=== PATIENT | male | born 1945 | race Caucasian/White ===

== ENCOUNTER 2018-07-10 10:17 | Inpatient (IN) | payer MEDICAID ==
[~2018-07-10] VITALS: Ht 182.9 cm; Wt 82.7 kg
[2018-07-10] MEDS ORDERED: KETOROLAC 15 MG INJ IV STA (11:02)
[2018-07-10] MEDS ORDERED: LACTATED RINGER'S 1,000 ML IV STA (11:02)
--- NOTE | 2018-07-10 11:18 | ERD ---
ER Documentation Chief Complaint Chief Complaint LEFT BIG TOE NECROTIC, SEND BY PMD HPI 72-year-old man complains of discoloration and redness around the plantar aspect of the left big toe and dorsal aspect of the left foot. 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 Gaitan. Patient denies vomiting or abdominal pain, no chest pain or shortness of breath. ROS All systems reviewed and are negative except as per history of present illness. Medications Home Meds Reported Medications Fenofibrate, Micronized (Fenofibrate) 134 Mg Capsule, 1 CAP ORAL DAILY 07/10/18 Buspirone Hcl* (Buspirone Hcl*) 10 Mg Tab, 1 TAB ORAL BID 07/10/18 Pioglitazone Hcl* (Pioglitazone Hcl*) 30 Mg Tablet, 1 TAB ORAL DAILY 07/10/18 Glipizide* (Glipizide*) 10 Mg Tablet, 1 TAB ORAL BID 07/10/18 Allergies Allergies: Coded Allergies: aspirin (Verified Allergy, Mild, 07/10/18) PMhx/Soc Peripheral vascular disease Medical and Surgical Hx: pt denies Surgical Hx Hx Alcohol Use: No Hx Substance Use: No Hx Tobacco Use: Yes Smoking Status: Current every day smoker FmHx Family History: No diabetes Physical Exam Vitals Vital Signs Date Temp Pulse Resp B/P (MAP) Pulse Ox O2 O2 Flow FiO2 Time Delivery Rate 07/10/18 70 16 101/81 100 Room Air 11:45 (88) 07/10/18 97.0 98 18 166/84 99 10:23 (111) Physical Exam GENERAL: Well-developed, well-nourished, well-hydrated, in no apparent distress, looks nontoxic in appearance NEURO: Alert and oriented 3, cranial nerves II through XII intact bilaterally, pupils equal round reactive to light, no focal deficits or facial asymmetry, distal pulses weak bilaterally but equal CARDIAC: Regular rate and rhythm, no murmurs rubs or gallops LUNGS: Clear bilaterally no wheezing crackles or stridor ABDOMEN: Soft nontender, no guarding, no rigidity, no rebound, no psoas sign no obturator sign. Normoactive bowel sounds SKIN: Warm and dry to touch, eschar formation and skin erythema to the left hallux and surrounding left foot EXTREMITIES: Patient has dry gangrene and eschar formation to the plantar aspect of the left hallux and surrounding erythematous indurated skin concerning for cellulitis, no purulent discharge noted, right foot unremarkable. PSYCH: Normal affect without agitation or irritability Result Diagram: 07/10/18 1119 07/10/18 1119 Results 24 hrs Laboratory Tests Test 07/10/18 11:19 White Blood Count 8.2 10^3/ul Red Blood Count 4.16 10^6/ul Hemoglobin 12.2 g/dl Hematocrit 37.1 % Mean Corpuscular Volume 89.2 fl Mean Corpuscular Hemoglobin 29.3 pg Mean Corpuscular Hemoglobin Concent 32.9 g/dl Red Cell Distribution Width 12.8 % Platelet Count 330 10^3/UL Mean Platelet Volume 10.1 fl Immature Granulocytes % 0.200 % Neutrophils % 63.7 % Lymphocytes % 26.1 % Monocytes % 7.1 % Eosinophils % 2.2 % Basophils % 0.7 % Nucleated Red Blood Cells % 0.0 /100WBC Immature Granulocytes # 0.020 10^3/ul Neutrophils # 5.2 10^3/ul Lymphocytes # 2.1 10^3/ul Monocytes # 0.6 10^3/ul Eosinophils # 0.2 10^3/ul Basophils # 0.1 10^3/ul Nucleated Red Blood Cells # 0.0 10^3/ul Prothrombin Time 12.7 Sec Prothrombin Time Ratio 1.0 INR International Normalized Ratio 0.94 Activated Partial Thromboplast Time 32.1 Sec Sodium Level 141 mmol/L Potassium Level 5.4 mmol/L Chloride Level 106 mmol/L Carbon Dioxide Level 27 mmol/L Anion Gap 8 Blood Urea Nitrogen 28 mg/dl Creatinine 0.95 mg/dl Est Glomerular Filtrat Rate mL/min > 60 mL/min Glucose Level 125 mg/dl Calcium Level 10.0 mg/dl Current Medications Medications Dose Sig/Marleen Start Time Status Last (Trade) Ordered Route PRN Stop Time Admin Dose Reason Admin Vancomycin 250 ml @ ONCE ONCE 07/10/18 07/10/18 HCl 125 mls/hr IVPB 11:30 07/10/18 12:13 13:29 Piperacillin 100 ml @ ONCE ONCE 07/10/18 DC 07/10/18 Sod/ 200 mls/hr IVPB 11:30 07/10/18 11:32 Tazobactam 11:59 Sod Lactated 1,000 ml @ Q1H STAT 07/10/18 DC 07/10/18 Ringer's 1,000 mls/hr IV 11:02 07/10/18 11:31 12:01 Ketorolac 15 mg ONCE STAT 07/10/18 DC 07/10/18 Tromethamine IV 11:02 07/10/18 11:31 (Toradol) 11:06 Procedures/[facility] IV line was established patient was placed on hall monitor rhythm strip revealed a sinus rhythm at about 80 bpm with upright P and T waves. Patient was afebrile. Wound culture was obtained. I administered 1 L LR IV x1, vancomycin 1 g IV, Zosyn 3.375 g IV. Patient also received Toradol 15 mg IV x1 Chest X-ray 1V Interpreted by me: Soft Tissue: No acute abnormalities Bones: No acute abnormalities Mediastinum/Cardiac Silhouette/Lungs: No acute abnormalities X-ray left foot 3V Interpreted by me: Bones: No fracture Joints: No dislocation Foreign body: None CBC is unremarkable, electrolytes revealed dehydration and mild hyperkalemia, coagulation profile unremarkable patient admitted to [facility] Diagnosis: Primary Impression: Peripheral vascular disease Additional Impressions: Cellulitis of foot Toe gangrene Condition: IRMA Driscoll MD July 10, 2018 11:18
[2018-07-10] MEDS ORDERED: PIPER-TAZO 3.375 GM IV (PMX) 100 ML IVPB ONE (11:30)
[2018-07-10] MEDS ORDERED: VANCOMYCIN 1 GM (PMX) 250 ML IVPB ONE (11:30)
[2018-07-10] MEDS ORDERED: GLIP10TA14 ORAL (12:26)
[2018-07-10] MEDS ORDERED: PIOG30TA71 ORAL (12:26)
[2018-07-10] MEDS ORDERED: FENO134C ORAL (12:26)
[2018-07-10] MEDS ORDERED: BUSP10TA2 ORAL (12:26)
[2018-07-10] MEDS ORDERED: ONDANSETRON 4 MG INJ IV PRN (14:30)
[2018-07-10] MEDS ORDERED: ACETAMINOPHEN 325 MG TAB PO PRN (14:30)
[2018-07-10] MEDS ORDERED: NACL 0.9% 3 ML SYG IV SCH (14:30)
[2018-07-10] MEDS ORDERED: VANCOMYCIN IV PER PHARMACY XX SCH (14:30)
[2018-07-10] MEDS ORDERED: NA POLYST SULFON 15 GM/60 ML BTL PO ONE (14:30)
--- NOTE | 2018-07-10 14:41 | HP ---
Date/Time of Note Date/Time of Note DATE: 07/10/18 TIME: 14:33 Assessment/Plan VTE Prophylaxis SCD applied (from Nsg): Yes Pharmacological prophylaxis: LMWH Lines/Catheters IV Catheter Type (from Nrsg): Saline Lock Assessment/Plan Hospital Course SUBJECTIVE: Patient with no pain on left foot. No complaints OBJECTIVE: Vital signs-see below PHYSICAL EXAM: Constitutional: Adequately built,not in acute distress. HEENT: Head atraumatic and normocephalic. Eyes: Extraocular muscles intact. Anicteric sclerae. Pupils equal bilaterally, reactive to light. NECK: Supple without lymph node. CHEST: Clear and good breath sounds equally. No wheezing. No rhonchi. HEART: S1, S2. Regular rate and rhythm. ABDOMEN: Soft/non tender with no rebound tenderness. Bowel sounds were present. EXTREMITIES:Left 1st toe dry gangrene.Surrounding dorsal foot area w/erythema/swelling/tenderness. No DP/PT pulse appreciated on left. NEUROLOGIC: Alert and oriented x3. No focal deficit. No sensory deficit. PSYCHOSOCIAL: No signs of depression. INTEGUMENTARY: No open wounds. ASSESSMENT AND PLAN:72 yo M w/hx of triglyceridemia, peripheral vascular disease, type 2 diabetes, anxiety/depression, long-standing tobacco use 1 pack/day was told by his doctor to get admitted for inpatient vascular/podiatry work-up for worsening cellulitis with left toe gangrene... Left foot cellulitis -No evidence to suggest sepsis. -IV vancomycin -ID to manage antimicrobial -Glycemic control/Wound care PAD with left first toe dry gangrene -Onset ~2 mos -MRI to rule out OM -Arterial/venous studies -Podiatry/vascular consult -Continue to optimize neurovascular status with antihypertensives to keep blood pressure ~140/90, diet, nutrition, exercise, blood glucose control, and antiplatelets/anticoagulation. Hyperkalemia -We will treat this with a dose of Kayexalate and will monitor potassium level. -No EKG changes DMII -A1C -Basal/bolus insulin Triglyceridemia -Resume Tricor -Lipid panel-consider addition of statin Anxiety/depression -Resume Buspar Tobacco abuse -Cessation advised. We will provide nicotine patch for withdrawal. Chronic anemia -Stable H&H. Monitor DVT prophylaxis: Lovenox PUD prophylaxis: Not indicated CODE STATUS: Full code Diet: Carbohydrate controlled/low-cholesterol diet. Rest of the management depend on hospital course. Approximately 60 m spent on this history and physical. Patient was seen in collaboration with Dr. Villalpando. Result Diagram: 07/10/18 1119 07/10/18 1119 Results 24hrs Laboratory Tests Test 07/10/18 11:19 White Blood Count 8.2 Red Blood Count 4.16 L Hemoglobin 12.2 L Hematocrit 37.1 L Mean Corpuscular Volume 89.2 Mean Corpuscular Hemoglobin 29.3 Mean Corpuscular Hemoglobin Concent 32.9 Red Cell Distribution Width 12.8 Platelet Count 330 Mean Platelet Volume 10.1 Immature Granulocytes % 0.200 Neutrophils % 63.7 Lymphocytes % 26.1 Monocytes % 7.1 Eosinophils % 2.2 Basophils % 0.7 Nucleated Red Blood Cells % 0.0 Immature Granulocytes # 0.020 Neutrophils # 5.2 Lymphocytes # 2.1 Monocytes # 0.6 Eosinophils # 0.2 Basophils # 0.1 Nucleated Red Blood Cells # 0.0 Prothrombin Time 12.7 Prothrombin Time Ratio 1.0 INR International Normalized Ratio 0.94 Activated Partial Thromboplast Time 32.1 Sodium Level 141 Potassium Level 5.4 H Chloride Level 106 Carbon Dioxide Level 27 Anion Gap 8 Blood Urea Nitrogen 28 H Creatinine 0.95 Est Glomerular Filtrat Rate mL/min > 60 Glucose Level 125 Calcium Level 10.0 HPI/ROS Admit Date/Time Admit Date/Time Hx of Present Illness 72-year-old male with a history of triglyceridemia, peripheral vascular disease 1/left first toe gangrene, type 2 diabetes, anxiety/depression, long-standing tobacco use 1 pack/day was told by his doctor to get admitted for inpatient vascular/podiatry work-up for worsening cellulitis with left toe gangrene. Apparently, patient has been having this toe gangrene for approximately 2months now developed increased redness on dorsal foot with pain. He denied fever, ch ills, numbness, tingling. Patient also denied chest pain, palpitation, shortness of breath, nausea, vomiting, abdominal pain, loss of consciousness, dizziness, headache or other constitutional symptoms. Upon arrival, patient labs with no white count elevation, no left shift. Potassium 5.4. Vital signs stable except for initial elevated blood pressure 166/84 which then dropped to 101/81. Patient had left foot x-ray which was unremarkable. He was given Zosyn and vancomycin in the emergency room. ROS A 12 point review of system was assessed and is negative other than what is mentioned in the HPI. PMH/Family/Social Past Medical History See HPI Medications Current Medications Miscellaneous Information 1 cap DAILY ORAL ; Start 07/11/18 at 09:00; Status UNV Buspirone HCl (Buspar) 10 mg BID PO ; Start 07/10/18 at 21:00; Status UNV Coded Allergies: aspirin (Verified Allergy, Mild, VOMITING, 01/27/09) Past Surgical History See HPI Social History Current every day smoker 1 pack/day, no alcohol/substance abuse history. Smoking Status: Current every day smoker Exam/Review of Systems Vital Signs Vitals Vital Signs Date Temp Pulse Resp B/P (MAP) Pulse Ox O2 O2 Flow FiO2 Time Delivery Rate 07/10/18 67 17 138/69 100 Room Air 13:45 (92) 07/10/18 97.0 10:23 EDDIE PITTMAN NP July 10, 2018 14:41
[2018-07-10] MEDS ORDERED: SODIUM POLYSTYRENE 15 GM KIT (POWDER + SORBITOL) PO ONE (15:00)
--- NOTE | 2018-07-10 16:48 | CONS ---
DATE OF ADMISSION: 07/10/2018 DATE OF CONSULTATION: 07/10/2018 TYPE OF CONSULTATION: Infectious disease. REASON FOR CONSULTATION: Antibiotic management. HISTORY OF PRESENT ILLNESS: Roman Jones is a 72-year-old male who comes in and sent in by his PM D for necrotic left big toe. The patient complained of discoloration and redness around the plantar aspect of the left big toe on the dorsal aspect of left foot. He was on oral antibiotics without rel ief. 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 Tejal ventura, vascular surgeon. PAST MEDICAL HISTORY: The patient has peripheral vascular disease. He denies surgical history. Pro blems include adult onset diabetes mellitus. SOCIAL HISTORY: He is an everyday smoker. He does not drink or abuse drugs. ALLERGIES: ASPIRIN. MEDICATIONS: Per chart. REVIEW OF SYSTEMS: Noncontributory. PHYSICAL EXAMINATION: GENERAL: Well-developed, well-nourished male who is awake, responsive, in no acute distress. VITAL SIGNS: Stable. He is afebrile. SKIN: Without generalized rash. HEENT: Within normal limits. NECK: Supple. LYMPH NODES: None palpable. CHEST: Decreased breath sounds at the bases. HEART: Without murmur or gallop. ABDOMEN: Soft, nontender without organosplenomegaly or masses. EXTREMITIES: He has an eschar formation, skin erythema of the left hallux and surrounding left foot. He has dry gangrene and eschar formation on the plantar aspect of the left hallux. It is indurated consistent with cellulitis. No purulent discharge noted. Right foot is unremarkable. RECTAL AND GENITAL: Deferred. NEUROLOGIC: No focal neurological abnormality. ANCILLARY LABORATORY DATA: White count 8.2, H and H of 12.2 and 37.1, platelet count 330,000. BUN a nd creatinine is 28/0.95. The patient was started on vancomycin and Zosyn. DIAGNOSTIC DATA: X-ray of the foot shows no fractures or dislocations. IMPRESSION AND PLAN: We will continue vancomycin and Zosyn. The patient is to be evaluated by Dr. Omer messina. I will dictate my findings to the hospitalist. He should be seen by podiatry as well. Dictated By: CATRACHITA LOPEZ MD, JD/BERENICE Conf#: [id number] [facility]#: [id number] CC: DAGOBERTO BRANNON MD; ALEXANDER LUND MD;*End*
[2018-07-10 17:00] VITALS: BP 153/67; PULSE 69; RESP 16
[2018-07-10] MEDS: INSULIN ASPART [NOVOLOG] 3 ML PEN SC SCH ×2 (17:40→20:46)
[2018-07-10 17:57] VITALS: BP 153/67; PULSE 69; RESP 18
--- NOTE | 2018-07-10 18:49 | CONS ---
DATE OF ADMISSION: 07/10/2018 DATE OF CONSULTATION: 07/10/2018 REASON FOR CONSULTATION: Left 1st toe dry gangrene. HISTORY OF PRESENT ILLNESS: This is a 72-year-old diabetic hypertensive gentleman. He is a pack a d ay smoker for many years, who developed now dry gangrene of the left 1st toe. It started 3 months ag o. He cut his toenail a little too close and developed an ulcer that he has gone on to progress to g angrene despite ongoing wound care. He was sent by his performing artist, Dr. Castillo, to the ER for furthe r evaluation. He has never had any previous problems with his feet. He does not have any history of coronary artery disease. His kidneys function is normal. He does have a lot of pain in the 1st toe . He is still smoking a pack a day every day. PAST MEDICAL HISTORY: Again, significant for diabetes type 2, smoking and anxiety. He has hypertrig lyceridemia, peripheral arterial disease. He has chronic anemia. MEDICATIONS PRIOR TO ADMISSION: Consist of BuSpar. He is now gettin. TriCor. 2. Subcutaneous Lovenox. 3. Insulin. 4. Kayexalate for elevated potassium. 5. Little Silver. 6. Vancomycin. 7. Zosyn. ALLERGIES: SOCIAL HISTORY: He is a pack a day smoker for many years. He is retired. 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 He started the process of getting Medi-Pilo a nd has not been completed it yet. FAMILY HISTORY: Noncontributory. REVIEW OF SYSTEMS: He denies any chest pain or shortness of breath. No nausea, vomiting, diarrhea. No fever, no chills, no recent weight gain or weight loss. He does have calf claudication that is c hronic. He has pain in the left 1st toe. PHYSICAL EXAMINATION: GENERAL: He is an elderly gentleman. He speaks Jordanian, but his Italian is excellent. He is fluent. VITAL SIGNS: He has been afebrile. His blood pressure is 111/74, heart rate 71, respiratory rate is 14, he is 100% sat on room air. PERIPHERAL VASCULAR: He has 2+ carotid, radial and brachial pulses bilaterally. LUNGS: Clear. HEART: Regular rate and rhythm. ABDOMEN: Soft, nontender, nondistended. EXTREMITIES: He has 2+ femoral pulses bilaterally. Popliteal, DP and PT pulses are not palpable. O n right foot, there are no wounds. Actually, he has got is a small ulcer on the tip of the right 2nd toe. It looks like the toenail came off from fungal infection. It is not draining and there is no sign of infection. On left first toe, the tip just has dry gangrene. There is no erythema. More pr oximally, there is no drainage. He is in the process of getting some arterial studies. While watching the study, there appears he metcalf s high-grade left SFA stenosis. The runoff has not been evaluated yet, so he is not quite done with the test yet. LABORATORY DATA: Look normal. He got normal kidney function, normal coags, normal white count. IMPRESSION: Left 1st toe dry gangrene. It progressed over the last 3 months. He has been admitted. Dr. Breaux has seen him from podiatry standpoint. I scheduled him for an arteriogram of the lef t lower extremity with possible intervention tomorrow. I discussed that with him at length. I am go ing to go ahead and proceed and see what we can do to revascularize him. Dictated By: DAGOBERTO ALTMAN/BERENICE Conf#: [id number] [facility]#: [id number] CC: BRAN CASTILLO DPM; LUIS FERNANDO BREAUX DPM; EDDIE PITTMAN LEATHER [employer] MAKER; JP ADAMS MD;*EndCC*
[2018-07-10 20:21] VITALS: BP 150/67; PULSE 80; RESP 18
[2018-07-10] MEDS: VANCOMYCIN 1 GM 250 ML IVPB SCH (20:39)
[2018-07-10] MEDS: BUSPIRONE 10 MG TAB PO SCH (20:46)
[2018-07-10] MEDS: INSULIN GLARGINE [LANTus] (100 UNITS/ML) SYG SC SCH (20:48)
--- NOTE | 2018-07-10 21:43 | CONS ---
Assessment/Plan Assessment/Plan Assessment/Plan (Daily) Left foot dry gangrene Left foot cellulitis PAD DM2 with peripheral neuropathy Nicotine dependence Plan Reviewed X-rays and arterial studies. Patient is planned for angiogram tomorrow and had discussion with Dr. Dockery. No plan for debridements at this time. Discussed smoking cessation and educated patient on adverse effects of blood flow. Continue with IV abx per recommendations. Betadine paint to the gangrene area. Consultation Date/Type/Reason Admit Date/Time Date/Time of Note DATE: 07/10/18 TIME: 21:43 Hx of Present Illness 72 y/o diabetic male with long time smoking hx presents with a left hallux gangrene. Patient states it started a couple months ago as he was attempting to cut his own toe nails and accidently cut his toe with the nail nipper. Patient had attempted to treat it with topical antibiotic cream. Patient noticed worsening gangrene appearance and redness to the surrounding toe. Patient denies f/c/n/v no chest pain or shortness of breath. ROS Negative except for HPI Past Medical History triglyceridemia, peripheral vascular disease 1/left first toe gangrene, type 2 diabetes, anxiety/depression, long-standing tobacco use 1 pack/day Home Meds Reported Medications Fenofibrate, Micronized (Fenofibrate) 134 Mg Capsule, 1 CAP ORAL DAILY 07/10/18 Buspirone Hcl* (Buspirone Hcl*) 10 Mg Tab, 1 TAB ORAL BID 07/10/18 Pioglitazone Hcl* (Pioglitazone Hcl*) 30 Mg Tablet, 1 TAB ORAL DAILY 07/10/18 Glipizide* (Glipizide*) 10 Mg Tablet, 1 TAB ORAL BID 07/10/18 Medications Current Medications Fenofibrate (Tricor) 145 mg DAILY PO ; Start 07/11/18 at 09:00 Buspirone HCl (Buspar) 10 mg BID PO Last administered on 07/10/18at 20:46; Admin Dose 10 MG; Start 07/10/18 at 21:00 IV Flush (NS 3 ml) 3 ml PER PROTOCOL IV ; Start 07/10/18 at 14:30 Ondansetron HCl (Zofran Inj) 4 mg Q6H PRN IV NAUSEA/VOMITING; Start 07/10/18 at 14:30 Acetaminophen (Tylenol Tab) 650 mg Q6H PRN PO .PAIN 1-3 OR TEMP; Start 07/10/18 at 14:30 Acetaminophen/ Hydrocodone Bitart ([place] (5/325)) 1 tab Q6H PRN PO .MOD PAIN 4-6; Start 07/10/18 at 14:30 Enoxaparin Sodium (Lovenox) 40 mg DAILY SC ; Start 07/11/18 at 09:00 Diagnostic Test (Pha) (Accu-Chek) 1 XX ; Start 07/11/18 at 02:00 Insulin Glargine (Lantus) 12 units DAILY@2000 SC Last administered on 07/10/18at 20:48; Admin Dose 12 UNITS; Start 07/10/18 at 20:00 Insulin Aspart (Novolog Insulin Pen) NOVOLOG *MILD* ALGORITHM WITH MEALS BEDTIME SC ; Start 07/10/18 at 18:00 Vancomycin HCl (Vanco Iv Per Pharmacy) VANCOMYCIN PER PHARMACY PER PROTOCOL XX ; Start 07/10/18 at 14:30 Vancomycin HCl 250 ml @ 125 mls/hr Q12H IVPB Last administered on 07/10/18at 20:39; Admin Dose 125 MLS/HR; Start 07/10/18 at 20:00 Allergies: Coded Allergies: aspirin (Verified Allergy, Mild, VOMITING, 01/27/09) Past Surgical History kidney stone removal Family History Significant Family History: diabetes Social History Smoking Status: Current every day smoker Exam/Review of Systems Exam Vitals Vital Signs Date Temp Pulse Resp B/P (MAP) Pulse Ox O2 O2 Flow FiO2 Time Delivery Rate 07/10/18 98.1 80 18 150/67 96 Room Air 20:21 (94) Exam Non Non palpable DP/PT pulses absent protective sensations right 2nd digit dry hypkeratotic lesion with underlying mycotic toe nail Left hallux dry gangrene with surrounding erythema Left lateral malleolus dry eschar Muscle strength 5/5 in all compartments of the foot Mild pain on palpation to left hallux gangrene site. Foot X-ray IMPRESSION: Unremarkable left foot x-ray series. In the setting of suspected infection, MRI is recommended to exclude osteomyelitis. Non invasive Arterial studies IMPRESSION: Patent left lower extremity arteries with no arterial occlusion identified. Elevated peak systolic velocity in the mid superficial femoral artery, consistent with a greater than 75% stenosis. There are monophasic waveforms in the arteries beyond this point, indicating diminished inflow due to the upstream stenosis. Results Result Diagram: 07/10/18 1119 07/10/18 1119 Results 24hrs Laboratory Tests Test 07/10/18 11:19 07/10/18 17:39 07/10/18 20:45 White Blood Count 8.2 Red Blood Count 4.16 L Hemoglobin 12.2 L Hematocrit 37.1 L Mean Corpuscular Volume 89.2 Mean Corpuscular Hemoglobin 29.3 Mean Corpuscular Hemoglobin Concent 32.9 Red Cell Distribution Width 12.8 Platelet Count 330 Mean Platelet Volume 10.1 Immature Granulocytes % 0.200 Neutrophils % 63.7 Lymphocytes % 26.1 Monocytes % 7.1 Eosinophils % 2.2 Basophils % 0.7 Nucleated Red Blood Cells % 0.0 Immature Granulocytes # 0.020 Neutrophils # 5.2 Lymphocytes # 2.1 Monocytes # 0.6 Eosinophils # 0.2 Basophils # 0.1 Nucleated Red Blood Cells # 0.0 Prothrombin Time 12.7 Prothrombin Time Ratio 1.0 INR International Normalized Ratio 0.94 Activated Partial Thromboplast Time 32.1 Sodium Level 141 Potassium Level 5.4 H Chloride Level 106 Carbon Dioxide Level 27 Anion Gap 8 Blood Urea Nitrogen 28 H Creatinine 0.95 Est Glomerular Filtrat Rate mL/min > 60 Glucose Level 125 Calcium Level 10.0 Bedside Glucose 96 143 Medications Medication Current Medications Fenofibrate (Tricor) 145 mg DAILY PO ; Start 07/11/18 at 09:00 Buspirone HCl (Buspar) 10 mg BID PO Last administered on 07/10/18at 20:46; Admin Dose 10 MG; Start 07/10/18 at 21:00 IV Flush (NS 3 ml) 3 ml PER PROTOCOL IV ; Start 07/10/18 at 14:30 Ondansetron HCl (Zofran Inj) 4 mg Q6H PRN IV NAUSEA/VOMITING; Start 07/10/18 at 14:30 Acetaminophen (Tylenol Tab) 650 mg Q6H PRN PO .PAIN 1-3 OR TEMP; Start 07/10/18 at 14:30 Acetaminophen/ Hydrocodone Bitart ([place] (5/325)) 1 tab Q6H PRN PO .MOD PAIN 4- 6; Start 07/10/18 at 14:30 Enoxaparin Sodium (Lovenox) 40 mg DAILY SC ; Start 5/9/19 at 09:00 Diagnostic Test (Pha) (Accu-Chek) XX ; Start 07/11/18 at 02:00 Insulin Glargine (Lantus) 12 units DAILY@2000 SC Last administered on 07/10/18at 20:48; Admin Dose 12 UNITS; Start 07/10/18 at 20:00 Insulin Aspart (Novolog Insulin Pen) NOVOLOG *MILD* ALGORITHM WITH MEALS BEDTIME SC ; Start 07/10/18 at 18:00 Vancomycin HCl (Vanco Iv Per Pharmacy) VANCOMYCIN PER PHARMACY PER PROTOCOL XX ; Start 07/10/18 at 14:30 Vancomycin HCl 250 ml @ 125 mls/hr Q12H IVPB Last administered on 07/10/18at 20:39; Admin Dose 125 MLS/HR; Start 07/10/18 at 20:00 LUIS FERNANDO BREAUX DPM July 10, 2018 21:43
[2018-07-11] VITALS (17 sets, daily range): BP systolic 122–167; BP diastolic 50–91; PULSE 65–72; RESP 9–32
[2018-07-11] MEDS ORDERED: ACCU-CHEK XX SCH (02:00)
[2018-07-11] MEDS ORDERED: GLUCOSE GEL 15 GRAM TUBE PO PRN ×2 (06:45)
[2018-07-11] MEDS ORDERED: DEXTROSE 50% 50 ML SYRINGE IV PRN ×2 (06:45)
[2018-07-11] MEDS ORDERED: GLUCAGON 1 MG INJ IM PRN (06:45)
[2018-07-11] MEDS ORDERED: GLUCOSE GEL 15 GRAM TUBE BUCCAL PRN (06:45)
[2018-07-11] MEDS: BUSPIRONE 10 MG TAB PO SCH ×2 (08:05→21:16)
[2018-07-11] MEDS: ENOXAPARIN 40 MG/0.4 ML SYG SC SCH (08:05)
[2018-07-11] MEDS: FENOFIBRATE 145 MG TAB PO SCH (08:05)
[2018-07-11] MEDS: INSULIN ASPART [NOVOLOG] 3 ML PEN SC SCH ×4 (08:09→21:36)
[2018-07-11] MEDS: VANCOMYCIN 1 GM 250 ML IVPB SCH ×2 (08:28→21:16)
[2018-07-11] MEDS: NICOTINE (21 MG/24 HR) PATCH TRANSDERM SCH (08:28)
--- NOTE | 2018-07-11 11:13 | PN ---
Date/Time of Note Date/Time of Note DATE: 07/11/18 TIME: 11:05 Assessment/Plan VTE Prophylaxis Risk score (from Ns)>0 risk: 2 SCD applied (from Ns): No SCD contraindicated: other Pharmacological prophylaxis: LMWH Lines/Catheters IV Catheter Type (from [facility]): [place] Assessment/Plan Hospital Course SUBJECTIVE: No complaints OBJECTIVE: Vital signs-see below PHYSICAL EXAM: Constitutional: Adequately built,not in acute distress. HEENT: Head atraumatic and normocephalic. Eyes: Extraocular muscles intact. Anicteric sclerae. Pupils equal bilaterally, reactive to light. NECK: Supple without lymph node. CHEST: Clear and good breath sounds equally. No wheezing. No rhonchi. HEART: S1, S2. Regular rate and rhythm. ABDOMEN: Soft/non tender with no rebound tenderness. Bowel sounds were present. EXTREMITIES:Left 1st toe dry gangrene.Surrounding dorsal foot area w/erythema/swelling/tenderness. No DP/PT palpable pulse. NEUROLOGIC: Alert and oriented x3. No focal deficit. No sensory deficit. PSYCHOSOCIAL: No signs of depression. INTEGUMENTARY: No open wounds. ASSESSMENT AND PLAN:72 yo M w/hx of triglyceridemia, peripheral vascular disease, type 2 diabetes, anxiety/depression, long-standing tobacco use 1 pack/day was told by his doctor to get admitted for inpatient vascular/podiatry work-up for worsening cellulitis with left toe gangrene... Left foot cellulitis -No evidence to suggest sepsis. 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 -IV abx-would need it for correction if no amputation happens -follow Podiatry/vascular consult -Continue to optimize neurovascular status with antihypertensives to keep blood pressure ~140/90, diet, nutrition, exercise, blood glucose control, and antiplatelets/anticoagulation. Hyperkalemia -We will treat this with a dose of Kayexalate and will monitor potassium level. -No EKG changes DMII -well-controlled -Basal/bolus insulin Triglyceridemia -on Tricor Anxiety/depression -on Buspar Tobacco abuse -Cessation advised. PRN nicotine patch for withdrawal. Chronic anemia -Stable H&H. Monitor DVT prophylaxis: Lovenox PUD prophylaxis: Not indicated CODE STATUS: Full code Diet: Carbohydrate controlled/low-cholesterol diet. Disp:F/u vascular/Podiatry recs. Patient was seen in collaboration with Dr. Villalpando. Result Diagram: 07/11/18 0614 07/11/18 0614 Results 24hrs Laboratory Tests Test 07/10/18 11:19 07/10/18 17:39 07/10/18 20:45 07/11/18 06:14 White Blood Count 8.2 6.6 Red Blood Count 4.16 L 3.73 L Hemoglobin 12.2 L 11.1 L Hematocrit 37.1 L 32.9 L Mean Corpuscular Volume 89.2 88.2 Mean Corpuscular 29.3 29.8 Hemoglobin Mean Corpuscular 32.9 33.7 Hemoglobin Concent Red Cell Distribution 12.8 12.6 Width Platelet Count 330 285 Mean Platelet Volume 10.1 9.2 Immature Granulocytes % 0.200 0.300 Neutrophils % 63.7 54.7 Lymphocytes % 26.1 31.1 Monocytes % 7.1 9.0 Eosinophils % 2.2 4.1 Basophils % 0.7 0.8 Nucleated Red Blood 0.0 0.0 Cells % Immature Granulocytes # 0.020 0.020 Neutrophils # 5.2 3.6 Lymphocytes # 2.1 2.0 Monocytes # 0.6 0.6 Eosinophils # 0.2 0.3 Basophils # 0.1 0.1 Nucleated Red Blood 0.0 0.0 Cells # Prothrombin Time 12.7 Prothrombin Time Ratio 1.0 INR International 0.94 Normalized Ratio Activated 32.1 Partial Thromboplast Time Sodium Level 141 142 Potassium Level 5.4 H 3.5 Chloride Level 106 108 Carbon Dioxide Level 27 25 Anion Gap 8 9 Blood Urea Nitrogen 28 H 31 H Creatinine 0.95 0.92 Est Glomerular Filtrat > 60 > 60 Rate mL/min Glucose Level 125 80 # Calcium Level 10.0 9.4 Bedside Glucose 96 143 Hemoglobin A1c 6.4 H Phosphorus Level 3.7 Magnesium Level 1.9 Total Bilirubin 0.2 Direct Bilirubin 0.00 Indirect Bilirubin 0.2 Aspartate Amino 19 Transf (AST/SGOT) Alanine 9 L Aminotransferase (ALT/SG PT) Alkaline Phosphatase 37 L Total Protein 6.5 Albumin 3.6 Globulin 2.90 Albumin/Globulin Ratio 1.24 Triglycerides Level 146 Cholesterol Level 154 LDL Cholesterol, 101 Calculated HDL Cholesterol 24 L Cholesterol/HDL Ratio 6.4 Test 07/11/18 08:07 Bedside Glucose 86 Exam/Review of Systems Exam Vitals Vital Signs Date Temp Pulse Resp B/P (MAP) Pulse Ox O2 O2 Flow FiO2 Time Delivery Rate 07/11/18 98.1 66 18 141/65 99 02:01 (90) 07/10/18 Room Air 20:21 Intake and Output 07/10/18 07/10/18 07/11/18 1515:00 23:00 07:00 IntakeIntake Total 1100 ml 300 ml 550 ml BalanceBalance 1100 ml 300 ml 550 ml Results Results 24hrs Laboratory Tests Test 07/10/18 11:19 07/10/18 17:39 07/10/18 20:45 07/11/18 06:14 White Blood Count 8.2 6.6 Red Blood Count 4.16 L 3.73 L Hemoglobin 12.2 L 11.1 L Hematocrit 37.1 L 32.9 L Mean Corpuscular Volume 89.2 88.2 Mean Corpuscular 29.3 29.8 Hemoglobin Mean Corpuscular 32.9 33.7 Hemoglobin Concent Red Cell Distribution 12.8 12.6 Width Platelet Count 330 285 Mean Platelet Volume 10.1 9.2 Immature Granulocytes % 0.200 0.300 Neutrophils % 63.7 54.7 Lymphocytes % 26.1 31.1 Monocytes % 7.1 9.0 Eosinophils % 2.2 4.1 Basophils % 0.7 0.8 Nucleated Red Blood 0.0 0.0 Cells % Immature Granulocytes # 0.020 0.020 Neutrophils # 5.2 3.6 Lymphocytes # 2.1 2.0 Monocytes # 0.6 0.6 Eosinophils # 0.2 0.3 Basophils # 0.1 0.1 Nucleated Red Blood 0.0 0.0 Cells # Prothrombin Time 12.7 Prothrombin Time Ratio 1.0 INR International 0.94 Normalized Ratio Activated 32.1 Partial Thromboplast Time Sodium Level 141 142 Potassium Level 5.4 H 3.5 Chloride Level 106 108 Carbon Dioxide Level 27 25 Anion Gap 8 9 Blood Urea Nitrogen 28 H 31 H Creatinine 0.95 0.92 Est Glomerular Filtrat > 60 > 60 Rate mL/min Glucose Level 125 80 # Calcium Level 10.0 9.4 Bedside Glucose 96 143 Hemoglobin A1c 6.4 H Phosphorus Level 3.7 Magnesium Level 1.9 Total Bilirubin 0.2 Direct Bilirubin 0.00 Indirect Bilirubin 0.2 Aspartate Amino 19 Transf (AST/SGOT) Alanine 9 L Aminotransferase (ALT/SG PT) Alkaline Phosphatase 37 L Total Protein 6.5 Albumin 3.6 Globulin 2.90 Albumin/Globulin Ratio 1.24 Triglycerides Level 146 Cholesterol Level 154 LDL Cholesterol, 101 Calculated HDL Cholesterol 24 L Cholesterol/HDL Ratio 6.4 Test 07/11/18 08:07 Bedside Glucose 86 Medications Medication Current Medications Fenofibrate (Tricor) 145 mg DAILY PO ; Start 07/11/18 at 09:00 Buspirone HCl (Buspar) 10 mg BID PO Last administered on 07/10/18at 20:46; Admin Dose 10 MG; Start 07/10/18 at 21:00 IV Flush (NS 3 ml) 3 ml PER PROTOCOL IV ; Start 07/10/18 at 14:30 Ondansetron HCl (Zofran Inj) 4 mg Q6H PRN IV NAUSEA/VOMITING; Start 07/10/18 at 14:30 Acetaminophen (Tylenol Tab) 650 mg Q6H PRN PO .PAIN 1-3 OR TEMP; Start 07/10/18 at 14:30 Acetaminophen/ Hydrocodone Bitart ([place] (5/325)) 1 tab Q6H PRN PO .MOD PAIN 4- 6; Start 07/10/18 at 14:30 Enoxaparin Sodium (Lovenox) 40 mg DAILY SC ; Start 07/11/18 at 09:00 Insulin Glargine (Lantus) 12 units DAILY@2000 SC Last administered on 07/10/18at 20:48; Admin Dose 12 UNITS; Start 07/10/18 at 20:00 Vancomycin HCl (Vanco Iv Per Pharmacy) VANCOMYCIN PER PHARMACY PER PROTOCOL XX ; Start 07/10/18 at 14:30 Vancomycin HCl 250 ml @ 125 mls/hr Q12H IVPB Last administered on 07/11/18at 08:28; Admin Dose 125 MLS/HR; Start 07/10/18 at 20:00 Nicotine (Nicoderm 21 Mg/ 24hr) 1 patch DAILY TRANSDERM Last administered on 07/11/18at 08:28; Admin Dose 1 PATCH; Start 07/11/18 at 09:00 Insulin Aspart (Novolog Insulin Pen) NOVOLOG *MILD* ALGORI... Q4 SC ; Start 07/11/18 at 09:00 Miscellaneous Information 1 ea NOTE XX ; Start 07/11/18 at 06:45 Glucose (Glutose) 15 gm Q15M PRN PO DECREASED GLUCOSE; Start 07/11/18 at 06:45 Glucose (Glutose) 22.5 gm Q15M PRN PO DECREASED GLUCOSE; Start 07/11/18 at 06:45 Dextrose (D50w Syringe) 25 ml Q15M PRN IV DECREASED GLUCOSE; Start 07/11/18 at 06:45 Dextrose (D50w Syringe) 50 ml Q15M PRN IV DECREASED GLUCOSE; Start 07/11/18 at 06:45 Glucagon (Glucagen) 1 mg Q15M PRN IM DECREASED GLUCOSE; Start 07/11/18 at 06:45 Glucose (Glutose) 15 gm Q15M PRN BUCCAL DECREASED GLUCOSE; Start 07/11/18 at 06:45 EDDIE PITTMAN NP July 11, 2018 11:13
[2018-07-11] MEDS ORDERED: NICOTINE (14 MG/24 HR) PATCH TRANSDERM SCH (11:30)
--- NOTE | 2018-07-11 13:02 | CONS ---
DATE OF ADMISSION: 07/10/2018 DATE OF CONSULTATION: 07/11/2018 SUBJECTIVE FINDINGS: The patient being followed up for his left foot, his cellulitis and dry gangren e of distal aspect of the toe. He is scheduled for angiogram and possible intervention today. The p atient is currently on p.o. The patient relates smoking a pack every day. PAST MEDICAL HISTORY: 1. Diabetes type 2. 2. Tobacco use, anxiety. 3. Hyperglycemia. 4. Peripheral arterial disease. 5. Chronic anemia. MEDICATIONS: Include: 1. Vancomycin. 2. Zosyn. PHYSICAL EXAMINATION: GENERAL: Alert, oriented, in no acute distress. RESPIRATORY: Regular respiration. EXTREMITIES: The patient's left foot gangrene of distal tip, left hallux unstageable, involves a por tion below the nail plate, dry scaly skin, epidermolysis of skin, cellulitis localized, possible terence a to the adjacent toes. Cellulitis appears to be resolving. He has cutaneous ulceration to the left lateral malleolus measuring approximately 1 cm in diameter. Pain with palpation to the left hallux. DIAGNOSTIC DATA: X-rays: No fracture or dislocation, periostitis or osteochondral defects. MRI: 1. Probable ulceration at the medial aspect of the 1st proximal phalanx. Findings of early osteomye litis of the 1st distal phalanx and head of the proximal phalanx. 2. Abnormal bone marrow signal at the head of the 2nd proximal phalanx. No evidence of abscess. Arterial study: Patent left lower extremity arteries with no arterial occlusion. Elevated peak syst olic velocity in the mid superficial femoral artery consistent with greater than 75% stenosis. There are monophasic waveforms in the arteries beyond this point indicating diminishing flow due to the up stream stenosis. Venous ultrasound: No evidence of deep vein thrombosis in the left lower extremity. LABORATORIES: WBC 6.6, hemoglobin 11.11, hematocrit 32, platelets 285. Sodium 142, potassium 3.5, c hloride 108, CO2 of 25, BUN 31, creatinine 0.92, glucose is 80. Hemoglobin A1c is 6.4. ASSESSMENT: 1. Left foot gangrene of hallux. 2. Cellulitis. 3. History of tobacco use. 4. Peripheral arterial disease with high-grade left SFA stenosis. PLAN: Dressings are changed. The patient is n.p.o. The patient is scheduled for arteriogram with p ossible intervention. Further recommendations following vascular procedure. Dictated By: AMISH MAHAN DPM RB/BERENICE Conf#: [id number] DID#: [id number] CC: DAGOBERTO BRANNON MD; JP ADAMS MD;*EndCC*
[2018-07-11] MEDS ORDERED: FENTAnyl 50 MCG/ML VIAL ONE (14:51)
[2018-07-11] MEDS ORDERED: MIDAZOLAM 1 MG/ML 2 ML INJ ONE (14:51)
--- NOTE | 2018-07-11 15:12 | CONS ---
Assessment/Plan Assessment/Plan Hospital Course (Demo Recall) Pt is off the floor for procedure. No acute events per report, no fevers, wound cx + GNR Vanco, s/p Zosyn ASSESSMENT: 1. Left foot gangrene of hallux. 2. Cellulitis. 3. History of tobacco use. 4. Peripheral arterial disease with high-grade left SFA stenosis Plan: Restart Zosyn, await for final cx, podiatry/vascular surgery rec-s Consultation Date/Type/Reason Admit Date/Time July 10, 2018 at 12:52 Initial Consult Date Type of Consult id Date/Time of Note DATE: 07/11/18 TIME: 15:09 Exam/Review of Systems Exam Vitals Vital Signs Date Temp Pulse Resp B/P (MAP) Pulse Ox O2 O2 Flow FiO2 Time Delivery Rate 07/11/18 99.3 71 16 167/76 97 Room Air 14:51 (106) Intake and Output 07/10/18 07/10/18 07/11/18 1515:00 23:00 07:00 IntakeIntake Total 1100 ml 300 ml 550 ml BalanceBalance 1100 ml 300 ml 550 ml Results Result Diagram: 07/11/18 0614 07/11/18 0614 Results 24hrs Laboratory Tests Test 07/10/18 17:39 07/10/18 20:45 07/11/18 06:14 07/11/18 08:07 Bedside Glucose 96 143 86 White Blood Count 6.6 Red Blood Count 3.73 L Hemoglobin 11.1 L Hematocrit 32.9 L Mean Corpuscular Volume 88.2 Mean Corpuscular 29.8 Hemoglobin Mean Corpuscular 33.7 Hemoglobin Concent Red Cell Distribution 12.6 Width Platelet Count 285 Mean Platelet Volume 9.2 Immature Granulocytes % 0.300 Neutrophils % 54.7 Lymphocytes % 31.1 Monocytes % 9.0 Eosinophils % 4.1 Basophils % 0.8 Nucleated Red Blood 0.0 Cells % Immature Granulocytes # 0.020 Neutrophils # 3.6 Lymphocytes # 2.0 Monocytes # 0.6 Eosinophils # 0.3 Basophils # 0.1 Nucleated Red Blood 0.0 Cells # Sodium Level 142 Potassium Level 3.5 Chloride Level 108 Carbon Dioxide Level 25 Anion Gap 9 Blood Urea Nitrogen 31 H Creatinine 0.92 Est Glomerular Filtrat > 60 Rate mL/min Glucose Level 80 # Hemoglobin A1c 6.4 H Calcium Level 9.4 Phosphorus Level 3.7 Magnesium Level 1.9 Total Bilirubin 0.2 Direct Bilirubin 0.00 Indirect Bilirubin 0.2 Aspartate Amino 19 Transf (AST/SGOT) Alanine 9 L Aminotransferase (ALT/SG PT) Alkaline Phosphatase 37 L Total Protein 6.5 Albumin 3.6 Globulin 2.90 Albumin/Globulin Ratio 1.24 Triglycerides Level 146 Cholesterol Level 154 LDL Cholesterol, 101 Calculated HDL Cholesterol 24 L Cholesterol/HDL Ratio 6.4 Test 07/11/18 12:09 Bedside Glucose 80 Medications Medication Current Medications Fenofibrate (Tricor) 145 mg DAILY PO ; Start 07/11/18 at 09:00 Buspirone HCl (Buspar) 10 mg BID PO Last administered on 07/10/18at 20:46; Admin Dose 10 MG; Start 07/10/18 at 21:00 IV Flush (NS 3 ml) 3 ml PER PROTOCOL IV ; Start 07/10/18 at 14:30 Ondansetron HCl (Zofran Inj) 4 mg Q6H PRN IV NAUSEA/VOMITING; Start 07/10/18 at 14:30 Acetaminophen (Tylenol Tab) 650 mg Q6H PRN PO .PAIN 1-3 OR TEMP; Start 07/10/18 at 14:30 Acetaminophen/ Hydrocodone Bitart ([place] (5/325)) 1 tab Q6H PRN PO .MOD PAIN 4- 6; Start 07/10/18 at 14:30 Enoxaparin Sodium (Lovenox) 40 mg DAILY SC ; Start 07/11/18 at 09:00 Insulin Glargine (Lantus) 12 units DAILY@2000 SC Last administered on 07/10/18at 20:48; Admin Dose 12 UNITS; Start 07/10/18 at 20:00 Vancomycin HCl (Vanco Iv Per Pharmacy) VANCOMYCIN PER PHARMACY PER PROTOCOL XX ; Start 07/10/18 at 14:30 Vancomycin HCl 250 ml @ 125 mls/hr Q12H IVPB Last administered on 07/11/18at 08:28; Admin Dose 125 MLS/HR; Start 07/10/18 at 20:00 Nicotine (Nicoderm 21 Mg/ 24hr) 1 patch DAILY TRANSDERM Last administered on 07/11/18at 08:28; Admin Dose 1 PATCH; Start 07/11/18 at 09:00 Insulin Aspart (Novolog Insulin Pen) NOVOLOG *MILD* ALGORI... Q4 SC ; Start 07/11/18 at 09:00 Miscellaneous Information 1 ea NOTE XX ; Start 07/11/18 at 06:45 Glucose (Glutose) 15 gm Q15M PRN PO DECREASED GLUCOSE; Start 07/11/18 at 06:45 Glucose (Glutose) 22.5 gm Q15M PRN PO DECREASED GLUCOSE; Start 07/11/18 at 06:45 Dextrose (D50w Syringe) 25 ml Q15M PRN IV DECREASED GLUCOSE; Start 07/11/18 at 06:45 Dextrose (D50w Syringe) 50 ml Q15M PRN IV DECREASED GLUCOSE; Start 07/11/18 at 06:45 Glucagon (Glucagen) 1 mg Q15M PRN IM DECREASED GLUCOSE; Start 07/11/18 at 06:45 Glucose (Glutose) 15 gm Q15M PRN BUCCAL DECREASED GLUCOSE; Start 07/11/18 at 06:45 Miscellaneous Information (*Rx Drug Level Order Reminder*) LUCIANOO TR LEVEL PRIOR... 1900 ONCE XX ; Start 07/11/18 at 19:00; Stop 07/11/18 at 19:01 JUAN GARCIA NP July 11, 2018 15:12
[2018-07-11] MEDS ORDERED: LIDOCAINE 1% (MDV) 20 ML INJ ONE (15:13)
[2018-07-11] MEDS ORDERED: HEPARIN 1000 UNITS/NS (A-LINE) 1,000 ML ONE (15:13)
[2018-07-11] MEDS ORDERED: IODIXANOL LOCM 100 ML BTL ONE (15:13)
[2018-07-11] MEDS ORDERED: HEPARIN 1000 UNITS/ML 10 ML INJ ONE (15:13)
--- NOTE | 2018-07-11 15:39 | SIPON ---
Date/Time of Note Date/Time of Note DATE: 07/11/18 TIME: 15:38 Operative Report Preoperative Diagnosis L foot gangrene Postoperative Diagnosis same Operation/Procedure Performed aortogram, LLE runoff Surgeon see signature line purchasing assistant none Anesthesia: moderate sedation, other Estimated blood loss: none Transfusion Required none Specimen none Grafts/Implants none Complications none DAGOBERTO BRANNON MD July 11, 2018 15:39
[2018-07-11] MEDS: PIPER-TAZO 3.375 GM IV (PMX) 100 ML IVPB SCH ×2 (17:45→23:24)
--- NOTE | 2018-07-11 18:58 | OPR ---
DATE OF OPERATION: 07/11/2018 PREOPERATIVE DIAGNOSIS: Left first toe gangrene. POSTOPERATIVE DIAGNOSIS: Left first toe gangrene. PROCEDURE PERFORMED: Abdominal aortogram with left lower extremity runoff. SURGEON: Dagoberto Gaitan MD ANESTHESIA: Local with sedation. ESTIMATED BLOOD LOSS: Minimal. COMPLICATIONS: No intraprocedure complications. INDICATIONS: This is a 72-year-old gentleman who is a long time smoker. He has severe peripheral ar terial disease. He has gangrene of the left first toe. It is dry gangrene. He had a duplex that sh owed SFA stenosis or occlusion. I brought him in today for an angiogram and possible intervention. DESCRIPTION OF PROCEDURE: The patient was brought to the seed [facility] laboratory assistant, placed on the table in supine pos ition. Right groin was prepped and draped in the usual sterile fashion. I infiltrated about 10 mL o f 1% Xylocaine over the right common femoral artery and then used ultrasound guidance to enter the [facility] common femoral artery with a micropuncture needle. An 0.018 wire was inserted through the needle into the artery. Micropuncture sheath was advanced over the wire into the artery. I then advanced an 0.035 Bentson wire into the abdominal aorta. I exchanged the micropuncture sheath for a 5-Swedish sheath over a wire. I then advanced the Omniflush catheter into the infrarenal aorta and did an aort ogram. I advanced the catheter up and over the bifurcation using an Advantage wire for support and I advanced the catheter into the left mid SFA, did runoff down the left lower extremity. FINDINGS OF ANGIOGRAPHY: The infrarenal aorta is patent. There is a small probably about 2.5 to 3 c m infrarenal aortic aneurysm. It is very heavily calcified. The outline is visible on fluoroscopy. Both common and external iliac arteries are patent. There is a mild stenosis of the left external iliac less than 20%. The internal iliac artery on the right is occluded. On the left, it is severel y diseased and going down the left lower extremity, the common femoral artery is patent. The profund a femoral artery on the left has a 99% stenosis subtotal occlusion. The SFA is patent proximally. T here is an 80% stenosis in the mid upper thigh and it is patent down to the adductor then the poplite al artery is occluded at the adductor and reconstitutes at the knee then below the knee. The anterio r tibial artery is occluded. The TP trunk has subtotal occlusion then the posterior tibial artery is patent from its origin all the way down into the foot. It is actually a good artery. It crosses in to the foot. It is good caliber in the foot itself. Again, the anterior tibial artery is completely occluded. There is no dorsalis pedis artery. I do see some peroneal artery that reconstitutes. It is very small and gives very minimal collaterals into the foot. There are multiple collaterals comi ng off of the patent SFA above the area of occlusion, but main source of flow around that occluded po pliteal segment. There is diffuse calcification throughout, very sort of irregular throughout the en tire SFA and pop. I thought it will be better served with fem PT bypass given the extensive necrosis of his toe and very calcified, coral reef-like plaque in the artery, so I decided not to intervene. I then removed all the catheter sheaths and wires. I used pressure on the right groin until there w as good hemostasis. He tolerated the procedure well without any complication. We will arrange for f em to PT bypass to be done once he is cleared medically. Dictated By: DAGOBERTO ALTMAN/BERENICE Conf#: [id number] DID#: [id number] CC: EDDIE PITTMAN NP; BRAN CASTILLO DPM; AMISH MAHAN DPM; JP ADAMS MD;*End*
--- NOTE | 2018-07-11 20:14 | CONS ---
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 -I have ordered an ECG -Further recommendations will be forthcoming as more information is available. Consultation Date/Type/Reason Admit Date/Time July 10, 2018 at 12:52 Type of Consult Cardiology Reason for Consultation Preoperative cardiac risk stratification Date/Time of Note DATE: 07/11/18 TIME: 20:04 Hx of Present Illness This is a 72-year-old male with past medical history of diabetes, peripheral arterial disease who presents with nonhealing wound on his foot and leg pain. Patient underwent lower extremity angiogram with evidence of occlusion and is planned for lower extremity peripheral bypass surgery. Prior to this recent illness, patient ambulating without any chest pain or shortness of breath. He can climb at least 2 flights of stairs and has to stop because of fatigue and leg pain. 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 Denies any cardiac history. 12 point review of systems was performed with all pertinent positives and negatives mentioned above and all else is negative Past Medical History Peripheral arterial disease Medical History: diabetes, high cholesterol, hypertension Home Meds Reported Medications Fenofibrate, Micronized (Fenofibrate) 134 Mg Capsule, 1 CAP ORAL DAILY 07/10/18 Buspirone Hcl* (Buspirone Hcl*) 10 Mg Tab, 1 TAB ORAL BID 07/10/18 Pioglitazone Hcl* (Pioglitazone Hcl*) 30 Mg Tablet, 1 TAB ORAL DAILY 07/10/18 Glipizide* (Glipizide*) 10 Mg Tablet, 1 TAB ORAL BID 07/10/18 Medications Current Medications Fenofibrate (Tricor) 145 mg DAILY PO ; Start 07/11/18 at 09:00 Buspirone HCl (Buspar) 10 mg BID PO Last administered on 07/10/18at 20:46; Admin Dose 10 MG; Start 07/10/18 at 21:00 IV Flush (NS 3 ml) 3 ml PER PROTOCOL IV ; Start 07/10/18 at 14:30 Ondansetron HCl (Zofran Inj) 4 mg Q6H PRN IV NAUSEA/VOMITING; Start 07/10/18 at 14:30 Acetaminophen (Tylenol Tab) 650 mg Q6H PRN PO .PAIN 1-3 OR TEMP; Start 07/10/18 at 14:30 Acetaminophen/ Hydrocodone Bitart ([place] (5/325)) 1 tab Q6H PRN PO .MOD PAIN 4- 6; Start 07/10/18 at 14:30 Enoxaparin Sodium (Lovenox) 40 mg DAILY SC ; Start 07/11/18 at 09:00 Insulin Glargine (Lantus) 12 units DAILY@2000 SC Last administered on 07/10/18at 20:48; Admin Dose 12 UNITS; Start 07/10/18 at 20:00 Vancomycin HCl (Vanco Iv Per Pharmacy) VANCOMYCIN PER PHARMACY PER PROTOCOL XX ; Start 07/10/18 at 14:30 Vancomycin HCl 250 ml @ 125 mls/hr Q12H IVPB Last administered on 07/11/18at 08:28; Admin Dose 125 MLS/HR; Start 07/10/18 at 20:00 Nicotine (Nicoderm 21 Mg/ 24hr) 1 patch DAILY TRANSDERM Last administered on at 08:28; Admin Dose 1 PATCH; Start 07/11/18 at 09:00 Insulin Aspart (Novolog Insulin Pen) NOVOLOG *MILD* ALGORI... Q4 SC ; Start 07/11/18 at 09:00 Miscellaneous Information 1 ea NOTE XX ; Start 07/11/18 at 06:45 Glucose (Glutose) 15 gm Q15M PRN PO DECREASED GLUCOSE; Start 07/11/18 at 06:45 Glucose (Glutose) 22.5 gm Q15M PRN PO DECREASED GLUCOSE; Start 07/11/18 at 06:45 Dextrose (D50w Syringe) 25 ml Q15M PRN IV DECREASED GLUCOSE; Start 07/11/18 at 06:45 Dextrose (D50w Syringe) 50 ml Q15M PRN IV DECREASED GLUCOSE; Start 07/11/18 at 06:45 Glucagon (Glucagen) 1 mg Q15M PRN IM DECREASED GLUCOSE; Start 07/11/18 at 06:45 Glucose (Glutose) 15 gm Q15M PRN BUCCAL DECREASED GLUCOSE; Start 07/11/18 at 06:45 Piperacillin Sod/ Tazobactam Sod 100 ml @ 200 mls/hr Q8 IVPB Last administered on 07/11/18at 17:45; Admin Dose 200 MLS/HR; Start 07/11/18 at 15:30 Allergies: Coded Allergies: aspirin (Verified Allergy, Mild, VOMITING, 01/27/09) Family History Significant Family History: no pertinent family hx Social History Smoking Status: Current every day smoker Exam/Review of Systems Vital Signs Vitals Vital Signs Date Temp Pulse Resp B/P (MAP) Pulse Ox O2 O2 Flow FiO2 Time Delivery Rate 07/11/18 69 20 154/71 96 17:30 (98) 07/11/18 Room Air 16:53 07/11/18 98.0 16:02 Intake and Output 07/10/18 07/10/18 07/11/18 1515:00 23:00 07:00 IntakeIntake Total 1100 ml 300 ml 550 ml BalanceBalance 1100 ml 300 ml 550 ml Exam Constitutional: alert, oriented (No apparent distress) Head: normocephalic Respiratory: clear to auscultation, normal air movement Cardiovascular: regular rate and rhythm (S1-S2 heard) Gastrointestinal: soft, non-tender, bowel sounds Extremities: other (Bandage lower extremity, no significant edema) Labs Result Diagram: 07/11/18 0614 07/11/18 1855 Results 24hrs Laboratory Tests Test 07/10/18 20:45 07/11/18 06:14 07/11/18 08:07 07/11/18 12:09 Bedside Glucose 143 86 80 White Blood Count 6.6 Red Blood Count 3.73 L Hemoglobin 11.1 L Hematocrit 32.9 L Mean Corpuscular Volume 88.2 Mean Corpuscular 29.8 Hemoglobin Mean Corpuscular 33.7 Hemoglobin Concent Red Cell Distribution 12.6 Width Platelet Count 285 Mean Platelet Volume 9.2 Immature Granulocytes % 0.300 Neutrophils % 54.7 Lymphocytes % 31.1 Monocytes % 9.0 Eosinophils % 4.1 Basophils % 0.8 Nucleated Red Blood 0.0 Cells % Immature Granulocytes # 0.020 Neutrophils # 3.6 Lymphocytes # 2.0 Monocytes # 0.6 Eosinophils # 0.3 Basophils # 0.1 Nucleated Red Blood 0.0 Cells # Sodium Level 142 Potassium Level 3.5 Chloride Level 108 Carbon Dioxide Level 25 Anion Gap 9 Blood Urea Nitrogen 31 H Creatinine 0.92 Est Glomerular Filtrat > 60 Rate mL/min Glucose Level 80 # Hemoglobin A1c 6.4 H Calcium Level 9.4 Phosphorus Level 3.7 Magnesium Level 1.9 Total Bilirubin 0.2 Direct Bilirubin 0.00 Indirect Bilirubin 0.2 Aspartate Amino 19 Transf (AST/SGOT) Alanine 9 L Aminotransferase (ALT/SG PT) Alkaline Phosphatase 37 L Total Protein 6.5 Albumin 3.6 Globulin 2.90 Albumin/Globulin Ratio 1.24 Triglycerides Level 146 Cholesterol Level 154 LDL Cholesterol, 101 Calculated HDL Cholesterol 24 L Cholesterol/HDL Ratio 6.4 Test 07/11/18 17:30 07/11/18 17:50 07/11/18 18:11 07/11/18 18:28 Bedside Glucose 64 L 62 L 90 106 Test 07/11/18 18:55 Glucose Level 127 # Vancomycin Level Trough 15.4 Medications Medications Current Medications Fenofibrate (Tricor) 145 mg DAILY PO ; Start 07/11/18 at 09:00 Buspirone HCl (Buspar) 10 mg BID PO Last administered on 07/10/18at 20:46; Admin Dose 10 MG; Start 07/10/18 at 21:00 IV Flush (NS 3 ml) 3 ml PER PROTOCOL IV ; Start 07/10/18 at 14:30 Ondansetron HCl (Zofran Inj) 4 mg Q6H PRN IV NAUSEA/VOMITING; Start 07/10/18 at 14:30 Acetaminophen (Tylenol Tab) 650 mg Q6H PRN PO .PAIN 1-3 OR TEMP; Start 07/10/18 at 14:30 Acetaminophen/ Hydrocodone Bitart ([place] (5/325)) 1 tab Q6H PRN PO .MOD PAIN 4- 6; Start 07/10/18 at 14:30 Enoxaparin Sodium (Lovenox) 40 mg DAILY SC ; Start 07/11/18 at 09:00 Insulin Glargine (Lantus) 12 units DAILY@2000 SC Last administered on 07/10/18at 20:48; Admin Dose 12 UNITS; Start 07/10/18 at 20:00 Vancomycin HCl (Vanco Iv Per Pharmacy) VANCOMYCIN PER PHARMACY PER PROTOCOL XX ; Start 07/10/18 at 14:30 Vancomycin HCl 250 ml @ 125 mls/hr Q12H IVPB Last administered on 07/11/18at 08:28; Admin Dose 125 MLS/HR; Start 07/10/18 at 20:00 Nicotine (Nicoderm 21 Mg/ 24hr) 1 patch DAILY TRANSDERM Last administered on 07/11/18at 08:28; Admin Dose 1 PATCH; Start 07/11/18 at 09:00 Insulin Aspart (Novolog Insulin Pen) NOVOLOG *MILD* ALGORI... Q4 SC ; Start 07/11/18 at 09:00 Miscellaneous Information 1 ea NOTE XX ; Start 07/11/18 at 06:45 Glucose (Glutose) 15 gm Q15M PRN PO DECREASED GLUCOSE; Start 07/11/18 at 06:45 Glucose (Glutose) 22.5 gm Q15M PRN PO DECREASED GLUCOSE; Start 07/11/18 at 06:45 Dextrose (D50w Syringe) 25 ml Q15M PRN IV DECREASED GLUCOSE; Start 07/11/18 at 06:45 Dextrose (D50w Syringe) 50 ml Q15M PRN IV DECREASED GLUCOSE; Start 07/11/18 at 06:45 Glucagon (Glucagen) 1 mg Q15M PRN IM DECREASED GLUCOSE; Start 07/11/18 at 06:45 Glucose (Glutose) 15 gm Q15M PRN BUCCAL DECREASED GLUCOSE; Start 07/11/18 at 06 :45 Piperacillin Sod/ Tazobactam Sod 100 ml @ 200 mls/hr Q8 IVPB Last administered on 07/11/18at 17:45; Admin Dose 200 MLS/HR; Start 07/11/18 at 15:30 Jr Martines DO July 11, 2018 20:14
[2018-07-11] MEDS ORDERED: SOD CHLORIDE 0.9% 1,000 ML IV SCH (21:05)
[2018-07-11] MEDS: INSULIN GLARGINE [LANTus] (100 UNITS/ML) SYG SC SCH (21:18)
[2018-07-12] MEDS ORDERED: ACCU-CHEK XX SCH (02:00)
[2018-07-12 02:05] VITALS: BP 142/70; PULSE 60; RESP 20
[2018-07-12] MEDS: HYDROCODONE/APAP (5/325) TAB PO PRN ×2 (05:00→20:11)
[2018-07-12] MEDS: PIPER-TAZO 3.375 GM IV (PMX) 100 ML IVPB SCH ×2 (05:01→13:47)
[2018-07-12] MEDS: INSULIN ASPART [NOVOLOG] 3 ML PEN SC SCH ×4 (08:00→20:19)
[2018-07-12] MEDS: VANCOMYCIN 1 GM 250 ML IVPB SCH ×2 (08:24→20:14)
[2018-07-12] MEDS: ENOXAPARIN 40 MG/0.4 ML SYG SC SCH (08:27)
[2018-07-12] MEDS: NICOTINE (21 MG/24 HR) PATCH TRANSDERM SCH (08:29)
[2018-07-12] MEDS: BUSPIRONE 10 MG TAB PO SCH ×2 (08:30→20:11)
[2018-07-12] MEDS: FENOFIBRATE 145 MG TAB PO SCH (08:30)
[2018-07-12 08:40] VITALS: BP 143/70; PULSE 65; RESP 17
--- NOTE | 2018-07-12 11:45 | PN ---
Date/Time of Note Date/Time of Note DATE: 07/12/18 TIME: 11:39 Assessment/Plan VTE Prophylaxis Risk score (from Ns)>0 risk: 2 SCD applied (from Ns): No SCD contraindicated: other Pharmacological prophylaxis: LMWH Lines/Catheters IV [facility]from [facility] [place] Assessment/Plan Hospital Course SUBJECTIVE: No complaints OBJECTIVE: Vital signs-see below PHYSICAL EXAM: Constitutional: Adequately built,not in acute distress. HEENT: Head atraumatic and normocephalic. Eyes: Extraocular muscles intact. Anicteric sclerae. Pupils equal bilaterally, reactive to light. NECK: Supple without lymph node. CHEST: Clear and good breath sounds equally. No wheezing. No rhonchi. HEART: S1, S2. Regular rate and rhythm. ABDOMEN: Soft/non tender with no rebound tenderness. Bowel sounds were present. EXTREMITIES:Left 1st toe dry gangrene.Surrounding dorsal foot area w/erythema/swelling/tenderness. No DP/PT palpable pulse. NEUROLOGIC: Alert and oriented x3. No focal deficit. No sensory deficit. PSYCHOSOCIAL: No signs of depression. INTEGUMENTARY: No open wounds. ASSESSMENT AND PLAN:72 yo M w/hx of triglyceridemia, peripheral vascular disease, type 2 diabetes, anxiety/depression, long-standing tobacco use 1 pack/day was told by his doctor to get admitted for inpatient vascular/podiatry work-up for worsening cellulitis with left toe gangrene also noted with severe PAD/osteomyelitis.. Left foot cellulitis -No evidence to suggest sepsis. -ABX-ID to manage -Glycemic control/Wound care PAD with left first toe dry gangrene -Onset ~2 mos -Status post abdominal aortogram with left lower extremity runoff. -Vascular recommended PT bypass-timing/scheduling per vascular. -We will obtain cardiac clearance continue to optimize vascular status with antihypertensives to keep blood pressure ~140/90, diet, nutrition, exercise, blood sugar control and antiplatelet/anticoagulation. -Continue to optimize neurovascular status with antihypertensives to keep blood pressure ~140/90, diet, nutrition, exercise, blood glucose control, and antiplatelets/anticoagulation. Osteomyelitis of left first toe. -IV abx-would need it for custodial if no amputation happens -CS DMII -well-controlled -Basal/bolus insulin Triglyceridemia -on Tricor Anxiety/depression -on Buspar Tobacco abuse -Cessation advised. PRN nicotine patch for withdrawal. Chronic anemia -Stable H&H. Monitor DVT prophylaxis: Lovenox PUD prophylaxis: Not indicated CODE STATUS: Full code Diet: Carbohydrate controlled/low-cholesterol diet. Disp:F/u vascular/Podiatry recs.CM to assist patient with [facility] application for helping pt w/ follow-up discharge. Patient was seen in collaboration with Dr. Villalpando. Result Diagram: 07/12/18 0658 07/12/18 0658 Results 24hrs Laboratory Tests Test 07/11/18 12:09 07/11/18 17:30 07/11/18 17:50 07/11/18 18:11 Bedside Glucose 80 64 L 62 L 90 Test 07/11/18 18:28 07/11/18 18:55 07/11/18 21:15 07/12/18 02:27 Bedside Glucose 106 187 112 Glucose Level 127 # Vancomycin Level 15.4 Trough Test 07/12/18 06:58 07/12/18 08:23 White Blood Count 7.4 Red Blood Count 3.64 L Hemoglobin 10.6 L Hematocrit 32.2 L Mean Corpuscular 88.5 Volume Mean Corpuscular 29.1 Hemoglobin Mean Corpuscular 32.9 Hemoglobin Concent Red Cell Distribution 12.7 Width Platelet Count 291 Mean Platelet Volume 9.7 Immature Granulocytes 0.300 % Neutrophils % 68.7 Lymphocytes % 20.2 Monocytes % 7.3 Eosinophils % 3.0 Basophils % 0.5 Nucleated Red Blood 0.0 Cells % Immature Granulocytes 0.020 # Neutrophils # 5.1 Lymphocytes # 1.5 Monocytes # 0.5 Eosinophils # 0.2 Basophils # 0.0 Nucleated Red Blood 0.0 Cells # Sodium Level 143 Potassium Level 3.3 L Chloride Level 110 Carbon Dioxide Level 25 Anion Gap 8 Blood Urea Nitrogen 23 H Creatinine 0.84 Est Glomerular > 60 Filtrat Rate mL/min Glucose Level 91 Calcium Level 9.1 Bedside Glucose 104 Exam/Review of Systems Exam Vitals Vital Signs Date Temp Pulse Resp B/P (MAP) Pulse Ox O2 O2 Flow FiO2 Time Delivery Rate 07/12/18 98.7 65 17 143/70 98 08:40 (94) 07/11/18 Room Air 16:53 Intake and Output 07/11/18 07/11/18 07/12/18 1515:00 23:00 07:00 IntakeIntake Total 250 ml 300 ml 1450 ml BalanceBalance 250 ml 300 ml 1450 ml Results Results 24hrs Laboratory Tests Test 07/11/18 12:09 07/11/18 17:30 07/11/18 17:50 07/11/18 18:11 Bedside Glucose 80 64 L 62 L 90 Test 07/11/18 18:28 07/11/18 18:55 07/11/18 21:15 07/12/18 02:27 Bedside Glucose 106 187 112 Glucose Level 127 # Vancomycin Level 15.4 Trough Test 07/12/18 06:58 07/12/18 08:23 White Blood Count 7.4 Red Blood Count 3.64 L Hemoglobin 10.6 L Hematocrit 32.2 L Mean Corpuscular 88.5 Volume Mean Corpuscular 29.1 Hemoglobin Mean Corpuscular 32.9 Hemoglobin Concent Red Cell Distribution 12.7 Width Platelet Count 291 Mean Platelet Volume 9.7 Immature Granulocytes 0.300 % Neutrophils % 68.7 Lymphocytes % 20.2 Monocytes % 7.3 Eosinophils % 3.0 Basophils % 0.5 Nucleated Red Blood 0.0 Cells % Immature Granulocytes 0.020 # Neutrophils # 5.1 Lymphocytes # 1.5 Monocytes # 0.5 Eosinophils # 0.2 Basophils # 0.0 Nucleated Red Blood 0.0 Cells # Sodium Level 143 Potassium Level 3.3 L Chloride Level 110 Carbon Dioxide Level 25 Anion Gap 8 Blood Urea Nitrogen 23 H Creatinine 0.84 Est Glomerular > 60 Filtrat Rate mL/min Glucose Level 91 Calcium Level 9.1 Bedside Glucose 104 Medications Medication Current Medications Fenofibrate (Tricor) 145 mg DAILY PO Last administered on 07/12/18at 08:30; Admin Dose 145 MG; Start 07/11/18 at 09:00 Buspirone HCl (Buspar) 10 mg BID PO Last administered on 07/12/18at 08:30; Admin Dose 10 MG; Start 07/10/18 at 21:00 IV Flush (NS 3 ml) 3 ml PER PROTOCOL IV ; Start 07/10/18 at 14:30 Ondansetron HCl (Zofran Inj) 4 mg Q6H PRN IV NAUSEA/VOMITING; Start 07/10/18 at 14:30 Acetaminophen (Tylenol Tab) 650 mg Q6H PRN PO .PAIN 1-3 OR TEMP; Start 07/10/18 at 14:30 Acetaminophen/ Hydrocodone Bitart ([place] (5/325)) 1 tab Q6H PRN PO .MOD PAIN 4- 6 Last administered on 07/12/18at 05:00; Admin Dose 1 TAB; Start 07/10/18 at 14:30 Enoxaparin Sodium (Lovenox) 40 mg DAILY SC Last administered on 07/12/18at 08:27; Admin Dose 40 MG; Start 07/11/18 at 09:00 Insulin Glargine (Lantus) 12 units DAILY@2000 SC Last administered on 07/11/18at 21:18; Admin Dose 12 UNITS; Start 07/10/18 at 20:00 Vancomycin HCl (Vanco Iv Per Pharmacy) VANCOMYCIN PER PHARMACY PER PROTOCOL XX ; Start 07/10/18 at 14:30 Vancomycin HCl 250 ml @ 125 mls/hr Q12H IVPB Last administered on 07/12/18at 08:24; Admin Dose 125 MLS/HR; Start 07/10/18 at 20:00 Nicotine (Nicoderm 21 Mg/ 24hr) 1 patch DAILY TRANSDERM Last administered on 07/12/18at 08:29; Admin Dose 1 PATCH; Start 07/11/18 at 09:00 Miscellaneous Information 1 ea NOTE XX ; Start 07/11/18 at 06:45 Glucose (Glutose) 15 gm Q15M PRN PO DECREASED GLUCOSE; Start 07/11/18 at 06:45 Glucose (Glutose) 22.5 gm Q15M PRN PO DECREASED GLUCOSE; Start 07/11/18 at 06:45 Dextrose (D50w Syringe) 25 ml Q15M PRN IV DECREASED GLUCOSE; Start 07/11/18 at 06:45 Dextrose (D50w Syringe) 50 ml Q15M PRN IV DECREASED GLUCOSE; Start 07/11/18 at 06:45 Glucagon (Glucagen) 1 mg Q15M PRN IM DECREASED GLUCOSE; Start 07/11/18 at 06:45 Glucose (Glutose) 15 gm Q15M PRN BUCCAL DECREASED GLUCOSE; Start 07/11/18 at 06:45 Piperacillin Sod/ Tazobactam Sod 100 ml @ 200 mls/hr Q8 IVPB Last administered on 07/12/18at 05:01; Admin Dose 200 MLS/HR; Start 07/11/18 at 15:30 Insulin Aspart (Novolog Insulin Pen) NOVOLOG *MILD* ALGORITHM WITH MEALS BEDTIME SC Last administered on 07/11/18at 21:36; Admin Dose 1 UNIT; Start 07/11/18 at 21:30 EDDIE PITTMAN NP July 12, 2018 11:45
--- NOTE | 2018-07-12 12:59 | RADRPT ---
Vent Rate: 62 bpm RR Interval: 968 msec MD Interval: 187 msec QRS Duration: 117 msec QT Interval: 451 msec QTC Interval: 458 msec P-R-T [place]: 58 - 35 - 60 degrees Sinus rhythm...normal P axis, V-rate 50- 99 Nonspecific intraventricular conduction delay...QRSd >115mS, not LBBB/RBBB Electronically Signed By: Jr Martines
[2018-07-12] MEDS ORDERED: CASPOFUNGIN 70 MG in SOD CHLORIDE 0.9% 250 ML IVPB ONE (13:30)
[2018-07-12 14:32] VITALS: BP 149/67; PULSE 70; RESP 18
--- NOTE | 2018-07-12 14:59 | CONS ---
Assessment/Plan Assessment/Plan Assessment/Plan (Daily) Left foot dry gangrene Left foot cellulitis Left foot osteomyelitis PAD DM2 with peripheral neuropathy Nicotine dependence Plan Appreciate vascular surgery input. There is plan for left lower extremity bypass surgery. No plan for debridements at this time. Discussed smoking cessation and educated patient on adverse effects of blood flow. Continue with IV abx per recommendations. Betadine paint to the gangrene area. Consultation Date/Type/Reason Admit Date/Time July 10, 2018 at 12:52 Initial Consult Date Date/Time of Note DATE: 07/12/18 TIME: 14:59 24 HR Interval Summary Free Text/Dictation No acute events overnight Exam/Review of Systems Exam Vitals Vital Signs Date Temp Pulse Resp B/P (MAP) Pulse Ox O2 O2 Flow FiO2 Time Delivery Rate 07/12/18 98.7 70 18 149/67 96 14:32 (94) 07/11/18 Room Air 16:53 Intake and Output 07/11/18 07/11/18 07/12/18 1515:00 23:00 07:00 IntakeIntake Total 250 ml 300 ml 1450 ml BalanceBalance 250 ml 300 ml 1450 ml Exam Non palpable DP/PT pulses absent protective sensations right 2nd digit dry hypkeratotic lesion with underlying mycotic toe nail Left hallux dry gangrene with surrounding erythema Left lateral malleolus dry eschar Muscle strength 5/5 in all compartments of the foot Mild pain on palpation to left hallux gangrene site. Foot X-ray IMPRESSION: Unremarkable left foot x-ray series. In the setting of suspected infection, MRI is recommended to exclude osteomyelitis. Non invasive Arterial studies IMPRESSION: Patent left lower extremity arteries with no arterial occlusion identified. Elevated peak systolic velocity in the mid superficial femoral artery, consistent with a greater than 75% stenosis. There are monophasic waveforms in the arteries beyond this point, indicating diminished inflow due to the upstream stenosis. Foot MRI IMPRESSION: 1. Probable skin ulceration at the medial aspect of the first proximal phalanx. 2. Findings of early osteomyelitis at the first distal phalanx and head of the proximal phalanx. 3. Additional focus of abnormal bone marrow signal at the head of the second proximal phalanx, which could be from early ischemic change or stress-related versus less likely early osteomyelitis, unless there is an also an ulcer in this region. 4. No evidence for abscess. Results Result Diagram: 07/12/18 0658 07/12/18 0658 Results 24hrs Laboratory Tests Test 07/11/18 17:30 07/11/18 17:50 07/11/18 18:11 07/11/18 18:28 Bedside Glucose 64 L 62 L 90 106 Test 07/11/18 18:55 07/11/18 21:15 07/12/18 02:27 07/12/18 06:58 Glucose Level 127 # 91 Vancomycin Level 15.4 Trough Bedside Glucose 187 112 White Blood Count 7.4 Red Blood Count 3.64 L Hemoglobin 10.6 L Hematocrit 32.2 L Mean Corpuscular 88.5 Volume Mean Corpuscular 29.1 Hemoglobin Mean Corpuscular 32.9 Hemoglobin Concent Red Cell 12.7 Distribution Width Platelet Count 291 Mean Platelet Volume 9.7 Immature 0.300 Granulocytes % Neutrophils % 68.7 Lymphocytes % 20.2 Monocytes % 7.3 Eosinophils % 3.0 Basophils % 0.5 Nucleated Red Blood 0.0 Cells % Immature 0.020 Granulocytes # Neutrophils # 5.1 Lymphocytes # 1.5 Monocytes # 0.5 Eosinophils # 0.2 Basophils # 0.0 Nucleated Red Blood 0.0 Cells # Sodium Level 143 Potassium Level 3.3 L Chloride Level 110 Carbon Dioxide Level 25 Anion Gap 8 Blood Urea Nitrogen 23 H Creatinine 0.84 Est Glomerular > 60 Filtrat Rate mL/min Calcium Level 9.1 Test 07/12/18 08:23 07/12/18 12:30 Bedside Glucose 104 136 Medications Medication Current Medications Fenofibrate (Tricor) 145 mg DAILY PO Last administered on 07/12/18at 08:30; Admin Dose 145 MG; Start 07/11/18 at 09:00 Buspirone HCl (Buspar) 10 mg BID PO Last administered on 07/12/18at 08:30; Admin Dose 10 MG; Start 07/10/18 at 21:00 IV Flush (NS 3 ml) 3 ml PER PROTOCOL IV ; Start 07/10/18 at 14:30 Ondansetron HCl (Zofran Inj) 4 mg Q6H PRN IV NAUSEA/VOMITING; Start 07/10/18 at 14:30 Acetaminophen (Tylenol Tab) 650 mg Q6H PRN PO .PAIN 1-3 OR TEMP; Start 07/10/18 at 14:30 Acetaminophen/ Hydrocodone Bitart ([place] (5/325)) 1 tab Q6H PRN PO .MOD PAIN 4- 6 Last administered on 07/12/18at 05:00; Admin Dose 1 TAB; Start 07/10/18 at 14:30 Enoxaparin Sodium (Lovenox) 40 mg DAILY SC Last administered on 07/12/18at 08:27; Admin Dose 40 MG; Start 07/11/18 at 09:00 Insulin Glargine (Lantus) 12 units DAILY@2000 SC Last administered on 07/11/18at 21:18; Admin Dose 12 UNITS; Start 07/10/18 at 20:00 Vancomycin HCl (Vanco Iv Per Pharmacy) VANCOMYCIN PER PHARMACY PER PROTOCOL XX ; Start 07/10/18 at 14:30 Vancomycin HCl 250 ml @ 125 mls/hr Q12H IVPB Last administered on 07/12/18at 08:24; Admin Dose 125 MLS/HR; Start 07/10/18 at 20:00 Nicotine (Nicoderm 21 Mg/ 24hr) 1 patch DAILY TRANSDERM Last administered on 07/12/18at 08:29; Admin Dose 1 PATCH; Start 07/11/18 at 09:00 Miscellaneous Information 1 ea NOTE XX ; Start 07/11/18 at 06:45 Glucose (Glutose) 15 gm Q15M PRN PO DECREASED GLUCOSE; Start 07/11/18 at 06:45 Glucose (Glutose) 22.5 gm Q15M PRN PO DECREASED GLUCOSE; Start 07/11/18 at 06:45 Dextrose (D50w Syringe) 25 ml Q15M PRN IV DECREASED GLUCOSE; Start 07/11/18 at 06:45 Dextrose (D50w Syringe) 50 ml Q15M PRN IV DECREASED GLUCOSE; Start 07/11/18 at 06:45 Glucagon (Glucagen) 1 mg Q15M PRN IM DECREASED GLUCOSE; Start 07/11/18 at 06:45 Glucose (Glutose) 15 gm Q15M PRN BUCCAL DECREASED GLUCOSE; Start 07/11/18 at 06:45 Piperacillin Sod/ Tazobactam Sod 100 ml @ 200 mls/hr Q8 IVPB Last administered on 07/12/18at 13:47; Admin Dose 200 MLS/HR; Start 07/11/18 at 15:30 Insulin Aspart (Novolog Insulin Pen) NOVOLOG *MILD* ALGORITHM WITH MEALS B EDTIME SC Last administered on 07/11/18at 21:36; Admin Dose 1 UNIT; Start 07/11/18 at 21:30 Caspofungin 50 mg/ Sodium Chloride 250 ml @ 250 mls/hr Q24H IVPB ; Start 07/13/18 at 13:30 Levofloxacin (Levaquin) 750 mg DAILY@06 PO ; Start 07/13/18 at 06:00 LUIS FERNANDO BREAUX DPM July 12, 2018 14:59
--- NOTE | 2018-07-12 15:22 | CONS ---
Assessment/Plan Assessment/Plan Hospital Course (Demo Recall) Patient is alert laying comfortably in bed no fevers overnight WBC today 7.4 no shift no bands BUN 23 creatinine 0.84 Microbiology, left foot wound culture grew stenotrophomonas, enterococcus staph species and gram-negative rods, blood culture growing gram-positive cocci in pairs chains and yeast Antimicrobials: Patient is on Cancidas levofloxacin Zosyn and vancomycin Physical examination: This is a well-developed fragile elderly man who is alert in no distress. Head atraumatic normocephalic sclera nonicteric vehicle mucosa dry neck is supple chest rise symmetrical breath sounds diminished bases heart: S1-S2. Abdomen soft bowel sounds present. Extremities with left great toe gang erica ASSESSMENT: 1. Polymicrobial bacteremia/fungemia likely secondary to #2 2. Left great toe cellulitis, gangrene, osteomyelitis 3. Peripheral arterial disease with high-grade left SFA stenosis 4. Diabetes Plan: Patient is clinically stable, we will discontinue Zosyn and await for final cultures, follow podiatry/vascular surgery rec-s Consultation Date/Type/Reason Admit Date/Time July 10, 2018 at 12:52 Initial Consult Date Type of Consult id Date/Time of Note DATE: 07/12/18 TIME: 15:21 Exam/Review of Systems Exam Vitals Vital Signs Date Temp Pulse Resp B/P (MAP) Pulse Ox O2 O2 Flow FiO2 Time Delivery Rate 07/12/18 98.7 70 18 149/67 96 14:32 (94) 07/11/18 Room Air 16:53 Intake and Output 07/11/18 07/11/18 07/12/18 1515:00 23:00 07:00 IntakeIntake Total 250 ml 300 ml 1450 ml BalanceBalance 250 ml 300 ml 1450 ml Results Result Diagram: 07/12/18 0658 07/12/18 0658 Results 24hrs Laboratory Tests Test 07/11/18 17:30 07/11/18 17:50 07/11/18 18:11 07/11/18 18:28 Bedside Glucose 64 L 62 L 90 106 Test 07/11/18 18:55 07/11/18 21:15 07/12/18 02:27 07/12/18 06:58 Glucose Level 127 # 91 Vancomycin Level 15.4 Trough Bedside Glucose 187 112 White Blood Count 7.4 Red Blood Count 3.64 L Hemoglobin 10.6 L Hematocrit 32.2 L Mean Corpuscular 88.5 Volume Mean Corpuscular 29.1 Hemoglobin Mean Corpuscular 32.9 Hemoglobin Concent Red Cell 12.7 Distribution Width Platelet Count 291 Mean Platelet Volume 9.7 Immature 0.300 Granulocytes % Neutrophils % 68.7 Lymphocytes % 20.2 Monocytes % 7.3 Eosinophils % 3.0 Basophils % 0.5 Nucleated Red Blood 0.0 Cells % Immature 0.020 Granulocytes # Neutrophils # 5.1 Lymphocytes # 1.5 Monocytes # 0.5 Eosinophils # 0.2 Basophils # 0.0 Nucleated Red Blood 0.0 Cells # Sodium Level 143 Potassium Level 3.3 L Chloride Level 110 Carbon Dioxide Level 25 Anion Gap 8 Blood Urea Nitrogen 23 H Creatinine 0.84 Est Glomerular > 60 Filtrat Rate mL/min Calcium Level 9.1 Test 07/12/18 08:23 07/12/18 12:30 Bedside Glucose 104 136 Medications Medication Current Medications Fenofibrate (Tricor) 145 mg DAILY PO Last administered on 07/12/18 08:30; Admin Dose 145 MG; Start 07/11/18 at 09:00 Buspirone HCl (Buspar) 10 mg BID PO Last administered on 07/12/18 08:30; Admin Dose 10 MG; Start 07/10/18 at 21:00 IV Flush (NS 3 ml) 3 ml PER PROTOCOL IV ; Start 07/10/18 at 14:30 Ondansetron HCl (Zofran Inj) 4 mg Q6H PRN IV NAUSEA/VOMITING; Start 07/10/18 at 14:30 Acetaminophen (Tylenol Tab) 650 mg Q6H PRN PO .PAIN 1-3 OR TEMP; Start 07/10/18 at 14:30 Acetaminophen/ Hydrocodone Bitart ([place] (5/325)) 1 tab Q6H PRN PO .MOD PAIN 4- 6 Last administered on 07/12/18 05:00; Admin Dose 1 TAB; Start 07/10/18 at 14:30 Enoxaparin Sodium (Lovenox) 40 mg DAILY SC Last administered on 07/12/18 08:27; Admin Dose 40 MG; Start 07/11/18 at 09:00 Insulin Glargine (Lantus) 12 units DAILY@2000 SC Last administered on 5/9/19at 21:18; Admin Dose 12 UNITS; Start 07/10/18 at 20:00 Vancomycin HCl (Vanco Iv Per Pharmacy) VANCOMYCIN PER PHARMACY PER PROTOCOL XX ; Start 07/10/18 at 14:30 Vancomycin HCl 250 ml @ 125 mls/hr Q12H IVPB Last administered on 07/12/18at 08:24; Admin Dose 125 MLS/HR; Start 07/10/18 at 20:00 Nicotine (Nicoderm 21 Mg/ 24hr) 1 patch DAILY TRANSDERM Last administered on 07/12/18at 08:29; Admin Dose 1 PATCH; Start 07/11/18 at 09:00 Miscellaneous Information 1 ea NOTE XX ; Start 07/11/18 at 06:45 Glucose (Glutose) 15 gm Q15M PRN PO DECREASED GLUCOSE; Start 07/11/18 at 06:45 Glucose (Glutose) 22.5 gm Q15M PRN PO DECREASED GLUCOSE; Start 07/11/18 at 06:45 Dextrose (D50w Syringe) 25 ml Q15M PRN IV DECREASED GLUCOSE; Start 07/11/18 at 06:45 Dextrose (D50w Syringe) 50 ml Q15M PRN IV DECREASED GLUCOSE; Start 07/11/18 at 06:45 Glucagon (Glucagen) 1 mg Q15M PRN IM DECREASED GLUCOSE; Start 07/11/18 at 06:45 Glucose (Glutose) 15 gm Q15M PRN BUCCAL DECREASED GLUCOSE; Start 07/11/18 at 06:45 Piperacillin Sod/ Tazobactam Sod 100 ml @ 200 mls/hr Q8 IVPB Last administered on 07/12/18at 13:47; Admin Dose 200 MLS/HR; Start 07/11/18 at 15:30 Insulin Aspart (Novolog Insulin Pen) NOVOLOG *MILD* ALGORITHM WITH MEALS BEDTIME SC Last administered on 07/11/18at 21:36; Admin Dose 1 UNIT; Start 07/11/18 at 21:30 Caspofungin 50 mg/ Sodium Chloride 250 ml @ 250 mls/hr Q24H IVPB ; Start 07/13/18 at 13:30 Levofloxacin (Levaquin) 750 mg DAILY@06 PO ; Start 07/13/18 at 06:00 JUAN GARCIA NP July 12, 2018 15:22
--- NOTE | 2018-07-12 15:30 | CONS ---
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 Given patient with gangrene foot, benefits likely outweigh the risks. No further inpatient cardiac work-up needed at the current time prior to surgery Consultation Date/Type/Reason Admit Date/Time July 10, 2018 at 12:52 Initial Consult Date Type of Consult Cardiology Date/Time of Note DATE: 07/12/18 TIME: 15:28 24 HR Interval Summary Free Text/Dictation Denies chest pain, shortness of breath or palpitations Exam/Review of Systems Vital Signs Vitals Vital Signs Date Temp Pulse Resp B/P (MAP) Pulse Ox O2 O2 Flow FiO2 Time Delivery Rate 07/12/18 98.7 70 18 149/67 96 14:32 (94) 07/11/18 Room Air 16:53 Intake and Output 07/11/18 07/11/18 07/12/18 1515:00 23:00 07:00 IntakeIntake Total 250 ml 300 ml 1450 ml BalanceBalance 250 ml 300 ml 1450 ml Exam Constitutional: alert, oriented (No apparent distress) Head: normocephalic Respiratory: other (Coarse breath sounds bilaterally, no wheezing) Cardiovascular: regular rate and rhythm (S1-S2 heard) Gastrointestinal: soft, non-tender, bowel sounds Extremities: other (Bandage lower extremity) Labs Result Diagram: 07/12/1858 07/12/1858 Results 24hrs Laboratory Tests Test 07/11/18 17:30 07/11/18 17:50 07/11/18 18:11 07/11/18 18:28 Bedside Glucose 64 L 62 L 90 106 Test 07/11/18 18:55 07/11/18 21:15 07/12/18 02:27 07/12/18 06:58 Glucose Level 127 # 91 Vancomycin Level 15.4 Trough Bedside Glucose 187 112 White Blood Count 7.4 Red Blood Count 3.64 L Hemoglobin 10.6 L Hematocrit 32.2 L Mean Corpuscular 88.5 Volume Mean Corpuscular 29.1 Hemoglobin Mean Corpuscular 32.9 Hemoglobin Concent Red Cell 12.7 Distribution Width Platelet Count 291 Mean Platelet Volume 9.7 Immature 0.300 Granulocytes % Neutrophils % 68.7 Lymphocytes % 20.2 Monocytes % 7.3 Eosinophils % 3.0 Basophils % 0.5 Nucleated Red Blood 0.0 Cells % Immature 0.020 Granulocytes # Neutrophils # 5.1 Lymphocytes # 1.5 Monocytes # 0.5 Eosinophils # 0.2 Basophils # 0.0 Nucleated Red Blood 0.0 Cells # Sodium Level 143 Potassium Level 3.3 L Chloride Level 110 Carbon Dioxide Level 25 Anion Gap 8 Blood Urea Nitrogen 23 H Creatinine 0.84 Est Glomerular > 60 Filtrat Rate mL/min Calcium Level 9.1 Test 07/12/18 08:23 07/12/18 12:30 Bedside Glucose 104 136 Medications Medications Current Medications Fenofibrate (Tricor) 145 mg DAILY PO Last administered on 07/12/18 08:30; Admin Dose 145 MG; Start 07/11/18 at 09:00 Buspirone HCl (Buspar) 10 mg BID PO Last administered on 07/12/18 08:30; Admin Dose 10 MG; Start 07/10/18 at 21:00 IV Flush (NS 3 ml) 3 ml PER PROTOCOL IV ; Start 07/10/18 at 14:30 Ondansetron HCl (Zofran Inj) 4 mg Q6H PRN IV NAUSEA/VOMITING; Start 07/10/18 at 14:30 Acetaminophen (Tylenol Tab) 650 mg Q6H PRN PO .PAIN 1-3 OR TEMP; Start 07/10/18 at 14:30 Acetaminophen/ Hydrocodone Bitart ([place] (5/325)) 1 tab Q6H PRN PO .MOD PAIN 4- 6 Last administered on 07/12/18 05:00; Admin Dose 1 TAB; Start 07/10/18 at 14:30 Enoxaparin Sodium (Lovenox) 40 mg DAILY SC Last administered on 07/12/18 08:27; Admin Dose 40 MG; Start 07/11/18 at 09:00 Insulin Glargine (Lantus) 12 units DAILY@2000 SC Last administered on 5/9/19at 21:18; Admin Dose 12 UNITS; Start 07/10/18 at 20:00 Vancomycin HCl (Vanco Iv Per Pharmacy) VANCOMYCIN PER PHARMACY PER PROTOCOL XX ; Start 07/10/18 at 14:30 Vancomycin HCl 250 ml @ 125 mls/hr Q12H IVPB Last administered on 07/12/18at 08:24; Admin Dose 125 MLS/HR; Start 07/10/18 at 20:00 Nicotine (Nicoderm 21 Mg/ 24hr) 1 patch DAILY TRANSDERM Last administered on 07/12/18at 08:29; Admin Dose 1 PATCH; Start 07/11/18 at 09:00 Miscellaneous Information 1 ea NOTE XX ; Start 07/11/18 at 06:45 Glucose (Glutose) 15 gm Q15M PRN PO DECREASED GLUCOSE; Start 07/11/18 at 06:45 Glucose (Glutose) 22.5 gm Q15M PRN PO DECREASED GLUCOSE; Start 07/11/18 at 06:45 Dextrose (D50w Syringe) 25 ml Q15M PRN IV DECREASED GLUCOSE; Start 07/11/18 at 06:45 Dextrose (D50w Syringe) 50 ml Q15M PRN IV DECREASED GLUCOSE; Start 07/11/18 at 06:45 Glucagon (Glucagen) 1 mg Q15M PRN IM DECREASED GLUCOSE; Start 07/11/18 at 06:45 Glucose (Glutose) 15 gm Q15M PRN BUCCAL DECREASED GLUCOSE; Start 07/11/18 at 06:45 Insulin Aspart (Novolog Insulin Pen) NOVOLOG *MILD* ALGORITHM WITH MEALS BEDTIME SC Last administered on 07/11/18at 21:36; Admin Dose 1 UNIT; Start 07/11/18 at 21:30 Caspofungin 50 mg/ Sodium Chloride 250 ml @ 250 mls/hr Q24H IVPB ; Start 07/13/18 at 13:30 Levofloxacin (Levaquin) 750 mg DAILY@06 PO ; Start 07/13/18 at 06:00 Jr Martines DO July 12, 2018 15:30
[2018-07-12 20:00] VITALS: BP 144/67; PULSE 66; RESP 18
[2018-07-12] MEDS: INSULIN GLARGINE [LANTus] (100 UNITS/ML) SYG SC SCH (20:20)
[2018-07-12] MEDS ORDERED: POTASSIUM CHLORIDE (SR) 20 MEQ TAB PO STA (20:54)
[2018-07-13 02:55] VITALS: BP 142/67; PULSE 62; RESP 18
[2018-07-13] MEDS: LEVOFLOXACIN 750 MG TABLET PO SCH (05:44)
[2018-07-13] MEDS: INSULIN ASPART [NOVOLOG] 3 ML PEN SC SCH ×4 (08:00→20:34)
[2018-07-13 08:05] VITALS: BP 141/63; PULSE 81; RESP 17
[2018-07-13] MEDS: BUSPIRONE 10 MG TAB PO SCH ×2 (08:53→20:34)
[2018-07-13] MEDS: BUPROPION (XL) 150 MG TAB PO SCH (08:53)
[2018-07-13] MEDS: VANCOMYCIN 1 GM 250 ML IVPB SCH ×2 (08:53→20:32)
[2018-07-13] MEDS: FENOFIBRATE 145 MG TAB PO SCH (08:54)
[2018-07-13] MEDS: NICOTINE (21 MG/24 HR) PATCH TRANSDERM SCH (08:54)
[2018-07-13] MEDS: ENOXAPARIN 40 MG/0.4 ML SYG SC SCH (08:56)
--- NOTE | 2018-07-13 10:24 | PN ---
Date/Time of Note Date/Time of Note DATE: 07/13/18 TIME: 10:20 Assessment/Plan VTE Prophylaxis Risk score (from Ns)>0 risk: 3 SCD applied (from [facility] [place] No SCD contraindicated: bilateral LE trauma Pharmacological prophylaxis: heparin Lines/Catheters IV C[facility]ter Type (from [facility] Peripheral IV Assessment/Plan Problems: (1) Sepsis Status: Acute Comment: Cultures have gram-positive cocci and yeast. Infectious diseases guiding us in treatment. This time patient is stable Qualifiers: Sepsis type: sepsis due to unspecified organism Qualified Codes: A41.9 - Sepsis, unspecified organism (2) Toe gangrene Status: Acute Comment: For surgical correction in 48 hours and vascular bypass (3) Peripheral vascular disease Status: Acute Comment: Please see vascular surgical consultation. Aggressive risk factor modification. Please note and can place patient on statin therapy (4) Anemia Status: Chronic Comment: Oral iron replacement therapy Qualifiers: Anemia type: iron deficiency Iron deficiency anemia type: unspecified iron deficiency Qualified Codes: D50.9 - Iron deficiency anemia, unspecified (5) Acute hypokalemia Status: Resolved Comment: Corrected with oral potassium (6) Diabetes mellitus type 2 in nonobese Status: Chronic Comment: Adequate glycemic control at the present time (7) Mixed hyperlipidemia Status: Chronic Comment: Go with statin therapy replace the fenofibrate with fish oil. (8) Anxiety and depression Status: Chronic Comment: On treatment. Please note given his smoking I am also adding in bupropion to help with the tobacco craving (9) Osteomyelitis of left foot Status: Chronic Comment: For surgical correction Qualifiers: Osteomyelitis type: unspecified type Qualified Codes: M86.9 - Osteomyelitis, unspecified Result Diagram: 07/12/18 0658 07/13/18 0522 Results 24hrs Laboratory Tests Test 07/12/18 12:30 07/12/18 17:28 07/12/18 20:17 07/13/18 02:08 Bedside Glucose 136 121 227 H 104 Test 07/13/18 05:22 07/13/18 07:47 Sodium Level 142 Potassium Level 3.6 Chloride Level 110 Carbon Dioxide Level 25 Anion Gap 7 Blood Urea Nitrogen 19 Creatinine 0.90 Est Glomerular > 60 Filtrat Rate mL/min Glucose Level 90 Calcium Level 9.1 Bedside Glucose 98 Subjective 24 Hr Interval Summary Free Text/Dictation Patient reports he is feeling okay at this time. Stoic Constitutional: no complaints (Denies fevers chills or sweats) Respiratory: no complaints (Cough no wheezing no shortness of breath) Cardiovascular: no complaints (Chest pain no palpitations no PND no orthopnea) Gastrointestinal: no complaints Genitourinary: no complaints Musculoskeletal: other (Denies he is having a significant lower extremity pain although I believe he is pretty stoic) Exam/Review of Systems Exam Vitals Vital Signs Date Temp Pulse Resp B/P (MAP) Pulse Ox O2 O2 Flow FiO2 Time Delivery Rate 07/13/18 98.8 81 17 141/63 93 08:05 (89) 07/11/18 Room Air 16:53 Intake and Output 07/12/18 07/12/18 07/13/18 1515:00 23:00 07:00 IntakeIntake Total 1080 ml 490 ml OutputOutput Total 350 ml 200 ml 600 ml BalanceBalance 730 ml 290 ml -600 ml Constitutional: alert, oriented Respiratory: clear to auscultation, normal air movement Cardiovascular: regular rate and rhythm, nl pulses Gastrointestinal: soft, nl liver, spleen, non-tender Musculoskeletal: other (Left lower extremity great toe bandaged, cool to touch) Results Results 24hrs Laboratory Tests Test 07/12/18 12:30 07/12/18 17:28 07/12/18 20:17 07/13/18 02:08 Bedside Glucose 136 121 227 H 104 Test 07/13/18 05:22 07/13/18 07:47 Sodium Level 142 Potassium Level 3.6 Chloride Level 110 Carbon Dioxide Level 25 Anion Gap 7 Blood Urea Nitrogen 19 Creatinine 0.90 Est Glomerular > 60 Filtrat Rate mL/min Glucose Level 90 Calcium Level 9.1 Bedside Glucose 98 Medications Medication Current Medications Fenofibrate (Tricor) 145 mg DAILY PO Last administered on 07/13/18at 08:54; Admin Dose 145 MG; Start 07/11/18 at 09:00 Buspirone HCl (Buspar) 10 mg BID PO Last administered on 07/13/18at 08:53; Admin Dose 10 MG; Start 07/10/18 at 21:00 IV Flush (NS 3 ml) 3 ml PER PROTOCOL IV ; Start 07/10/18 at 14:30 Ondansetron HCl (Zofran Inj) 4 mg Q6H PRN IV NAUSEA/VOMITING; Start 07/10/18 at 14:30 Acetaminophen (Tylenol Tab) 650 mg Q6H PRN PO .PAIN 1-3 OR TEMP; Start 07/10/18 at 14:30 Acetaminophen/ Hydrocodone Bitart ([place] (5/325)) 1 tab Q6H PRN PO .MOD PAIN 4- 6 Last administered on 07/12/18at 20:11; Admin Dose 1 TAB; Start 07/10/18 at 14:30 Enoxaparin Sodium (Lovenox) 40 mg DAILY SC Last administered on 07/13/18at 08:56; Admin Dose 40 MG; Start 07/11/18 at 09:00 Insulin Glargine (Lantus) 12 units DAILY@2000 SC Last administered on 07/12/18at 20:20; Admin Dose 12 UNITS; Start 07/10/18 at 20:00 Vancomycin HCl (Vanco Iv Per Pharmacy) VANCOMYCIN PER PHARMACY PER PROTOCOL XX ; Start 07/10/18 at 14:30 Vancomycin HCl 250 ml @ 125 mls/hr Q12H IVPB Last administered on 07/13/18at 08 :53; Admin Dose 125 MLS/HR; Start 07/10/18 at 20:00 Nicotine (Nicoderm 21 Mg/ 24hr) 1 patch DAILY TRANSDERM Last administered on 07/13/18at 08:54; Admin Dose 1 PATCH; Start 07/11/18 at 09:00 Miscellaneous Information 1 ea NOTE XX ; Start 07/11/18 at 06:45 Glucose (Glutose) 15 gm Q15M PRN PO DECREASED GLUCOSE; Start 07/11/18 at 06:45 Glucose (Glutose) 22.5 gm Q15M PRN PO DECREASED GLUCOSE; Start 07/11/18 at 06:45 Dextrose (D50w Syringe) 25 ml Q15M PRN IV DECREASED GLUCOSE; Start 07/11/18 at 06:45 Dextrose (D50w Syringe) 50 ml Q15M PRN IV DECREASED GLUCOSE; Start 07/11/18 at 06:45 Glucagon (Glucagen) 1 mg Q15M PRN IM DECREASED GLUCOSE; Start 07/11/18 at 06:45 Glucose (Glutose) 15 gm Q15M PRN BUCCAL DECREASED GLUCOSE; Start 07/11/18 at 06:45 Insulin Aspart (Novolog Insulin Pen) NOVOLOG *MILD* ALGORITHM WITH MEALS BEDTIME SC Last administered on 07/12/18at 20:19; Admin Dose 2 UNIT; Start at 21:30 Caspofungin 50 mg/ Sodium Chloride 250 ml @ 250 mls/hr Q24H IVPB ; Start 07/13/18 at 13:30 Levofloxacin (Levaquin) 750 mg DAILY@06 PO Last administered on 07/13/18at 05:44; Admin Dose 750 MG; Start 07/13/18 at 06:00 Bupropion HCl (Wellbutrin Xl) 150 mg DAILY PO Last administered on 07/13/18at 08:53; Admin Dose 150 MG; Start 07/13/18 at 09:00 CHING CARDOZA MD July 13, 2018 10:24
[2018-07-13] MEDS: FERROUS FUMARATE (SR) TAB PO SCH (12:17)
[2018-07-13] MEDS: CASPOFUNGIN 50 MG in SOD CHLORIDE 0.9% 250 ML IVPB SCH (12:17)
[2018-07-13] MEDS: FISH OIL 1,000 MG CAP PO SCH ×2 (12:17→20:34)
[2018-07-13 14:41] VITALS: BP 125/59; PULSE 66; RESP 19
--- NOTE | 2018-07-13 18:38 | CONS ---
Assessment/Plan Assessment/Plan Hospital Course (Demo Recall) ID PROGRESS NOTE CURRENT ABX: DAY #=> Vanco V + Levaquin + Cancidas s/p Zosyn 07/12/18 0658 07/13/18 0522 24H INTERVAL SUMMARY * Awake, alert, * No fevers, VSS, WBC normalized, MICRO/OTHER * 07/12/18 BCX (-) * 07/10/18 BCX:(+) 1/2 bottles Organism 1 GRAM POS COCCI IN PAIRS,CHAIN Organism 2 YEAST * 07/10/18 FOOT WOUND CX WOUND CULTURE Final Organism 1 STENOTROPHOMONAS MALTOPHILIA QUANTITY SCANT GROWTH Organism 2 PSEUDOMONAS PUTIDA QUANTITY 1+ Organism 3 COAGULASE NEGATIVE STAPH QUANTITY SCANT GROWTH Organism 4 ENTEROCOCCUS SPECIES QUANTITY SCANT GROWTH PHYSICAL EXAMINATION: GENERAL: VSS, NAD, OVERWEIGHT HEENT: AT, NC, anicteric, NECK: Supple, CHEST: Equal chest rise bilaterally without dyspnea on observation HEART: Pulse RRR ABDOMEN: soft EXTREMITIES: Warm, dry = =left foot DSG C/D/I SKIN: No rash, no diaphoresis ID ASSESSMENT 72 yo M admit with: 1. Polymicrobial bacteremia/fungemia likely secondary to #2 2. Left great toe cellulitis, gangrene, osteomyelitis 3. Peripheral arterial disease with high-grade left SFA stenosis 4. Diabetes ABX ALLERGIES: KNDA INVASIVES: PIV CURRENT ABX: DAY # = Vanco V + Levaquin + Cancidas s/p Zosyn ID RECOMMENDATIONS/PLAN: 1. Continue current ABX 2. Follow APC recommendations 3. Will f/u tomorrow . Consultation Date/Type/Reason Admit Date/Time July 10, 2018 at 12:52 Initial Consult Date Date/Time of Note DATE: 07/13/18 TIME: 18:30 Exam/Review of Systems Exam Vitals Vital Signs Date Temp Pulse Resp B/P (MAP) Pulse Ox O2 O2 Flow FiO2 Time Delivery Rate 07/13/18 98.8 66 19 125/59 96 14:41 (81) 07/11/18 Room Air 16:53 Intake and Output 07/12/18 07/12/18 07/13/18 1515:00 23:00 07:00 IntakeIntake Total 1080 ml 490 ml OutputOutput Total 350 ml 200 ml 600 ml BalanceBalance 730 ml 290 ml -600 ml Results Result Diagram: 07/12/18 0658 07/13/18 0522 Results 24hrs Laboratory Tests Test 07/12/18 20:17 07/13/18 02:08 07/13/18 05:22 07/13/18 07:47 Bedside Glucose 227 H 104 98 Sodium Level 142 Potassium Level 3.6 Chloride Level 110 Carbon Dioxide Level 25 Anion Gap 7 Blood Urea Nitrogen 19 Creatinine 0.90 Est Glomerular > 60 Filtrat Rate mL/min Glucose Level 90 Calcium Level 9.1 Test 07/13/18 12:19 07/13/18 17:37 Bedside Glucose 113 126 Medications Medication Current Medications Buspirone HCl (Buspar) 10 mg BID PO Last administered on 07/13/18at 08:53; Admin Dose 10 MG; Start 07/10/18 at 21:00 IV Flush (NS 3 ml) 3 ml PER PROTOCOL IV ; Start 07/10/18 at 14:30 Ondansetron HCl (Zofran Inj) 4 mg Q6H PRN IV NAUSEA/VOMITING; Start 07/10/18 at 14:30 Acetaminophen (Tylenol Tab) 650 mg Q6H PRN PO .PAIN 1-3 OR TEMP; Start 07/10/18 at 14:30 Acetaminophen/ Hydrocodone Bitart ([place] (5/325)) 1 tab Q6H PRN PO .MOD PAIN 4- 6 Last administered on 07/12/18at 20:11; Admin Dose 1 TAB; Start 07/10/18 at 14:30 Enoxaparin Sodium (Lovenox) 40 mg DAILY SC Last administered on 07/13/18at 08:56; Admin Dose 40 MG; Start 07/11/18 at 09:00 Insulin Glargine (Lantus) 12 units DAILY@2000 SC Last administered on 07/12/18at 20:20; Admin Dose 12 UNITS; Start 07/10/18 at 20:00 Vancomycin HCl (Vanco Iv Per Pharmacy) VANCOMYCIN PER PHARMACY PER PROTOCOL XX ; Start 07/10/18 at 14:30 Vancomycin HCl 250 ml @ 125 mls/hr Q12H IVPB Last administered on 07/13/18at 08:53; Admin Dose 125 MLS/HR; Start 07/10/18 at 20:00 Nicotine (Nicoderm 21 Mg/ 24hr) 1 patch DAILY TRANSDERM Last administered on 07/13/18at 08:54; Admin Dose 1 PATCH; Start 07/11/18 at 09:00 Miscellaneous Information 1 ea NOTE XX ; Start 07/11/18 at 06:45 Glucose (Glutose) 15 gm Q15M PRN PO DECREASED GLUCOSE; Start 07/11/18 at 06:45 Glucose (Glutose) 22.5 gm Q15M PRN PO DECREASED GLUCOSE; Start 07/11/18 at 06:45 Dextrose (D50w Syringe) 25 ml Q15M PRN IV DECREASED GLUCOSE; Start 07/11/18 at 06:45 Dextrose (D50w Syringe) 50 ml Q15M PRN IV DECREASED GLUCOSE; Start 07/11/18 at 06:45 Glucagon (Glucagen) 1 mg Q15M PRN IM DECREASED GLUCOSE; Start 07/11/18 at 06:45 Glucose (Glutose) 15 gm Q15M PRN BUCCAL DECREASED GLUCOSE; Start 07/11/18 at 06:45 Insulin Aspart (Novolog Insulin Pen) NOVOLOG *MILD* ALGORITHM WITH MEALS BEDTIME SC Last administered on 07/12/18at 20:19; Admin Dose 2 UNIT; Start 07/11/18 at 21:30 Caspofungin 50 mg/ Sodium Chloride 250 ml @ 250 mls/hr Q24H IVPB Last administered on 07/13/18at 12:17; Admin Dose 250 MLS/HR; Start 07/13/18 at 13:30 Levofloxacin (Levaquin) 750 mg DAILY@06 PO Last administered on 07/13/18at 05:44; Admin Dose 750 MG; Start 07/13/18 at 06:00 Bupropion HCl (Wellbutrin Xl) 150 mg DAILY PO Last administered on 07/13/18at 08:53; Admin Dose 150 MG; Start 07/13/18 at 09:00 Docusate Sodium/ Ferrous Fumarate ([employer]indy-[employer]els) 1 tab DAILY PO Last administered on 07/13/18at 12:17; Admin Dose 1 TAB; Start 07/13/18 at 10:30; St op 08/12/18 at 10:29 Atorvastatin Calcium (Lipitor) 20 mg HS PO ; Start 07/13/18 at 21:00 Fish Oil (Fish Oil) 2,000 mg BID PO Last administered on 07/13/18at 12:17; Admin Dose 2,000 MG; Start 07/13/18 at 10:30 Miscellaneous Information (*Rx Drug Level Order Reminder*) 1 0700 ONCE XX ; Start 07/14/18 at 07:00; Stop 07/14/18 at 07:01 DANE ZHOU NP July 13, 2018 18:38
[2018-07-13 20:05] VITALS: BP 138/62; PULSE 67; RESP 18
[2018-07-13] MEDS: ATORVASTATIN 20 MG TAB PO SCH (20:34)
[2018-07-13] MEDS: HYDROCODONE/APAP (5/325) TAB PO PRN (20:35)
[2018-07-13] MEDS: INSULIN GLARGINE [LANTus] (100 UNITS/ML) SYG SC SCH (20:38)
[2018-07-14 02:05] VITALS: BP 131/60; PULSE 65; RESP 18
[2018-07-14] MEDS: LEVOFLOXACIN 750 MG TABLET PO SCH (06:35)
[2018-07-14] MEDS: INSULIN ASPART [NOVOLOG] 3 ML PEN SC SCH ×4 (08:00→20:30)
[2018-07-14 08:01] VITALS: BP 147/64; PULSE 65; RESP 18
[2018-07-14] MEDS: BUSPIRONE 10 MG TAB PO SCH ×2 (08:27→20:31)
[2018-07-14] MEDS: FERROUS FUMARATE (SR) TAB PO SCH (08:27)
[2018-07-14] MEDS: FISH OIL 1,000 MG CAP PO SCH ×2 (08:27→20:31)
[2018-07-14] MEDS: VANCOMYCIN 1 GM 250 ML IVPB SCH ×2 (08:27→20:30)
[2018-07-14] MEDS: BUPROPION (XL) 150 MG TAB PO SCH (08:27)
[2018-07-14] MEDS: NICOTINE (21 MG/24 HR) PATCH TRANSDERM SCH (08:29)
[2018-07-14] MEDS: ENOXAPARIN 40 MG/0.4 ML SYG SC SCH (08:29)
--- NOTE | 2018-07-14 08:52 | PN ---
Date/Time of Note Date/Time of Note DATE: 07/14/18 TIME: 08:48 Assessment/Plan VTE Prophylaxis Risk score (from [facility])>0 risk: 3 SCD applied (from [facility]): No SCD contraindicated: bilateral LE trauma Pharmacological prophylaxis: heparin Lines/Catheters IV Catheter Type (from [facility]): Saline Lock Assessment/Plan Problems: (1) Toe gangrene Status: Acute Comment: Source of infection plan is for revascularization tomorrow followed by definitive debridement (2) Cellulitis of foot Status: Acute Comment: On antibiotics and improving (3) Bacteremia due to Enterococcus Status: Acute Comment: On antibiotics guided by infectious disease (4) Fungemia Status: Acute Comment: On antifungal agents guided by infectious disease (5) Peripheral vascular disease Status: Acute Comment: For revascularization tomorrow (6) Diabetes mellitus type 2 in nonobese Status: Chronic Comment: In a controlled environment with controlled diet and controlled administration of medications good glycemic control (7) Mixed hyperlipidemia Status: Chronic Comment: On appropriate therapeutics including statins and triglyceride reducing omega-3 fish oil Result Diagram: 07/12/18 0658 07/13/18 0522 Results 24hrs Laboratory Tests Test 07/13/18 12:19 07/13/18 17:37 07/13/18 20:33 07/14/18 07:46 Bedside Glucose 113 126 149 Vancomycin Level 14.2 Trough Test 07/14/18 07:59 Bedside Glucose 123 Subjective 24 Hr Interval Summary Free Text/Dictation Patient sitting up eating breakfast and in good spirits. Constitutional: no complaints (No fevers chills or sweats) Respiratory: no complaints Cardiovascular: no complaints Gastrointestinal: no complaints Genitourinary: no complaints Exam/Review of Systems Exam Vitals Vital Signs Date Temp Pulse Resp B/P (MAP) Pulse Ox O2 O2 Flow FiO2 Time Delivery Rate 07/14/18 98.2 65 18 147/64 95 08:01 (91) 07/11/18 Room Air 16:53 Intake and Output 07/13/18 07/13/18 07/14/18 1515:00 23:00 07:00 IntakeIntake Total 980 ml 490 ml 240 ml OutputOutput Total 400 ml 150 ml 850 ml BalanceBalance 580 ml 340 ml -610 ml Constitutional: alert, oriented Respiratory: clear to auscultation, normal air movement Cardiovascular: regular rate and rhythm, nl pulses Gastrointestinal: soft, nl liver, spleen, non-tender Results Results 24hrs Laboratory Tests Test 07/13/18 12:19 07/13/18 17:37 07/13/18 20:33 07/14/18 07:46 Bedside Glucose 113 126 149 Vancomycin Level 14.2 Trough Test 07/14/18 07:59 Bedside Glucose 123 Medications Medication Current Medications Buspirone HCl (Buspar) 10 mg BID PO Last administered on 07/14/18 08:27; Admin Dose 10 MG; Start 07/10/18 at 21:00 IV Flush (NS 3 ml) 3 ml PER PROTOCOL IV ; Start 07/10/18 at 14:30 Ondansetron HCl (Zofran Inj) 4 mg Q6H PRN IV NAUSEA/VOMITING; Start 07/10/18 at 14:30 Acetaminophen (Tylenol Tab) 650 mg Q6H PRN PO .PAIN 1-3 OR TEMP; Start 07/10/18 at 14:30 Acetaminophen/ Hydrocodone Bitart ([place] (5/325)) 1 tab Q6H PRN PO .MOD PAIN 4- 6 Last administered on 07/13/18at 20:35; Admin Dose 1 TAB; Start 07/10/18 at 14:30 Enoxaparin Sodium (Lovenox) 40 mg DAILY SC Last administered on 07/14/18 08:29; Admin Dose 40 MG; Start 07/11/18 at 09:00 Insulin Glargine (Lantus) 12 units DAILY@2000 SC Last administered on 07/13/18 20:38; Admin Dose 12 UNITS; Start 07/10/18 at 20:00 Vancomycin HCl (Vanco Iv Per Pharmacy) VANCOMYCIN PER PHARMACY PER PROTOCOL XX ; Start 07/10/18 at 14:30 Vancomycin HCl 250 ml @ 125 mls/hr Q12H IVPB Last administered on 07/14/18 08:27; Admin Dose 125 MLS/HR; Start 07/10/18 at 20:00 Nicotine (Nicoderm 21 Mg/ 24hr) 1 patch DAILY TRANSDERM Last administered on 07/14/18 08:29; Admin Dose 1 PATCH; Start 07/11/18 at 09:00 Miscellaneous Information 1 ea NOTE XX ; Start 07/11/18 at 06:45 Glucose (Glutose) 15 gm Q15M PRN PO DECREASED GLUCOSE; Start 07/11/18 at 06:45 Glucose (Glutose) 22.5 gm Q15M PRN PO DECREASED GLUCOSE; Start 07/11/18 at 06:45 Dextrose (D50w Syringe) 25 ml Q15M PRN IV DECREASED GLUCOSE; Start 07/11/18 at 06:45 Dextrose (D50w Syringe) 50 ml Q15M PRN IV DECREASED GLUCOSE; Start 07/11/18 at 06:45 Glucagon (Glucagen) 1 mg Q15M PRN IM DECREASED GLUCOSE; Start 07/11/18 at 06:45 Glucose (Glutose) 15 gm Q15M PRN BUCCAL DECREASED GLUCOSE; Start 07/11/18 at 06:45 Insulin Aspart (Novolog Insulin Pen) NOVOLOG *MILD* ALGORITHM WITH MEALS BEDTIME SC Last administered on 07/12/18 20:19; Admin Dose 2 UNIT; Start 07/11/18 at 21:30 Caspofungin 50 mg/ Sodium Chloride 250 ml @ 250 mls/hr Q24H IVPB Last administered on 07/13/18 12:17; Admin Dose 250 MLS/HR; Start 07/13/18 at 13:30 Levofloxacin (Levaquin) 750 mg DAILY@06 PO Last administered on 07/14/18 06:35; Admin Dose 750 MG; Start 07/13/18 at 06:00 Bupropion HCl (Wellbutrin Xl) 150 mg DAILY PO Last administered on 07/14/18 08:27; Admin Dose 150 MG; Start 07/13/18 at 09:00 Docusate Sodium/ Ferrous Fumarate (Cindy-Sequels) 1 tab DAILY PO Last administered on 07/14/18 08:27; Admin Dose 1 TAB; Start 07/13/18 at 10:30; Stop 08/12/18 at 10:29 Atorvastatin Calcium (Lipitor) 20 mg HS PO Last administered on 07/13/18 20:34; Admin Dose 20 MG; Start 07/13/18 at 21:00 Fish Oil (Fish Oil) 2,000 mg BID PO Last administered on 07/14/18 08:27; Admin Dose 2,000 MG; Start 07/13/18 at 10:30 CHING CARDOZA MD July 14, 2018 08:52
[2018-07-14] MEDS: CASPOFUNGIN 50 MG in SOD CHLORIDE 0.9% 250 ML IVPB SCH (13:47)
[2018-07-14 14:44] VITALS: BP 167/72; PULSE 66; RESP 16
--- NOTE | 2018-07-14 15:45 | CONS ---
Assessment/Plan Assessment/Plan Hospital Course (Demo Recall) ID PROGRESS NOTE CURRENT ABX: DAY #=> Vanco V + Levaquin + Cancidas s/p Zosyn 24H INTERVAL SUMMARY * 72 yo M sitting up in bed, A/A/O,polite, pleasant, no complaints, denies acute health changes, tolerating ABX well * No fevers, VSS, WBC normalized, MICRO/OTHER * 07/12/18 BCX (-) * 07/10/18 BCX:(+) 1/2 bottles Organism 1 GRAM POS COCCI IN PAIRS,CHAIN Organism 2 YEAST * 07/10/18 FOOT WOUND CX WOUND CULTURE Final Organism 1 STENOTROPHOMONAS MALTOPHILIA QUANTITY SCANT GROWTH Organism 2 PSEUDOMONAS PUTIDA QUANTITY 1+ Organism 3 COAGULASE NEGATIVE STAPH QUANTITY SCANT GROWTH Organism 4 ENTEROCOCCUS SPECIES QUANTITY SCANT GROWTH PHYSICAL EXAMINATION: GENERAL: VSS, NAD, OVERWEIGHT HEENT: AT, NC, anicteric, NECK: Supple, CHEST: Equal chest rise bilaterally without dyspnea on observation HEART: Pulse RRR ABDOMEN: soft EXTREMITIES: Warm, dry = =left foot DSG C/D/I SKIN: No rash, no diaphoresis ID ASSESSMENT 72 yo M admit with: 1. Polymicrobial bacteremia/fungemia likely secondary to #2 2. Left great toe cellulitis, gangrene, osteomyelitis 3. Peripheral arterial disease with high-grade left SFA stenosis 4. Diabetes ABX ALLERGIES: KNDA INVASIVES: PIV CURRENT ABX: DAY # = Vanco V + Levaquin + Cancidas s/p Zosyn ID RECOMMENDATIONS/PLAN: 1. Continue current ABX 2. Follow APC recommendations 3. ID [employer] colleague to f/u this week . Consultation Date/Type/Reason Admit Date/Time July 10, 2018 at 12:52 Initial Consult Date Date/Time of Note DATE: 07/14/18 TIME: 15:43 Exam/Review of Systems Exam Vitals Vital Signs Date Temp Pulse Resp B/P (MAP) Pulse Ox O2 O2 Flow FiO2 Time Delivery Rate 07/14/18 98.7 66 16 167/72 97 14:44 (103) 07/11/18 Room Air 16:53 Intake and Output 07/13/18 07/13/18 07/14/18 1515:00 23:00 07:00 IntakeIntake Total 980 ml 490 ml 240 ml OutputOutput Total 400 ml 150 ml 850 ml BalanceBalance 580 ml 340 ml -610 ml Results Result Diagram: 07/12/18 0658 07/13/18 0522 Results 24hrs Laboratory Tests Test 07/13/18 17:37 07/13/18 20:33 07/14/18 07:46 07/14/18 07:59 Bedside Glucose 126 149 123 Vancomycin Level 14.2 Trough Test 07/14/18 12:16 Bedside Glucose 136 Medications Medication Current Medications Buspirone HCl (Buspar) 10 mg BID PO Last administered on 07/14/18at 08:27; Admin Dose 10 MG; Start 07/10/18 at 21:00 IV Flush (NS 3 ml) 3 ml PER PROTOCOL IV ; Start 07/10/18 at 14:30 Ondansetron HCl (Zofran Inj) 4 mg Q6H PRN IV NAUSEA/VOMITING; Start 07/10/18 at 14:30 Acetaminophen (Tylenol Tab) 650 mg Q6H PRN PO .PAIN 1-3 OR TEMP; Start 07/10/18 at 14:30 Acetaminophen/ Hydrocodone Bitart ([place] (5/325)) 1 tab Q6H PRN PO .MOD PAIN 4- 6 Last administered on 07/13/18at 20:35; Admin Dose 1 TAB; Start 07/10/18 at 14:30 Enoxaparin Sodium (Lovenox) 40 mg DAILY SC Last administered on 07/14/18at 08:29; Admin Dose 40 MG; Start 07/11/18 at 09:00 Insulin Glargine (Lantus) 12 units DAILY@2000 SC Last administered on 07/13/18at 20:38; Admin Dose 12 UNITS; Start 07/10/18 at 20:00 Vancomycin HCl (Vanco Iv Per Pharmacy) VANCOMYCIN PER PHARMACY PER PROTOCOL XX ; Start 07/10/18 at 14:30 Vancomycin HCl 250 ml @ 125 mls/hr Q12H IVPB Last administered on 07/14/18at 08:27; Admin Dose 125 MLS/HR; Start 07/10/18 at 20:00 Nicotine (Nicoderm 21 Mg/ 24hr) 1 patch DAILY TRANSDERM Last administered on 07/14/18at 08:29; Admin Dose 1 PATCH; Start 07/11/18 at 09:00 Miscellaneous Information 1 ea NOTE XX ; Start 07/11/18 at 06:45 Glucose (Glutose) 15 gm Q15M PRN PO DECREASED GLUCOSE; Start 07/11/18 at 06:45 Glucose (Glutose) 22.5 gm Q15M PRN PO DECREASED GLUCOSE; Start 07/11/18 at 06:45 Dextrose (D50w Syringe) 25 ml Q15M PRN IV DECREASED GLUCOSE; Start 07/11/18 at 06:45 Dextrose (D50w Syringe) 50 ml Q15M PRN IV DECREASED GLUCOSE; Start 07/11/18 at 06:45 Glucagon (Glucagen) 1 mg Q15M PRN IM DECREASED GLUCOSE; Start 07/11/18 at 06:45 Glucose (Glutose) 15 gm Q15M PRN BUCCAL DECREASED GLUCOSE; Start 07/11/18 at 06:45 Insulin Aspart (Novolog Insulin Pen) NOVOLOG *MILD* ALGORITHM WITH MEALS BEDTIME SC Last administered on 07/12/18 20:19; Admin Dose 2 UNIT; Start 07/11/18 at 21:30 Caspofungin 50 mg/ Sodium Chloride 250 ml @ 250 mls/hr Q24H IVPB Last administered on 07/14/18at 13:47; Admin Dose 250 MLS/HR; Start 07/13/18 at 13:30 Levofloxacin (Levaquin) 750 mg DAILY@06 PO Last administered on 07/14/18at 06:35; Admin Dose 750 MG; Start 07/13/18 at 06:00 Bupropion HCl (Wellbutrin Xl) 150 mg DAILY PO Last administered on 07/14/18 08:27; Admin Dose 150 MG; Start 07/13/18 at 09:00 Docusate Sodium/ Ferrous Fumarate (Cindy-Sequels) 1 tab DAILY PO Last administered on 07/14/18 08:27; Admin Dose 1 TAB; Start 07/13/18 at 10:30; Stop 08/12/18 at 10:29 Atorvastatin Calcium (Lipitor) 20 mg HS PO Last administered on 07/13/18at 20:34; Admin Dose 20 MG; Start 07/13/18 at 21:00 Fish Oil (Fish Oil) 2,000 mg BID PO Last administered on 07/14/18at 08:27; Admin Dose 2,000 MG; Start 07/13/18 at 10:30 DANE ZHUO NP July 14, 2018 15:45
[2018-07-14 20:00] VITALS: BP 131/63; PULSE 68; RESP 18
[2018-07-14] MEDS: ATORVASTATIN 20 MG TAB PO SCH (20:31)
[2018-07-14] MEDS: INSULIN GLARGINE [LANTus] (100 UNITS/ML) SYG SC SCH (20:31)
[2018-07-14] MEDS: HYDROCODONE/APAP (5/325) TAB PO PRN (20:32)
[2018-07-15 02:00] VITALS: BP 139/64; PULSE 62; RESP 17
[2018-07-15] MEDS: LEVOFLOXACIN 750 MG TABLET PO SCH (05:26)
[2018-07-15] MEDS: INSULIN ASPART [NOVOLOG] 3 ML PEN SC SCH ×4 (07:59→21:16)
[2018-07-15 08:01] VITALS: BP 116/67; PULSE 65; RESP 17
[2018-07-15] MEDS: BUSPIRONE 10 MG TAB PO SCH ×2 (09:00→21:00)
[2018-07-15] MEDS: BUPROPION (XL) 150 MG TAB PO SCH ×2 (09:00→09:20)
[2018-07-15] MEDS: FERROUS FUMARATE (SR) TAB PO SCH (09:19)
[2018-07-15] MEDS: FISH OIL 1,000 MG CAP PO SCH ×2 (09:20→21:09)
[2018-07-15] MEDS: NICOTINE (21 MG/24 HR) PATCH TRANSDERM SCH (09:21)
[2018-07-15] MEDS: VANCOMYCIN 1 GM 250 ML IVPB SCH ×2 (09:21→21:09)
[2018-07-15] MEDS: ENOXAPARIN 40 MG/0.4 ML SYG SC SCH (09:22)
--- NOTE | 2018-07-15 12:22 | PN ---
Date/Time of Note Date/Time of Note DATE: 07/15/18 TIME: 12:12 Assessment/Plan VTE Prophylaxis Risk score (from [facility])>0 risk: 3 SCD applied (from [facility]): No SCD contraindicated: other Pharmacological prophylaxis: LMWH Lines/Catheters IV Catheter Type (from [facility]): Saline Lock Assessment/Plan Hospital Course SUBJECTIVE: No complaints OBJECTIVE: Vital signs-see below PHYSICAL EXAM: Constitutional: Adequately built,not in acute distress. HEENT: Head atraumatic and normocephalic. Eyes: Extraocular muscles intact. Anicteric sclerae. Pupils equal bilaterally, reactive to light. NECK: Supple without lymph node. CHEST: Clear and good breath sounds equally. No wheezing. No rhonchi. HEART: S1, S2. Regular rate and rhythm. ABDOMEN: Soft/non tender with no rebound tenderness. Bowel sounds were present. EXTREMITIES:Left 1st toe dry gangrene.Surrounding dorsal foot area w/erythema/swelling/tenderness. No DP/PT palpable pulse. NEUROLOGIC: Alert and oriented x3. No focal deficit. No sensory deficit. PSYCHOSOCIAL: No signs of depression. INTEGUMENTARY: No open wounds. ASSESSMENT AND PLAN:72 yo M w/hx of triglyceridemia, peripheral vascular disease, type 2 diabetes, anxiety/depression, long-standing tobacco use 1 pack/day was told by his doctor to get admitted for inpatient vascular/podiatry work-up for worsening cellulitis with left toe gangrene also noted with severe PAD/osteomyelitis.. Left foot cellulitis -No evidence to suggest sepsis.BC / culture grew crystal.. This is more likely contamination and unsure needs to be treated. Defer to ID. -Again antimicrobial per ID recommendations -Glycemic control/Wound care PAD with left first toe dry gangrene -Onset ~2 mos -Status post abdominal aortogram with left lower extremity runoff. -Vascular recommended PT bypass-timing/scheduling per vascular. -Continue to optimize neurovascular status with antihypertensives to keep blood pressure ~140/90, diet, nutrition, exercise, blood glucose control, and antiplatelets/anticoagulation. Osteomyelitis of left first toe. -IV abx-would need it for usp if no amputation happens -CS DMII -well-controlled -Basal/bolus insulin Dyslipidemia/triglyceridemia -on Tricor/statin Anxiety/depression -on Buspar Tobacco abuse -Cessation advised. PRN nicotine patch for withdrawal. Chronic anemia -Stable H&H. Monitor -also getting oral iron DVT prophylaxis: Lovenox PUD prophylaxis: Not indicated CODE STATUS: Full code Diet: Carbohydrate controlled/low-cholesterol diet. Disp: pt needs PT bypass. F/u vascular/Podiatry recs. Patient was seen in collaboration with Dr. Villalpando. Result Diagram: 07/15/18 0500 07/15/18 0500 Results 24hrs Laboratory Tests Test 07/14/18 12:16 07/14/18 17:02 07/14/18 20:23 07/15/18 01:51 Bedside Glucose 136 165 216 138 Test 07/15/18 05:00 07/15/18 07:58 07/15/18 12:03 White Blood Count 6.4 Red Blood Count 3.55 L Hemoglobin 10.2 L Hematocrit 31.1 L Mean Corpuscular 87.6 Volume Mean Corpuscular 28.7 L Hemoglobin Mean Corpuscular 32.8 Hemoglobin Concent Red Cell 12.9 Distribution Width Platelet Count 295 Mean Platelet Volume 9.6 Immature 0.200 Granulocytes % Neutrophils % 59.2 Lymphocytes % 25.5 Monocytes % 10.6 Eosinophils % 3.9 Basophils % 0.6 Nucleated Red Blood 0.0 Cells % Immature 0.010 Granulocytes # Neutrophils # 3.8 Lymphocytes # 1.6 Monocytes # 0.7 Eosinophils # 0.3 Basophils # 0.0 Nucleated Red Blood 0.0 Cells # Prothrombin Time 14.2 Prothrombin Time 1.1 Ratio INR International 1.09 Normalized Ratio Activated 35.6 H Partial Thromboplast Time Sodium Level 142 Potassium Level 3.5 Chloride Level 107 Carbon Dioxide Level 27 Anion Gap 8 Blood Urea Nitrogen 19 Creatinine 0.96 Est Glomerular > 60 Filtrat Rate mL/min Glucose Level 108 Calcium Level 9.1 Total Bilirubin 0.2 Direct Bilirubin 0.00 Indirect Bilirubin 0.2 Aspartate Amino 17 Transf (AST/SGOT) Alanine 14 Aminotransferase (AL T/SGPT) Alkaline Phosphatase 42 Total Protein 6.6 Albumin 3.4 Globulin 3.20 Albumin/Globulin 1.06 Ratio Bedside Glucose 93 138 Exam/Review of Systems Exam Vitals Vital Signs Date Temp Pulse Resp B/P (MAP) Pulse Ox O2 O2 Flow FiO2 Time Delivery Rate 07/15/18 98.5 65 17 116/67 99 Room Air 08:01 (83) Intake and Output 507/14/18 07/15/18 1515:00 23:00 07:00 IntakeIntake Total 740 ml 1450 ml 480 ml OutputOutput Total 225 ml 400 ml 800 ml BalanceBalance 515 ml 1050 ml -320 ml Results Results 24hrs Laboratory Tests Test 07/14/18 12:16 07/14/18 17:02 07/14/18 20:23 07/15/18 01:51 Bedside Glucose 136 165 216 138 Test 07/15/18 05:00 07/15/18 07:58 07/15/18 12:03 White Blood Count 6.4 Red Blood Count 3.55 L Hemoglobin 10.2 L Hematocrit 31.1 L Mean Corpuscular 87.6 Volume Mean Corpuscular 28.7 L Hemoglobin Mean Corpuscular 32.8 Hemoglobin Concent Red Cell 12.9 Distribution Width Platelet Count 295 Mean Platelet Volume 9.6 Immature 0.200 Granulocytes % Neutrophils % 59.2 Lymphocytes % 25.5 Monocytes % 10.6 Eosinophils % 3.9 Basophils % 0.6 Nucleated Red Blood 0.0 Cells % Immature 0.010 Granulocytes # Neutrophils # 3.8 Lymphocytes # 1.6 Monocytes # 0.7 Eosinophils # 0.3 Basophils # 0.0 Nucleated Red Blood 0.0 Cells # Prothrombin Time 14.2 Prothrombin Time 1.1 Ratio INR International 1.09 Normalized Ratio Activated 35.6 H Partial Thromboplast Time Sodium Level 142 Potassium Level 3.5 Chloride Level 107 Carbon Dioxide Level 27 Anion Gap 8 Blood Urea Nitrogen 19 Creatinine 0.96 Est Glomerular > 60 Filtrat Rate mL/min Glucose Level 108 Calcium Level 9.1 Total Bilirubin 0.2 Direct Bilirubin 0.00 Indirect Bilirubin 0.2 Aspartate Amino 17 Transf (AST/SGOT) Alanine 14 Aminotransferase (AL T/SGPT) Alkaline Phosphatase 42 Total Protein 6.6 Albumin 3.4 Globulin 3.20 Albumin/Globulin 1.06 Ratio Bedside Glucose 93 138 Medications Medication Current Medications Buspirone HCl (Buspar) 10 mg BID PO Last administered on 07/14/18at 20:31; Admin Dose 10 MG; Start 07/10/18 at 21:00 IV Flush (NS 3 ml) 3 ml PER PROTOCOL IV ; Start 07/10/18 at 14:30 Ondansetron HCl (Zofran Inj) 4 mg Q6H PRN IV NAUSEA/VOMITING; Start 07/10/18 at 14:30 Acetaminophen (Tylenol Tab) 650 mg Q6H PRN PO .PAIN 1-3 OR TEMP; Start 07/10/18 at 14:30 Acetaminophen/ Hydrocodone Bitart ([place] (5/325)) 1 tab Q6H PRN PO .MOD PAIN 4- 6 Last administered on 07/14/18at 20:32; Admin Dose 1 TAB; Start 07/10/18 at 14:30 Enoxaparin Sodium (Lovenox) 40 mg DAILY SC Last administered on 07/15/18 09:22; Admin Dose 40 MG; Start 07/11/18 at 09:00 Insulin Glargine (Lantus) 12 units DAILY@2000 SC Last administered on 07/14/18 20:31; Admin Dose 12 UNITS; Start 07/10/18 at 20:00 Vancomycin HCl (Vanco Iv Per Pharmacy) VANCOMYCIN PER PHARMACY PER PROTOCOL XX ; Start 07/10/18 at 14:30 Vancomycin HCl 250 ml @ 125 mls/hr Q12H IVPB Last administered on 07/15/18 09 :21; Admin Dose 125 MLS/HR; Start 07/10/18 at 20:00 Nicotine (Nicoderm 21 Mg/ 24hr) 1 patch DAILY TRANSDERM Last administered on 07/15/18 09:21; Admin Dose 1 PATCH; Start 07/11/18 at 09:00 Miscellaneous Information 1 ea NOTE XX ; Start 07/11/18 at 06:45 Glucose (Glutose) 15 gm Q15M PRN PO DECREASED GLUCOSE; Start 07/11/18 at 06:45 Glucose (Glutose) 22.5 gm Q15M PRN PO DECREASED GLUCOSE; Start 07/11/18 at 06:45 Dextrose (D50w Syringe) 25 ml Q15M PRN IV DECREASED GLUCOSE; Start 07/11/18 at 06:45 Dextrose (D50w Syringe) 50 ml Q15M PRN IV DECREASED GLUCOSE; Start 07/11/18 at 06:45 Glucagon (Glucagen) 1 mg Q15M PRN IM DECREASED GLUCOSE; Start 07/11/18 at 06:45 Glucose (Glutose) 15 gm Q15M PRN BUCCAL DECREASED GLUCOSE; Start 07/11/18 at 06:45 Insulin Aspart (Novolog Insulin Pen) NOVOLOG *MILD* ALGORITHM WITH MEALS BEDTIME SC Last administered on 07/14/18 20:30; Admin Dose 1 UNIT; Start at 21:30 Caspofungin 50 mg/ Sodium Chloride 250 ml @ 250 mls/hr Q24H IVPB Last administered on 07/14/18 13:47; Admin Dose 250 MLS/HR; Start 07/13/18 at 13:30 Levofloxacin (Levaquin) 750 mg DAILY@06 PO Last administered on 07/15/18 05:26; Admin Dose 750 MG; Start 07/13/18 at 06:00 Bupropion HCl (Wellbutrin Xl) 150 mg DAILY PO Last administered on 07/14/18 08:27; Admin Dose 150 MG; Start 07/13/18 at 09:00 Docusate Sodium/ Ferrous Fumarate (Cindy-Sequels) 1 tab DAILY PO Last administered on 07/15/18 09:19; Admin Dose 1 TAB; Start 07/13/18 at 10:30; Stop 08/12/18 at 10:29 Atorvastatin Calcium (Lipitor) 20 mg HS PO Last administered on 07/14/18 20:31; Admin Dose 20 MG; Start 07/13/18 at 21:00 Fish Oil (Fish Oil) 2,000 mg BID PO Last administered on 07/15/18 09:20; Admin Dose 2,000 MG; Start 07/13/18 at 10:30 EDDIE PITTMAN NP July 15, 2018 12:22
[2018-07-15 14:06] VITALS: BP 120/62; PULSE 69; RESP 18
--- NOTE | 2018-07-15 14:27 | CONS ---
Assessment/Plan Assessment/Plan Hospital Course (Demo Recall) Patient is alert laying comfortably in bed no fevers overnight Microbiology: Wound culture grew stenotrophomonas maltophilia, Pseudomonas enterococcus species and coag negative staph species, repeat blood cultures negative Antimicrobials: Cancidas, oral Levaquin, vancomycin Physical examination: This is a well-developed fragile elderly man who is alert in no distress. Head atraumatic normocephalic sclera nonicteric vehicle mucosa dry neck is supple chest rise symmetrical breath sounds diminished bases heart: S1-S2. Abdomen soft bowel sounds present. Extremities with left great toe gangrene ASSESSMENT: 1. Polymicrobial bacteremia/fungemia likely secondary to #2 2. Left great toe cellulitis, gangrene, osteomyelitis 3. Peripheral arterial disease with high-grade left SFA stenosis 4. Diabetes Plan: Patient is clinically stable, repeat blood cultures negative, continue ant ibiotics, await for final blood culture results and sensitivities, follow podiatry/vascular surgery rec-s Consultation Date/Type/Reason Admit Date/Time July 10, 2018 at 12:52 Initial Consult Date Type of Consult id Date/Time of Note DATE: 07/15/18 TIME: 14:26 Exam/Review of Systems Exam Vitals Vital Signs Date Temp Pulse Resp B/P (MAP) Pulse Ox O2 O2 Flow FiO2 Time Delivery Rate 07/15/18 99.0 69 18 120/62 97 Room Air 14:06 (81) Intake and Output 07/14/18 07/14/18 07/15/18 1515:00 23:00 07:00 IntakeIntake Total 740 ml 1450 ml 480 ml OutputOutput Total 225 ml 400 ml 800 ml BalanceBalance 515 ml 1050 ml -320 ml Results Result Diagram: 07/15/18 0500 07/15/18 0500 Results 24hrs Laboratory Tests Test 07/14/18 17:02 07/14/18 20:23 07/15/18 01:51 07/15/18 05:00 Bedside Glucose 165 216 138 White Blood Count 6.4 Red Blood Count 3.55 L Hemoglobin 10.2 L Hematocrit 31.1 L Mean Corpuscular 87.6 Volume Mean Corpuscular 28.7 L Hemoglobin Mean Corpuscular 32.8 Hemoglobin Concent Red Cell 12.9 Distribution Width Platelet Count 295 Mean Platelet Volume 9.6 Immature 0.200 Granulocytes % Neutrophils % 59.2 Lymphocytes % 25.5 Monocytes % 10.6 Eosinophils % 3.9 Basophils % 0.6 Nucleated Red Blood 0.0 Cells % Immature 0.010 Granulocytes # Neutrophils # 3.8 Lymphocytes # 1.6 Monocytes # 0.7 Eosinophils # 0.3 Basophils # 0.0 Nucleated Red Blood 0.0 Cells # Prothrombin Time 14.2 Prothrombin Time 1.1 Ratio INR International 1.09 Normalized Ratio Activated 35.6 H Partial Thromboplast Time Sodium Level 142 Potassium Level 3.5 Chloride Level 107 Carbon Dioxide Level 27 Anion Gap 8 Blood Urea Nitrogen 19 Creatinine 0.96 Est Glomerular > 60 Filtrat Rate mL/min Glucose Level 108 Calcium Level 9.1 Total Bilirubin 0.2 Direct Bilirubin 0.00 Indirect Bilirubin 0.2 Aspartate Amino 17 Transf (AST/SGOT) Alanine 14 Aminotransferase (AL T/SGPT) Alkaline Phosphatase 42 Total Protein 6.6 Albumin 3.4 Globulin 3.20 Albumin/Globulin 1.06 Ratio Test 07/15/18 07:58 07/15/18 12:03 Bedside Glucose 93 138 Medications Medication Current Medications Buspirone HCl (Buspar) 10 mg BID PO Last administered on 07/14/18 20:31; Admin Dose 10 MG; Start 07/10/18 at 21:00 IV Flush (NS 3 ml) 3 ml PER PROTOCOL IV ; Start 07/10/18 at 14:30 Ondansetron HCl (Zofran Inj) 4 mg Q6H PRN IV NAUSEA/VOMITING; Start 07/10/18 at 14:30 Acetaminophen (Tylenol Tab) 650 mg Q6H PRN PO .PAIN 1-3 OR TEMP; Start 07/10/18 at 14:30 Acetaminophen/ Hydrocodone Bitart ([place] (5/325)) 1 tab Q6H PRN PO .MOD PAIN 4- 6 Last administered on 07/14/18at 20:32; Admin Dose 1 TAB; Start 07/10/18 at 14:30 Enoxaparin Sodium (Lovenox) 40 mg DAILY SC Last administered on 07/15/18 09:22; Admin Dose 40 MG; Start 07/11/18 at 09:00 Insulin Glargine (Lantus) 12 units DAILY@2000 SC Last administered on 07/14/18 20:31; Admin Dose 12 UNITS; Start 07/10/18 at 20:00 Vancomycin HCl (Vanco Iv Per Pharmacy) VANCOMYCIN PER PHARMACY PER PROTOCOL XX ; Start 07/10/18 at 14:30 Vancomycin HCl 250 ml @ 125 mls/hr Q12H IVPB Last administered on 07/15/18at 09:21; Admin Dose 125 MLS/HR; Start 07/10/18 at 20:00 Nicotine (Nicoderm 21 Mg/ 24hr) 1 patch DAILY TRANSDERM Last administered on 07/15/18at 09:21; Admin Dose 1 PATCH; Start 07/11/18 at 09:00 Miscellaneous Information 1 ea NOTE XX ; Start 07/11/18 at 06:45 Glucose (Glutose) 15 gm Q15M PRN PO DECREASED GLUCOSE; Start 07/11/18 at 06:45 Glucose (Glutose) 22.5 gm Q15M PRN PO DECREASED GLUCOSE; Start 07/11/18 at 06:45 Dextrose (D50w Syringe) 25 ml Q15M PRN IV DECREASED GLUCOSE; Start 07/11/18 at 06:45 Dextrose (D50w Syringe) 50 ml Q15M PRN IV DECREASED GLUCOSE; Start 07/11/18 at 06:45 Glucagon (Glucagen) 1 mg Q15M PRN IM DECREASED GLUCOSE; Start 07/11/18 at 06:45 Glucose (Glutose) 15 gm Q15M PRN BUCCAL DECREASED GLUCOSE; Start 07/11/18 at 06:45 Insulin Aspart (Novolog Insulin Pen) NOVOLOG *MILD* ALGORITHM WITH MEALS BEDTIM E SC Last administered on 07/14/18at 20:30; Admin Dose 1 UNIT; Start 07/11/18 at 21:30 Caspofungin 50 mg/ Sodium Chloride 250 ml @ 250 mls/hr Q24H IVPB Last administered on 07/14/18at 13:47; Admin Dose 250 MLS/HR; Start 07/13/18 at 13:30 Levofloxacin (Levaquin) 750 mg DAILY@06 PO Last administered on 07/15/18at 05:26; Admin Dose 750 MG; Start 07/13/18 at 06:00 Bupropion HCl (Wellbutrin Xl) 150 mg DAILY PO Last administered on 07/14/18at 08:27; Admin Dose 150 MG; Start 07/13/18 at 09:00 Docusate Sodium/ Ferrous Fumarate (Cindy-Sequels) 1 tab DAILY PO Last administered on 07/15/18at 09:19; Admin Dose 1 TAB; Start 07/13/18 at 10:30; Stop 08/12/18 at 10:29 Atorvastatin Calcium (Lipitor) 20 mg HS PO Last administered on 07/14/18at 20:31; Admin Dose 20 MG; Start 07/13/18 at 21:00 Fish Oil (Fish Oil) 2,000 mg BID PO Last administered on 07/15/18 09:20; Admin Dose 2,000 MG; Start 07/13/18 at 10:30 JUAN GARCIA NP July 15, 2018 14:27
[2018-07-15] MEDS: CASPOFUNGIN 50 MG in SOD CHLORIDE 0.9% 250 ML IVPB SCH (15:13)
[2018-07-15 20:00] VITALS: BP 127/74; PULSE 75; RESP 18
[2018-07-15] MEDS: ATORVASTATIN 20 MG TAB PO SCH (21:09)
[2018-07-15] MEDS: INSULIN GLARGINE [LANTus] (100 UNITS/ML) SYG SC SCH (21:17)
[2018-07-15] MEDS: HYDROCODONE/APAP (5/325) TAB PO PRN (21:30)
[2018-07-16 02:00] VITALS: BP 149/69; PULSE 61; RESP 17
[2018-07-16] MEDS: LEVOFLOXACIN 750 MG TABLET PO SCH (05:52)
[2018-07-16] MEDS: INSULIN ASPART [NOVOLOG] 3 ML PEN SC SCH ×4 (08:00→20:38)
[2018-07-16 08:02] VITALS: BP 137/67; PULSE 60; RESP 17
[2018-07-16] MEDS: BUSPIRONE 10 MG TAB PO SCH ×4 (08:17→21:00)
[2018-07-16] MEDS: BUPROPION (XL) 150 MG TAB PO SCH ×2 (08:17→08:25)
[2018-07-16] MEDS: FISH OIL 1,000 MG CAP PO SCH ×2 (08:17→20:40)
[2018-07-16] MEDS: FERROUS FUMARATE (SR) TAB PO SCH (08:17)
[2018-07-16] MEDS: ENOXAPARIN 40 MG/0.4 ML SYG SC SCH (08:18)
[2018-07-16] MEDS: NICOTINE (21 MG/24 HR) PATCH TRANSDERM SCH (08:25)
[2018-07-16] MEDS: VANCOMYCIN 1 GM 250 ML IVPB SCH ×2 (09:06→20:40)
--- NOTE | 2018-07-16 11:08 | PN ---
Date/Time of Note Date/Time of Note DATE: 07/16/18 TIME: 10:59 Assessment/Plan VTE Prophylaxis Risk score (from Ns)>0 risk: 4 SCD applied (from Ns): No SCD contraindicated: other Pharmacological prophylaxis: LMWH Lines/Catheters IV [facility]from [facility] [place] Assessment/Plan Hospital Course SUBJECTIVE: No complaints OBJECTIVE: Vital signs-see below PHYSICAL EXAM: Constitutional: Adequately built,not in acute distress. HEENT: Head atraumatic and normocephalic. Eyes: Extraocular muscles intact. Anicteric sclerae. Pupils equal bilaterally, reactive to light. NECK: Supple without lymph node. CHEST: Clear and good breath sounds equally. No wheezing. No rhonchi. HEART: S1, S2. Regular rate and rhythm. ABDOMEN: Soft/non tender with no rebound tenderness. Bowel sounds were present. EXTREMITIES:Left 1st toe dry gangrene.Surrounding dorsal foot area w/erythema/swelling/tenderness. No DP/PT palpable pulse. NEUROLOGIC: Alert and oriented x3. No focal deficit. No sensory deficit. PSYCHOSOCIAL: No signs of depression. INTEGUMENTARY: No open wounds. ASSESSMENT AND PLAN:72 yo M w/hx of triglyceridemia, peripheral vascular disease, type 2 diabetes, anxiety/depression, long-standing tobacco use 1 pack/day was told by his doctor to get admitted for inpatient vascular/podiatry work-up for worsening cellulitis with left toe gangrene also noted with severe PAD/osteomyelitis.. Left foot cellulitis -Cellulitis improved - cont. Glycemic control/Wound care -.BC 03/08 culture grew crystal.. As per ID, patient is on treatment w/Cancidas....Await for final report.. -Again antimicrobial per ID recommendations PAD with left first toe dry gangrene -Onset ~2 mos -Status post abdominal aortogram with left lower extremity runoff=>Plan for Fem- PT Bypass=>timing/scheduling per vascular -Continue to optimize neurovascular status with antihypertensives to keep blood pressure ~140/90, diet, nutrition, exercise, blood glucose control, and antiplatelets/anticoagulation. Osteomyelitis of left first toe. -IV abx-would need it for longterm if no amputation happens DMII -well-controlled -Basal/bolus insulin Dyslipidemia/triglyceridemia -on Tricor/statin Anxiety/depression -on Buspar Tobacco abuse -Cessation advised. PRN nicotine patch for withdrawal. Chronic anemia -Stable H&H. Monitor -also getting oral iron DVT prophylaxis: Lovenox PUD prophylaxis: Not indicated CODE STATUS: Full code Diet: Carbohydrate controlled/low-cholesterol diet. Disp: pt needs PT bypass once medically optimized-timing per vascular. F/u vascular/Podiatry recs. Patient was seen in collaboration with Dr. Villalpando. Result Diagram: 07/15/18 0500 07/15/18 0500 Results 24hrs Laboratory Tests Test 07/15/18 12:03 07/15/18 17:23 07/15/18 21:05 07/16/18 01:59 Bedside Glucose 138 150 224 H 124 Test 07/16/18 08:15 Bedside Glucose 106 Exam/Review of Systems Exam Vitals Vital Signs Date Temp Pulse Resp B/P (MAP) Pulse Ox O2 O2 Flow FiO2 Time Delivery Rate 07/16/18 98.1 60 17 137/67 97 Room Air 08:02 (90) Intake and Output 07/15/18 07/15/18 07/16/18 1515:00 23:00 07:00 IntakeIntake Total 770 ml 550 ml 250 ml OutputOutput Total 200 ml 200 ml 1200 ml BalanceBalance 570 ml 350 ml -950 ml Results Results 24hrs Laboratory Tests Test 07/15/18 12:03 07/15/18 17:23 07/15/18 21:05 07/16/18 01:59 Bedside Glucose 138 150 224 H 124 Test 07/16/18 08:15 Bedside Glucose 106 Medications Medication Current Medications Buspirone HCl (Buspar) 10 mg BID PO Last administered on 07/14/18at 20:31; Admin Dose 10 MG; Start 07/10/18 at 21:00 IV Flush (NS 3 ml) 3 ml PER PROTOCOL IV ; Start 07/10/18 at 14:30 Ondansetron HCl (Zofran Inj) 4 mg Q6H PRN IV NAUSEA/VOMITING; Start 07/10/18 at 14:30 Acetaminophen (Tylenol Tab) 650 mg Q6H PRN PO .PAIN 1-3 OR TEMP; Start 07/10/18 at 14:30 Acetaminophen/ Hydrocodone Bitart ([facility] (5/325)) 1 tab Q6H PRN PO .MOD PAIN 4- 6 Last administered on 07/15/18 21:30; Admin Dose 1 TAB; Start 07/10/18 at 14:30 Enoxaparin Sodium (Lovenox) 40 mg DAILY SC Last administered on 07/16/18 08:18; Admin Dose 40 MG; Start 07/11/18 at 09:00 Insulin Glargine (Lantus) 12 units DAILY@2000 SC Last administered on 07/15/18 21:17; Admin Dose 12 UNITS; Start 07/10/18 at 20:00 Vancomycin HCl (Vanco Iv Per Pharmacy) VANCOMYCIN PER PHARMACY PER PROTOCOL XX ; Start 07/10/18 at 14:30 Vancomycin HCl 250 ml @ 125 mls/hr Q12H IVPB Last administered on 07/16/18 09:06; Admin Dose 125 MLS/HR; Start 07/10/18 at 20:00 Nicotine (Nicoderm 21 Mg/ 24hr) 1 patch DAILY TRANSDERM Last administered on 07/16/18at 08:25; Admin Dose 1 PATCH; Start 07/11/18 at 09:00 Miscellaneous Information 1 ea NOTE XX ; Start 07/11/18 at 06:45 Glucose (Glutose) 15 gm Q15M PRN PO DECREASED GLUCOSE; Start 07/11/18 at 06:45 Glucose (Glutose) 22.5 gm Q15M PRN PO DECREASED GLUCOSE; Start 07/11/18 at 06:45 Dextrose (D50w Syringe) 25 ml Q15M PRN IV DECREASED GLUCOSE; Start 07/11/18 at 06:45 Dextrose (D50w Syringe) 50 ml Q15M PRN IV DECREASED GLUCOSE; Start 07/11/18 at 06:45 Glucagon (Glucagen) 1 mg Q15M PRN IM DECREASED GLUCOSE; Start 07/11/18 at 06:45 Glucose (Glutose) 15 gm Q15M PRN BUCCAL DECREASED GLUCOSE; Start 07/11/18 at 06:45 Insulin Aspart (Novolog Insulin Pen) NOVOLOG *MILD* ALGORITHM WITH MEALS BEDTIME SC Last administered on 07/15/18 21:16; Admin Dose 2 UNIT; Start 07/11/18 at 21:30 Caspofungin 50 mg/ Sodium Chloride 250 ml @ 250 mls/hr Q24H IVPB Last administered on 07/15/18at 15:13; Admin Dose 250 MLS/HR; Start 07/13/18 at 13:30 Levofloxacin (Levaquin) 750 mg DAILY@06 PO Last administered on 07/16/18 05:52; Admin Dose 750 MG; Start 07/13/18 at 06:00 Bupropion HCl (Wellbutrin Xl) 150 mg DAILY PO Last administered on 07/14/18 08:27; Admin Dose 150 MG; Start 07/13/18 at 09:00 Docusate Sodium/ Ferrous Fumarate (Cindy-Sequels) 1 tab DAILY PO Last administered on 07/16/18 08:17; Admin Dose 1 TAB; Start 07/13/18 at 10:30; Stop 08/12/18 at 10:29 Atorvastatin Calcium (Lipitor) 20 mg HS PO Last administered on 07/15/18at 21:09; Admin Dose 20 MG; Start 07/13/18 at 21:00 Fish Oil (Fish Oil) 2,000 mg BID PO Last administered on 07/16/18 08:17; Admin Dose 2,000 MG; Start 07/13/18 at 10:30 EDDIE PITTMAN NP July 16, 2018 11:08
[2018-07-16] MEDS: CASPOFUNGIN 50 MG in SOD CHLORIDE 0.9% 250 ML IVPB SCH (13:51)
[2018-07-16 14:00] VITALS: BP 138/66; PULSE 66; RESP 18
--- NOTE | 2018-07-16 14:59 | CONS ---
Assessment/Plan Assessment/Plan Hospital Course (Demo Recall) Patient is alert feels good, no fevers Microbiology: Wound culture grew stenotrophomonas maltophilia, Pseudomonas enterococcus species and coag negative staph species, repeat blood cultures neg ative Antimicrobials: Cancidas, oral Levaquin, vancomycin Physical examination: This is a well-developed fragile elderly man who is alert in no distress. Head atraumatic normocephalic sclera nonicteric vehicle mucosa dry neck is supple chest rise symmetrical breath sounds diminished bases heart: S1-S2. Abdomen soft bowel sounds present. Extremities with left great toe gangrene ASSESSMENT: 1. Polymicrobial bacteremia/fungemia likely secondary to #2 2. Left great toe cellulitis, gangrene, osteomyelitis 3. Peripheral arterial disease with high-grade left SFA stenosis 4. Diabetes Plan: Stable, repeat blood cultures negative, continue antibiotics, await for final blood culture results and sensitivities, follow podiatry/vascular surgery rec-s Consultation Date/Type/Reason Admit Date/Time July 10, 2018 at 12:52 Initial Consult Date Type of Consult id Date/Time of Note DATE: 07/16/18 TIME: 14:58 Exam/Review of Systems Exam Vitals Vital Signs Date Temp Pulse Resp B/P (MAP) Pulse Ox O2 O2 Flow FiO2 Time Delivery Rate 07/16/18 98.1 60 17 137/67 97 Room Air 08:02 (90) Intake and Output 07/15/18 07/15/18 07/16/18 1515:00 23:00 07:00 IntakeIntake Total 770 ml 550 ml 250 ml OutputOutput Total 200 ml 200 ml 1200 ml BalanceBalance 570 ml 350 ml -950 ml Results Result Diagram: 07/15/18 0500 07/15/18 0500 Results 24hrs Laboratory Tests Test 07/15/18 17:23 07/15/18 21:05 07/16/18 01:59 07/16/18 08:15 Bedside Glucose 150 224 H 124 106 Test 07/16/18 12:29 Bedside Glucose 111 Medications Medication Current Medications Buspirone HCl (Buspar) 10 mg BID PO Last administered on 07/14/18at 20:31; Admin Dose 10 MG; Start 07/10/18 at 21:00 IV Flush (NS 3 ml) 3 ml PER PROTOCOL IV ; Start 07/10/18 at 14:30 Ondansetron HCl (Zofran Inj) 4 mg Q6H PRN IV NAUSEA/VOMITING; Start 07/10/18 at 14:30 Acetaminophen (Tylenol Tab) 650 mg Q6H PRN PO .PAIN 1-3 OR TEMP; Start 07/10/18 at 14:30 Acetaminophen/ Hydrocodone Bitart ([place] (5/325)) 1 tab Q6H PRN PO .MOD PAIN 4- 6 Last administered on 07/15/18at 21:30; Admin Dose 1 TAB; Start 07/10/18 at 14:30 Enoxaparin Sodium (Lovenox) 40 mg DAILY SC Last administered on 07/16/18at 08:18; Admin Dose 40 MG; Start 07/11/18 at 09:00 Insulin Glargine (Lantus) 12 units DAILY@2000 SC Last administered on 07/15/18at 21:17; Admin Dose 12 UNITS; Start 07/10/18 at 20:00 Vancomycin HCl (Vanco Iv Per Pharmacy) VANCOMYCIN PER PHARMACY PER PROTOCOL XX ; Start 07/10/18 at 14:30 Vancomycin HCl 250 ml @ 125 mls/hr Q12H IVPB Last administered on 07/16/18at 09:06; Admin Dose 125 MLS/HR; Start 07/10/18 at 20:00 Nicotine (Nicoderm 21 Mg/ 24hr) 1 patch DAILY TRANSDERM Last administered on 07/16/18at 08:25; Admin Dose 1 PATCH; Start 07/11/18 at 09:00 Miscellaneous Information 1 ea NOTE XX ; Start 07/11/18 at 06:45 Glucose (Glutose) 15 gm Q15M PRN PO DECREASED GLUCOSE; Start 07/11/18 at 06:45 Glucose (Glutose) 22.5 gm Q15M PRN PO DECREASED GLUCOSE; Start 07/11/18 at 06:45 Dextrose (D50w Syringe) 25 ml Q15M PRN IV DECREASED GLUCOSE; Start 07/11/18 at 06:45 Dextrose (D50w Syringe) 50 ml Q15M PRN IV DECREASED GLUCOSE; Start 07/11/18 at 06:45 Glucagon (Glucagen) 1 mg Q15M PRN IM DECREASED GLUCOSE; Start 07/11/18 at 06:45 Glucose (Glutose) 15 gm Q15M PRN BUCCAL DECREASED GLUCOSE; Start 07/11/18 at 06:45 Insulin Aspart (Novolog Insulin Pen) NOVOLOG *MILD* ALGORITHM WITH MEALS BEDTIME SC Last administered on 07/15/18 21:16; Admin Dose 2 UNIT; Start 07/11/18 at 21:30 Caspofungin 50 mg/ Sodium Chloride 250 ml @ 250 mls/hr Q24H IVPB Last administered on 07/16/18at 13:51; Admin Dose 250 MLS/HR; Start 07/13/18 at 13:30 Levofloxacin (Levaquin) 750 mg DAILY@06 PO Last administered on 07/16/18 05:52; Admin Dose 750 MG; Start 07/13/18 at 06:00 Bupropion HCl (Wellbutrin Xl) 150 mg DAILY PO Last administered on 07/14/18 08:27; Admin Dose 150 MG; Start 07/13/18 at 09:00 Docusate Sodium/ Ferrous Fumarate (Cindy-Sequels) 1 tab DAILY PO Last administered on 07/16/18 08:17; Admin Dose 1 TAB; Start 07/13/18 at 10:30; Stop 08/12/18 at 10:29 Atorvastatin Calcium (Lipitor) 20 mg HS PO Last administered on 07/15/18 21:09; Admin Dose 20 MG; Start 07/13/18 at 21:00 Fish Oil (Fish Oil) 2,000 mg BID PO Last administered on 07/16/18 08:17; Admin Dose 2,000 MG; Start 07/13/18 at 10:30 JUAN GARCIA NP July 16, 2018 14:59
[2018-07-16 20:10] VITALS: BP 127/68; PULSE 78; RESP 20
[2018-07-16] MEDS: INSULIN GLARGINE [LANTus] (100 UNITS/ML) SYG SC SCH (20:39)
[2018-07-16] MEDS: ATORVASTATIN 20 MG TAB PO SCH (20:39)
[2018-07-16] MEDS: HYDROCODONE/APAP (5/325) TAB PO PRN (20:52)
[2018-07-17 02:57] VITALS: BP 140/65; PULSE 59; RESP 18
[2018-07-17] MEDS: LEVOFLOXACIN 750 MG TABLET PO SCH (05:36)
[2018-07-17 08:00] VITALS: BP 113/52; PULSE 56; RESP 17
[2018-07-17] MEDS: INSULIN ASPART [NOVOLOG] 3 ML PEN SC SCH ×4 (08:00→20:49)
[2018-07-17] MEDS: VANCOMYCIN 1 GM 250 ML IVPB SCH ×2 (08:15→20:35)
[2018-07-17] MEDS: BUSPIRONE 10 MG TAB PO SCH ×2 (08:16→20:58)
[2018-07-17] MEDS: NICOTINE (21 MG/24 HR) PATCH TRANSDERM SCH (08:16)
[2018-07-17] MEDS: FERROUS FUMARATE (SR) TAB PO SCH (08:16)
[2018-07-17] MEDS: FISH OIL 1,000 MG CAP PO SCH ×2 (08:16→20:44)
[2018-07-17] MEDS: BUPROPION (XL) 150 MG TAB PO SCH (08:17)
[2018-07-17] MEDS: ENOXAPARIN 40 MG/0.4 ML SYG SC SCH (08:17)
--- NOTE | 2018-07-17 12:08 | PN ---
Date/Time of Note Date/Time of Note DATE: 07/17/18 TIME: 12:06 Assessment/Plan VTE Prophylaxis Risk score (from Nsg)>0 risk: 3 SCD applied (from Ns): No SCD contraindicated: other Pharmacological prophylaxis: LMWH Lines/Catheters IV Catheter Type (from Nrs): Peripheral IV Urinary Cath still in place: No Assessment/Plan Hospital Course SUBJECTIVE: No complaints OBJECTIVE: Vital signs-see below PHYSICAL EXAM: Constitutional: Adequately built,not in acute distress. HEENT: Head atraumatic and normocephalic. Eyes: Extraocular muscles intact. Anicteric sclerae. Pupils equal bilaterally, reactive to light. NECK: Supple without lymph node. CHEST: Clear and good breath sounds equally. No wheezing. No rhonchi. HEART: S1, S2. Regular rate and rhythm. ABDOMEN: Soft/non tender with no rebound tenderness. Bowel sounds were present. EXTREMITIES:Left 1st toe dry gangrene.Surrounding dorsal foot area w/erythema/swelling/tenderness. No DP/PT palpable pulse. NEUROLOGIC: Alert and oriented x3. No focal deficit. No sensory deficit. PSYCHOSOCIAL: No signs of depression. INTEGUMENTARY: No open wounds. ASSESSMENT AND PLAN:72 yo M w/hx of triglyceridemia, peripheral vascular disease, type 2 diabetes, anxiety/depression, long-standing tobacco use 1 pack/day was told by his doctor to get admitted for inpatient vascular/podiatry work-up for worsening cellulitis with left toe gangrene also noted with severe PAD/osteomyelitis.. Left foot cellulitis -Cellulitis improved - cont. Glycemic control/Wound care -.BC 03/08 culture grew crystal P. As per ID, patient is on treatment w/Cancidas. - antimicrobial per ID recommendations PAD with left first toe dry gangrene -Onset ~2 mos -Status post abdominal aortogram with left lower extremity runoff=>Plan for Fem- PT Bypass=>timing/scheduling per vascular -Continue to optimize neurovascular status with antihypertensives to keep blood pressure ~140/90, diet, nutrition, exercise, blood glucose control, and antip latelets/anticoagulation. Osteomyelitis of left first toe. -IV abx-would need it for half-way if no amputation happens DMII -well-controlled -Basal/bolus insulin Dyslipidemia/triglyceridemia -on Tricor/statin Anxiety/depression -on Buspar Tobacco abuse -Cessation advised. PRN nicotine patch for withdrawal. Chronic anemia -Stable H&H. Monitor -also getting oral iron DVT prophylaxis: Lovenox PUD prophylaxis: Not indicated CODE STATUS: Full code Diet: Carbohydrate controlled/low-cholesterol diet. Disp: pt needs PT bypass once medically optimized-timing per vascular. F/u vascular/Podiatry recs. Patient was seen in collaboration with Dr. Villalpando. Result Diagram: 07/15/18 0500 07/15/18 0500 Results 24hrs Laboratory Tests Test 07/16/18 12:29 07/16/18 17:29 07/16/18 20:36 07/17/18 02:36 Bedside Glucose 111 161 236 H 117 Test 07/17/18 08:13 Bedside Glucose 97 Exam/Review of Systems Exam Vitals Vital Signs Date Temp Pulse Resp B/P (MAP) Pulse Ox O2 O2 Flow FiO2 Time Delivery Rate 07/17/18 98.4 56 17 113/52 96 Room Air 08:00 (72) Intake and Output 07/16/18 07/16/18 07/17/18 1515:00 23:00 07:00 IntakeIntake Total 500 ml 1150 ml 650 ml OutputOutput Total 400 ml 600 ml BalanceBalance 500 ml 750 ml 50 ml Results Results 24hrs Laboratory Tests Test 07/16/18 12:29 07/16/18 17:29 07/16/18 20:36 07/17/18 02:36 Bedside Glucose 111 161 236 H 117 Test 07/17/18 08:13 Bedside Glucose 97 Medications Medication Current Medications Buspirone HCl (Buspar) 10 mg BID PO Last administered on 07/17/18at 08:16; Admin Dose 10 MG; Start 07/10/18 at 21:00 IV Flush (NS 3 ml) 3 ml PER PROTOCOL IV ; Start 07/10/18 at 14:30 Ondansetron HCl (Zofran Inj) 4 mg Q6H PRN IV NAUSEA/VOMITING; Start 07/10/18 at 14:30 Acetaminophen (Tylenol Tab) 650 mg Q6H PRN PO .PAIN 1-3 OR TEMP; Start 07/10/18 at 14:30 Acetaminophen/ Hydrocodone Bitart ([facility] (5/325)) 1 tab Q6H PRN PO .MOD PAIN 4- 6 Last administered on 07/16/18at 20:52; Admin Dose 1 TAB; Start 07/10/18 at 14:30 Enoxaparin Sodium (Lovenox) 40 mg DAILY SC Last administered on 07/17/18 08:17; Admin Dose 40 MG; Start 07/11/18 at 09:00 Insulin Glargine (Lantus) 12 units DAILY@2000 SC Last administered on 07/16/18at 20:39; Admin Dose 12 UNITS; Start 07/10/18 at 20:00 Vancomycin HCl (Vanco Iv Per Pharmacy) VANCOMYCIN PER PHARMACY PER PROTOCOL XX ; Start 07/10/18 at 14:30 Vancomycin HCl 250 ml @ 125 mls/hr Q12H IVPB Last administered on 07/17/18 08 :15; Admin Dose 125 MLS/HR; Start 07/10/18 at 20:00 Nicotine (Nicoderm 21 Mg/ 24hr) 1 patch DAILY TRANSDERM Last administered on 07/17/18 08:16; Admin Dose 1 PATCH; Start 07/11/18 at 09:00 Miscellaneous Information 1 ea NOTE XX ; Start 07/11/18 at 06:45 Glucose (Glutose) 15 gm Q15M PRN PO DECREASED GLUCOSE; Start 07/11/18 at 06:45 Glucose (Glutose) 22.5 gm Q15M PRN PO DECREASED GLUCOSE; Start 07/11/18 at 06:45 Dextrose (D50w Syringe) 25 ml Q15M PRN IV DECREASED GLUCOSE; Start 07/11/18 at 06:45 Dextrose (D50w Syringe) 50 ml Q15M PRN IV DECREASED GLUCOSE; Start 07/11/18 at 06:45 Glucagon (Glucagen) 1 mg Q15M PRN IM DECREASED GLUCOSE; Start 07/11/18 at 06:45 Glucose (Glutose) 15 gm Q15M PRN BUCCAL DECREASED GLUCOSE; Start 07/11/18 at 06:45 Insulin Aspart (Novolog Insulin Pen) NOVOLOG *MILD* ALGORITHM WITH MEALS BEDTIME SC Last administered on 07/16/18at 20:38; Admin Dose 236 UNIT; Start 07/11/18 at 21:30 Caspofungin 50 mg/ Sodium Chloride 250 ml @ 250 mls/hr Q24H IVPB Last administered on 07/16/18at 13:51; Admin Dose 250 MLS/HR; Start 5/11/19 at 13:30 Levofloxacin (Levaquin) 750 mg DAILY@06 PO Last administered on 07/17/18at 05:36; Admin Dose 750 MG; Start 07/13/18 at 06:00 Bupropion HCl (Wellbutrin Xl) 150 mg DAILY PO Last administered on 07/17/18 08:17; Admin Dose 150 MG; Start 07/13/18 at 09:00 Docusate Sodium/ Ferrous Fumarate (Cindy-Sequels) 1 tab DAILY PO Last administered on 07/17/18at 08:16; Admin Dose 1 TAB; Start 07/13/18 at 10:30; Stop 08/12/18 at 10:29 Atorvastatin Calcium (Lipitor) 20 mg HS PO Last administered on 07/16/18at 20:39; Admin Dose 20 MG; Start 07/13/18 at 21:00 Fish Oil (Fish Oil) 2,000 mg BID PO Last administered on 07/17/18 08:16; Admin Dose 2,000 MG; Start 07/13/18 at 10:30 EDDIE PITTMAN NP July 17, 2018 12:08
[2018-07-17] MEDS: CASPOFUNGIN 50 MG in SOD CHLORIDE 0.9% 250 ML IVPB SCH (13:51)
[2018-07-17 14:00] VITALS: BP 153/67; PULSE 69; RESP 18
--- NOTE | 2018-07-17 14:23 | CONS ---
Assessment/Plan Assessment/Plan Hospital Course (Demo Recall) Patient is alert looks comfortable no fevers overnight. Blood culture on July 10 grew enterococcus and Jennifer parapsilosis, repeat blood cultures negative Microbiology: Wound culture grew stenotrophomonas maltophilia, Pseudomonas enterococcus species and coag negative staph species, repeat blood cultures negative Antimicrobials: Cancidas, oral Levaquin, vancomycin Physical examination: This is a well-developed fragile elderly man who is alert in no distress. Head atraumatic normocephalic sclera nonicteric vehicle mucosa dry neck is supple chest rise symmetrical breath sounds diminished bases heart: S1-S2. Abdomen soft bowel sounds present. Extremities with left great toe gangrene ASSESSMENT: 1. Polymicrobial bacteremia/fungemia likely secondary to #2 2. Left great toe cellulitis, gangrene, osteomyelitis 3. Peripheral arterial disease with high-grade left SFA stenosis 4. Diabetes Plan: Stable, repeat blood cultures negative, continue antibiotics, plan for revascularization procedure Consultation Date/Type/Reason Admit Date/Time July 10, 2018 at 12:52 Initial Consult Date Type of Consult id Date/Time of Note DATE: 07/17/18 TIME: 14:22 Exam/Review of Systems Exam Vitals Vital Signs Date Temp Pulse Resp B/P (MAP) Pulse Ox O2 O2 Flow FiO2 Time Delivery Rate 07/17/18 98.4 56 17 113/52 96 Room Air 08:00 (72) Intake and Output 07/16/18 07/16/18 07/17/18 1515:00 23:00 07:00 IntakeIntake Total 500 ml 1150 ml 650 ml OutputOutput Total 400 ml 600 ml BalanceBalance 500 ml 750 ml 50 ml Results Result Diagram: 07/15/18 0500 07/15/18 0500 Results 24hrs Laboratory Tests Test 07/16/18 17:29 07/16/18 20:36 07/17/18 02:36 07/17/18 08:13 Bedside Glucose 161 236 H 117 97 Test 07/17/18 12:08 Bedside Glucose 101 Medications Medication Current Medications Buspirone HCl (Buspar) 10 mg BID PO Last administered on 07/17/18at 08:16; Admin Dose 10 MG; Start 07/10/18 at 21:00 IV Flush (NS 3 ml) 3 ml PER PROTOCOL IV ; Start 07/10/18 at 14:30 Ondansetron HCl (Zofran Inj) 4 mg Q6H PRN IV NAUSEA/VOMITING; Start 07/10/18 at 14:30 Acetaminophen (Tylenol Tab) 650 mg Q6H PRN PO .PAIN 1-3 OR TEMP; Start 07/10/18 at 14:30 Acetaminophen/ Hydrocodone Bitart ([place] (5/325)) 1 tab Q6H PRN PO .MOD PAIN 4- 6 Last administered on 07/16/18at 20:52; Admin Dose 1 TAB; Start 07/10/18 at 14:30 Enoxaparin Sodium (Lovenox) 40 mg DAILY SC Last administered on 07/17/18at 08:17; Admin Dose 40 MG; Start 07/11/18 at 09:00 Insulin Glargine (Lantus) 12 units DAILY@2000 SC Last administered on 07/16/18at 20:39; Admin Dose 12 UNITS; Start 07/10/18 at 20:00 Vancomycin HCl (Vanco Iv Per Pharmacy) VANCOMYCIN PER PHARMACY PER PROTOCOL XX ; Start 07/10/18 at 14:30 Vancomycin HCl 250 ml @ 125 mls/hr Q12H IVPB Last administered on 07/17/18at 08:15; Admin Dose 125 MLS/HR; Start 07/10/18 at 20:00 Nicotine (Nicoderm 21 Mg/ 24hr) 1 patch DAILY TRANSDERM Last administered on 07/17/18at 08:16; Admin Dose 1 PATCH; Start 07/11/18 at 09:00 Miscellaneous Information 1 ea NOTE XX ; Start 07/11/18 at 06:45 Glucose (Glutose) 15 gm Q15M PRN PO DECREASED GLUCOSE; Start 07/11/18 at 06:45 Glucose (Glutose) 22.5 gm Q15M PRN PO DECREASED GLUCOSE; Start 07/11/18 at 06:45 Dextrose (D50w Syringe) 25 ml Q15M PRN IV DECREASED GLUCOSE; Start 07/11/18 at 06:45 Dextrose (D50w Syringe) 50 ml Q15M PRN IV DECREASED GLUCOSE; Start 07/11/18 at 06:45 Glucagon (Glucagen) 1 mg Q15M PRN IM DECREASED GLUCOSE; Start 07/11/18 at 06:45 Glucose (Glutose) 15 gm Q15M PRN BUCCAL DECREASED GLUCOSE; Start 07/11/18 at 06:45 Insulin Aspart (Novolog Insulin Pen) NOVOLOG *MILD* ALGORITHM WITH MEALS BEDTIME SC Last administered on 07/16/18 20:38; Admin Dose 236 UNIT; Start 07/11/18 at 21:30 Caspofungin 50 mg/ Sodium Chloride 250 ml @ 250 mls/hr Q24H IVPB Last administered on 07/17/18 13:51; Admin Dose 250 MLS/HR; Start 07/13/18 at 13:30 Levofloxacin (Levaquin) 750 mg DAILY@06 PO Last administered on 07/17/18 05:36; Admin Dose 750 MG; Start 07/13/18 at 06:00 Bupropion HCl (Wellbutrin Xl) 150 mg DAILY PO Last administered on 07/17/18 08:17; Admin Dose 150 MG; Start 07/13/18 at 09:00 Docusate Sodium/ Ferrous Fumarate (Cindy-Sequels) 1 tab DAILY PO Last administered on 07/17/18 08:16; Admin Dose 1 TAB; Start 07/13/18 at 10:30; Stop 08/12/18 at 10:29 Atorvastatin Calcium (Lipitor) 20 mg HS PO Last administered on 07/16/18 20:39; Admin Dose 20 MG; Start 07/13/18 at 21:00 Fish Oil (Fish Oil) 2,000 mg BID PO Last administered on 07/17/18 08:16; Admin Dose 2,000 MG; Start 07/13/18 at 10:30 JUAN GARCIA NP July 17, 2018 14:23
--- NOTE | 2018-07-17 14:59 | PN ---
Date/Time of Note Date/Time of Note DATE: 07/17/18 TIME: 14:55 Assessment/Plan Lines/Catheters IV Catheter Type (from Nrsg): Peripheral IV [place] in Place (from Nrsg): No Assessment/Plan Assessment/Plan L 1st toe dry gangrene - stable, no signs of infection, awaiting fem-PT bypass I have not been able to get OR time for this week when I am available I am trying to get time for Sunday but if this doesn't work out the surgery will be next Sunday when I have block time He could go to a SNF for antibiotics and wound care and come back for surgery if this can be arranged Subjective 24 Hr Interval Summary No new c/o. No pain. Exam/Review of Systems Vital Signs Vitals Vital Signs Date Temp Pulse Resp B/P (MAP) Pulse Ox O2 O2 Flow FiO2 Time Delivery Rate 07/17/18 98.4 56 17 113/52 96 Room Air 08:00 (72) Intake and Output 07/16/18 07/16/18 07/17/18 1515:00 23:00 07:00 IntakeIntake Total 500 ml 1150 ml 650 ml OutputOutput Total 400 ml 600 ml BalanceBalance 500 ml 750 ml 50 ml Exam Free Text/Dictation L 1st toe with dry gangrene, no erythema or drainage, the more proximal erythema / induration has resolved Results Result Diagram: 07/15/18 0500 07/15/18 0500 DAGOBERTO BRANNON MD July 17, 2018 14:59
[2018-07-17 20:00] VITALS: BP 126/60; PULSE 62; RESP 18
[2018-07-17] MEDS: INSULIN GLARGINE [LANTus] (100 UNITS/ML) SYG SC SCH (20:47)
[2018-07-17] MEDS: ATORVASTATIN 20 MG TAB PO SCH (20:50)
[2018-07-17] MEDS: HYDROCODONE/APAP (5/325) TAB PO PRN (21:01)
[2018-07-18 02:00] VITALS: BP 140/65; PULSE 79; RESP 18
[2018-07-18] MEDS: LEVOFLOXACIN 750 MG TABLET PO SCH (05:37)
[2018-07-18 08:00] VITALS: BP 124/62; PULSE 84; RESP 20
[2018-07-18] MEDS: INSULIN ASPART [NOVOLOG] 3 ML PEN SC SCH ×4 (08:00→20:52)
[2018-07-18] MEDS: BUPROPION (XL) 150 MG TAB PO SCH ×2 (09:00→09:16)
[2018-07-18] MEDS: BUSPIRONE 10 MG TAB PO SCH ×3 (09:00→20:54)
[2018-07-18] MEDS: VANCOMYCIN 1 GM 250 ML IVPB SCH ×2 (09:14→20:47)
[2018-07-18] MEDS: FISH OIL 1,000 MG CAP PO SCH ×2 (09:15→20:48)
[2018-07-18] MEDS: FERROUS FUMARATE (SR) TAB PO SCH (09:16)
[2018-07-18] MEDS: NICOTINE (21 MG/24 HR) PATCH TRANSDERM SCH (09:16)
[2018-07-18] MEDS: ENOXAPARIN 40 MG/0.4 ML SYG SC SCH (09:19)
--- NOTE | 2018-07-18 11:36 | PN ---
Date/Time of Note Date/Time of Note DATE: 07/18/18 TIME: 11:32 Assessment/Plan VTE Prophylaxis Risk score (from Ns)>0 risk: 3 SCD applied (from Ns): No SCD contraindicated: other Pharmacological prophylaxis: LMWH Pharm contraindication: other Lines/Catheters IV Catheter Type (from Nrsg): Peripheral IV Urinary Cath still in place: No Assessment/Plan Hospital Course SUBJECTIVE: No complaints OBJECTIVE: Vital signs-see below PHYSICAL EXAM: Constitutional: Adequately built,not in acute distress. HEENT: Head atraumatic and normocephalic. Eyes: Extraocular muscles intact. Anicteric sclerae. Pupils equal bilaterally, reactive to light. NECK: Supple without lymph node. CHEST: Clear and good breath sounds equally. No wheezing. No rhonchi. HEART: S1, S2. Regular rate and rhythm. ABDOMEN: Soft/non tender with no rebound tenderness. Bowel sounds were present. EXTREMITIES:Left 1st toe dry gangrene.Surrounding dorsal foot area w/eryth claudia/swelling/tenderness. No DP/PT palpable pulse. NEUROLOGIC: Alert and oriented x3. No focal deficit. No sensory deficit. PSYCHOSOCIAL: No signs of depression. INTEGUMENTARY: No open wounds. ASSESSMENT AND PLAN:72 yo M w/hx of triglyceridemia, peripheral vascular disease, type 2 diabetes, anxiety/depression, long-standing tobacco use 1 pack/day was told by his doctor to get admitted for inpatient vascular/podiatry work-up for worsening cellulitis with left toe gangrene also noted with severe P AD/osteomyelitis.. Left foot cellulitis -Cellulitis improved - cont. Glycemic control/Wound care -.BC 03/08 culture grew crystal P. As per ID, patient is on treatment w/Cancidas. - antimicrobial per ID recommendations PAD with left first toe dry gangrene -Onset ~2 mos -Status post abdominal aortogram with left lower extremity runoff=>Plan for Fem- PT Bypass=>timing/scheduling per vascular -Continue to optimize neurovascular status with antihypertensives to keep blood pressure ~140/90, diet, nutrition, exercise, blood glucose control, and antiplatelets/anticoagulation. Osteomyelitis of left first toe. -IV abx-would need it for nursing home if no amputation happens DMII -well-controlled -Basal/bolus insulin Dyslipidemia/triglyceridemia -on Tricor/statin Anxiety/depression -on Buspar Tobacco abuse -Cessation advised. PRN nicotine patch for withdrawal. Chronic anemia -Stable H&H. Monitor -also getting oral iron DVT prophylaxis: Lovenox PUD prophylaxis: Not indicated CODE STATUS: Full code Diet: Carbohydrate controlled/low-cholesterol diet. Disp: pt needs PT bypass once medically optimized-timing per vascular. As per vascular, this is more likely to be scheduled by end of next week. Meanwhile, we will start DC planning to fdc with continuation of antibiotics IV, wound care and vascular follow-ups and will bring patient back for eventual revascularization with Dr. Gaitan. PICC line today. ID to determine antimicrobials. Patient was seen in collaboration with Dr. Villalpando. Result Diagram: 07/15/18 0500 07/18/18 0709 Results 24hrs Laboratory Tests Test 07/17/18 12:08 07/17/18 17:34 07/17/18 20:43 07/18/18 02:20 Bedside Glucose 101 161 210 115 Test 07/18/18 07:09 07/18/18 09:12 Blood Urea Nitrogen 18 Creatinine 0.99 Bedside Glucose 87 Exam/Review of Systems Exam Vitals Vital Signs Date Temp Pulse Resp B/P (MAP) Pulse Ox O2 O2 Flow FiO2 Time Delivery Rate 07/18/18 98.6 84 20 124/62 96 08:00 (82) 07/17/18 Room Air 14:00 Intake and Output 07/17/18 07/17/18 07/18/18 1515:00 23:00 07:00 IntakeIntake Total 500 ml 1150 ml 800 ml OutputOutput Total 800 ml 900 ml BalanceBalance 500 ml 350 ml -100 ml Results Results 24hrs Laboratory Tests Test 07/17/18 12:08 07/17/18 17:34 07/17/18 20:43 07/18/18 02:20 Bedside Glucose 101 161 210 115 Test 07/18/18 07:09 07/18/18 09:12 Blood Urea Nitrogen 18 Creatinine 0.99 Bedside Glucose 87 Medications Medication Current Medications Buspirone HCl (Buspar) 10 mg BID PO Last administered on 07/17/18at 08:16; Admin Dose 10 MG; Start 07/10/18 at 21:00 IV Flush (NS 3 ml) 3 ml PER PROTOCOL IV ; Start 07/10/18 at 14:30 Ondansetron HCl (Zofran Inj) 4 mg Q6H PRN IV NAUSEA/VOMITING; Start 07/10/18 at 14:30 Acetaminophen (Tylenol Tab) 650 mg Q6H PRN PO .PAIN 1-3 OR TEMP; Start 07/10/18 at 14:30 Acetaminophen/ Hydrocodone Bitart ([place] (5/325)) 1 tab Q6H PRN PO .MOD PAIN 4- 6 Last administered on 07/17/18at 21:01; Admin Dose 1 TAB; Start 07/10/18 at 14:30 Enoxaparin Sodium (Lovenox) 40 mg DAILY SC Last administered on 07/18/18at 09:19; Admin Dose 40 MG; Start 07/11/18 at 09:00 Insulin Glargine (Lantus) 12 units DAILY@2000 SC Last administered on 07/17/18at 20:47; Admin Dose 12 UNITS; Start 07/10/18 at 20:00 Vancomycin HCl (Vanco Iv Per Pharmacy) VANCOMYCIN PER PHARMACY PER PROTOCOL XX ; Start 07/10/18 at 14:30 Vancomycin HCl 250 ml @ 125 mls/hr Q12H IVPB Last administered on 07/18/18at 09:14; Admin Dose 125 MLS/HR; Start 07/10/18 at 20:00 Nicotine (Nicoderm 21 Mg/ 24hr) 1 patch DAILY TRANSDERM Last administered on 07/18/18at 09:16; Admin Dose 1 PATCH; Start 07/11/18 at 09:00 Miscellaneous Information 1 ea NOTE XX ; Start 07/11/18 at 06:45 Glucose (Glutose) 15 gm Q15M PRN PO DECREASED GLUCOSE; Start 07/11/18 at 06:45 Glucose (Glutose) 22.5 gm Q15M PRN PO DECREASED GLUCOSE; Start 07/11/18 at 06:45 Dextrose (D50w Syringe) 25 ml Q15M PRN IV DECREASED GLUCOSE; Start 07/11/18 at 06:45 Dextrose (D50w Syringe) 50 ml Q15M PRN IV DECREASED GLUCOSE; Start 07/11/18 at 06:45 Glucagon (Glucagen) 1 mg Q15M PRN IM DECREASED GLUCOSE; Start 07/11/18 at 06:45 Glucose (Glutose) 15 gm Q15M PRN BUCCAL DECREASED GLUCOSE; Start 07/11/18 at 06:45 Insulin Aspart (Novolog Insulin Pen) NOVOLOG *MILD* ALGORITHM WITH MEALS BEDTIME SC Last administered on 07/17/18 20:49; Admin Dose 1 UNIT; Start at 21:30 Caspofungin 50 mg/ Sodium Chloride 250 ml @ 250 mls/hr Q24H IVPB Last administered on 07/17/18 13:51; Admin Dose 250 MLS/HR; Start 07/13/18 at 13:30 Levofloxacin (Levaquin) 750 mg DAILY@06 PO Last administered on 07/18/18 05:37; Admin Dose 750 MG; Start 07/13/18 at 06:00 Bupropion HCl (Wellbutrin Xl) 150 mg DAILY PO Last administered on 07/17/18 08:17; Admin Dose 150 MG; Start 07/13/18 at 09:00 Docusate Sodium/ Ferrous Fumarate (Cindy-Sequels) 1 tab DAILY PO Last administe red on 07/18/18 09:16; Admin Dose 1 TAB; Start 07/13/18 at 10:30; Stop 08/12/18 at 10:29 Atorvastatin Calcium (Lipitor) 20 mg HS PO Last administered on 07/17/18 20:50; Admin Dose 20 MG; Start 07/13/18 at 21:00 Fish Oil (Fish Oil) 2,000 mg BID PO Last administered on 07/18/18 09:15; Admin Dose 2,000 MG; Start 07/13/18 at 10:30 EDDIE PITTMAN NP July 18, 2018 11:36
[2018-07-18] MEDS ORDERED: LIDOCAINE 1% (MPF) 5 ML VIAL SC ONE (12:00)
--- NOTE | 2018-07-18 13:12 | CONS ---
Assessment/Plan Assessment/Plan Hospital Course (Demo Recall) Patient is alert looks comfortable no fevers overnight. Blood culture on July 10 grew enterococcus and Jennifer parapsilosis, repeat blood cultures negative Microbiology: Wound culture grew stenotrophomonas maltophilia, Pseudomonas enterococcus species and coag negative staph species, repeat blood cultures negative Antimicrobials: Cancidas, oral Levaquin, vancomycin Physical examination: This is a well-developed fragile elderly man who is alert in no distress. Head atraumatic normocephalic sclera nonicteric vehicle mucosa dry neck is supple chest rise symmetrical breath sounds diminished bases heart: S1-S2. Abdomen soft bowel sounds present. Extremities with left great toe gangrene ASSESSMENT: 1. Polymicrobial bacteremia/fungemia likely secondary to #2 2. Left great toe cellulitis, gangrene, osteomyelitis 3. Peripheral arterial disease with high-grade left SFA stenosis 4. Diabetes Plan: Remains stable, repeat blood cultures negative, continue on current antibiotics for now, await for revascularization procedure and poss toe amputation after that Consultation Date/Type/Reason Admit Date/Time July 10, 2018 at 12:52 Initial Consult Date Type of Consult id Date/Time of Note DATE: 07/18/18 TIME: 13:11 Exam/Review of Systems Exam Vitals Vital Signs Date Temp Pulse Resp B/P (MAP) Pulse Ox O2 O2 Flow FiO2 Time Delivery Rate 07/18/18 98.6 84 20 124/62 96 08:00 (82) 07/17/18 Room Air 14:00 Intake and Output 07/17/18 07/17/18 07/18/18 1515:00 23:00 07:00 IntakeIntake Total 500 ml 1150 ml 800 ml OutputOutput Total 800 ml 900 ml BalanceBalance 500 ml 350 ml -100 ml Results Result Diagram: 07/15/18 0500 07/18/18 0709 Results 24hrs Laboratory Tests Test 07/17/18 17:34 07/17/18 20:43 07/18/18 02:20 07/18/18 07:09 Bedside Glucose 161 210 115 Blood Urea Nitrogen 18 Creatinine 0.99 Test 07/18/18 09:12 07/18/18 12:13 Bedside Glucose 87 104 Medications Medication Current Medications Buspirone HCl (Buspar) 10 mg BID PO Last administered on 07/17/18at 08:16; Admin Dose 10 MG; Start 07/10/18 at 21:00 IV Flush (NS 3 ml) 3 ml PER PROTOCOL IV ; Start 07/10/18 at 14:30 Ondansetron HCl (Zofran Inj) 4 mg Q6H PRN IV NAUSEA/VOMITING; Start 07/10/18 at 14:30 Acetaminophen (Tylenol Tab) 650 mg Q6H PRN PO .PAIN 1-3 OR TEMP; Start 07/10/18 at 14:30 Acetaminophen/ Hydrocodone Bitart ([place] (5/325)) 1 tab Q6H PRN PO .MOD PAIN 4- 6 Last administered on 07/17/18at 21:01; Admin Dose 1 TAB; Start 07/10/18 at 14:30 Enoxaparin Sodium (Lovenox) 40 mg DAILY SC Last administered on 07/18/18at 09:19; Admin Dose 40 MG; Start 07/11/18 at 09:00 Insulin Glargine (Lantus) 12 units DAILY@2000 SC Last administered on 07/17/18at 20:47; Admin Dose 12 UNITS; Start 07/10/18 at 20:00 Vancomycin HCl (Vanco Iv Per Pharmacy) VANCOMYCIN PER PHARMACY PER PROTOCOL XX ; Start 07/10/18 at 14:30 Vancomycin HCl 250 ml @ 125 mls/hr Q12H IVPB Last administered on 07/18/18at 09:14; Admin Dose 125 MLS/HR; Start 07/10/18 at 20:00 Nicotine (Nicoderm 21 Mg/ 24hr) 1 patch DAILY TRANSDERM Last administered on 07/18/18at 09:16; Admin Dose 1 PATCH; Start 07/11/18 at 09:00 Miscellaneous Information 1 ea NOTE XX ; Start 07/11/18 at 06:45 Glucose (Glutose) 15 gm Q15M PRN PO DECREASED GLUCOSE; Start 07/11/18 at 06:45 Glucose (Glutose) 22.5 gm Q15M PRN PO DECREASED GLUCOSE; Start 07/11/18 at 06:45 Dextrose (D50w Syringe) 25 ml Q15M PRN IV DECREASED GLUCOSE; Start 07/11/18 at 06:45 Dextrose (D50w Syringe) 50 ml Q15M PRN IV DECREASED GLUCOSE; Start 07/11/18 at 06:45 Glucagon (Glucagen) 1 mg Q15M PRN IM DECREASED GLUCOSE; Start 07/11/18 at 06:45 Glucose (Glutose) 15 gm Q15M PRN BUCCAL DECREASED GLUCOSE; Start 07/11/18 at 06:45 Insulin Aspart (Novolog Insulin Pen) NOVOLOG *MILD* ALGORITHM WITH MEALS BEDTIME SC Last administered on 07/17/18 20:49; Admin Dose 1 UNIT; Start 07/11/18 at 21:30 Caspofungin 50 mg/ Sodium Chloride 250 ml @ 250 mls/hr Q24H IVPB Last administered on 07/17/18 13:51; Admin Dose 250 MLS/HR; Start 07/13/18 at 13:30 Levofloxacin (Levaquin) 750 mg DAILY@06 PO Last administered on 07/18/18 05:37; Admin Dose 750 MG; Start 07/13/18 at 06:00 Bupropion HCl (Wellbutrin Xl) 150 mg DAILY PO Last administered on 07/17/18 08:17; Admin Dose 150 MG; Start 07/13/18 at 09:00 Docusate Sodium/ Ferrous Fumarate (Cindy-Sequels) 1 tab DAILY PO Last administered on 07/18/18 09:16; Admin Dose 1 TAB; Start 07/13/18 at 10:30; Stop 08/12/18 at 10:29 Atorvastatin Calcium (Lipitor) 20 mg HS PO Last administered on 07/17/18 20:50; Admin Dose 20 MG; Start 07/13/18 at 21:00 Fish Oil (Fish Oil) 2,000 mg BID PO Last administered on 07/18/18 09:15; Admin Dose 2,000 MG; Start 07/13/18 at 10:30 JUAN GARCIA NP July 18, 2018 13:12
[2018-07-18] MEDS: CASPOFUNGIN 50 MG in SOD CHLORIDE 0.9% 250 ML IVPB SCH (13:52)
[2018-07-18 14:00] VITALS: BP 156/68; PULSE 80; RESP 18
[2018-07-18 20:00] VITALS: BP 152/65; PULSE 68; RESP 18
[2018-07-18] MEDS: ATORVASTATIN 20 MG TAB PO SCH (20:48)
[2018-07-18] MEDS: INSULIN GLARGINE [LANTus] (100 UNITS/ML) SYG SC SCH (20:49)
[2018-07-18] MEDS: HYDROCODONE/APAP (5/325) TAB PO PRN (20:57)
[2018-07-19 02:00] VITALS: BP 140/63; PULSE 60; RESP 18
[2018-07-19] MEDS: LEVOFLOXACIN 750 MG TABLET PO SCH (05:27)
[2018-07-19] MEDS: INSULIN ASPART [NOVOLOG] 3 ML PEN SC SCH ×4 (07:52→20:41)
[2018-07-19 08:00] VITALS: BP 132/59; PULSE 64; RESP 20
[2018-07-19] MEDS: VANCOMYCIN 1 GM 250 ML IVPB SCH ×2 (08:51→20:41)
[2018-07-19] MEDS: BUPROPION (XL) 150 MG TAB PO SCH ×2 (08:52→09:00)
[2018-07-19] MEDS: FERROUS FUMARATE (SR) TAB PO SCH (08:52)
[2018-07-19] MEDS: ENOXAPARIN 40 MG/0.4 ML SYG SC SCH (08:52)
[2018-07-19] MEDS: BUSPIRONE 10 MG TAB PO SCH ×4 (08:52→21:00)
[2018-07-19] MEDS: FLUCONAZOLE 200 MG TAB PO SCH (08:52)
[2018-07-19] MEDS: FISH OIL 1,000 MG CAP PO SCH ×2 (08:52→20:40)
[2018-07-19] MEDS: NICOTINE (21 MG/24 HR) PATCH TRANSDERM SCH (08:53)
--- NOTE | 2018-07-19 12:15 | PN ---
Date/Time of Note Date/Time of Note DATE: 07/19/18 TIME: 12:10 Assessment/Plan VTE Prophylaxis Risk score (from Ns)>0 risk: 3 SCD applied (from Ns): No SCD contraindicated: other Pharmacological prophylaxis: LMWH Lines/Catheters [facility] [place] Urinary Cath still in place: No Assessment/Plan Hospital Course SUBJECTIVE: No complaints OBJECTIVE: Vital signs-see below PHYSICAL EXAM: Constitutional: Adequately built,not in acute distress. HEENT: Head atraumatic and normocephalic. Eyes: Extraocular muscles intact. Anicteric sclerae. Pupils equal bilaterally, reactive to light. NECK: Supple without lymph node. CHEST: Clear and good breath sounds equally. No wheezing. No rhonchi. HEART: S1, S2. Regular rate and rhythm. ABDOMEN: Soft/non tender with no rebound tenderness. Bowel sounds were present. EXTREMITIES:Left 1st toe dry gangrene.Surrounding dorsal foot area w/erythema/swelling/tenderness. No DP/PT palpable pulse. NEUROLOGIC: Alert and oriented x3. No focal deficit. No sensory deficit. PSYCHOSOCIAL: No signs of depression. INTEGUMENTARY: No open wounds. ASSESSMENT AND PLAN:72 yo M w/hx of triglyceridemia, peripheral vascular disease, type 2 diabetes, anxiety/depression, long-standing tobacco use 1 pack/day was told by his doctor to get admitted for inpatient vascular/podiatry work-up for worsening cellulitis with left toe gangrene also noted with severe PAD/osteomyelitis.. Left foot cellulitis -Cellulitis improved - cont. Glycemic control/Wound care -.BC 03/08 culture grew crystal P. s/p cancidas=>on Diflucan now - antimicrobial per ID recommendations PAD with left first toe dry gangrene -Onset ~2 mos -Status post abdominal aortogram with left lower extremity runoff=>Plan for Fem- PT Bypass=>timing/scheduling per vascular (elective) -Continue to optimize neurovascular status with antihypertensives to keep blood pressure ~140/90, diet, nutrition, exercise, blood glucose control, and antiplatelets/anticoagulation. Osteomyelitis of left first toe. 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 PRN nicotine patch for withdrawal. Chronic anemia -Stable H&H. Monitor -also getting oral iron DVT prophylaxis: Lovenox PUD prophylaxis: Not indicated CODE STATUS: Full code Diet: Carbohydrate controlled/low-cholesterol diet. Disp: pt needs PT bypass once medically optimized-timing per vascular. As per vascular, this is more likely to be scheduled by end of next week. Meanwhile, we will start DC planning to correction with continuation of antibiotics IV, wound care and vascular follow-ups and will bring patient back for eventual revascularization with Dr. Gaitan. Patient was seen in collaboration with Dr. Villalpando. Result Diagram: 07/15/18 0500 07/18/18 0709 Results 24hrs Laboratory Tests Test 07/18/18 12:13 07/18/18 20:46 07/19/18 06:47 07/19/18 07:52 Bedside Glucose 104 185 122 Vancomycin Level 17.1 Trough Exam/Review of Systems Exam Vitals Vital Signs Date Temp Pulse Resp B/P (MAP) Pulse Ox O2 O2 Flow FiO2 Time Delivery Rate 07/19/18 98.6 64 20 132/59 98 08:00 (83) 07/17/18 Room Air 14:00 Intake and Output 07/18/18 07/18/18 07/19/18 1515:00 23:00 07:00 IntakeIntake Total 700 ml 740 ml OutputOutput Total 800 ml BalanceBalance 700 ml -60 ml Results Results 24hrs Laboratory Tests Test 07/18/18 12:13 07/18/18 20:46 07/19/18 06:47 07/19/18 07:52 Bedside Glucose 104 185 122 Vancomycin Level 17.1 Trough Medications Medication Current Medications Buspirone HCl (Buspar) 10 mg BID PO Last administered on 07/17/18at 08:16; Admin Dose 10 MG; Start 07/10/18 at 21:00 IV Flush (NS 3 ml) 3 ml PER PROTOCOL IV ; Start 07/10/18 at 14:30 Ondansetron HCl (Zofran Inj) 4 mg Q6H PRN IV NAUSEA/VOMITING; Start 07/10/18 at 14:30 Acetaminophen (Tylenol Tab) 650 mg Q6H PRN PO .PAIN 1-3 OR TEMP; Start 07/10/18 at 14:30 Acetaminophen/ Hydrocodone Bitart ([place] (5/325)) 1 tab Q6H PRN PO .MOD PAIN 4- 6 Last administered on 07/18/18 20:57; Admin Dose 1 TAB; Start 07/10/18 at 14:30 Enoxaparin Sodium (Lovenox) 40 mg DAILY SC Last administered on 07/19/18 08:52; Admin Dose 40 MG; Start 07/11/18 at 09:00 Insulin Glargine (Lantus) 12 units DAILY@2000 SC Last administered on 07/18/18 20:49; Admin Dose 12 UNITS; Start 07/10/18 at 20:00 Vancomycin HCl (Vanco Iv Per Pharmacy) VANCOMYCIN PER PHARMACY PER PROTOCOL XX ; Start 07/10/18 at 14:30 Vancomycin HCl 250 ml @ 125 mls/hr Q12H IVPB Last administered on 07/19/18 08:51; Admin Dose 125 MLS/HR; Start 07/10/18 at 20:00 Nicotine (Nicoderm 21 Mg/ 24hr) 1 patch DAILY TRANSDERM Last administered on 07/19/18at 08:53; Admin Dose 1 PATCH; Start 07/11/18 at 09:00 Miscellaneous Information 1 ea NOTE XX ; Start 07/11/18 at 06:45 Glucose (Glutose) 15 gm Q15M PRN PO DECREASED GLUCOSE; Start 07/11/18 at 06:45 Glucose (Glutose) 22.5 gm Q15M PRN PO DECREASED GLUCOSE; Start 07/11/18 at 06:45 Dextrose (D50w Syringe) 25 ml Q15M PRN IV DECREASED GLUCOSE; Start 07/11/18 at 06:45 Dextrose (D50w Syringe) 50 ml Q15M PRN IV DECREASED GLUCOSE; Start 07/11/18 at 06:45 Glucagon (Glucagen) 1 mg Q15M PRN IM DECREASED GLUCOSE; Start 07/11/18 at 06:45 Glucose (Glutose) 15 gm Q15M PRN BUCCAL DECREASED GLUCOSE; Start 07/11/18 at 06:45 Insulin Aspart (Novolog Insulin Pen) NOVOLOG *MILD* ALGORITHM WITH MEALS BEDTIME SC Last administered on 07/18/18 20:52; Admin Dose 1 UNIT; Start 07/11/18 at 21:30 Levofloxacin (Levaquin) 750 mg DAILY@06 PO Last administered on 07/19/18 05:27; Admin Dose 750 MG; Start 07/13/18 at 06:00 Bupropion HCl (Wellbutrin Xl) 150 mg DAILY PO Last administered on 07/17/18 08:17; Admin Dose 150 MG; Start 07/13/18 at 09:00 Docusate Sodium/ Ferrous Fumarate (Cindy-Sequels) 1 tab DAILY PO Last administered on 07/19/18 08:52; Admin Dose 1 TAB; Start 07/13/18 at 10:30; Stop 08/12/18 at 10:29 Atorvastatin Calcium (Lipitor) 20 mg HS PO Last administered on 07/18/18at 20:48; Admin Dose 20 MG; Start 07/13/18 at 21:00 Fish Oil (Fish Oil) 2,000 mg BID PO Last administered on 07/19/18 08:52; Admin Dose 2,000 MG; Start 07/13/18 at 10:30 IV Flush (NS 10 ml) 10 ml PRN PRN IV IV PROTOCOL; Start 07/18/18 at 16:30 Fluconazole (Diflucan) 400 mg DAILY PO Last administered on 07/19/18 08:52; Admin Dose 400 MG; Start 07/19/18 at 09:00 EDDIE PITTMAN NP July 19, 2018 12:15
--- NOTE | 2018-07-19 12:47 | CONS ---
Assessment/Plan Assessment/Plan Hospital Course (Demo Recall) No events Blood culture on July 10 grew enterococcus and Jennifer parapsilosis, repeat blood cultures negative Microbiology: Wound culture grew stenotrophomonas maltophilia, Pseudomonas enterococcus species and coag negative staph species, repeat blood cultures negative Antimicrobials: Diflucan, oral Levaquin, vancomycin Physical examination: This is a well-developed fragile elderly man who is alert in no distress. Head atraumatic normocephalic sclera nonicteric vehicle mucosa dry neck is supple chest rise symmetrical breath sounds diminished bases heart: S1-S2. Abdomen soft bowel sounds present. Extremities with left great toe gangrene ASSESSMENT: 1. Polymicrobial bacteremia/fungemia likely secondary to #2 2. Left great toe cellulitis, gangrene, osteomyelitis 3. Peripheral arterial disease with high-grade left SFA stenosis 4. Diabetes Plan: Remains stable, repeat blood cultures negative, continue on PO Diflucan for 7 more days, continue abx until amputation is done, pending revascularization procedure Consultation Date/Type/Reason Admit Date/Time July 10, 2018 at 12:52 Initial Consult Date Type of Consult id Date/Time of Note DATE: 07/19/18 TIME: 12:45 Exam/Review of Systems Exam Vitals Vital Signs Date Temp Pulse Resp B/P (MAP) Pulse Ox O2 O2 Flow FiO2 Time Delivery Rate 07/19/18 98.6 64 20 132/59 98 08:00 (83) 07/17/18 Room Air 14:00 Intake and Output 07/18/18 07/18/18 07/19/18 1515:00 23:00 07:00 IntakeIntake Total 700 ml 740 ml OutputOutput Total 800 ml BalanceBalance 700 ml -60 ml Results Result Diagram: 07/15/18 0500 07/18/18 0709 Results 24hrs Laboratory Tests Test 07/18/18 20:46 07/19/18 06:47 07/19/18 07:52 07/19/18 12:10 Bedside Glucose 185 122 139 Vancomycin Level 17.1 Trough Medications Medication Current Medications Buspirone HCl (Buspar) 10 mg BID PO Last administered on 07/17/18at 08:16; Admin Dose 10 MG; Start 07/10/18 at 21:00 IV Flush (NS 3 ml) 3 ml PER PROTOCOL IV ; Start 07/10/18 at 14:30 Ondansetron HCl (Zofran Inj) 4 mg Q6H PRN IV NAUSEA/VOMITING; Start 07/10/18 at 14:30 Acetaminophen (Tylenol Tab) 650 mg Q6H PRN PO .PAIN 1-3 OR TEMP; Start 07/10/18 at 14:30 Acetaminophen/ Hydrocodone Bitart ([place] (5/325)) 1 tab Q6H PRN PO .MOD PAIN 4- 6 Last administered on 07/18/18at 20:57; Admin Dose 1 TAB; Start 07/10/18 at 14:30 Enoxaparin Sodium (Lovenox) 40 mg DAILY SC Last administered on 07/19/18at 08:52; Admin Dose 40 MG; Start 07/11/18 at 09:00 Insulin Glargine (Lantus) 12 units DAILY@2000 SC Last administered on 07/18/18at 20:49; Admin Dose 12 UNITS; Start 07/10/18 at 20:00 Vancomycin HCl (Vanco Iv Per Pharmacy) VANCOMYCIN PER PHARMACY PER PROTOCOL XX ; Start 07/10/18 at 14:30 Vancomycin HCl 250 ml @ 125 mls/hr Q12H IVPB Last administered on 07/19/18at 08:51; Admin Dose 125 MLS/HR; Start 07/10/18 at 20:00 Nicotine (Nicoderm 21 Mg/ 24hr) 1 patch DAILY TRANSDERM Last administered on 07/19/18at 08:53; Admin Dose 1 PATCH; Start 07/11/18 at 09:00 Miscellaneous Information 1 ea NOTE XX ; Start 07/11/18 at 06:45 Glucose (Glutose) 15 gm Q15M PRN PO DECREASED GLUCOSE; Start 07/11/18 at 06:45 Glucose (Glutose) 22.5 gm Q15M PRN PO DECREASED GLUCOSE; Start 07/11/18 at 06:45 Dextrose (D50w Syringe) 25 ml Q15M PRN IV DECREASED GLUCOSE; Start 07/11/18 at 06:45 Dextrose (D50w Syringe) 50 ml Q15M PRN IV DECREASED GLUCOSE; Start 07/11/18 at 06:45 Glucagon (Glucagen) 1 mg Q15M PRN IM DECREASED GLUCOSE; Start 07/11/18 at 06:45 Glucose (Glutose) 15 gm Q15M PRN BUCCAL DECREASED GLUCOSE; Start 07/11/18 at 06:45 Insulin Aspart (Novolog Insulin Pen) NOVOLOG *MILD* ALGORITHM WITH MEALS BEDTIME SC Last administered on 07/18/18 20:52; Admin Dose 1 UNIT; Start 07/11/18 at 21:30 Levofloxacin (Levaquin) 750 mg DAILY@06 PO Last administered on 07/19/18 05:27; Admin Dose 750 MG; Start 07/13/18 at 06:00 Bupropion HCl (Wellbutrin Xl) 150 mg DAILY PO Last administered on 07/17/18 08:17; Admin Dose 150 MG; Start 07/13/18 at 09:00 Docusate Sodium/ Ferrous Fumarate (Cindy-Sequels) 1 tab DAILY PO Last administered on 07/19/18 08:52; Admin Dose 1 TAB; Start 07/13/18 at 10:30; Stop 08/12/18 at 10:29 Atorvastatin Calcium (Lipitor) 20 mg HS PO Last administered on 07/18/18at 20:48; Admin Dose 20 MG; Start 07/13/18 at 21:00 Fish Oil (Fish Oil) 2,000 mg BID PO Last administered on 07/19/18 08:52; Admin Dose 2,000 MG; Start 07/13/18 at 10:30 IV Flush (NS 10 ml) 10 ml PRN PRN IV IV PROTOCOL; Start 07/18/18 at 16:30 Fluconazole (Diflucan) 400 mg DAILY PO Last administered on 07/19/18 08:52; Admin Dose 400 MG; Start 07/19/18 at 09:00 JUAN GARCIA NP July 19, 2018 12:47
[2018-07-19 14:00] VITALS: BP 120/60; PULSE 82; RESP 20
--- NOTE | 2018-07-19 16:06 | QN ---
Documentation Comment No new c/o. L 1st toe dry gangrene unchanged. - scheduled for L fem-PT bypass 07/26/18 - he can go to SNF and return for the surgery from my standpoint - continue to pain the toe with betadine and keep it dry DAGOBERTO BRANNON MD July 19, 2018 16:06
--- NOTE | 2018-07-19 19:57 | CONS ---
Assessment/Plan Assessment/Plan Assessment/Plan (Daily) Left foot dry gangrene Left foot cellulitis Left foot osteomyelitis PAD DM2 with peripheral neuropathy Nicotine dependence Plan Appreciate vascular surgery input, bypass surgery pending OR availability. No plan for debridements at this time. Discussed smoking cessation and educated patient on adverse effects of blood flow. Continue with IV abx per recommendations. Betadine paint to the gangrene area. Patient will likely need a hallux amputation once blood flow is optimized. Consultation Date/Type/Reason Admit Date/Time July 10, 2018 at 12:52 Initial Consult Date Date/Time of Note DATE: 07/19/18 TIME: 19:57 24 HR Interval Summary Free Text/Dictation No acute events overnight. Exam/Review of Systems Exam Vitals Vital Signs Date Temp Pulse Resp B/P (MAP) Pulse Ox O2 O2 Flow FiO2 Time Delivery Rate 07/19/18 99.0 82 20 120/60 96 14:00 (80) 07/17/18 Room Air 14:00 Intake and Output 07/18/18 07/18/18 07/19/18 1515:00 23:00 07:00 IntakeIntake Total 700 ml 740 ml OutputOutput Total 800 ml BalanceBalance 700 ml -60 ml Exam Non palpable DP/PT pulses absent protective sensations right 2nd digit dry hypkeratotic lesion with underlying mycotic toe nail Left hallux dry gangrene with decreased erythema Left lateral malleolus dry eschar Muscle strength 5/5 in all compartments of the foot Mild pain on palpation to left hallux gangrene site. Foot X-ray IMPRESSION: Unremarkable left foot x-ray series. In the setting of suspected infection, MRI is recommended to exclude osteomyelitis. Non invasive Arterial studies IMPRESSION: Patent left lower extremity arteries with no arterial occlusion identified. Elevated peak systolic velocity in the mid superficial femoral artery, consistent with a greater than 75% stenosis. There are monophasic waveforms in the arteries beyond this point, indicating diminished inflow due to the upstream stenosis. Foot MRI IMPRESSION: 1. Probable skin ulceration at the medial aspect of the first proximal phalanx. 2. Findings of early osteomyelitis at the first distal phalanx and head of the proximal phalanx. 3. Additional focus of abnormal bone marrow signal at the head of the second proximal phalanx, which could be from early ischemic change or stress-related versus less likely early osteomyelitis, unless there is an also an ulcer in this region. 4. No evidence for abscess. Results Result Diagram: 07/15/18 0500 07/18/18 0709 Results 24hrs Laboratory Tests Test 07/18/18 20:46 07/19/18 06:47 07/19/18 07:52 07/19/18 12:10 Bedside Glucose 185 122 139 Vancomycin Level 17.1 Trough Test 07/19/18 17:32 Bedside Glucose 132 Medications Medication Current Medications Buspirone HCl (Buspar) 10 mg BID PO Last administered on 07/17/18at 08:16; Admin Dose 10 MG; Start 07/10/18 at 21:00 IV Flush (NS 3 ml) 3 ml PER PROTOCOL IV ; Start 07/10/18 at 14:30 Ondansetron HCl (Zofran Inj) 4 mg Q6H PRN IV NAUSEA/VOMITING; Start 07/10/18 at 14:30 Acetaminophen (Tylenol Tab) 650 mg Q6H PRN PO .PAIN 1-3 OR TEMP; Start 07/10/18 at 14:30 Acetaminophen/ Hydrocodone Bitart ([place] (5/325)) 1 tab Q6H PRN PO .MOD PAIN 4- 6 Last administered on 07/18/18at 20:57; Admin Dose 1 TAB; Start 07/10/18 at 14:30 Enoxaparin Sodium (Lovenox) 40 mg DAILY SC Last administered on 07/19/18at 08: 52; Admin Dose 40 MG; Start 07/11/18 at 09:00 Insulin Glargine (Lantus) 12 units DAILY@2000 SC Last administered on 07/18/18at 20:49; Admin Dose 12 UNITS; Start 07/10/18 at 20:00 Vancomycin HCl (Vanco Iv Per Pharmacy) VANCOMYCIN PER PHARMACY PER PROTOCOL XX ; Start 07/10/18 at 14:30 Vancomycin HCl 250 ml @ 125 mls/hr Q12H IVPB Last administered on 07/19/18at 08:51; Admin Dose 125 MLS/HR; Start 07/10/18 at 20:00 Nicotine (Nicoderm 21 Mg/ 24hr) 1 patch DAILY TRANSDERM Last administered on 07/19/18at 08:53; Admin Dose 1 PATCH; Start 07/11/18 at 09:00 Miscellaneous Information 1 ea NOTE XX ; Start 07/11/18 at 06:45 Glucose (Glutose) 15 gm Q15M PRN PO DECREASED GLUCOSE; Start 07/11/18 at 06:45 Glucose (Glutose) 22.5 gm Q15M PRN PO DECREASED GLUCOSE; Start 07/11/18 at 06:45 Dextrose (D50w Syringe) 25 ml Q15M PRN IV DECREASED GLUCOSE; Start 07/11/18 at 06:45 Dextrose (D50w Syringe) 50 ml Q15M PRN IV DECREASED GLUCOSE; Start 07/11/18 at 06:45 Glucagon (Glucagen) 1 mg Q15M PRN IM DECREASED GLUCOSE; Start 07/11/18 at 06:45 Glucose (Glutose) 15 gm Q15M PRN BUCCAL DECREASED GLUCOSE; Start 07/11/18 at 06:45 Insulin Aspart (Novolog Insulin Pen) NOVOLOG *MILD* ALGORITHM WITH MEALS BEDTIME SC Last administered on 07/18/18 20:52; Admin Dose 1 UNIT; Start 07/11/18 at 21:30 Levofloxacin (Levaquin) 750 mg DAILY@06 PO Last administered on 07/19/18at 05:27; Admin Dose 750 MG; Start 07/13/18 at 06:00 Bupropion HCl (Wellbutrin Xl) 150 mg DAILY PO Last administered on 07/17/18 08:17; Admin Dose 150 MG; Start 07/13/18 at 09:00 Docusate Sodium/ Ferrous Fumarate (Cindy-Sequels) 1 tab DAILY PO Last adm inistered on 07/19/18at 08:52; Admin Dose 1 TAB; Start 07/13/18 at 10:30; Stop 08/12/18 at 10:29 Atorvastatin Calcium (Lipitor) 20 mg HS PO Last administered on 07/18/18at 20:48; Admin Dose 20 MG; Start 07/13/18 at 21:00 Fish Oil (Fish Oil) 2,000 mg BID PO Last administered on 07/19/18at 08:52; Admin Dose 2,000 MG; Start 07/13/18 at 10:30 IV Flush (NS 10 ml) 10 ml PRN PRN IV IV PROTOCOL; Start 07/18/18 at 16:30 Fluconazole (Diflucan) 400 mg DAILY PO Last administered on 07/19/18at 08:52; Admin Dose 400 MG; Start 07/19/18 at 09:00 LUIS FERNANDO BREAUX DPM July 19, 2018 19:57
[2018-07-19 20:00] VITALS: BP 137/64; PULSE 71; RESP 19
[2018-07-19] MEDS: ATORVASTATIN 20 MG TAB PO SCH (20:40)
[2018-07-19] MEDS: INSULIN GLARGINE [LANTus] (100 UNITS/ML) SYG SC SCH (20:42)
[2018-07-19] MEDS: HYDROCODONE/APAP (5/325) TAB PO PRN (20:47)
[2018-07-20 02:00] VITALS: BP 145/67; PULSE 60; RESP 18
[2018-07-20] MEDS: LEVOFLOXACIN 750 MG TABLET PO SCH (05:44)
[2018-07-20 07:49] VITALS: BP 148/65; PULSE 64; RESP 18
[2018-07-20] MEDS: INSULIN ASPART [NOVOLOG] 3 ML PEN SC SCH ×4 (08:00→21:00)
[2018-07-20] MEDS: VANCOMYCIN 1 GM 250 ML IVPB SCH ×2 (08:33→19:57)
[2018-07-20] MEDS: NICOTINE (21 MG/24 HR) PATCH TRANSDERM SCH (08:33)
[2018-07-20] MEDS: FISH OIL 1,000 MG CAP PO SCH ×2 (08:33→21:10)
[2018-07-20] MEDS: FLUCONAZOLE 200 MG TAB PO SCH (08:33)
[2018-07-20] MEDS: FERROUS FUMARATE (SR) TAB PO SCH (08:34)
[2018-07-20] MEDS: BUSPIRONE 10 MG TAB PO SCH ×2 (08:34→21:10)
[2018-07-20] MEDS: BUPROPION (XL) 150 MG TAB PO SCH (08:34)
[2018-07-20] MEDS: ENOXAPARIN 40 MG/0.4 ML SYG SC SCH (08:35)
--- NOTE | 2018-07-20 11:38 | PN ---
Date/Time of Note Date/Time of Note DATE: 07/20/18 TIME: 11:36 Assessment/Plan VTE Prophylaxis Risk score (from Nsg)>0 risk: 4 SCD applied (from Ns): No SCD contraindicated: other Pharmacological prophylaxis: LMWH Lines/Catheters IV Catheter Type (from Nrs): PICC Line Central line still needed: Yes Urinary Cath still in place: No Assessment/Plan Hospital Course SUBJECTIVE: No complaints OBJECTIVE: Vital signs-see below PHYSICAL EXAM: Constitutional: Adequately built,not in acute distress. HEENT: Head atraumatic and normocephalic. Eyes: Extraocular muscles intact. Anicteric sclerae. Pupils equal bilaterally, reactive to light. NECK: Supple without lymph node. CHEST: Clear and good breath sounds equally. No wheezing. No rhonchi. HEART: S1, S2. Regular rate and rhythm. ABDOMEN: Soft/non tender with no rebound tenderness. Bowel sounds were present. EXTREMITIES:Left 1st toe dry gangrene.Surrounding dorsal foot area w/erythema /swelling/tenderness. No DP/PT palpable pulse. NEUROLOGIC: Alert and oriented x3. No focal deficit. No sensory deficit. PSYCHOSOCIAL: No signs of depression. INTEGUMENTARY: No open wounds. ASSESSMENT AND PLAN:72 yo M w/hx of triglyceridemia, peripheral vascular disease, type 2 diabetes, anxiety/depression, long-standing tobacco use 1 pack/day was told by his doctor to get admitted for inpatient vascular/podiatry work-up for worsening cellulitis with left toe gangrene also noted with severe PAD/osteomyelitis.. Left foot cellulitis -Cellulitis improved -cont. Glycemic control/Wound care -.BC 03/08 culture grew crystal P. s/p cancidas=>on Diflucan now - antimicrobial per ID recommendations PAD with left first toe dry gangrene -Onset ~2 mos -Status post abdominal aortogram with left lower extremity runoff=>Plan for Fem- PT Bypass=>timing/scheduling per vascular (elective=>tentatively scheduled for Sunday) -Continue to optimize neurovascular status with antihypertensives to keep blood pressure ~140/90, diet, nutrition, exercise, blood glucose control, and antiplatelets/anticoagulation. Osteomyelitis of left first toe. -IV abx-would need it for snf if no amputation happens DMII -well-controlled -Basal/bolus insulin Dyslipidemia/triglyceridemia -on Tricor/statin Anxiety/depression -on Buspar Tobacco abuse -Cessation advised. PRN nicotine patch for withdrawal. Chronic anemia -Stable H&H. Monitor -also getting oral iron DVT prophylaxis: Lovenox PUD prophylaxis: Not indicated CODE STATUS: Full code Diet: Carbohydrate controlled/low-cholesterol diet. Disp: pt needs PT bypass once medically optimized-timing per vascular-likely next sunday. Meanwhile, we will start DC planning to SNF with continuation of antibiotics IV, wound care and vascular follow-ups and will bring patient back possibly by Sunday for revascularization with Dr. Gaitan on sunday. Patient was seen in collaboration with Dr. Thomas Result Diagram: 07/18/18 0709 Results 24hrs Laboratory Tests Test 07/19/18 12:10 07/19/18 17:32 07/19/18 20:37 07/20/18 01:39 Bedside Glucose 139 132 186 124 Test 07/20/18 08:03 Bedside Glucose 89 Exam/Review of Systems Exam Vitals Vital Signs Date Temp Pulse Resp B/P (MAP) Pulse Ox O2 O2 Flow FiO2 Time Delivery Rate 07/20/18 98.4 64 18 148/65 97 07:49 (92) 07/17/18 Room Air 14:00 Intake and Output 07/19/18 07/19/18 07/20/18 1515:00 23:00 07:00 IntakeIntake Total 1290 ml 250 ml 800 ml OutputOutput Total 400 ml 700 ml BalanceBalance 890 ml 250 ml 100 ml Results Results 24hrs Laboratory Tests Test 07/19/18 12:10 07/19/18 17:32 07/19/18 20:37 07/20/18 01:39 Bedside Glucose 139 132 186 124 Test 07/20/18 08:03 Bedside Glucose 89 Medications Medication Current Medications Buspirone HCl (Buspar) 10 mg BID PO Last administered on 07/17/18at 08:16; Admin Dose 10 MG; Start 07/10/18 at 21:00 IV Flush (NS 3 ml) 3 ml PER PROTOCOL IV ; Start 07/10/18 at 14:30 Ondansetron HCl (Zofran Inj) 4 mg Q6H PRN IV NAUSEA/VOMITING; Start 07/10/18 at 14:30 Acetaminophen (Tylenol Tab) 650 mg Q6H PRN PO .PAIN 1-3 OR TEMP; Start 07/10/18 at 14:30 Acetaminophen/ Hydrocodone Bitart ([place] (5/325)) 1 tab Q6H PRN PO .MOD PAIN 4- 6 Last administered on 07/19/18at 20:47; Admin Dose 1 TAB; Start 07/10/18 at 14:30 Enoxaparin Sodium (Lovenox) 40 mg DAILY SC Last administered on 07/20/18at 08:35; Admin Dose 40 MG; Start 07/11/18 at 09:00 Insulin Glargine (Lantus) 12 units DAILY@2000 SC Last administered on 07/19/18 20:42; Admin Dose 12 UNITS; Start 07/10/18 at 20:00 Vancomycin HCl (Vanco Iv Per Pharmacy) VANCOMYCIN PER PHARMACY PER PROTOCOL XX ; Start 07/10/18 at 14:30 Vancomycin HCl 250 ml @ 125 mls/hr Q12H IVPB Last administered on 07/20/18at 08:33; Admin Dose 125 MLS/HR; Start 07/10/18 at 20:00 Nicotine (Nicoderm 21 Mg/ 24hr) 1 patch DAILY TRANSDERM Last administered on 07/20/18at 08:33; Admin Dose 1 PATCH; Start 07/11/18 at 09:00 Miscellaneous Information 1 ea NOTE XX ; Start 07/11/18 at 06:45 Glucose (Glutose) 15 gm Q15M PRN PO DECREASED GLUCOSE; Start 07/11/18 at 06:45 Glucose (Glutose) 22.5 gm Q15M PRN PO DECREASED GLUCOSE; Start 07/11/18 at 06:45 Dextrose (D50w Syringe) 25 ml Q15M PRN IV DECREASED GLUCOSE; Start 07/11/18 at 06:45 Dextrose (D50w Syringe) 50 ml Q15M PRN IV DECREASED GLUCOSE; Start 07/11/18 at 06:45 Glucagon (Glucagen) 1 mg Q15M PRN IM DECREASED GLUCOSE; Start 07/11/18 at 06:45 Glucose (Glutose) 15 gm Q15M PRN BUCCAL DECREASED GLUCOSE; Start 07/11/18 at 06:45 Insulin Aspart (Novolog Insulin Pen) NOVOLOG *MILD* ALGORITHM WITH MEALS BEDTIME SC Last administered on 07/19/18at 20:41; Admin Dose 1 UNIT; Start 07/11/18 at 21:30 Levofloxacin (Levaquin) 750 mg DAILY@06 PO Last administered on 07/20/18 05:44; Admin Dose 750 MG; Start 07/13/18 at 06:00 Bupropion HCl (Wellbutrin Xl) 150 mg DAILY PO Last administered on 07/17/18 08:17; Admin Dose 150 MG; Start 07/13/18 at 09:00 Docusate Sodium/ Ferrous Fumarate (Cindy-Sequels) 1 tab DAILY PO Last administered on 07/20/18 08:34; Admin Dose 1 TAB; Start 07/13/18 at 10:30; Stop 08/12/18 at 10:29 Atorvastatin Calcium (Lipitor) 20 mg HS PO Last administered on 07/19/18 20:40; Admin Dose 20 MG; Start 07/13/18 at 21:00 Fish Oil (Fish Oil) 2,000 mg BID PO Last administered on 07/20/18 08:33; Admin Dose 2,000 MG; Start 07/13/18 at 10:30 IV Flush (NS 10 ml) 10 ml PRN PRN IV IV PROTOCOL; Start 07/18/18 at 16:30 Fluconazole (Diflucan) 400 mg DAILY PO Last administered on 07/20/18 08:33; Admin Dose 400 MG; Start 07/19/18 at 09:00 EDDIE PITTMAN NP July 20, 2018 11:38
--- NOTE | 2018-07-20 12:15 | PDOCDIS ---
Discharge Instructions CONDITION [id number] Patient Condition: [id number] Stable HOME CARE INSTRUCTIONS: [id number] Your diet recommendation is: [id number] carbohydrate controlled/low-cholesterol diet FOLLOW UP/APPOINTMENTS Follow-up Plan Patient has vascular/bypass surgery scheduled on Sunday07/26/[address] Gaitan. Patient needs to be readmitted through [facility] emergency room on 07/24/2018 for the procedure. Continue wound care with Betadine cleaning. Patient to continue antibiotics EDDIE PITTMAN NP July 20, 2018 12:15
[2018-07-20] MEDS ORDERED: FERR1TAB14 PO (12:18)
[2018-07-20] MEDS ORDERED: Vancomycin Iv Per Pharmacy XX (12:18)
[2018-07-20] MEDS ORDERED: LEVO750T25 PO (12:18)
[2018-07-20] MEDS ORDERED: GLIP5TAB13 PO (12:18)
[2018-07-20] MEDS ORDERED: ATOR20TA65 PO (12:18)
[2018-07-20] MEDS ORDERED: FLUC200T PO (12:18)
[2018-07-20] MEDS ORDERED: OMEG100024 PO (12:18)
[2018-07-20] MEDS ORDERED: BUPR150T6 PO (12:18)
[2018-07-20 14:00] VITALS: BP 129/60; PULSE 86; RESP 18
--- NOTE | 2018-07-20 14:34 | CONS ---
Consultation Date/Type/Reason Admit Date/Time July 10, 2018 at 12:52 Initial Consult Date Type of Consult SUBJECTIVE: Pt is awake, alert, afebrile. No acute events over night. VS: stable T: 98.4 LABS: Reviewed. Blood culture on July 10 grew enterococcus and Jennifer parapsilosis, repeat blood cultures negative Microbiology: Wound culture grew stenotrophomonas maltophilia, Pseudomonas enterococcus species and coag negative staph species; Repeat blood cultures negative. Antimicrobials: Diflucan, oral Levaquin, vancomycin Physical examination: GEN: This is a well-developed fragile elderly man, who is alert in no distress. HENT: Head atraumatic normocephalic, sclera nonicteric vehicle mucosa dry; neck is supple PULM: chest rise symmetrical, breath sounds diminished bases Heart: S1-S2. Abdomen: soft, bowel sounds present. Extremities with left great toe gangrene ASSESSMENT: 1. Polymicrobial bacteremia/fungemia likely secondary to #2 2. Left great toe cellulitis, gangrene, osteomyelitis 3. Peripheral arterial disease with high-grade left SFA stenosis 4. Diabetes Plan: Pt is stable. Continue on PO Diflucan for 7 more days, continue same abx. Patient has vascular/bypass surgery scheduled on Sunday07/26/[address] Gaitan. Pending DC Date/Time of Note DATE: 07/20/18 TIME: 14:29 Exam/Review of Systems Exam Vitals Vital Signs Date Temp Pulse Resp B/P (MAP) Pulse Ox O2 O2 Flow FiO2 Time Delivery Rate 07/20/18 98.4 64 18 148/65 97 07:49 (92) 07/17/18 Room Air 14:00 Intake and Output 07/19/18 07/19/18 07/20/18 1515:00 23:00 07:00 IntakeIntake Total 1290 ml 250 ml 800 ml OutputOutput Total 400 ml 700 ml BalanceBalance 890 ml 250 ml 100 ml Results Result Diagram: 07/18/18 0709 Results 24hrs Laboratory Tests Test 07/19/18 17:32 07/19/18 20:37 07/20/18 01:39 07/20/18 08:03 Bedside Glucose 132 186 124 89 Test 07/20/18 12:10 Bedside Glucose 116 Medications Medication Current Medications Buspirone HCl (Buspar) 10 mg BID PO Last administered on 07/17/18 08:16; Admin Dose 10 MG; Start 07/10/18 at 21:00 IV Flush (NS 3 ml) 3 ml PER PROTOCOL IV ; Start 07/10/18 at 14:30 Ondansetron HCl (Zofran Inj) 4 mg Q6H PRN IV NAUSEA/VOMITING; Start 07/10/18 at 14:30 Acetaminophen (Tylenol Tab) 650 mg Q6H PRN PO .PAIN 1-3 OR TEMP; Start 07/10/18 at 14:30 Acetaminophen/ Hydrocodone Bitart ([place] (5/325)) 1 tab Q6H PRN PO .MOD PAIN 4- 6 Last administered on 07/19/18 20:47; Admin Dose 1 TAB; Start 07/10/18 at 14:30 Enoxaparin Sodium (Lovenox) 40 mg DAILY SC Last administered on 07/20/18at 08: 35; Admin Dose 40 MG; Start 07/11/18 at 09:00 Insulin Glargine (Lantus) 12 units DAILY@2000 SC Last administered on 07/19/18at 20:42; Admin Dose 12 UNITS; Start 07/10/18 at 20:00 Vancomycin HCl (Vanco Iv Per Pharmacy) VANCOMYCIN PER PHARMACY PER PROTOCOL XX ; Start 07/10/18 at 14:30 Vancomycin HCl 250 ml @ 125 mls/hr Q12H IVPB Last administered on 07/20/18 08:33; Admin Dose 125 MLS/HR; Start 07/10/18 at 20:00 Nicotine (Nicoderm 21 Mg/ 24hr) 1 patch DAILY TRANSDERM Last administered on 07/20/18at 08:33; Admin Dose 1 PATCH; Start 07/11/18 at 09:00 Miscellaneous Information 1 ea NOTE XX ; Start 07/11/18 at 06:45 Glucose (Glutose) 15 gm Q15M PRN PO DECREASED GLUCOSE; Start 07/11/18 at 06:45 Glucose (Glutose) 22.5 gm Q15M PRN PO DECREASED GLUCOSE; Start 07/11/18 at 06:45 Dextrose (D50w Syringe) 25 ml Q15M PRN IV DECREASED GLUCOSE; Start 07/11/18 at 06:45 Dextrose (D50w Syringe) 50 ml Q15M PRN IV DECREASED GLUCOSE; Start 07/11/18 at 06:45 Glucagon (Glucagen) 1 mg Q15M PRN IM DECREASED GLUCOSE; Start 07/11/18 at 06:45 Glucose (Glutose) 15 gm Q15M PRN BUCCAL DECREASED GLUCOSE; Start 07/11/18 at 06:45 Insulin Aspart (Novolog Insulin Pen) NOVOLOG *MILD* ALGORITHM WITH MEALS BEDTIME SC Last administered on 07/19/18at 20:41; Admin Dose 1 UNIT; Start 07/11/18 at 21:30 Levofloxacin (Levaquin) 750 mg DAILY@06 PO Last administered on 07/20/18at 05:44; Admin Dose 750 MG; Start 07/13/18 at 06:00 Bupropion HCl (Wellbutrin Xl) 150 mg DAILY PO Last administered on 07/17/18 08:17; Admin Dose 150 MG; Start 07/13/18 at 09:00 Docusate Sodium/ Ferrous Fumarate (Cindy-Sequels) 1 tab DAILY PO Last adm inistered on 07/20/18at 08:34; Admin Dose 1 TAB; Start 07/13/18 at 10:30; Stop 08/12/18 at 10:29 Atorvastatin Calcium (Lipitor) 20 mg HS PO Last administered on 07/19/18at 20:40; Admin Dose 20 MG; Start 07/13/18 at 21:00 Fish Oil (Fish Oil) 2,000 mg BID PO Last administered on 07/20/18at 08:33; Admin Dose 2,000 MG; Start 07/13/18 at 10:30 IV Flush (NS 10 ml) 10 ml PRN PRN IV IV PROTOCOL; Start 07/18/18 at 16:30 Fluconazole (Diflucan) 400 mg DAILY PO Last administered on 07/20/18at 08:33; Admin Dose 400 MG; Start 07/19/18 at 09:00 ALISSON SANTOS July 20, 2018 14:34
[2018-07-20] MEDS: INSULIN GLARGINE [LANTus] (100 UNITS/ML) SYG SC SCH (20:01)
[2018-07-20 20:38] VITALS: BP 155/68; PULSE 72; RESP 20
[2018-07-20] MEDS: ATORVASTATIN 20 MG TAB PO SCH (21:10)
[2018-07-20] MEDS: HYDROCODONE/APAP (5/325) TAB PO PRN (21:17)
[2018-07-21 02:33] VITALS: BP 144/63; PULSE 66; RESP 18
[2018-07-21] MEDS: LEVOFLOXACIN 750 MG TABLET PO SCH (05:38)
[2018-07-21] MEDS: INSULIN ASPART [NOVOLOG] 3 ML PEN SC SCH ×4 (07:53→21:00)
[2018-07-21 08:18] VITALS: BP 116/54; PULSE 64; RESP 17
[2018-07-21] MEDS: VANCOMYCIN 1 GM 250 ML IVPB SCH ×2 (08:25→20:05)
[2018-07-21] MEDS: ENOXAPARIN 40 MG/0.4 ML SYG SC SCH (08:26)
[2018-07-21] MEDS: FLUCONAZOLE 200 MG TAB PO SCH (08:27)
[2018-07-21] MEDS: BUPROPION (XL) 150 MG TAB PO SCH ×2 (08:27→08:39)
[2018-07-21] MEDS: FISH OIL 1,000 MG CAP PO SCH ×2 (08:27→21:03)
[2018-07-21] MEDS: FERROUS FUMARATE (SR) TAB PO SCH (08:27)
[2018-07-21] MEDS: BUSPIRONE 10 MG TAB PO SCH ×3 (08:27→21:02)
[2018-07-21] MEDS: NICOTINE (21 MG/24 HR) PATCH TRANSDERM SCH (08:28)
--- NOTE | 2018-07-21 12:56 | CONS ---
Consultation Date/Type/Reason Admit Date/Time July 10, 2018 at 12:52 Initial Consult Date Type of Consult SUBJECTIVE: Pt is awake, alert, afebrile. No acute events over night. VS: stable T: 99.2 LABS: Reviewed. Blood culture on July 10 grew enterococcus and Jennifer parapsilosis, repeat blood cultures negative Microbiology: Wound culture grew stenotrophomonas maltophilia, Pseudomonas enterococcus species and coag negative staph species; Repeat blood cultures negative. Antimicrobials: Diflucan, oral Levaquin, vancomycin Physical examination: GEN: This is a well-developed fragile elderly man, who is alert in no distress. HENT: Head atraumatic normocephalic, sclera nonicteric vehicle mucosa dry; neck is supple PULM: chest rise symmetrical, breath sounds diminished bases Heart: S1-S2. Abdomen: soft, bowel sounds present. Extremities with left great toe gangrene ASSESSMENT: 1. Polymicrobial bacteremia/fungemia likely secondary to #2 2. Left great toe cellulitis, gangrene, osteomyelitis 3. Peripheral arterial disease with high-grade left SFA stenosis 4. Diabetes Plan: Pt is stable. Continue on PO Diflucan for 6 more days, continue same abx. Patient has vascular/bypass surgery scheduled on Sunday07/26/[address] Gaitan. Pending DC Date/Time of Note DATE: 07/21/18 TIME: 12:56 Exam/Review of Systems Exam Vitals Vital Signs Date Temp Pulse Resp B/P (MAP) Pulse Ox O2 O2 Flow FiO2 Time Delivery Rate 07/21/18 99.2 64 17 116/54 97 Room Air 08:18 (74) Intake and Output 07/20/18 07/20/18 07/21/18 1515:00 23:00 07:00 IntakeIntake Total 1190 ml 600 ml 450 ml OutputOutput Total 800 ml 600 ml BalanceBalance 390 ml 600 ml -150 ml Results Result Diagram: 07/21/18 0513 Results 24hrs Laboratory Tests Test 07/20/18 17:36 07/20/18 19:59 07/20/18 21:12 07/21/18 05:13 Bedside Glucose 130 201 167 Blood Urea Nitrogen 19 Creatinine 1.06 Test 07/21/18 07:52 07/21/18 12:07 Bedside Glucose 92 145 Medications Medication Current Medications Buspirone HCl (Buspar) 10 mg BID PO Last administered on 07/20/18 21:10; Admin Dose 10 MG; Start 07/10/18 at 21:00 IV Flush (NS 3 ml) 3 ml PER PROTOCOL IV ; Start 07/10/18 at 14:30 Ondansetron HCl (Zofran Inj) 4 mg Q6H PRN IV NAUSEA/VOMITING; Start 07/10/18 at 14:30 Acetaminophen (Tylenol Tab) 650 mg Q6H PRN PO .PAIN 1-3 OR TEMP; Start 07/10/18 at 14:30 Acetaminophen/ Hydrocodone Bitart ([place] (5/325)) 1 tab Q6H PRN PO .MOD PAIN 4- 6 Last administered on 07/20/18 21:17; Admin Dose 1 TAB; Start 07/10/18 at 14:30 Enoxaparin Sodium (Lovenox) 40 mg DAILY SC Last administered on 07/21/18at 08:26; Admin Dose 40 MG; Start 07/11/18 at 09:00 Insulin Glargine (Lantus) 12 units DAILY@2000 SC Last administered on 07/20/18at 20:01; Admin Dose 12 UNITS; Start 07/10/18 at 20:00 Vancomycin HCl (Vanco Iv Per Pharmacy) VANCOMYCIN PER PHARMACY PER PROTOCOL XX ; Start 07/10/18 at 14:30 Vancomycin HCl 250 ml @ 125 mls/hr Q12H IVPB Last administered on 07/21/18 08:25; Admin Dose 125 MLS/HR; Start 07/10/18 at 20:00 Nicotine (Nicoderm 21 Mg/ 24hr) 1 patch DAILY TRANSDERM Last administered on 07/21/18at 08:28; Admin Dose 1 PATCH; Start 07/11/18 at 09:00 Miscellaneous Information 1 ea NOTE XX ; Start 07/11/18 at 06:45 Glucose (Glutose) 15 gm Q15M PRN PO DECREASED GLUCOSE; Start 07/11/18 at 06:45 Glucose (Glutose) 22.5 gm Q15M PRN PO DECREASED GLUCOSE; Start 07/11/18 at 06:45 Dextrose (D50w Syringe) 25 ml Q15M PRN IV DECREASED GLUCOSE; Start 07/11/18 at 06:45 Dextrose (D50w Syringe) 50 ml Q15M PRN IV DECREASED GLUCOSE; Start 07/11/18 at 06:45 Glucagon (Glucagen) 1 mg Q15M PRN IM DECREASED GLUCOSE; Start 07/11/18 at 06:45 Glucose (Glutose) 15 gm Q15M PRN BUCCAL DECREASED GLUCOSE; Start 07/11/18 at 06:45 Insulin Aspart (Novolog Insulin Pen) NOVOLOG *MILD* ALGORITHM WITH MEALS BEDTIME SC Last administered on 07/21/18 12:37; Admin Dose 1 UNIT; Start at 21:30 Levofloxacin (Levaquin) 750 mg DAILY@06 PO Last administered on 07/21/18 05:38; Admin Dose 750 MG; Start 07/13/18 at 06:00 Bupropion HCl (Wellbutrin Xl) 150 mg DAILY PO Last administered on 07/17/18 08:17; Admin Dose 150 MG; Start 07/13/18 at 09:00 Docusate Sodium/ Ferrous Fumarate (Cindy-Sequels) 1 tab DAILY PO Last administered on 07/21/18 08:27; Admin Dose 1 TAB; Start 07/13/18 at 10:30; Stop 08/12/18 at 10:29 Atorvastatin Calcium (Lipitor) 20 mg HS PO Last administered on 07/20/18at 21:10; Admin Dose 20 MG; Start 07/13/18 at 21:00 Fish Oil (Fish Oil) 2,000 mg BID PO Last administered on 07/21/18 08:27; Admin Dose 2,000 MG; Start 07/13/18 at 10:30 IV Flush (NS 10 ml) 10 ml PRN PRN IV IV PROTOCOL; Start 07/18/18 at 16:30 Fluconazole (Diflucan) 400 mg DAILY PO Last administered on 07/21/18 08:27; Admin Dose 400 MG; Start 07/19/18 at 09:00 ALISSON SANTOS July 21, 2018 12:56
--- NOTE | 2018-07-21 14:42 | PN ---
Date/Time of Note Date/Time of Note DATE: 07/21/18 TIME: 14:39 Assessment/Plan VTE Prophylaxis Risk score (from Nsg)>0 risk: 4 SCD applied (from Ns): No SCD contraindicated: other Pharmacological prophylaxis: LMWH Lines/Catheters IV Catheter Type (from Nrs): PICC Line Central line still needed: Yes Urinary Cath still in place: No Assessment/Plan Hospital Course SUBJECTIVE: No complaints OBJECTIVE: Vital signs-see below PHYSICAL EXAM: Constitutional: Adequately built,not in acute distress. HEENT: Head atraumatic and normocephalic. Eyes: Extraocular muscles intact. Anicteric sclerae. Pupils equal bilaterally, reactive to light. NECK: Supple without lymph node. CHEST: Clear and good breath sounds equally. No wheezing. No rhonchi. HEART: S1, S2. Regular rate and rhythm. ABDOMEN: Soft/non tender with no rebound tenderness. Bowel sounds were present. EXTREMITIES:Left 1st toe dry gangrene.Surrounding dorsal foot area w/erythema /swelling/tenderness. No DP/PT palpable pulse. NEUROLOGIC: Alert and oriented x3. No focal deficit. No sensory deficit. PSYCHOSOCIAL: No signs of depression. INTEGUMENTARY: No open wounds. ASSESSMENT AND PLAN:72 yo M w/hx of triglyceridemia, peripheral vascular disease, type 2 diabetes, anxiety/depression, long-standing tobacco use 1 pack/day was told by his doctor to get admitted for inpatient vascular/podiatry work-up for worsening cellulitis with left toe gangrene also noted with severe PAD/osteomyelitis.. Left foot cellulitis -Cellulitis improved -cont. Glycemic control/Wound care -.BC 03/08 culture grew crystal P. s/p cancidas=>on Diflucan now - antimicrobial per ID recommendations PAD with left first toe dry gangrene -Onset ~2 mos -Status post abdominal aortogram with left lower extremity runoff=>Plan for Fem- PT Bypass=>timing/scheduling per vascular (elective=>tentatively scheduled for Sunday) -Continue to optimize neurovascular status with antihypertensives to keep blood pressure ~140/90, diet, nutrition, exercise, blood glucose control, and antiplatelets/anticoagulation. Osteomyelitis of left first toe. -IV abx-would need it for fdc if no amputation happens DMII -well-controlled -Basal/bolus insulin Dyslipidemia/triglyceridemia -on Tricor/statin Anxiety/depression -on Buspar Tobacco abuse -Cessation advised. PRN nicotine patch for withdrawal. Chronic anemia -Stable H&H. Monitor -also getting oral iron DVT prophylaxis: Lovenox PUD prophylaxis: Not indicated CODE STATUS: Full code Diet: Carbohydrate controlled/low-cholesterol diet. Disp: pt needs PT bypass once medically optimized-timing per vascular-likely next sunday. Meanwhile, we will start DC planning to SNF with continuation of antibiotics IV, wound care and vascular follow-ups and will bring patient back possibly by Sunday for revascularization with Dr. Gaitan on sunday. Patient was seen in collaboration with Dr. Thomas Result Diagram: 07/21/18 0513 Results 24hrs Laboratory Tests Test 07/20/18 17:36 07/20/18 19:59 07/20/18 21:12 07/21/18 05:13 Bedside Glucose 130 201 167 Blood Urea Nitrogen 19 Creatinine 1.06 Test 07/21/18 07:52 07/21/18 12:07 Bedside Glucose 92 145 Exam/Review of Systems Exam Vitals Vital Signs Date Temp Pulse Resp B/P (MAP) Pulse Ox O2 O2 Flow FiO2 Time Delivery Rate 07/21/18 99.2 64 17 116/54 97 Room Air 08:18 (74) Intake and Output 07/20/18 07/20/18 07/21/18 1414:59 22:59 06:59 IntakeIntake Total 1190 ml 600 ml 450 ml OutputOutput Total 800 ml 600 ml BalanceBalance 390 ml 600 ml -150 ml Results Results 24hrs Laboratory Tests Test 07/20/18 17:36 07/20/18 19:59 07/20/18 21:12 07/21/18 05:13 Bedside Glucose 130 201 167 Blood Urea Nitrogen 19 Creatinine 1.06 Test 07/21/18 07:52 07/21/18 12:07 Bedside Glucose 92 145 Medications Medication Current Medications Buspirone HCl (Buspar) 10 mg BID PO Last administered on 07/20/18at 21:10; Admin Dose 10 MG; Start 07/10/18 at 21:00 IV Flush (NS 3 ml) 3 ml PER PROTOCOL IV ; Start 07/10/18 at 14:30 Ondansetron HCl (Zofran Inj) 4 mg Q6H PRN IV NAUSEA/VOMITING; Start 07/10/18 at 14:30 Acetaminophen (Tylenol Tab) 650 mg Q6H PRN PO .PAIN 1-3 OR TEMP; Start 07/10/18 at 14:30 Acetaminophen/ Hydrocodone Bitart ([place] (5/325)) 1 tab Q6H PRN PO .MOD PAIN 4- 6 Last administered on 07/20/18at 21:17; Admin Dose 1 TAB; Start 07/10/18 at 14:30 Enoxaparin Sodium (Lovenox) 40 mg DAILY SC Last administered on 07/21/18at 08:26; Admin Dose 40 MG; Start 07/11/18 at 09:00 Insulin Glargine (Lantus) 12 units DAILY@2000 SC Last administered on 07/20/18 20:01; Admin Dose 12 UNITS; Start 07/10/18 at 20:00 Vancomycin HCl (Vanco Iv Per Pharmacy) VANCOMYCIN PER PHARMACY PER PROTOCOL XX ; Start 07/10/18 at 14:30 Vancomycin HCl 250 ml @ 125 mls/hr Q12H IVPB Last administered on 07/21/18at 08:25; Admin Dose 125 MLS/HR; Start 07/10/18 at 20:00 Nicotine (Nicoderm 21 Mg/ 24hr) 1 patch DAILY TRANSDERM Last administered on 07/21/18at 08:28; Admin Dose 1 PATCH; Start 07/11/18 at 09:00 Miscellaneous Information 1 ea NOTE XX ; Start 07/11/18 at 06:45 Glucose (Glutose) 15 gm Q15M PRN PO DECREASED GLUCOSE; Start 07/11/18 at 06:45 Glucose (Glutose) 22.5 gm Q15M PRN PO DECREASED GLUCOSE; Start 07/11/18 at 06:45 Dextrose (D50w Syringe) 25 ml Q15M PRN IV DECREASED GLUCOSE; Start 07/11/18 at 06:45 Dextrose (D50w Syringe) 50 ml Q15M PRN IV DECREASED GLUCOSE; Start 07/11/18 at 06:45 Glucagon (Glucagen) 1 mg Q15M PRN IM DECREASED GLUCOSE; Start 07/11/18 at 06:45 Glucose (Glutose) 15 gm Q15M PRN BUCCAL DECREASED GLUCOSE; Start 07/11/18 at 06:45 Insulin Aspart (Novolog Insulin Pen) NOVOLOG *MILD* ALGORITHM WITH MEALS BEDTIME SC Last administered on 07/21/18 12:37; Admin Dose 1 UNIT; Start 07/11/18 at 21:30 Levofloxacin (Levaquin) 750 mg DAILY@06 PO Last administered on 07/21/18 05:38; Admin Dose 750 MG; Start 07/13/18 at 06:00 Bupropion HCl (Wellbutrin Xl) 150 mg DAILY PO Last administered on 07/17/18 08:17; Admin Dose 150 MG; Start 07/13/18 at 09:00 Docusate Sodium/ Ferrous Fumarate (Cindy-Sequels) 1 tab DAILY PO Last administered on 07/21/18 08:27; Admin Dose 1 TAB; Start 07/13/18 at 10:30; Stop 08/12/18 at 10:29 Atorvastatin Calcium (Lipitor) 20 mg HS PO Last administered on 07/20/18at 21:10; Admin Dose 20 MG; Start 07/13/18 at 21:00 Fish Oil (Fish Oil) 2,000 mg BID PO Last administered on 07/21/18 08:27; Admin Dose 2,000 MG; Start 07/13/18 at 10:30 IV Flush (NS 10 ml) 10 ml PRN PRN IV IV PROTOCOL; Start 07/18/18 at 16:30 Fluconazole (Diflucan) 400 mg DAILY PO Last administered on 07/21/18 08:27; Admin Dose 400 MG; Start 07/19/18 at 09:00 EDDIE PITTMAN NP July 21, 2018 14:42
[2018-07-21 15:33] VITALS: BP 130/60; PULSE 68; RESP 17
[2018-07-21 20:00] VITALS: BP 137/80; PULSE 70; RESP 18
[2018-07-21] MEDS: INSULIN GLARGINE [LANTus] (100 UNITS/ML) SYG SC SCH (20:12)
[2018-07-21] MEDS: ATORVASTATIN 20 MG TAB PO SCH (21:02)
[2018-07-21] MEDS: HYDROCODONE/APAP (5/325) TAB PO PRN (21:02)
[2018-07-22 02:00] VITALS: BP 143/64; PULSE 63; RESP 20
[2018-07-22] MEDS: LEVOFLOXACIN 750 MG TABLET PO SCH (05:45)
[2018-07-22] MEDS: INSULIN ASPART [NOVOLOG] 3 ML PEN SC SCH ×4 (08:00→21:20)
[2018-07-22] MEDS: VANCOMYCIN 1 GM 250 ML IVPB SCH ×2 (08:03→20:33)
[2018-07-22] MEDS: NICOTINE (21 MG/24 HR) PATCH TRANSDERM SCH (08:24)
[2018-07-22] MEDS: FISH OIL 1,000 MG CAP PO SCH ×2 (08:24→21:08)
[2018-07-22] MEDS: FLUCONAZOLE 200 MG TAB PO SCH (08:24)
[2018-07-22] MEDS: FERROUS FUMARATE (SR) TAB PO SCH (08:24)
[2018-07-22] MEDS: ENOXAPARIN 40 MG/0.4 ML SYG SC SCH (08:25)
[2018-07-22] MEDS: BUSPIRONE 10 MG TAB PO SCH ×2 (08:27→21:00)
[2018-07-22] MEDS: BUPROPION (XL) 150 MG TAB PO SCH (08:28)
[2018-07-22 08:51] VITALS: BP 134/65; PULSE 77; RESP 18
--- NOTE | 2018-07-22 11:02 | PN ---
Date/Time of Note Date/Time of Note DATE: 07/22/18 TIME: 10:59 Assessment/Plan VTE Prophylaxis Risk score (from Nsg)>0 risk: 4 SCD applied (from Nsg): Yes Pharmacological prophylaxis: LMWH Lines/Catheters IV Catheter Type (from Nrsg): PICC Line Central line still needed: Yes Urinary Cath still in place: No Assessment/Plan Hospital Course SUBJECTIVE: No complaints OBJECTIVE: Vital signs-see below PHYSICAL EXAM: Constitutional: Adequately built,not in acute distress. HEENT: Head atraumatic and normocephalic. Eyes: Extraocular muscles intact. Anicteric sclerae. Pupils equal bilaterally, reactive to light. NECK: Supple without lymph node. CHEST: Clear and good breath sounds equally. No wheezing. No rhonchi. HEART: S1, S2. Regular rate and rhythm. ABDOMEN: Soft/non tender with no rebound tenderness. Bowel sounds were present. EXTREMITIES:Left 1st toe dry gangrene.Surrounding dorsal foot area w/erythema/swelling/tenderness. No DP/PT palpable pulse. NEUROLOGIC: Alert and oriented x3. No focal deficit. No sensory deficit. PSYCHOSOCIAL: No signs of depression. INTEGUMENTARY: No open wounds. ASSESSMENT AND PLAN:72 yo M w/hx of triglyceridemia, peripheral vascular disease, type 2 diabetes, anxiety/depression, long-standing tobacco use 1 pack/day was told by his doctor to get admitted for inpatient vascular/podiatry work-up for worsening cellulitis with left toe gangrene also noted with severe PAD/osteomyelitis.. Left foot cellulitis -Cellulitis improved -cont. Glycemic control/Wound care -.BC 03/08 culture grew crystal P. s/p cancidas=>on Diflucan now - antimicrobial per ID recommendations PAD with left first toe dry gangrene -Onset ~2 mos -Status post abdominal aortogram with left lower extremity runoff=>Plan for Fem- PT Bypass=>timing/scheduling per vascular (tentatively scheduled for Sunday) -Continue to optimize neurovascular status with antihypertensives to keep blood pressure ~140/90, diet, nutrition, exercise, blood glucose control, and antiplatelets/anticoagulation. Osteomyelitis of left first toe. 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 PRN nicotine patch for withdrawal. Chronic anemia -Stable H&H. Monitor -also getting oral iron DVT prophylaxis: Lovenox PUD prophylaxis: Not indicated CODE STATUS: Full code Diet: Carbohydrate controlled/low-cholesterol diet. Disp: pt needs PT bypass and is scheduled for this Sunday. Patient could be discharged with continuation of IV antimicrobials for which he would either require an care home versus home health IV antibiotics. CM working on it. If patient gets discharge, he would need to be readmitted by Sunday for vascular intervention on Sunday. Patient was seen in collaboration with Dr. Villalpando Result Diagram: 07/22/1852107/22/18521 Results 24hrs Laboratory Tests Test 07/21/18 12:07 07/21/18 17:17 07/21/18 20:08 07/21/18 21:04 Bedside Glucose 145 144 164 145 Test 07/22/18 05:22 07/22/18 08:02 White Blood Count 6.2 Red Blood Count 3.33 L Hemoglobin 9.7 L Hematocrit 30.1 L Mean Corpuscular 90.4 Volume Mean Corpuscular 29.1 Hemoglobin Mean Corpuscular 32.2 Hemoglobin Concent Red Cell 13.2 Distribution Width Platelet Count 238 Mean Platelet Volume 11.5 H Immature 0.300 Granulocytes % Neutrophils % 54.2 Lymphocytes % 28.9 Monocytes % 11.9 H Eosinophils % 3.9 Basophils % 0.8 Nucleated Red Blood 0.0 Cells % Immature 0.020 Granulocytes # Neutrophils # 3.3 Lymphocytes # 1.8 Monocytes # 0.7 Eosinophils # 0.2 Basophils # 0.1 Nucleated Red Blood 0.0 Cells # Sodium Level 142 Potassium Level 4.1 Chloride Level 106 Carbon Dioxide Level 25 Anion Gap 11 Blood Urea Nitrogen 23 H Creatinine 0.99 Est Glomerular > 60 Filtrat Rate mL/min Glucose Level 137 Calcium Level 9.7 Bedside Glucose 121 Exam/Review of Systems Exam Vitals Vital Signs Date Temp Pulse Resp B/P (MAP) Pulse Ox O2 O2 Flow FiO2 Time Delivery Rate 07/22/18 98.5 77 18 134/65 94 08:51 (88) 07/21/18 Room Air 15:33 Intake and Output 07/21/18 07/21/18 07/22/18 1515:00 23:00 07:00 IntakeIntake Total 500 ml 800 ml OutputOutput Total 500 ml BalanceBalance 500 ml 300 ml Results Results 24hrs Laboratory Tests Test 07/21/18 12:07 07/21/18 17:17 07/21/18 20:08 07/21/18 21:04 Bedside Glucose 145 144 164 145 Test 07/22/18 05:22 07/22/18 08:02 White Blood Count 6.2 Red Blood Count 3.33 L Hemoglobin 9.7 L Hematocrit 30.1 L Mean Corpuscular 90.4 Volume Mean Corpuscular 29.1 Hemoglobin Mean Corpuscular 32.2 Hemoglobin Concent Red Cell 13.2 Distribution Width Platelet Count 238 Mean Platelet Volume 11.5 H Immature 0.300 Granulocytes % Neutrophils % 54.2 Lymphocytes % 28.9 Monocytes % 11.9 H Eosinophils % 3.9 Basophils % 0.8 Nucleated Red Blood 0.0 Cells % Immature 0.020 Granulocytes # Neutrophils # 3.3 Lymphocytes # 1.8 Monocytes # 0.7 Eosinophils # 0.2 Basophils # 0.1 Nucleated Red Blood 0.0 Cells # Sodium Level 142 Potassium Level 4.1 Chloride Level 106 Carbon Dioxide Level 25 Anion Gap 11 Blood Urea Nitrogen 23 H Creatinine 0.99 Est Glomerular > 60 Filtrat Rate mL/min Glucose Level 137 Calcium Level 9.7 Bedside Glucose 121 Medications Medication Current Medications Buspirone HCl (Buspar) 10 mg BID PO Last administered on 07/21/18at 21:02; Admin Dose 10 MG; Start 07/10/18 at 21:00 IV Flush (NS 3 ml) 3 ml PER PROTOCOL IV ; Start 07/10/18 at 14:30 Ondansetron HCl (Zofran Inj) 4 mg Q6H PRN IV NAUSEA/VOMITING; Start 07/10/18 at 14:30 Acetaminophen (Tylenol Tab) 650 mg Q6H PRN PO .PAIN 1-3 OR TEMP; Start 07/10/18 at 14:30 Acetaminophen/ Hydrocodone Bitart ([place] (5/325)) 1 tab Q6H PRN PO .MOD PAIN 4- 6 Last administered on 07/21/18at 21:02; Admin Dose 1 TAB; Start 07/10/18 at 14:30 Enoxaparin Sodium (Lovenox) 40 mg DAILY SC Last administered on 07/22/18at 08:25; Admin Dose 40 MG; Start 07/11/18 at 09:00 Insulin Glargine (Lantus) 12 units DAILY@2000 SC Last administered on 07/21/18at 20:12; Admin Dose 12 UNITS; Start 07/10/18 at 20:00 Vancomycin HCl (Vanco Iv Per Pharmacy) VANCOMYCIN PER PHARMACY PER PROTOCOL XX ; Start 07/10/18 at 14:30 Vancomycin HCl 250 ml @ 125 mls/hr Q12H IVPB Last administered on 07/22/18at 08:03; Admin Dose 125 MLS/HR; Start 07/10/18 at 20:00 Nicotine (Nicoderm 21 Mg/ 24hr) 1 patch DAILY TRANSDERM Last administered on 07/22/18at 08:24; Admin Dose 1 PATCH; Start 07/11/18 at 09:00 Miscellaneous Information 1 ea NOTE XX ; Start 07/11/18 at 06:45 Glucose (Glutose) 15 gm Q15M PRN PO DECREASED GLUCOSE; Start 07/11/18 at 06:45 Glucose (Glutose) 22.5 gm Q15M PRN PO DECREASED GLUCOSE; Start 07/11/18 at 06:45 Dextrose (D50w Syringe) 25 ml Q15M PRN IV DECREASED GLUCOSE; Start 07/11/18 at 06:45 Dextrose (D50w Syringe) 50 ml Q15M PRN IV DECREASED GLUCOSE; Start 07/11/18 at 06:45 Glucagon (Glucagen) 1 mg Q15M PRN IM DECREASED GLUCOSE; Start 07/11/18 at 06:45 Glucose (Glutose) 15 gm Q15M PRN BUCCAL DECREASED GLUCOSE; Start 07/11/18 at 06:45 Insulin Aspart (Novolog Insulin Pen) NOVOLOG *MILD* ALGORITHM WITH MEALS BEDTIME SC Last administered on 07/21/18at 17:19; Admin Dose 1 UNIT; Start 07/11/18 at 21:30 Levofloxacin (Levaquin) 750 mg DAILY@06 PO Last administered on 07/22/18at 05:45; Admin Dose 750 MG; Start 07/13/18 at 06:00 Bupropion HCl (Wellbutrin Xl) 150 mg DAILY PO Last administered on 07/17/18at 08:17; Admin Dose 150 MG; Start 07/13/18 at 09:00 Docusate Sodium/ Ferrous Fumarate (Cindy-Sequels) 1 tab DAILY PO Last administered on 07/22/18 08:24; Admin Dose 1 TAB; Start 07/13/18 at 10:30; Stop 08/12/18 at 10:29 Atorvastatin Calcium (Lipitor) 20 mg HS PO Last administered on 07/21/18at 21:02; Admin Dose 20 MG; Start 07/13/18 at 21:00 Fish Oil (Fish Oil) 2,000 mg BID PO Last administered on 07/22/18 08:24; Admin Dose 2,000 MG; Start 07/13/18 at 10:30 IV Flush (NS 10 ml) 10 ml PRN PRN IV IV PROTOCOL; Start 07/18/18 at 16:30 Fluconazole (Diflucan) 400 mg DAILY PO Last administered on 07/22/18 08:24; Admin Dose 400 MG; Start 07/19/18 at 09:00 EDDIE PITTMAN NP July 22, 2018 11:02
--- NOTE | 2018-07-22 13:58 | CONS ---
Assessment/Plan Assessment/Plan Hospital Course (Demo Recall) Alert, eating lunch, feels good Blood culture on July 10 grew enterococcus and Jennifer parapsilosis, repeat blood cultures negative Microbiology: Wound culture grew stenotrophomonas maltophilia, Pseudomonas enterococcus species and coag negative staph species, repeat blood cultures negative Antimicrobials: Diflucan, oral Levaquin, vancomycin Physical examination: This is a well-developed fragile elderly man who is alert in no distress. Head atraumatic normocephalic sclera nonicteric vehicle mucosa dry neck is supple chest rise symmetrical breath sounds diminished bases heart: S1-S2. Abdomen soft bowel sounds present. Extremities with left great toe gangrene ASSESSMENT: 1. Polymicrobial bacteremia/fungemia likely secondary to #2 2. Left great toe cellulitis, gangrene, osteomyelitis 3. Peripheral arterial disease with high-grade left SFA stenosis 4. Diabetes Plan: Remains stable, repeat blood cultures negative, continue on PO Diflucan for 5 more days to complete treatment for fungemia, continue abx until amputation is done, pending revascularization procedure Consultation Date/Type/Reason Admit Date/Time July 10, 2018 at 12:52 Initial Consult Date Type of Consult id Date/Time of Note DATE: 07/22/18 TIME: 13:57 Exam/Review of Systems Exam Vitals Vital Signs Date Temp Pulse Resp B/P (MAP) Pulse Ox O2 O2 Flow FiO2 Time Delivery Rate 07/22/18 98.5 77 18 134/65 94 08:51 (88) 07/21/18 Room Air 15:33 Intake and Output 07/21/18 07/21/18 07/22/18 1515:00 23:00 07:00 IntakeIntake Total 500 ml 800 ml OutputOutput Total 500 ml BalanceBalance 500 ml 300 ml Results Result Diagram: 07/22/18 0522 07/22/18 0522 Results 24hrs Laboratory Tests Test 07/21/18 17:17 07/21/18 20:08 07/21/18 21:04 07/22/18 05:22 Bedside Glucose 144 164 145 White Blood Count 6.2 Red Blood Count 3.33 L Hemoglobin 9.7 L Hematocrit 30.1 L Mean Corpuscular 90.4 Volume Mean Corpuscular 29.1 Hemoglobin Mean Corpuscular 32.2 Hemoglobin Concent Red Cell 13.2 Distribution Width Platelet Count 238 Mean Platelet Volume 11.5 H Immature 0.300 Granulocytes % Neutrophils % 54.2 Lymphocytes % 28.9 Monocytes % 11.9 H Eosinophils % 3.9 Basophils % 0.8 Nucleated Red Blood 0.0 Cells % Immature 0.020 Granulocytes # Neutrophils # 3.3 Lymphocytes # 1.8 Monocytes # 0.7 Eosinophils # 0.2 Basophils # 0.1 Nucleated Red Blood 0.0 Cells # Sodium Level 142 Potassium Level 4.1 Chloride Level 106 Carbon Dioxide Level 25 Anion Gap 11 Blood Urea Nitrogen 23 H Creatinine 0.99 Est Glomerular > 60 Filtrat Rate mL/min Glucose Level 137 Calcium Level 9.7 Test 07/22/18 08:02 07/22/18 12:12 Bedside Glucose 121 137 Medications Medication Current Medications Buspirone HCl (Buspar) 10 mg BID PO Last administered on 07/21/18at 21:02; Admin Dose 10 MG; Start 07/10/18 at 21:00 IV Flush (NS 3 ml) 3 ml PER PROTOCOL IV ; Start 07/10/18 at 14:30 Ondansetron HCl (Zofran Inj) 4 mg Q6H PRN IV NAUSEA/VOMITING; Start 07/10/18 at 14:30 Acetaminophen (Tylenol Tab) 650 mg Q6H PRN PO .PAIN 1-3 OR TEMP; Start 07/10/18 at 14:30 Acetaminophen/ Hydrocodone Bitart ([place] (5/325)) 1 tab Q6H PRN PO .MOD PAIN 4- 6 Last administered on 07/21/18at 21:02; Admin Dose 1 TAB; Start 07/10/18 at 14:30 Enoxaparin Sodium (Lovenox) 40 mg DAILY SC Last administered on 07/22/18at 08:25; Admin Dose 40 MG; Start 07/11/18 at 09:00 Insulin Glargine (Lantus) 12 units DAILY@2000 SC Last administered on 07/21/18at 20:12; Admin Dose 12 UNITS; Start 07/10/18 at 20:00 Vancomycin HCl (Vanco Iv Per Pharmacy) VANCOMYCIN PER PHARMACY PER PROTOCOL XX ; Start 07/10/18 at 14:30 Vancomycin HCl 250 ml @ 125 mls/hr Q12H IVPB Last administered on 07/22/18at 08:03; Admin Dose 125 MLS/HR; Start 07/10/18 at 20:00 Nicotine (Nicoderm 21 Mg/ 24hr) 1 patch DAILY TRANSDERM Last administered on 07/22/18at 08:24; Admin Dose 1 PATCH; Start 07/11/18 at 09:00 Miscellaneous Information 1 ea NOTE XX ; Start 07/11/18 at 06:45 Glucose (Glutose) 15 gm Q15M PRN PO DECREASED GLUCOSE; Start 07/11/18 at 06:45 Glucose (Glutose) 22.5 gm Q15M PRN PO DECREASED GLUCOSE; Start 07/11/18 at 06:45 Dextrose (D50w Syringe) 25 ml Q15M PRN IV DECREASED GLUCOSE; Start 07/11/18 at 06:45 Dextrose (D50w Syringe) 50 ml Q15M PRN IV DECREASED GLUCOSE; Start 07/11/18 at 06:45 Glucagon (Glucagen) 1 mg Q15M PRN IM DECREASED GLUCOSE; Start 07/11/18 at 06:45 Glucose (Glutose) 15 gm Q15M PRN BUCCAL DECREASED GLUCOSE; Start 07/11/18 at 06:45 Insulin Aspart (Novolog Insulin Pen) NOVOLOG *MILD* ALGORITHM WITH MEALS BEDTIME SC Last administered on 07/21/18at 17:19; Admin Dose 1 UNIT; Start 07/11/18 at 21:30 Levofloxacin (Levaquin) 750 mg DAILY@06 PO Last administered on 07/22/18at 05:45; Admin Dose 750 MG; Start 07/13/18 at 06:00 Bupropion HCl (Wellbutrin Xl) 150 mg DAILY PO Last administered on 07/17/18at 08:17; Admin Dose 150 MG; Start 07/13/18 at 09:00 Docusate Sodium/ Ferrous Fumarate (Cindy-Sequels) 1 tab DAILY PO Last administered on 07/22/18at 08:24; Admin Dose 1 TAB; Start 07/13/18 at 10:30; Stop 08/12/18 at 10:29 Atorvastatin Calcium (Lipitor) 20 mg HS PO Last administered on 07/21/18at 21:02; Admin Dose 20 MG; Start 07/13/18 at 21:00 Fish Oil (Fish Oil) 2,000 mg BID PO Last administered on 07/22/18at 08:24; Admin Dose 2,000 MG; Start 07/13/18 at 10:30 IV Flush (NS 10 ml) 10 ml PRN PRN IV IV PROTOCOL; Start 07/18/18 at 16:30 Fluconazole (Diflucan) 400 mg DAILY PO Last administered on 07/22/18at 08:24; Admin Dose 400 MG; Start 07/19/18 at 09:00 Miscellaneous Information (*Rx Drug Level Order Reminder*) 1 2680 ONCE XX ; Start 07/22/18 at 19:00; Stop 07/22/18 at 19:01 JUAN GARCIA NP July 22, 2018 13:58
[2018-07-22 15:05] VITALS: BP 130/58; PULSE 71; RESP 19
[2018-07-22 19:30] VITALS: BP 138/63; PULSE 71; RESP 17
[2018-07-22] MEDS: INSULIN GLARGINE [LANTus] (100 UNITS/ML) SYG SC SCH (20:16)
[2018-07-22] MEDS: ATORVASTATIN 20 MG TAB PO SCH (21:07)
[2018-07-22] MEDS: HYDROCODONE/APAP (5/325) TAB PO PRN (21:14)
[2018-07-23 02:04] VITALS: BP 118/56; PULSE 62; RESP 17
[2018-07-23] MEDS: LEVOFLOXACIN 750 MG TABLET PO SCH (05:46)
[2018-07-23 07:30] VITALS: BP 115/58; PULSE 64; RESP 20
[2018-07-23] MEDS: INSULIN ASPART [NOVOLOG] 3 ML PEN SC SCH ×4 (08:00→20:22)
[2018-07-23] MEDS: VANCOMYCIN 1 GM 250 ML IVPB SCH ×2 (08:21→20:17)
[2018-07-23] MEDS: NICOTINE (21 MG/24 HR) PATCH TRANSDERM SCH (08:22)
[2018-07-23] MEDS: FLUCONAZOLE 200 MG TAB PO SCH (08:22)
[2018-07-23] MEDS: FISH OIL 1,000 MG CAP PO SCH ×2 (08:22→20:19)
[2018-07-23] MEDS: FERROUS FUMARATE (SR) TAB PO SCH (08:22)
[2018-07-23] MEDS: ENOXAPARIN 40 MG/0.4 ML SYG SC SCH (08:23)
[2018-07-23] MEDS: BUPROPION (XL) 150 MG TAB PO SCH (08:24)
[2018-07-23] MEDS: BUSPIRONE 10 MG TAB PO SCH ×2 (08:24→20:20)
--- NOTE | 2018-07-23 10:13 | PN ---
Date/Time of Note Date/Time of Note DATE: 07/23/18 TIME: 10:08 Assessment/Plan VTE Prophylaxis Risk score (from Ns)>0 risk: 7 SCD applied (from Ns): No SCD contraindicated: other Pharmacological prophylaxis: LMWH Lines/Catheters [facility] PICC Line Central line still needed: Yes Urinary Cath still in place: No Assessment/Plan Hospital Course SUBJECTIVE: No complaints OBJECTIVE: Vital signs-see below PHYSICAL EXAM: Constitutional: Adequately built,not in acute distress. HEENT: Head atraumatic and normocephalic. Eyes: Extraocular muscles intact. Anicteric sclerae. Pupils equal bilaterally, reactive to light. NECK: Supple without lymph node. CHEST: Clear and good breath sounds equally. No wheezing. No rhonchi. HEART: S1, S2. Regular rate and rhythm. ABDOMEN: Soft/non tender with no rebound tenderness. Bowel sounds were present. EXTREMITIES:Left 1st toe dry gangrene.Surrounding dorsal foot area w/erythema /swelling/tenderness. No DP/PT palpable pulse. NEUROLOGIC: Alert and oriented x3. No focal deficit. No sensory deficit. PSYCHOSOCIAL: No signs of depression. INTEGUMENTARY: No open wounds. ASSESSMENT AND PLAN:72 yo M w/hx of triglyceridemia, peripheral vascular disease, type 2 diabetes, anxiety/depression, long-standing tobacco use 1 pack/day was told by his doctor to get admitted for inpatient vascular/podiatry work-up for worsening cellulitis with left toe gangrene also noted with severe PAD/osteomyelitis.. Left foot cellulitis -Cellulitis improved -cont. Glycemic control/Wound care -BC 03/08 culture grew crystal P. s/p cancidas=>on Diflucan now - antimicrobial per ID recommendations PAD with left first toe dry gangrene -Onset ~2 mos -Status post abdominal aortogram with left lower extremity runoff=>Plan for Fem- PT Bypass=>timing/scheduling per vascular (tentatively scheduled for Sunday) -Continue to optimize neurovascular status with antihypertensives to keep blood pressure ~140/90, diet, nutrition, exercise, blood glucose control, and antiplatelets/anticoagulation. Osteomyelitis of left first toe. -IV abx-would need it for prison if no amputation happens DMII -well-controlled -Basal/bolus insulin Dyslipidemia/triglyceridemia -on Tricor/statin Anxiety/depression -on Buspar Tobacco abuse -Cessation advised. PRN nicotine patch for withdrawal. Chronic anemia -Stable H&H. Monitor -also getting oral iron DVT prophylaxis: Lovenox PUD prophylaxis: Not indicated CODE STATUS: Full code Diet: Carbohydrate controlled/low-cholesterol diet. Disp: Pt is scheduled for vascular intervention/revascularization on Sunday, the . Continue antimicrobials. Follow-up vascular/podiatry recommendation postoperatively. Patient was seen in collaboration with Dr. Villalpando Result Diagram: 07/22/1852107/22/18521 Results 24hrs Laboratory Tests Test 07/22/18 12:12 07/22/18 17:34 07/22/18 19:25 07/22/18 20:13 Bedside Glucose 137 149 240 H Vancomycin Level 16.4 Trough Test 07/22/18 21:16 07/23/18 08:20 Bedside Glucose 196 117 Exam/Review of Systems Exam Vitals Vital Signs Date Temp Pulse Resp B/P (MAP) Pulse Ox O2 O2 Flow FiO2 Time Delivery Rate 07/23/18 98.4 64 20 115/58 95 Room Air 07:30 (77) Intake and Output 07/22/18 07/22/18 07/23/18 1515:00 23:00 07:00 IntakeIntake Total 730 ml 490 ml OutputOutput Total 400 ml 350 ml 350 ml BalanceBalance 330 ml 140 ml -350 ml Results Results 24hrs Laboratory Tests Test 07/22/18 12:12 07/22/18 17:34 07/22/18 19:25 07/22/18 20:13 Bedside Glucose 137 149 240 H Vancomycin Level 16.4 Trough Test 07/22/18 21:16 07/23/18 08:20 Bedside Glucose 196 117 Medications Medication Current Medications Buspirone HCl (Buspar) 10 mg BID PO Last administered on 07/21/18at 21:02; Admin Dose 10 MG; Start 07/10/18 at 21:00 IV Flush (NS 3 ml) 3 ml PER PROTOCOL IV ; Start 07/10/18 at 14:30 Ondansetron HCl (Zofran Inj) 4 mg Q6H PRN IV NAUSEA/VOMITING; Start 07/10/18 at 14:30 Acetaminophen (Tylenol Tab) 650 mg Q6H PRN PO .PAIN 1-3 OR TEMP; Start 07/10/18 at 14:30 Acetaminophen/ Hydrocodone Bitart ([place] (5/325)) 1 tab Q6H PRN PO .MOD PAIN 4- 6 Last administered on 07/22/18at 21:14; Admin Dose 1 TAB; Start 07/10/18 at 14:30 Enoxaparin Sodium (Lovenox) 40 mg DAILY SC Last administered on 07/23/18at 08:23; Admin Dose 40 MG; Start 07/11/18 at 09:00 Insulin Glargine (Lantus) 12 units DAILY@2000 SC Last administered on 07/22/18at 20:16; Admin Dose 12 UNITS; Start 07/10/18 at 20:00 Vancomycin HCl (Vanco Iv Per Pharmacy) VANCOMYCIN PER PHARMACY PER PROTOCOL XX ; Start 07/10/18 at 14:30 Vancomycin HCl 250 ml @ 125 mls/hr Q12H IVPB Last administered on 07/23/18at 08:21; Admin Dose 125 MLS/HR; Start 07/10/18 at 20:00 Nicotine (Nicoderm 21 Mg/ 24hr) 1 patch DAILY TRANSDERM Last administered on 07/23/18at 08:22; Admin Dose 1 PATCH; Start 07/11/18 at 09:00 Miscellaneous Information 1 ea NOTE XX ; Start 07/11/18 at 06:45 Glucose (Glutose) 15 gm Q15M PRN PO DECREASED GLUCOSE; Start 07/11/18 at 06:45 Glucose (Glutose) 22.5 gm Q15M PRN PO DECREASED GLUCOSE; Start 07/11/18 at 06:45 Dextrose (D50w Syringe) 25 ml Q15M PRN IV DECREASED GLUCOSE; Start 07/11/18 at 06:45 Dextrose (D50w Syringe) 50 ml Q15M PRN IV DECREASED GLUCOSE; Start 07/11/18 at 06:45 Glucagon (Glucagen) 1 mg Q15M PRN IM DECREASED GLUCOSE; Start 07/11/18 at 06:45 Glucose (Glutose) 15 gm Q15M PRN BUCCAL DECREASED GLUCOSE; Start 07/11/18 at 06:45 Insulin Aspart (Novolog Insulin Pen) NOVOLOG *MILD* ALGORITHM WITH MEALS BEDTIME SC Last administered on 07/22/18at 21:20; Admin Dose 1 UNIT; Start 07/11/18 at 21:30 Levofloxacin (Levaquin) 750 mg DAILY@06 PO Last administered on 07/23/18at 05:46; Admin Dose 750 MG; Start 07/13/18 at 06:00 Bupropion HCl (Wellbutrin Xl) 150 mg DAILY PO Last administered on 07/17/18at 08:17; Admin Dose 150 MG; Start 07/13/18 at 09:00 Docusate Sodium/ Ferrous Fumarate (Cindy-Sequels) 1 tab DAILY PO Last administered on 07/23/18 08:22; Admin Dose 1 TAB; Start 07/13/18 at 10:30; Stop 08/12/18 at 10:29 Atorvastatin Calcium (Lipitor) 20 mg HS PO Last administered on 07/22/18 21:07; Admin Dose 20 MG; Start 07/13/18 at 21:00 Fish Oil (Fish Oil) 2,000 mg BID PO Last administered on 07/23/18 08:22; Admin Dose 2,000 MG; Start 07/13/18 at 10:30 IV Flush (NS 10 ml) 10 ml PRN PRN IV IV PROTOCOL; Start 07/18/18 at 16:30 Fluconazole (Diflucan) 400 mg DAILY PO Last administered on 07/23/18 08:22; Admin Dose 400 MG; Start 07/19/18 at 09:00 EDDIE PITTMAN NP July 23, 2018 10:13
--- NOTE | 2018-07-23 12:57 | CONS ---
Assessment/Plan Assessment/Plan Hospital Course (Demo Recall) No events, feels good Blood culture on July 10 grew enterococcus and Jennifer parapsilosis, repeat blood cultures negative Microbiology: Wound culture grew stenotrophomonas maltophilia, Pseudomonas enterococcus species and coag negative staph species, repeat blood cultures negative Antimicrobials: Diflucan, oral Levaquin, Vancomycin Physical examination: This is a well-developed fragile elderly man who is alert in no distress. Head atraumatic normocephalic sclera nonicteric vehicle mucosa dry neck is supple chest rise symmetrical breath sounds diminished bases heart: S1-S2. Abdomen soft bowel sounds present. Extremities with left great toe gangrene ASSESSMENT: 1. Polymicrobial bacteremia/fungemia likely secondary to #2 2. Left great toe cellulitis, gangrene, osteomyelitis 3. Peripheral arterial disease with high-grade left SFA stenosis 4. Diabetes Plan: Remains stable, continue on PO Diflucan for 4 more days to complete treatment for fungemia, continue abx until amputation is done, pending revascularization procedure Consultation Date/Type/Reason Admit Date/Time July 10, 2018 at 12:52 Initial Consult Date Type of Consult id Date/Time of Note DATE: 07/23/18 TIME: 12:56 Exam/Review of Systems Exam Vitals Vital Signs Date Temp Pulse Resp B/P (MAP) Pulse Ox O2 O2 Flow FiO2 Time Delivery Rate 07/23/18 98.4 64 20 115/58 95 Room Air 07:30 (77) Intake and Output 07/22/18 07/22/18 07/23/18 1515:00 23:00 07:00 IntakeIntake Total 730 ml 490 ml OutputOutput Total 400 ml 350 ml 350 ml BalanceBalance 330 ml 140 ml -350 ml Results Result Diagram: 07/22/1822 07/22/18 05 Results 24hrs Laboratory Tests Test 07/22/18 17:34 07/22/18 19:25 07/22/18 20:13 07/22/18 21:16 Bedside Glucose 149 240 H 196 Vancomycin Level 16.4 Trough Test 07/23/18 08:20 Bedside Glucose 117 Medications Medication Current Medications Buspirone HCl (Buspar) 10 mg BID PO Last administered on 07/21/18at 21:02; Admin Dose 10 MG; Start 07/10/18 at 21:00 IV Flush (NS 3 ml) 3 ml PER PROTOCOL IV ; Start 07/10/18 at 14:30 Ondansetron HCl (Zofran Inj) 4 mg Q6H PRN IV NAUSEA/VOMITING; Start 07/10/18 at 14:30 Acetaminophen (Tylenol Tab) 650 mg Q6H PRN PO .PAIN 1-3 OR TEMP; Start 07/10/18 at 14:30 Acetaminophen/ Hydrocodone Bitart ([place] (5/325)) 1 tab Q6H PRN PO .MOD PAIN 4- 6 Last administered on 07/22/18at 21:14; Admin Dose 1 TAB; Start 07/10/18 at 14:30 Enoxaparin Sodium (Lovenox) 40 mg DAILY SC Last administered on 07/23/18at 08:23; Admin Dose 40 MG; Start 07/11/18 at 09:00 Insulin Glargine (Lantus) 12 units DAILY@2000 SC Last administered on 07/22/18at 20:16; Admin Dose 12 UNITS; Start 07/10/18 at 20:00 Vancomycin HCl (Vanco Iv Per Pharmacy) VANCOMYCIN PER PHARMACY PER PROTOCOL XX ; Start 07/10/18 at 14:30 Vancomycin HCl 250 ml @ 125 mls/hr Q12H IVPB Last administered on 07/23/18at 08:21; Admin Dose 125 MLS/HR; Start 07/10/18 at 20:00 Nicotine (Nicoderm 21 Mg/ 24hr) 1 patch DAILY TRANSDERM Last administered on 07/23/18at 08:22; Admin Dose 1 PATCH; Start 07/11/18 at 09:00 Miscellaneous Information 1 ea NOTE XX ; Start 07/11/18 at 06:45 Glucose (Glutose) 15 gm Q15M PRN PO DECREASED GLUCOSE; Start 07/11/18 at 06:45 Glucose (Glutose) 22.5 gm Q15M PRN PO DECREASED GLUCOSE; Start 07/11/18 at 06:45 Dextrose (D50w Syringe) 25 ml Q15M PRN IV DECREASED GLUCOSE; Start 07/11/18 at 06:45 Dextrose (D50w Syringe) 50 ml Q15M PRN IV DECREASED GLUCOSE; Start 07/11/18 at 06:45 Glucagon (Glucagen) 1 mg Q15M PRN IM DECREASED GLUCOSE; Start 07/11/18 at 06:45 Glucose (Glutose) 15 gm Q15M PRN BUCCAL DECREASED GLUCOSE; Start 07/11/18 at 06: 45 Insulin Aspart (Novolog Insulin Pen) NOVOLOG *MILD* ALGORITHM WITH MEALS BEDTIME SC Last administered on 07/23/18at 12:43; Admin Dose 1 UNIT; Start 07/11/18 at 21:30 Levofloxacin (Levaquin) 750 mg DAILY@06 PO Last administered on 07/23/18 05:46; Admin Dose 750 MG; Start 07/13/18 at 06:00 Bupropion HCl (Wellbutrin Xl) 150 mg DAILY PO Last administered on 07/17/18 08:17; Admin Dose 150 MG; Start 07/13/18 at 09:00 Docusate Sodium/ Ferrous Fumarate (Cindy-Sequels) 1 tab DAILY PO Last adminis tered on 07/23/18at 08:22; Admin Dose 1 TAB; Start 07/13/18 at 10:30; Stop 08/12/18 at 10:29 Atorvastatin Calcium (Lipitor) 20 mg HS PO Last administered on 07/22/18at 21:07; Admin Dose 20 MG; Start 07/13/18 at 21:00 Fish Oil (Fish Oil) 2,000 mg BID PO Last administered on 07/23/18 08:22; Admin Dose 2,000 MG; Start 07/13/18 at 10:30 IV Flush (NS 10 ml) 10 ml PRN PRN IV IV PROTOCOL; Start 07/18/18 at 16:30 Fluconazole (Diflucan) 400 mg DAILY PO Last administered on 07/23/18 08:22; Admin Dose 400 MG; Start 07/19/18 at 09:00 JUAN GARCIA NP July 23, 2018 12:57
[2018-07-23 14:00] VITALS: BP 141/63; PULSE 71; RESP 20
[2018-07-23] MEDS: INSULIN GLARGINE [LANTus] (100 UNITS/ML) SYG SC SCH (20:19)
[2018-07-23] MEDS: ATORVASTATIN 20 MG TAB PO SCH (20:19)
[2018-07-23] MEDS: HYDROCODONE/APAP (5/325) TAB PO PRN (20:28)
[2018-07-23 21:16] VITALS: BP 144/68; PULSE 75; RESP 18
[2018-07-23] MEDS ORDERED: ALTEPLASE (CATHFLO) 2 MG INJ CATHETER ONE (22:30)
[2018-07-24 02:40] VITALS: BP 153/71; PULSE 65; RESP 18
[2018-07-24] MEDS: LEVOFLOXACIN 750 MG TABLET PO SCH (05:45)
[2018-07-24 07:53] VITALS: BP 119/58; PULSE 68; RESP 18
[2018-07-24] MEDS: INSULIN ASPART [NOVOLOG] 3 ML PEN SC SCH ×4 (08:00→20:14)
[2018-07-24] MEDS: VANCOMYCIN 1 GM 250 ML IVPB SCH ×2 (08:27→20:09)
[2018-07-24] MEDS: NICOTINE (21 MG/24 HR) PATCH TRANSDERM SCH (08:28)
[2018-07-24] MEDS: FISH OIL 1,000 MG CAP PO SCH ×2 (08:28→20:09)
[2018-07-24] MEDS: FERROUS FUMARATE (SR) TAB PO SCH (08:29)
[2018-07-24] MEDS: BUSPIRONE 10 MG TAB PO SCH ×2 (08:30→20:12)
[2018-07-24] MEDS: BUPROPION (XL) 150 MG TAB PO SCH (08:30)
[2018-07-24] MEDS: FLUCONAZOLE 200 MG TAB PO SCH (08:37)
[2018-07-24] MEDS: ENOXAPARIN 40 MG/0.4 ML SYG SC SCH (08:49)
--- NOTE | 2018-07-24 12:08 | PN ---
Date/Time of Note Date/Time of Note DATE: 07/24/18 TIME: 12:07 Assessment/Plan VTE Prophylaxis Risk score (from Nsg)>0 risk: 5 SCD applied (from Ns): No SCD contraindicated: other Pharmacological prophylaxis: LMWH Lines/Catheters IV Catheter Type (from Nrs): PICC Line Central line still needed: Yes Urinary Cath still in place: No Assessment/Plan Hospital Course SUBJECTIVE: No complaints OBJECTIVE: Vital signs-see below PHYSICAL EXAM: Constitutional: Adequately built,not in acute distress. HEENT: Head atraumatic and normocephalic. Eyes: Extraocular muscles intact. Anicteric sclerae. Pupils equal bilaterally, reactive to light. NECK: Supple without lymph node. CHEST: Clear and good breath sounds equally. No wheezing. No rhonchi. HEART: S1, S2. Regular rate and rhythm. ABDOMEN: Soft/non tender with no rebound tenderness. Bowel sounds were present. EXTREMITIES:Left 1st toe dry gangrene.Surrounding dorsal foot area w/erythema /swelling/tenderness. No DP/PT palpable pulse. NEUROLOGIC: Alert and oriented x3. No focal deficit. No sensory deficit. PSYCHOSOCIAL: No signs of depression. INTEGUMENTARY: No open wounds. ASSESSMENT AND PLAN:72 yo M w/hx of triglyceridemia, peripheral vascular disease, type 2 diabetes, anxiety/depression, long-standing tobacco use 1 pack/day was told by his doctor to get admitted for inpatient vascular/podiatry work-up for worsening cellulitis with left toe gangrene also noted with severe PAD/osteomyelitis.. Left foot cellulitis -Cellulitis improved -cont. Glycemic control/Wound care -BC 03/08 culture grew crystal P. s/p cancidas=>on Diflucan now - antimicrobial per ID recommendations PAD with left first toe dry gangrene -Onset ~2 mos -Status post abdominal aortogram with left lower extremity runoff=>Plan for Fem- PT Bypass=> scheduled for Sunday -Continue to optimize neurovascular status with antihypertensives to keep blood pressure ~140/90, diet, nutrition, exercise, blood glucose control, and antiplatelets/anticoagulation. Osteomyelitis of left first toe. -IV abx-would need it for jail if no amputation happens DMII -well-controlled -Basal/bolus insulin Dyslipidemia/triglyceridemia -on Tricor/statin Anxiety/depression -on Buspar Tobacco abuse -Cessation advised. PRN nicotine patch for withdrawal. Chronic anemia -Stable H&H. Monitor -also getting oral iron DVT prophylaxis: Lovenox PUD prophylaxis: Not indicated CODE STATUS: Full code Diet: Carbohydrate controlled/low-cholesterol diet. Disp: Pt is scheduled for vascular intervention/revascularization on Sunday, the . Continue antimicrobials. Follow-up vascular/podiatry recommendation postoperatively. Patient was seen in collaboration with Dr. Villalpando Result Diagram: 07/22/18 0522 07/24/18 0636 Results 24hrs Laboratory Tests Test 07/23/18 12:40 07/23/18 17:53 07/23/18 20:16 07/24/18 02:52 Bedside Glucose 148 145 251 H 109 Test 07/24/18 06:36 07/24/18 08:22 Blood Urea Nitrogen 25 H Creatinine 1.04 Bedside Glucose 93 Exam/Review of Systems Exam Vitals Vital Signs Date Temp Pulse Resp B/P (MAP) Pulse Ox O2 O2 Flow FiO2 Time Delivery Rate 07/24/18 98.5 68 18 119/58 97 Room Air 07:53 (78) Intake and Output 07/23/18 07/23/18 07/24/18 1515:00 23:00 07:00 IntakeIntake Total 250 ml 1650 ml OutputOutput Total 800 ml 300 ml BalanceBalance 250 ml 850 ml -300 ml Results Results 24hrs Laboratory Tests Test 07/23/18 12:40 07/23/18 17:53 07/23/18 20:16 07/24/18 02:52 Bedside Glucose 148 145 251 H 109 Test 07/24/18 06:36 07/24/18 08:22 Blood Urea Nitrogen 25 H Creatinine 1.04 Bedside Glucose 93 Medications Medication Current Medications Buspirone HCl (Buspar) 10 mg BID PO Last administered on 07/21/18at 21:02; Admin Dose 10 MG; Start 07/10/18 at 21:00 IV Flush (NS 3 ml) 3 ml PER PROTOCOL IV ; Start 07/10/18 at 14:30 Ondansetron HCl (Zofran Inj) 4 mg Q6H PRN IV NAUSEA/VOMITING; Start 07/10/18 at 14:30 Acetaminophen (Tylenol Tab) 650 mg Q6H PRN PO .PAIN 1-3 OR TEMP; Start 07/10/18 at 14:30 Acetaminophen/ Hydrocodone Bitart ([place] (5/325)) 1 tab Q6H PRN PO .MOD PAIN 4- 6 Last administered on 07/23/18at 20:28; Admin Dose 1 TAB; Start 07/10/18 at 14:30 Enoxaparin Sodium (Lovenox) 40 mg DAILY SC Last administered on 07/24/18at 08:49; Admin Dose 40 MG; Start 07/11/18 at 09:00 Insulin Glargine (Lantus) 12 units DAILY@2000 SC Last administered on 07/23/18 20:19; Admin Dose 12 UNITS; Start 07/10/18 at 20:00 Vancomycin HCl (Vanco Iv Per Pharmacy) VANCOMYCIN PER PHARMACY PER PROTOCOL XX ; Start 07/10/18 at 14:30 Vancomycin HCl 250 ml @ 125 mls/hr Q12H IVPB Last administered on 07/24/18at 08:27; Admin Dose 125 MLS/HR; Start 07/10/18 at 20:00 Nicotine (Nicoderm 21 Mg/ 24hr) 1 patch DAILY TRANSDERM Last administered on 07/24/18at 08:28; Admin Dose 1 PATCH; Start 07/11/18 at 09:00 Miscellaneous Information 1 ea NOTE XX ; Start 07/11/18 at 06:45 Glucose (Glutose) 15 gm Q15M PRN PO DECREASED GLUCOSE; Start 07/11/18 at 06:45 Glucose (Glutose) 22.5 gm Q15M PRN PO DECREASED GLUCOSE; Start 07/11/18 at 06:45 Dextrose (D50w Syringe) 25 ml Q15M PRN IV DECREASED GLUCOSE; Start 07/11/18 at 06:45 Dextrose (D50w Syringe) 50 ml Q15M PRN IV DECREASED GLUCOSE; Start 07/11/18 at 06:45 Glucagon (Glucagen) 1 mg Q15M PRN IM DECREASED GLUCOSE; Start 07/11/18 at 06:45 Glucose (Glutose) 15 gm Q15M PRN BUCCAL DECREASED GLUCOSE; Start 07/11/18 at 06:45 Insulin Aspart (Novolog Insulin Pen) NOVOLOG *MILD* ALGORITHM WITH MEALS BEDTIME SC Last administered on 07/23/18at 20:22; Admin Dose 2 UNIT; Start 07/11/18 at 21:30 Levofloxacin (Levaquin) 750 mg DAILY@06 PO Last administered on 07/24/18 05:45; Admin Dose 750 MG; Start 07/13/18 at 06:00 Bupropion HCl (Wellbutrin Xl) 150 mg DAILY PO Last administered on 07/17/18 08:17; Admin Dose 150 MG; Start 07/13/18 at 09:00 Docusate Sodium/ Ferrous Fumarate (Cindy-Sequels) 1 tab DAILY PO Last administered on 07/24/18 08:29; Admin Dose 1 TAB; Start 07/13/18 at 10:30; Stop 08/12/18 at 10:29 Atorvastatin Calcium (Lipitor) 20 mg HS PO Last administered on 07/23/18 20:19; Admin Dose 20 MG; Start 07/13/18 at 21:00 Fish Oil (Fish Oil) 2,000 mg BID PO Last administered on 07/24/18 08:28; Admin Dose 2,000 MG; Start 07/13/18 at 10:30 IV Flush (NS 10 ml) 10 ml PRN PRN IV IV PROTOCOL; Start 07/18/18 at 16:30 Fluconazole (Diflucan) 400 mg DAILY PO Last administered on 07/24/18 08:37; Admin Dose 400 MG; Start 07/19/18 at 09:00 EDDIE PITTMAN NP July 24, 2018 12:08
[2018-07-24 14:00] VITALS: BP 145/66; PULSE 67; RESP 17
--- NOTE | 2018-07-24 15:25 | CONS ---
Assessment/Plan Assessment/Plan Hospital Course (Demo Recall) No events, feels good BUN 25 creatinine 1.04 Blood culture on 07/10/18 grew enterococcus and Jennifer parapsilosis, repeat blood cultures negative Microbiology: Wound culture grew stenotrophomonas maltophilia, Pseudomonas enterococcus species and coag negative staph species, repeat blood cultures negative Antimicrobials: Diflucan, oral Levaquin, Vancomycin Physical examination: This is a well-developed fragile elderly man who is alert in no distress. Head atraumatic normocephalic sclera nonicteric vehicle mucosa dry neck is supple chest rise symmetrical breath sounds diminished bases heart: S1-S2. Abdomen soft bowel sounds present. Extremities with left great toe gangrene ASSESSMENT: 1. Polymicrobial bacteremia/fungemia likely secondary to #2 2. Left great toe cellulitis, gangrene, osteomyelitis 3. Peripheral arterial disease with high-grade left SFA stenosis 4. Diabetes Plan: Remains stable, continue on PO Diflucan for 3 more days to complete reyes atment for fungemia, continue abx until amputation is done, pending revascularization procedure Consultation Date/Type/Reason Admit Date/Time July 10, 2018 at 12:52 Initial Consult Date Type of Consult id Date/Time of Note DATE: 07/24/18 TIME: 15:24 Exam/Review of Systems Exam Vitals Vital Signs Date Temp Pulse Resp B/P (MAP) Pulse Ox O2 O2 Flow FiO2 Time Delivery Rate 07/24/18 98.5 68 18 119/58 97 Room Air 07:53 (78) Intake and Output 07/23/18 07/23/18 07/24/18 1515:00 23:00 07:00 IntakeIntake Total 250 ml 1650 ml OutputOutput Total 800 ml 300 ml BalanceBalance 250 ml 850 ml -300 ml Results Result Diagram: 07/22/18 0522 07/24/18 0636 Results 24hrs Laboratory Tests Test 07/23/18 17:53 07/23/18 20:16 07/24/18 02:52 07/24/18 06:36 Bedside Glucose 145 251 H 109 Blood Urea Nitrogen 25 H Creatinine 1.04 Test 07/24/18 08:22 07/24/18 12:35 Bedside Glucose 93 129 Medications Medication Current Medications Buspirone HCl (Buspar) 10 mg BID PO Last administered on 07/21/18at 21:02; Admin Dose 10 MG; Start 07/10/18 at 21:00 IV Flush (NS 3 ml) 3 ml PER PROTOCOL IV ; Start 07/10/18 at 14:30 Ondansetron HCl (Zofran Inj) 4 mg Q6H PRN IV NAUSEA/VOMITING; Start 07/10/18 at 14:30 Acetaminophen (Tylenol Tab) 650 mg Q6H PRN PO .PAIN 1-3 OR TEMP; Start 07/10/18 at 14:30 Acetaminophen/ Hydrocodone Bitart ([place] (5/325)) 1 tab Q6H PRN PO .MOD PAIN 4- 6 Last administered on 07/23/18at 20:28; Admin Dose 1 TAB; Start 07/10/18 at 14:30 Enoxaparin Sodium (Lovenox) 40 mg DAILY SC Last administered on 07/24/18at 08:49; Admin Dose 40 MG; Start 07/11/18 at 09:00 Insulin Glargine (Lantus) 12 units DAILY@2000 SC Last administered on 07/23/18at 20:19; Admin Dose 12 UNITS; Start 07/10/18 at 20:00 Vancomycin HCl (Vanco Iv Per Pharmacy) VANCOMYCIN PER PHARMACY PER PROTOCOL XX ; Start 07/10/18 at 14:30 Vancomycin HCl 250 ml @ 125 mls/hr Q12H IVPB Last administered on 07/24/18at 08:27; Admin Dose 125 MLS/HR; Start 07/10/18 at 20:00 Nicotine (Nicoderm 21 Mg/ 24hr) 1 patch DAILY TRANSDERM Last administered on 07/24/18at 08:28; Admin Dose 1 PATCH; Start 07/11/18 at 09:00 Miscellaneous Information 1 ea NOTE XX ; Start 07/11/18 at 06:45 Glucose (Glutose) 15 gm Q15M PRN PO DECREASED GLUCOSE; Start 07/11/18 at 06:45 Glucose (Glutose) 22.5 gm Q15M PRN PO DECREASED GLUCOSE; Start 07/11/18 at 06:45 Dextrose (D50w Syringe) 25 ml Q15M PRN IV DECREASED GLUCOSE; Start 07/11/18 at 06:45 Dextrose (D50w Syringe) 50 ml Q15M PRN IV DECREASED GLUCOSE; Start 07/11/18 at 06:45 Glucagon (Glucagen) 1 mg Q15M PRN IM DECREASED GLUCOSE; Start 07/11/18 at 06:45 Glucose (Glutose) 15 gm Q15M PRN BUCCAL DECREASED GLUCOSE; Start 07/11/18 at 06:45 Insulin Aspart (Novolog Insulin Pen) NOVOLOG *MILD* ALGORITHM WITH MEALS BEDTIME SC Last administered on 07/23/18 20:22; Admin Dose 2 UNIT; Start 07/11/18 at 21:30 Levofloxacin (Levaquin) 750 mg DAILY@06 PO Last administered on 07/24/18at 0 5:45; Admin Dose 750 MG; Start 07/13/18 at 06:00 Bupropion HCl (Wellbutrin Xl) 150 mg DAILY PO Last administered on 07/17/18 08:17; Admin Dose 150 MG; Start 07/13/18 at 09:00 Docusate Sodium/ Ferrous Fumarate (Cindy-Sequels) 1 tab DAILY PO Last administered on 07/24/18 08:29; Admin Dose 1 TAB; Start 07/13/18 at 10:30; Stop 08/12/18 at 10:29 Atorvastatin Calcium (Lipitor) 20 mg HS PO Last administered on 07/23/18 20:19; Admin Dose 20 MG; Start 07/13/18 at 21:00 Fish Oil (Fish Oil) 2,000 mg BID PO Last administered on 07/24/18 08:28; Admin Dose 2,000 MG; Start 07/13/18 at 10:30 IV Flush (NS 10 ml) 10 ml PRN PRN IV IV PROTOCOL; Start 07/18/18 at 16:30 Fluconazole (Diflucan) 400 mg DAILY PO Last administered on 07/24/18at 08:37; Admin Dose 400 MG; Start 07/19/18 at 09:00 JUAN GARCIA NP July 24, 2018 15:25
[2018-07-24 20:00] VITALS: BP 157/65; PULSE 70; RESP 18
[2018-07-24] MEDS: ATORVASTATIN 20 MG TAB PO SCH (20:08)
[2018-07-24] MEDS: INSULIN GLARGINE [LANTus] (100 UNITS/ML) SYG SC SCH (20:11)
[2018-07-24] MEDS: HYDROCODONE/APAP (5/325) TAB PO PRN (20:11)
[2018-07-25 01:42] VITALS: BP 140/62; PULSE 63; RESP 19
[2018-07-25] MEDS: LEVOFLOXACIN 750 MG TABLET PO SCH (05:32)
[2018-07-25 08:00] VITALS: BP 120/59; PULSE 67; RESP 16
[2018-07-25] MEDS: INSULIN ASPART [NOVOLOG] 3 ML PEN SC SCH ×4 (08:00→21:00)
[2018-07-25] MEDS: VANCOMYCIN 1 GM 250 ML IVPB SCH ×2 (08:59→21:54)
[2018-07-25] MEDS: FISH OIL 1,000 MG CAP PO SCH ×2 (09:00→21:55)
[2018-07-25] MEDS: NICOTINE (21 MG/24 HR) PATCH TRANSDERM SCH (09:00)
[2018-07-25] MEDS: FLUCONAZOLE 200 MG TAB PO SCH (09:00)
[2018-07-25] MEDS: BUSPIRONE 10 MG TAB PO SCH ×2 (09:00→21:00)
[2018-07-25] MEDS: BUPROPION (XL) 150 MG TAB PO SCH (09:00)
[2018-07-25] MEDS: FERROUS FUMARATE (SR) TAB PO SCH (09:00)
[2018-07-25] MEDS: ENOXAPARIN 40 MG/0.4 ML SYG SC SCH (09:01)
--- NOTE | 2018-07-25 12:10 | PN ---
Date/Time of Note Date/Time of Note DATE: 07/25/18 TIME: 12:03 Assessment/Plan VTE Prophylaxis Risk score (from Ns)>0 risk: 6 SCD applied (from Ns): No SCD contraindicated: other Pharmacological prophylaxis: LMWH Lines/Catheters IV Catheter Type (from Nrs): PICC Line Central line still needed: Yes Urinary Cath still in place: No Assessment/Plan Hospital Course SUBJECTIVE: No complaints OBJECTIVE: Vital signs-see below PHYSICAL EXAM: Constitutional: Adequately built,not in acute distress. HEENT: Head atraumatic and normocephalic. Eyes: Extraocular muscles intact. Anicteric sclerae. Pupils equal bilaterally, reactive to light. NECK: Supple without lymph node. CHEST: Clear and good breath sounds equally. No wheezing. No rhonchi. HEART: S1, S2. Regular rate and rhythm. ABDOMEN: Soft/non tender with no rebound tenderness. Bowel sounds were present. EXTREMITIES:Left 1st toe dry gangrene.Surrounding dorsal foot area w/erythema /swelling/tenderness. No DP/PT palpable pulse. NEUROLOGIC: Alert and oriented x3. No focal deficit. No sensory deficit. PSYCHOSOCIAL: No signs of depression. INTEGUMENTARY: No open wounds. ASSESSMENT AND PLAN:72 yo M w/hx of triglyceridemia, peripheral vascular disease, type 2 diabetes, anxiety/depression, long-standing tobacco use 1 pack/day was told by his doctor to get admitted for inpatient vascular/podiatry work-up for worsening cellulitis with left toe gangrene also noted with severe PAD/osteomyelitis.. Left foot cellulitis -Cellulitis improved -cont. Glycemic control/Wound care -BC 03/08 culture grew crystal P. s/p cancidas=>on Diflucan now - antimicrobial per ID recommendations PAD with left first toe dry gangrene -Onset ~2 mos -Status post abdominal aortogram with left lower extremity runoff=>Plan for Fem- Tibial Bypass=> scheduled for Sunday -Continue to optimize neurovascular status with antihypertensives to keep blood pressure ~140/90, diet, nutrition, exercise, blood glucose control, and antiplatelets/anticoagulation. Osteomyelitis of left first toe. 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 PRN nicotine patch for withdrawal. Chronic anemia -Stable H&H. Monitor -also getting oral iron DVT prophylaxis: Lovenox PUD prophylaxis: Not indicated CODE STATUS: Full code Diet: Carbohydrate controlled/low-cholesterol diet. Disp: Pt is scheduled for femoral-tibial bypass tomorrow with Dr. Gaitan. Follow-up vascular recommendation postoperatively. Continue antimicrobials. Follow-up vascular/podiatry recommendation postoperatively. Patient was seen in collaboration with Dr. Villalpando Result Diagram: 07/25/18 1034 07/25/18 1034 Results 24hrs Laboratory Tests Test 07/24/18 12:35 07/24/18 17:39 07/24/18 20:05 07/25/18 02:18 Bedside Glucose 129 142 200 121 Test 07/25/18 08:14 07/25/18 10:33 07/25/18 10:34 Bedside Glucose 90 Prothrombin Time 13.6 Prothrombin Time 1.1 Ratio INR International 1.03 Normalized Ratio Activated 40.5 H Partial Thromboplast Time White Blood Count 5.1 Red Blood Count 3.25 L Hemoglobin 9.5 L Hematocrit 29.0 L Mean Corpuscular 89.2 Volume Mean Corpuscular 29.2 Hemoglobin Mean Corpuscular 32.8 Hemoglobin Concent Red Cell 13.0 Distribution Width Platelet Count 251 Mean Platelet Volume 9.4 Immature 0.200 Granulocytes % Neutrophils % 60.9 Lymphocytes % 23.5 Monocytes % 10.5 Eosinophils % 4.3 Basophils % 0.6 Nucleated Red Blood 0.0 Cells % Immature 0.010 Granulocytes # Neutrophils # 3.1 Lymphocytes # 1.2 Monocytes # 0.5 Eosinophils # 0.2 Basophils # 0.0 Nucleated Red Blood 0.0 Cells # Sodium Level 139 Potassium Level 3.7 Chloride Level 104 Carbon Dioxide Level 27 Anion Gap 8 Blood Urea Nitrogen 24 H Creatinine 1.01 Est Glomerular > 60 Filtrat Rate mL/min Glucose Level 109 Calcium Level 8.9 Exam/Review of Systems Exam Vitals Vital Signs Date Temp Pulse Resp B/P (MAP) Pulse Ox O2 O2 Flow FiO2 Time Delivery Rate 07/25/18 98.1 67 16 120/59 96 Room Air 08:00 (79) Intake and Output 07/24/18 07/24/18 07/25/18 1515:00 23:00 07:00 IntakeIntake Total 950 ml 890 ml 240 ml OutputOutput Total 1000 ml 1200 ml 600 ml BalanceBalance -50 ml -310 ml -360 ml Results Results 24hrs Laboratory Tests Test 07/24/18 12:35 07/24/18 17:39 07/24/18 20:05 07/25/18 02:18 Bedside Glucose 129 142 200 121 Test 07/25/18 08:14 07/25/18 10:33 07/25/18 10:34 Bedside Glucose 90 Prothrombin Time 13.6 Prothrombin Time 1.1 Ratio INR International 1.03 Normalized Ratio Activated 40.5 H Partial Thromboplast Time White Blood Count 5.1 Red Blood Count 3.25 L Hemoglobin 9.5 L Hematocrit 29.0 L Mean Corpuscular 89.2 Volume Mean Corpuscular 29.2 Hemoglobin Mean Corpuscular 32.8 Hemoglobin Concent Red Cell 13.0 Distribution Width Platelet Count 251 Mean Platelet Volume 9.4 Immature 0.200 Granulocytes % Neutrophils % 60.9 Lymphocytes % 23.5 Monocytes % 10.5 Eosinophils % 4.3 Basophils % 0.6 Nucleated Red Blood 0.0 Cells % Immature 0.010 Granulocytes # Neutrophils # 3.1 Lymphocytes # 1.2 Monocytes # 0.5 Eosinophils # 0.2 Basophils # 0.0 Nucleated Red Blood 0.0 Cells # Sodium Level 139 Potassium Level 3.7 Chloride Level 104 Carbon Dioxide Level 27 Anion Gap 8 Blood Urea Nitrogen 24 H Creatinine 1.01 Est Glomerular > 60 Filtrat Rate mL/min Glucose Level 109 Calcium Level 8.9 Medications Medication Current Medications Buspirone HCl (Buspar) 10 mg BID PO Last administered on 07/21/18at 21:02; Admin Dose 10 MG; Start 07/10/18 at 21:00 IV Flush (NS 3 ml) 3 ml PER PROTOCOL IV ; Start 07/10/18 at 14:30 Ondansetron HCl (Zofran Inj) 4 mg Q6H PRN IV NAUSEA/VOMITING; Start 07/10/18 at 14:30 Acetaminophen (Tylenol Tab) 650 mg Q6H PRN PO .PAIN 1-3 OR TEMP; Start 07/10/18 at 14:30 Acetaminophen/ Hydrocodone Bitart ([place] (5/325)) 1 tab Q6H PRN PO .MOD PAIN 4- 6 Last administered on 07/24/18at 20:11; Admin Dose 1 TAB; Start 07/10/18 at 14:30 Enoxaparin Sodium (Lovenox) 40 mg DAILY SC Last administered on 07/25/18at 09:01; Admin Dose 40 MG; Start 07/11/18 at 09:00 Insulin Glargine (Lantus) 12 units DAILY@2000 SC Last administered on 07/24/18at 20:11; Admin Dose 12 UNITS; Start 07/10/18 at 20:00 Vancomycin HCl (Vanco Iv Per Pharmacy) VANCOMYCIN PER PHARMACY PER PROTOCOL XX ; Start 07/10/18 at 14:30 Vancomycin HCl 250 ml @ 125 mls/hr Q12H IVPB Last administered on 07/25/18at 08:59; Admin Dose 125 MLS/HR; Start 07/10/18 at 20:00 Nicotine (Nicoderm 21 Mg/ 24hr) 1 patch DAILY TRANSDERM Last administered on 07/25/18at 09:00; Admin Dose 1 PATCH; Start 07/11/18 at 09:00 Miscellaneous Information 1 ea NOTE XX ; Start 07/11/18 at 06:45 Glucose (Glutose) 15 gm Q15M PRN PO DECREASED GLUCOSE; Start 07/11/18 at 06:45 Glucose (Glutose) 22.5 gm Q15M PRN PO DECREASED GLUCOSE; Start 07/11/18 at 06:45 Dextrose (D50w Syringe) 25 ml Q15M PRN IV DECREASED GLUCOSE; Start 07/11/18 at 06:45 Dextrose (D50w Syringe) 50 ml Q15M PRN IV DECREASED GLUCOSE; Start 07/11/18 at 06:45 Glucagon (Glucagen) 1 mg Q15M PRN IM DECREASED GLUCOSE; Start 07/11/18 at 06:45 Glucose (Glutose) 15 gm Q15M PRN BUCCAL DECREASED GLUCOSE; Start 07/11/18 at 06:45 Insulin Aspart (Novolog Insulin Pen) NOVOLOG *MILD* ALGORITHM WITH MEALS BEDTIME SC Last administered on 07/24/18at 20:14; Admin Dose 1 UNIT; Start 07/11/18 at 21:30 Levofloxacin (Levaquin) 750 mg DAILY@06 PO Last administered on 07/25/18at 05:32; Admin Dose 750 MG; Start 07/13/18 at 06:00 Bupropion HCl (Wellbutrin Xl) 150 mg DAILY PO Last administered on 07/17/18 08:17; Admin Dose 150 MG; Start 07/13/18 at 09:00 Docusate Sodium/ Ferrous Fumarate (Cindy-Sequels) 1 tab DAILY PO Last administered on 07/25/18 09:00; Admin Dose 1 TAB; Start 07/13/18 at 10:30; Stop 08/12/18 at 10:29 Atorvastatin Calcium (Lipitor) 20 mg HS PO Last administered on 07/24/18 20:08; Admin Dose 20 MG; Start 07/13/18 at 21:00 Fish Oil (Fish Oil) 2,000 mg BID PO Last administered on 07/25/18 09:00; Admin Dose 2,000 MG; Start 07/13/18 at 10:30 IV Flush (NS 10 ml) 10 ml PRN PRN IV IV PROTOCOL; Start 07/18/18 at 16:30 Fluconazole (Diflucan) 400 mg DAILY PO Last administered on 07/25/18 09:00; Admin Dose 400 MG; Start 07/19/18 at 09:00 EDDIE PITTMAN NP July 25, 2018 12:10
--- NOTE | 2018-07-25 13:18 | PREAC ---
Date/Time of Note Date/Time of Note DATE: 07/25/18 TIME: 13:17 Anesthesia Eval and Record Evaluation Time Pre-Procedure Interview DATE: 07/25/18 TIME: 13:17 Age 72 Sex male NPO: 8 hrs Preoperative diagnosis cellulitis with left toe gangrene Planned procedure LEFT FEMORAL TO POSTERIOR TIBIAL VEIN BYPASS Past Medical History Past Medical History: Includes Cardio: Dyslipidemia, Other ( peripheral vascular disease) Endo: Diabetes Pulm: Smoking Hx Psych: Depression, Anxiety Surgery & Anesthesia Issues No known issue Meds Anticoagulation: No Beta Venkat within 24 hr: No Reason Beta Venkat not given: Pt. not on B-Venkat Active Scripts Glipizide* (Glipizide*) 5 Mg Tablet, 5 MG PO AC BREAKFAST DINNER, #60 TAB Prov:EDDIE PITTMAN V. ENGAGEMENT DIRECTOR 07/20/18 Bupropion Hcl* (Bupropion XL*) 150 Mg Tab.er.24h, 150 MG PO DAILY, #30 TAB Prov:EDDIE PITTMAN V. ENGAGEMENT DIRECTOR 07/20/18 [place]-3/Dha/Epa/Fish Oil (Fish Oil 1,000 mg Softgel) 1,000 Mg Capsule, 2000 MG PO BID, #60 CAP Prov:EDDIE PITTMAN V. ENGAGEMENT DIRECTOR 07/20/18 Atorvastatin Calcium (Atorvastatin Calcium) 20 Mg Tablet, 20 MG PO HS, #30 TAB Prov:EDDIE PITTMAN V. ENGAGEMENT DIRECTOR 07/20/18 Ferrous Fumarate/Ascorbic Acid (Cindy-Sequels 65-25 mg Caplet) 1 Each Tablet.er, 1 TAB PO DAILY, #30 TAB Prov:EDDIE PITTMAN V. ENGAGEMENT DIRECTOR 07/20/18 Levofloxacin* (Levaquin*) 750 Mg Tablet, 750 MG PO DAILY@06 for 40 Days, #40 TAB Prov:EDDIE PITTMAN V. ENGAGEMENT DIRECTOR 07/20/18 Fluconazole* (Diflucan*) 200 Mg Tablet, 400 MG PO DAILY, #7 TAB Prov:EDDIE PITTMAN V. ENGAGEMENT DIRECTOR 07/20/18 Reported Medications Fenofibrate, Micronized (Fenofibrate) 134 Mg Capsule, 1 CAP ORAL DAILY 07/10/18 Buspirone Hcl* (Buspirone Hcl*) 10 Mg Tab, 1 TAB ORAL BID 07/10/18 Pioglitazone Hcl* (Pioglitazone Hcl*) 30 Mg Tablet, 1 TAB ORAL DAILY 07/10/18 Glipizide* (Glipizide*) 10 Mg Tablet, 1 TAB ORAL BID 07/10/18 Current Medications Buspirone HCl (Buspar) 10 mg BID PO Last administered on 07/21/18 21:02; Admin Dose 10 MG; Start 07/10/18 at 21:00 IV Flush (NS 3 ml) 3 ml PER PROTOCOL IV ; Start 07/10/18 at 14:30 Ondansetron HCl (Zofran Inj) 4 mg Q6H PRN IV NAUSEA/VOMITING; Start 07/10/18 at 14:30 Acetaminophen (Tylenol Tab) 650 mg Q6H PRN PO .PAIN 1-3 OR TEMP; Start 07/10/18 at 14:30 Acetaminophen/ Hydrocodone Bitart ([place] (5/325)) 1 tab Q6H PRN PO .MOD PAIN 4- 6 Last administered on 07/24/18at 20:11; Admin Dose 1 TAB; Start 07/10/18 at 14:30 Enoxaparin Sodium (Lovenox) 40 mg DAILY SC Last administered on 07/25/18at 09:01; Admin Dose 40 MG; Start 07/11/18 at 09:00 Insulin Glargine (Lantus) 12 units DAILY@2000 SC Last administered on 07/24/18 20:11; Admin Dose 12 UNITS; Start 07/10/18 at 20:00 Vancomycin HCl (Vanco Iv Per Pharmacy) VANCOMYCIN PER PHARMACY PER PROTOCOL XX ; Start 07/10/18 at 14:30 Vancomycin HCl 250 ml @ 125 mls/hr Q12H IVPB Last administered on 07/25/18at 08:59; Admin Dose 125 MLS/HR; Start 07/10/18 at 20:00 Nicotine (Nicoderm 21 Mg/ 24hr) 1 patch DAILY TRANSDERM Last administered on 07/25/18 09:00; Admin Dose 1 PATCH; Start 07/11/18 at 09:00 Miscellaneous Information 1 ea NOTE XX ; Start 07/11/18 at 06:45 Glucose (Glutose) 15 gm Q15M PRN PO DECREASED GLUCOSE; Start 07/11/18 at 06:45 Glucose (Glutose) 22.5 gm Q15M PRN PO DECREASED GLUCOSE; Start 07/11/18 at 06:45 Dextrose (D50w Syringe) 25 ml Q15M PRN IV DECREASED GLUCOSE; Start 07/11/18 at 06:45 Dextrose (D50w Syringe) 50 ml Q15M PRN IV DECREASED GLUCOSE; Start 07/11/18 at 06:45 Glucagon (Glucagen) 1 mg Q15M PRN IM DECREASED GLUCOSE; Start 07/11/18 at 06:45 Glucose (Glutose) 15 gm Q15M PRN BUCCAL DECREASED GLUCOSE; Start 07/11/18 at 06:45 Insulin Aspart (Novolog Insulin Pen) NOVOLOG *MILD* ALGORITHM WITH MEALS BEDTIME SC Last administered on 07/24/18at 20:14; Admin Dose 1 UNIT; Start 07/11/18 at 21:30 Levofloxacin (Levaquin) 750 mg DAILY@06 PO Last administered on 07/25/18at 05:32; Admin Dose 750 MG; Start 07/13/18 at 06:00 Bupropion HCl (Wellbutrin Xl) 150 mg DAILY PO Last administered on 07/17/18at 08:17; Admin Dose 150 MG; Start 07/13/18 at 09:00 Docusate Sodium/ Ferrous Fumarate (Cindy-Sequels) 1 tab DAILY PO Last administered on 07/25/18 09:00; Admin Dose 1 TAB; Start 07/13/18 at 10:30; Stop 08/12/18 at 10:29 Atorvastatin Calcium (Lipitor) 20 mg HS PO Last administered on 07/24/18at 20: 08; Admin Dose 20 MG; Start 07/13/18 at 21:00 Fish Oil (Fish Oil) 2,000 mg BID PO Last administered on 07/25/18at 09:00; Admin Dose 2,000 MG; Start 07/13/18 at 10:30 IV Flush (NS 10 ml) 10 ml PRN PRN IV IV PROTOCOL; Start 07/18/18 at 16:30 Fluconazole (Diflucan) 400 mg DAILY PO Last administered on 07/25/18 09:00; Admin Dose 400 MG; Start 07/19/18 at 09:00 Meds reviewed: Yes Allergies Coded Allergies: aspirin (Verified Allergy, Mild, VOMITING, 01/27/09) Allergies Reviewed: Yes Labs/Studies Labs Reviewed: Reviewed by anesthesiologist Result Diagram: 07/25/18 1034 07/25/18 1034 Laboratory Tests 07/25/18 10:34 test: N/A Studies: ECG (SR), CXR (he right costophrenic angle is excluded from the examination. No focal airspace opacification, pleural effusion or pneumothorax is seen. The cardiomediastinal silhouette is within normal limits for size. Calcifications are seen within the aortic arch. The osseous structures are unremarkable) Pre-procedure Exam Last vitals Vital Signs Date Temp Pulse Resp B/P (MAP) Pulse Ox O2 O2 Flow FiO2 Time Delivery Rate 07/25/18 98.1 67 16 120/59 96 Room Air 08:00 (79) Airway: Adequate mouth opening Mallampati: Mallampati II Teeth: Normal Lung: Normal Heart: Normal ASA Physical Status ASA physical status: 3 Emergency: None Planned Anesthetic General/MAC: ETT Pre-operative Attestations Prior to commencing anesthesia and surgery, the patient was re-evaluated, there was verification of: *The patient's identity *The results of appropriate recent lab work and preoperative vital signs *The above evaluation not changing prior to induction *Anesthetic plan, risk benefits, alternative and complications discussed with patient/family; questions answered; patient/family understands, accepts and wishes to proceed. JAKE CRABTREE July 25, 2018 13:18
[2018-07-25 14:00] VITALS: BP 149/67; PULSE 74; RESP 18
--- NOTE | 2018-07-25 16:17 | CONS ---
Assessment/Plan Assessment/Plan Hospital Course (Demo Recall) Alert, feels good denies nausea vomiting diarrhea Blood culture on 07/10/18 grew enterococcus and Jennifer parapsilosis, repeat blood cultures negative Microbiology: Wound culture grew stenotrophomonas maltophilia, Pseudomonas enterococcus species and coag negative staph species, repeat blood cultures negative Antimicrobials: Diflucan, oral Levaquin, Vancomycin Physical examination: This is a well-developed fragile elderly man who is alert in no distress. Head atraumatic normocephalic sclera nonicteric vehicle mucosa dry neck is supple chest rise symmetrical breath sounds diminished bases heart: S1-S2. Abdomen soft bowel sounds present. Extremities with left great toe gangrene ASSESSMENT: 1. Polymicrobial bacteremia/fungemia likely secondary to #2 2. Left great toe cellulitis, gangrene, osteomyelitis 3. Peripheral arterial disease with high-grade left SFA stenosis 4. Diabetes Plan: Remains stable, continue on PO Diflucan for 2 more days, continue abx, pending Fem-Tibial Bypass Consultation Date/Type/Reason Admit Date/Time July 10, 2018 at 12:52 Initial Consult Date Type of Consult id Date/Time of Note DATE: 07/25/18 TIME: 16:16 Exam/Review of Systems Exam Vitals Vital Signs Date Temp Pulse Resp B/P (MAP) Pulse Ox O2 O2 Flow FiO2 Time Delivery Rate 07/25/18 98.3 74 18 149/67 100 Room Air 14:00 (94) Intake and Output 07/24/18 07/24/18 07/25/18 1515:00 23:00 07:00 IntakeIntake Total 950 ml 890 ml 240 ml OutputOutput Total 1000 ml 1200 ml 600 ml BalanceBalance -50 ml -310 ml -360 ml Results Result Diagram: 07/25/18 1034 07/25/18 1034 Results 24hrs Laboratory Tests Test 07/24/18 17:39 07/24/18 20:05 07/25/18 02:18 07/25/18 08:14 Bedside Glucose 142 200 121 90 Test 07/25/18 10:33 07/25/18 10:34 07/25/18 11:56 Prothrombin Time 13.6 Prothrombin Time 1.1 Ratio INR International 1.03 Normalized Ratio Activated 40.5 H Partial Thromboplast Time White Blood Count 5.1 Red Blood Count 3.25 L Hemoglobin 9.5 L Hematocrit 29.0 L Mean Corpuscular 89.2 Volume Mean Corpuscular 29.2 Hemoglobin Mean Corpuscular 32.8 Hemoglobin Concent Red Cell 13.0 Distribution Width Platelet Count 251 Mean Platelet Volume 9.4 Immature 0.200 Granulocytes % Neutrophils % 60.9 Lymphocytes % 23.5 Monocytes % 10.5 Eosinophils % 4.3 Basophils % 0.6 Nucleated Red Blood 0.0 Cells % Immature 0.010 Granulocytes # Neutrophils # 3.1 Lymphocytes # 1.2 Monocytes # 0.5 Eosinophils # 0.2 Basophils # 0.0 Nucleated Red Blood 0.0 Cells # Sodium Level 139 Potassium Level 3.7 Chloride Level 104 Carbon Dioxide Level 27 Anion Gap 8 Blood Urea Nitrogen 24 H Creatinine 1.01 Est Glomerular > 60 Filtrat Rate mL/min Glucose Level 109 Calcium Level 8.9 Bedside Glucose 128 Medications Medication Current Medications Buspirone HCl (Buspar) 10 mg BID PO Last administered on 07/21/18at 21:02; Admin Dose 10 MG; Start 07/10/18 at 21:00 IV Flush (NS 3 ml) 3 ml PER PROTOCOL IV ; Start 07/10/18 at 14:30 Ondansetron HCl (Zofran Inj) 4 mg Q6H PRN IV NAUSEA/VOMITING; Start 07/10/18 at 14:30 Acetaminophen (Tylenol Tab) 650 mg Q6H PRN PO .PAIN 1-3 OR TEMP; Start 07/10/18 at 14:30 Acetaminophen/ Hydrocodone Bitart ([place] (5/325)) 1 tab Q6H PRN PO .MOD PAIN 4- 6 Last administered on 07/24/18at 20:11; Admin Dose 1 TAB; Start 07/10/18 at 14:30 Enoxaparin Sodium (Lovenox) 40 mg DAILY SC Last administered on 07/25/18at 09:01; Admin Dose 40 MG; Start 07/11/18 at 09:00 Insulin Glargine (Lantus) 12 units DAILY@2000 SC Last administered on 07/24/18at 20:11; Admin Dose 12 UNITS; Start 07/10/18 at 20:00 Vancomycin HCl (Vanco Iv Per Pharmacy) VANCOMYCIN PER PHARMACY PER PROTOCOL XX ; Start 07/10/18 at 14:30 Vancomycin HCl 250 ml @ 125 mls/hr Q12H IVPB Last administered on 07/25/18at 08:59; Admin Dose 125 MLS/HR; Start 07/10/18 at 20:00 Nicotine (Nicoderm 21 Mg/ 24hr) 1 patch DAILY TRANSDERM Last administered on 07/25/18at 09:00; Admin Dose 1 PATCH; Start 07/11/18 at 09:00 Miscellaneous Information 1 ea NOTE XX ; Start 07/11/18 at 06:45 Glucose (Glutose) 15 gm Q15M PRN PO DECREASED GLUCOSE; Start 07/11/18 at 06:45 Glucose (Glutose) 22.5 gm Q15M PRN PO DECREASED GLUCOSE; Start 07/11/18 at 06:45 Dextrose (D50w Syringe) 25 ml Q15M PRN IV DECREASED GLUCOSE; Start 07/11/18 at 06:45 Dextrose (D50w Syringe) 50 ml Q15M PRN IV DECREASED GLUCOSE; Start 07/11/18 at 06:45 Glucagon (Glucagen) 1 mg Q15M PRN IM DECREASED GLUCOSE; Start 07/11/18 at 06:45 Glucose (Glutose) 15 gm Q15M PRN BUCCAL DECREASED GLUCOSE; Start 07/11/18 at 06:45 Insulin Aspart (Novolog Insulin Pen) NOVOLOG *MILD* ALGORITHM WITH MEALS BEDTIME SC Last administered on 07/24/18at 20:14; Admin Dose 1 UNIT; Start 07/11/18 at 21:30 Levofloxacin (Levaquin) 750 mg DAILY@06 PO Last administered on 07/25/18at 05:32; Admin Dose 750 MG; Start 07/13/18 at 06:00 Bupropion HCl (Wellbutrin Xl) 150 mg DAILY PO Last administered on 07/17/18at 08:17; Admin Dose 150 MG; Start 07/13/18 at 09:00 Docusate Sodium/ Ferrous Fumarate (Cindy-Sequels) 1 tab DAILY PO Last administered on 07/25/18 09:00; Admin Dose 1 TAB; Start 07/13/18 at 10:30; Stop 08/12/18 at 10:29 Atorvastatin Calcium (Lipitor) 20 mg HS PO Last administered on 07/24/18at 20:08; Admin Dose 20 MG; Start 07/13/18 at 21:00 Fish Oil (Fish Oil) 2,000 mg BID PO Last administered on 5/23/19at 09:00; Admin Dose 2,000 MG; Start 07/13/18 at 10:30 IV Flush (NS 10 ml) 10 ml PRN PRN IV IV PROTOCOL; Start 07/18/18 at 16:30 Fluconazole (Diflucan) 400 mg DAILY PO Last administered on 07/25/18at 09:00; Admin Dose 400 MG; Start 07/19/18 at 09:00 JUAN GARCIA NP July 25, 2018 16:17
[2018-07-25 20:38] VITALS: BP 118/60; PULSE 72; RESP 18
[2018-07-25] MEDS: HYDROCODONE/APAP (5/325) TAB PO PRN (21:12)
[2018-07-25] MEDS: ATORVASTATIN 20 MG TAB PO SCH (21:55)
[2018-07-25] MEDS: INSULIN GLARGINE [LANTus] (100 UNITS/ML) SYG SC SCH (21:57)
[2018-07-26] VITALS (42 sets, daily range): BP systolic 106–169; BP diastolic 39–89; PULSE 60–83; RESP 10–22
[2018-07-26] MEDS: INSULIN ASPART [NOVOLOG] 3 ML PEN SC SCH ×6 (01:00→20:50)
[2018-07-26] MEDS: DEXTROSE 5%-0.45% NACL 1,000 ML IV SCH ×2 (01:50→17:35)
[2018-07-26] MEDS ORDERED: ACCU-CHEK XX SCH (02:00)
[2018-07-26] MEDS ORDERED: LEVOFLOXACIN 750MG/D5W (PMX) 150 ML IVPB ONE (05:30)
--- NOTE | 2018-07-26 06:56 | HPN ---
Date/Time of Note Date/Time of Note DATE: 07/26/18 TIME: 06:56 Interval H&P Admission Note Pt. seen H&P reviewed: No system changes DAGOBERTO BRANNON MD July 26, 2018 06:56
[2018-07-26] MEDS ORDERED: DESFLURANE 15 MIN ONE (07:00)
[2018-07-26] MEDS ORDERED: GELATIN SIZE 100 SPONGE ONE (07:32)
[2018-07-26] MEDS ORDERED: HEPARIN 1000 UNITS/ML 10 ML INJ ONE ×2 (07:32→09:50)
[2018-07-26] MEDS ORDERED: THROMBIN 5000 UNIT VIAL ONE (07:32)
[2018-07-26] MEDS: VANCOMYCIN 1 GM 250 ML IVPB SCH ×2 (07:37→19:55)
[2018-07-26] MEDS ORDERED: HEPARIN 1000 UNITS/ML 10 ML INJ IRR ONE (07:45)
[2018-07-26] MEDS ORDERED: HYDROmorphONE 1 MG/5 ML IV SYRINGE IV PRN ×3 (08:00→12:15)
[2018-07-26] MEDS ORDERED: METOCLOPRAMIDE 10 MG INJ IV PRN ×2 (08:00→12:30)
[2018-07-26] MEDS ORDERED: FENTAnyl 50 MCG/ML VIAL IV PRN ×5 (08:00→12:30)
[2018-07-26] MEDS ORDERED: ALBUTEROL 0.083% (NEB) 2.5 MG/3 ML AMP HHN PRN ×2 (08:00→12:30)
[2018-07-26] MEDS ORDERED: hydrALAzine 20 MG INJ IV PRN ×2 (08:00→12:30)
[2018-07-26] MEDS ORDERED: DIPHENHYDRAMINE 50 MG INJ IV PRN ×2 (08:00→12:30)
[2018-07-26] MEDS ORDERED: ONDANSETRON 4 MG INJ IV PRN ×2 (08:00→12:30)
[2018-07-26] MEDS ORDERED: LABETALOL HCL 20MG INJ IV PRN ×2 (08:00→12:30)
[2018-07-26] MEDS ORDERED: MEPERIDINE 25 MG INJ IV PRN ×2 (08:00→12:30)
[2018-07-26] MEDS ORDERED: FENTAnyl 50 MCG/ML VIAL ONE ×2 (08:22→12:15)
[2018-07-26] MEDS: BUSPIRONE 10 MG TAB PO SCH ×2 (09:00→20:58)
[2018-07-26] MEDS: ENOXAPARIN 40 MG/0.4 ML SYG SC SCH (09:00)
[2018-07-26] MEDS: FISH OIL 1,000 MG CAP PO SCH ×2 (09:00→20:57)
[2018-07-26] MEDS: FLUCONAZOLE 200 MG TAB PO SCH (09:00)
[2018-07-26] MEDS: BUPROPION (XL) 150 MG TAB PO SCH (09:00)
[2018-07-26] MEDS: FERROUS FUMARATE (SR) TAB PO SCH (09:00)
[2018-07-26] MEDS: NICOTINE (21 MG/24 HR) PATCH TRANSDERM SCH (09:00)
[2018-07-26] MEDS ORDERED: SUCCINYLCHOLINE CHLORIDE 100 MG/5 ML SYG IV ONE (11:07)
[2018-07-26] MEDS ORDERED: SUGAMMADEX SODIUM 200 MG/2 ML VIAL IV ONE (11:07)
[2018-07-26] MEDS ORDERED: ROCURONIUM 50 MG INJ ONE (11:07)
[2018-07-26] MEDS ORDERED: LIDOCAINE 100 MG SYRINGE ONE (11:07)
[2018-07-26] MEDS ORDERED: CEFAZOLIN 1 GM INJ ONE (11:07)
[2018-07-26] MEDS ORDERED: PROPOFOL 20 ML ONE (11:07)
[2018-07-26] MEDS ORDERED: hydrALAzine 20 MG INJ ONE (11:30)
[2018-07-26] MEDS ORDERED: niCARdipine 50 MG in SOD CHLORIDE 0.9% 480 ML IV SCH (11:30)
--- NOTE | 2018-07-26 12:25 | PN ---
Date/Time of Note Date/Time of Note DATE: 07/26/18 TIME: 12:23 Assessment/Plan VTE Prophylaxis Risk score (from Nsg)>0 risk: 5 SCD applied (from Ns): No SCD contraindicated: other Pharmacological prophylaxis: LMWH Lines/Catheters IV [facility] Type [facility]from [facility] PICC Line Central line still needed: Yes Urinary Cath still in place: No Assessment/Plan Hospital Course SUBJECTIVE: No complaints. Patient is for fem- tibial bypass today OBJECTIVE: Vital signs-see below PHYSICAL EXAM: Constitutional: Adequately built,not in acute distress. HEENT: Head atraumatic and normocephalic. Eyes: Extraocular muscles intact. Anicteric sclerae. Pupils equal bilaterally, reactive to light. NECK: Supple without lymph node. CHEST: Clear and good breath sounds equally. No wheezing. No rhonchi. HEART: S1, S2. Regular rate and rhythm. ABDOMEN: Soft/non tender with no rebound tenderness. Bowel sounds were present. EXTREMITIES:Left 1st toe dry gangrene.Surrounding dorsal foot area w/erythema/swelling/tenderness. No DP/PT palpable pulse. NEUROLOGIC: Alert and oriented x3. No focal deficit. No sensory deficit. PSYCHOSOCIAL: No signs of depression. INTEGUMENTARY: No open wounds. ASSESSMENT AND PLAN:72 yo M w/hx of triglyceridemia, peripheral vascular disease, type 2 diabetes, anxiety/depression, long-standing tobacco use 1 pack/day was told by his doctor to get admitted for inpatient vascular/podiatry work-up for worsening cellulitis with left toe gangrene also noted with severe PAD/osteomyelitis.. Left foot cellulitis -Cellulitis improved -cont. Glycemic control/Wound care -BC 03/08 culture grew crystal P. s/p cancidas=>on Diflucan now - antimicrobial per ID recommendations PAD with left first toe dry gangrene -Onset ~2 mos -Status post abdominal aortogram with left lower extremity runoff=>Plan for Fem- Tibial Bypass=> scheduled for TODAY -Continue to optimize neurovascular status with antihypertensives to keep blood pressure ~140/90, diet, nutrition, exercise, blood glucose control, and antiplatelets/anticoagulation. Osteomyelitis of left first toe. -IV abx-would need it [facility] if no amputation happens DMII -well-controlled -Basal/bolus insulin Dyslipidemia/triglyceridemia -on Tricor/statin Anxiety/depression -on Buspar Tobacco abuse -Cessation advised. PRN nicotine patch for withdrawal. Chronic anemia -Stable H&H. Monitor -also getting oral iron DVT prophylaxis: Lovenox PUD prophylaxis: Not indicated CODE STATUS: Full code Diet: Carbohydrate controlled/low-cholesterol diet. Disp: Pt is scheduled for femoral-tibial bypass today with Dr. Gaitan. Follow-up vascular recommendation postoperatively. Continue antimicrobials. Follow-up vascular/podiatry recommendation postoperatively. Patient was seen in collaboration with Dr. Villalpando Result Diagram: 07/26/18 0640 07/26/18 0640 Results 24hrs Laboratory Tests Test 07/25/18 17:11 07/25/18 21:52 07/26/18 01:38 07/26/18 05:31 Bedside Glucose 103 137 126 121 Test 07/26/18 06:40 07/26/18 11:46 White Blood Count 4.6 L Red Blood Count 3.19 L Hemoglobin 9.3 L Hematocrit 28.3 L Mean Corpuscular 88.7 Volume Mean Corpuscular 29.2 Hemoglobin Mean Corpuscular 32.9 Hemoglobin Concent Red Cell 13.2 Distribution Width Platelet Count 238 Mean Platelet Volume 9.3 Immature 0.200 Granulocytes % Neutrophils % 54.4 Lymphocytes % 25.8 Monocytes % 12.4 H Eosinophils % 6.5 Basophils % 0.7 Nucleated Red Blood 0.0 Cells % Immature 0.010 Granulocytes # Neutrophils # 2.5 Lymphocytes # 1.2 Monocytes # 0.6 Eosinophils # 0.3 Basophils # 0.0 Nucleated Red Blood 0.0 Cells # Sodium Level 141 Potassium Level 3.7 Chloride Level 106 Carbon Dioxide Level 27 Anion Gap 8 Blood Urea Nitrogen 23 H Creatinine 1.02 Est Glomerular > 60 Filtrat Rate mL/min Glucose Level 117 Calcium Level 8.9 Bedside Glucose 206 Exam/Review of Systems Exam Vitals Vital Signs Date Temp Pulse Resp B/P (MAP) Pulse Ox O2 O2 Flow FiO2 Time Delivery Rate 07/26/18 97.3 11:43 07/26/18 60 18 130/61 97 02:34 (84) 07/25/18 Room Air 14:00 Intake and Output 07/25/18 07/25/18 07/26/18 1515:00 23:00 07:00 IntakeIntake Total 870 ml 200 ml 1325 ml OutputOutput Total 1100 ml 400 ml 500 ml BalanceBalance -230 ml -200 ml 825 ml Results Results 24hrs Laboratory Tests Test 07/25/18 17:11 07/25/18 21:52 07/26/18 01:38 07/26/18 05:31 Bedside Glucose 103 137 126 121 Test 07/26/18 06:40 07/26/18 11:46 White Blood Count 4.6 L Red Blood Count 3.19 L Hemoglobin 9.3 L Hematocrit 28.3 L Mean Corpuscular 88.7 Volume Mean Corpuscular 29.2 Hemoglobin Mean Corpuscular 32.9 Hemoglobin Concent Red Cell 13.2 Distribution Width Platelet Count 238 Mean Platelet Volume 9.3 Immature 0.200 Granulocytes % Neutrophils % 54.4 Lymphocytes % 25.8 Monocytes % 12.4 H Eosinophils % 6.5 Basophils % 0.7 Nucleated Red Blood 0.0 Cells % Immature 0.010 Granulocytes # Neutrophils # 2.5 Lymphocytes # 1.2 Monocytes # 0.6 Eosinophils # 0.3 Basophils # 0.0 Nucleated Red Blood 0.0 Cells # Sodium Level 141 Potassium Level 3.7 Chloride Level 106 Carbon Dioxide Level 27 Anion Gap 8 Blood Urea Nitrogen 23 H Creatinine 1.02 Est Glomerular > 60 Filtrat Rate mL/min Glucose Level 117 Calcium Level 8.9 Bedside Glucose 206 Medications Medication Current Medications Buspirone HCl (Buspar) 10 mg BID PO Last administered on 07/21/18at 21:02; Admin Dose 10 MG; Start 07/10/18 at 21:00 IV Flush (NS 3 ml) 3 ml PER PROTOCOL IV ; Start 07/10/18 at 14:30 Ondansetron HCl (Zofran Inj) 4 mg Q6H PRN IV NAUSEA/VOMITING Last administered on 07/26/18at 11:52; Admin Dose 4 MG; Start 07/10/18 at 14:30 Acetaminophen (Tylenol Tab) 650 mg Q6H PRN PO .PAIN 1-3 OR TEMP; Start 07/10/18 at 14:30 Acetaminophen/ Hydrocodone Bitart ([place] (5/325)) 1 tab Q6H PRN PO .MOD PAIN 4- 6 Last administered on 07/25/18at 21:12; Admin Dose 1 TAB; Start 07/10/18 at 14:30 Enoxaparin Sodium (Lovenox) 40 mg DAILY SC Last administered on 07/25/18at 09:01; Admin Dose 40 MG; Start 07/11/18 at 09:00 Insulin Glargine (Lantus) 12 units DAILY@2000 SC Last administered on 07/25/18at 21:57; Admin Dose 12 UNITS; Start 07/10/18 at 20:00 Vancomycin HCl (Vanco Iv Per Pharmacy) VANCOMYCIN PER PHARMACY PER PROTOCOL XX ; Start 07/10/18 at 14:30 Vancomycin HCl 250 ml @ 125 mls/hr Q12H IVPB Last administered on 07/25/18at 21:54; Admin Dose 125 MLS/HR; Start 07/10/18 at 20:00 Nicotine (Nicoderm 21 Mg/ 24hr) 1 patch DAILY TRANSDERM Last administered on 07/25/18at 09:00; Admin Dose 1 PATCH; Start 07/11/18 at 09:00 Miscellaneous Information 1 ea NOTE XX ; Start 07/11/18 at 06:45 Glucose (Glutose) 15 gm Q15M PRN PO DECREASED GLUCOSE; Start 07/11/18 at 06:45 Glucose (Glutose) 22.5 gm Q15M PRN PO DECREASED GLUCOSE; Start 07/11/18 at 06:45 Dextrose (D50w Syringe) 25 ml Q15M PRN IV DECREASED GLUCOSE; Start 07/11/18 at 06:45 Dextrose (D50w Syringe) 50 ml Q15M PRN IV DECREASED GLUCOSE; Start 07/11/18 at 06:45 Glucagon (Glucagen) 1 mg Q15M PRN IM DECREASED GLUCOSE; Start 07/11/18 at 06:45 Glucose (Glutose) 15 gm Q15M PRN BUCCAL DECREASED GLUCOSE; Start 07/11/18 at 06:45 Levofloxacin (Levaquin) 750 mg DAILY@06 PO Last administered on 07/25/18at 05:32; Admin Dose 750 MG; Start 07/13/18 at 06:00; Status Hold Bupropion HCl (Wellbutrin Xl) 150 mg DAILY PO Last administered on 07/17/18at 08:17; Admin Dose 150 MG; Start 07/13/18 at 09:00 Docusate Sodium/ Ferrous Fumarate (Cindy-Sequels) 1 tab DAILY PO Last administered on 07/25/18at 09:00; Admin Dose 1 TAB; Start 07/13/18 at 10:30; Stop 08/12/18 at 10:29 Atorvastatin Calcium (Lipitor) 20 mg HS PO Last administered on 07/25/18at 21:55; Admin Dose 20 MG; Start 07/13/18 at 21:00 Fish Oil (Fish Oil) 2,000 mg BID PO Last administered on 07/25/18at 21:55; Admin Dose 2,000 MG; Start 07/13/18 at 10:30 IV Flush (NS 10 ml) 10 ml PRN PRN IV IV PROTOCOL; Start 07/18/18 at 16:30 Fluconazole (Diflucan) 400 mg DAILY PO Last administered on 07/25/18at 09:00; Admin Dose 400 MG; Start 07/19/18 at 09:00 Dextrose/Sodium Chloride 1,000 ml @ 75 mls/hr [id number] IV Last administered on 07/26/18at 01:50; Admin Dose 75 MLS/HR; Start 07/26/18 at 01:00 Insulin Aspart (Novolog Insulin Pen) NOVOLOG *MILD* ALGORI... Q4 SC Last administered on 07/26/18at 12:02; Admin Dose 2 UNIT; Start 07/26/18 at 01:00 Clopidogrel Bisulfate (plaVIX) 75 mg DAILY PO ; Start 07/26/18 at 11:30 Nicardipine HCl 50 mg/Sodium Chloride 500 ml @ 50 mls/hr TITRATE IV ; Start at 11:30 Hydromorphone HCl (Dilaudid) 0.2 mg PACU PRN IV MILD PAIN 1-3; Start 07/26/18 at 12:15; Stop 07/26/18 at 16:00 Hydromorphone HCl (Dilaudid) 0.4 mg PACU PRN IV MOD PAIN 4-6; Start 07/26/18 at 12:30; Stop 07/26/18 at 16:00 Fentanyl (Sublimaze) 25 mcg PACU ORDER PRN IV MILD PAIN 1-3; Start 07/26/18 at 12:30; Stop 07/26/18 at 16:00 Fentanyl (Sublimaze) 50 mcg PACU ORDER PRN IV MOD PAIN 4-6; Start 07/26/18 at 12:30; Stop 07/26/18 at 16:00 Fentanyl (Sublimaze) 75 mcg PACU ORDER PRN IV SEVERE PAIN 7-10; Start 07/26/18 at 12:30; Stop 07/26/18 at 16:00 Ondansetron HCl (Zofran Inj) 4 mg PACU ORDER PRN IV NAUSEA/VOMITING; Start 07/26/18 at 12:30; Stop 07/26/18 at 16:00 Metoclopramide HCl (Reglan) 10 mg PACU ORDER PRN IV NAUSEA/VOMITING; Start 07/26/18 at 12:30; Stop 07/26/18 at 16:00 Labetalol HCl (Labetalol) 5 mg PACU ORDER PRN IV HIGH BLOOD PRESSURE; Start 07/26/18 at 12:30; Stop 07/26/18 at 16:00 Hydralazine HCl (Apresoline) 5 mg PACU ORDER PRN IV HIGH BLOOD PRESSURE; Start 07/26/18 at 12:30; Stop 07/26/18 at 16:00 Albuterol (Proventil 0.083% (Neb)) 2.5 mg PACU ORDER PRN HHN .WHEEZING; Start 07/26/18 at 12:30; Stop 07/26/18 at 16:00 Meperidine HCl (Demerol) 25 mg PACU ORDER PRN IV .RIGORS; Start 07/26/18 at 12:30; Stop 07/26/18 at 16:00 Diphenhydramine HCl (Benadryl) 25 mg PACU ORDER PRN IV .PRURITUS; Start 07/26/18 at 12:30; Stop 07/26/18 at 16:00 EDDIE PITTMAN NP July 26, 2018 12:25
[2018-07-26] MEDS: FENTAnyl 50 MCG/ML VIAL IV PRN ×2 (12:45→12:51)
[2018-07-26] MEDS: HYDROmorphONE 1 MG/5 ML IV SYRINGE IV PRN ×2 (12:51→15:15)
--- NOTE | 2018-07-26 13:29 | OPR ---
DATE OF OPERATION: 07/26/2018 PREOPERATIVE DIAGNOSIS: Left first toe gangrene. POSTOPERATIVE DIAGNOSIS: Left first toe gangrene. PROCEDURE PERFORMED: Left femoral to posterior tibial bypass using in situ greater saphenous vein. SURGEON: Dagoberto Gaitan MD ANESTHESIA: General endotracheal anesthesia. ESTIMATED BLOOD LOSS: Minimal. COMPLICATIONS: No intraprocedural complications. INDICATIONS: This is a 72-year-old diabetic, long-term smoker with gangrene of the left first toe. I did an angiogram that showed left distal SFA and popliteal arteries were occluded. He had reconstitution of the posterior tibial artery in the upper calf. He has a good great saphenous vein. I brought him in today for left fem PT bypass using in situ great saphenous vein. PROCEDURE: Patient was brought to the operating room and placed on the table in supine position. Left leg was prepped and draped in the usual sterile fashion. I began by making an incision in the upper calf over the great saphenous vein. I had already marked it, dissected out the great saphenous vein, ligated all the side branches down to about the midcalf. I then opened the fascia overlying the calf muscles, dissected the calf muscles off the posterior aspect of the tibia until I entered the posterior tibial neurovascular bundle plane. The posterior tibial vein was visualized. I dissected it out of the away and identified the posterior tibial artery. It was actually a nice soft artery, it was a little bit small, but no disease. I then went to the left groin. I made an incision over the great saphenous vein up into the groin, dissected out the greater saphenous vein down to the upper thigh. I ligated all the side branches with either 2-0 or 3-0 silk ties and divided them. Once I had cut down to the saphenofemoral junction, I put a Satinsky clamp across the junction, transected the vein, then oversewed the venotomy in the femoral vein with 5-0 Prolene suture. I then felt for the femoral pulse just lateral to the saphenous vein, dissected down through the subcutaneous tissue. I then dissected out the very proximal superficial femoral artery. It was good caliber, soft and had a good pulse. I then gave the patient 7000 units of heparin intravenously, clamped the superficial femoral artery proximally and distally, made about a centimeter long anterior arteriotomy, spatulated the upper end of the great saphenous vein to fit the arteriotomy and anastomosed the end of the vein to the side of the artery. Used 5-0 Prolene suture in a running standard vascular surgical fashion. I removed the clamps, the valves were competent and I passed the valvulotome from below and after dividing the great saphenous vein in the mid to distal calf with 2-0 silk tie. I made several passes, cut all the valves, then I had marked where all the side branches were as well. I went back and made incisions over those, dissected down to the great saphenous vein, ligated all the side branches with surgical clips and divided them. There was now excellent flow out the end of the vein. I clamped the vein. Again, I then went back to posterior tibial artery, clamped it proximally and distally, made about a 1 cm long anterior arteriotomy, spatulated the distal end of vein to fit the arteriotomy and anastomosed the distal end of vein to the side of the posterior tibial artery using 6-0 Prolene suture in a running standard vascular surgical fashion. I removed the clamps. There is an excellent pulse in the posterior tibial artery in the field as well as throughout the graft. There was good hemostasis. There was Doppler triphasic signal in the posterior tibial at the ankle when the graft was clamped, there was no signal, just very monophasic. I was happy with the result. I then closed the skin incisions in 2 layers using an inner layer of 3-0 Vicryl and an outer layer of surgical elida. The groin was closed with a 4-0 Monocryl suture. Sterile dressings were applied. The patient was then transferred to the recovery room in stable condition, tolerated the procedure well without any complications. Dictated By: DAGOBERTO ALTMAN/BERENICE Conf#: [id number] DID#: [id number] CC: LUIS FERNANDO BREAUX; EDDIE PITTMAN NP; JP ADAMS MD;*KiloCC* MTDDov
--- NOTE | 2018-07-26 15:13 | CONS ---
Assessment/Plan Assessment/Plan Hospital Course (Demo Recall) No events, Blood culture on 07/10/18 grew enterococcus and Jennifer parapsilosis, repeat blood cultures negative Microbiology: Wound culture grew stenotrophomonas maltophilia, Pseudomonas enterococcus species and coag negative staph species, repeat blood cultures negative Antimicrobials: Diflucan, oral Levaquin, Vancomycin Physical examination: This is a well-developed fragile elderly man who is alert in no distress. Head atraumatic normocephalic sclera nonicteric vehicle mucosa dry neck is supple chest rise symmetrical breath sounds diminished bases heart: S1-S2. Abdomen soft bowel sounds present. Extremities with left great toe gangrene ASSESSMENT: 1. Polymicrobial bacteremia/fungemia likely secondary to #2 2. Left great toe cellulitis, gangrene, osteomyelitis 3. Peripheral arterial disease with high-grade left SFA stenosis==> s/p Fem- Tibial Bypass 4. Diabetes Plan: Stable post op, continue present care, last dose Diflucan tomorrow, continue abx, podiatry/vascular rec-s Consultation Date/Type/Reason Admit Date/Time July 10, 2018 at 12:52 Initial Consult Date Type of Consult id Date/Time of Note DATE: 07/26/18 TIME: 15:11 Exam/Review of Systems Exam Vitals Vital Signs Date Temp Pulse Resp B/P (MAP) Pulse Ox O2 O2 Flow FiO2 Time Delivery Rate 07/26/18 97.3 11:43 07/26/18 Simple 8.0 11:38 Mask 07/26/18 60 18 130/61 97 02:34 (84) Intake and Output 07/25/18 07/25/18 07/26/18 1515:00 23:00 07:00 IntakeIntake Total 870 ml 200 ml 1325 ml OutputOutput Total 1100 ml 400 ml 500 ml BalanceBalance -230 ml -200 ml 825 ml Results Result Diagram: 07/26/18 0640 07/26/18 0640 Results 24hrs Laboratory Tests Test 07/25/18 17:11 07/25/18 21:52 07/26/18 01:38 07/26/18 05:31 Bedside Glucose 103 137 126 121 Test 07/26/18 06:40 07/26/18 11:46 White Blood Count 4.6 L Red Blood Count 3.19 L Hemoglobin 9.3 L Hematocrit 28.3 L Mean Corpuscular 88.7 Volume Mean Corpuscular 29.2 Hemoglobin Mean Corpuscular 32.9 Hemoglobin Concent Red Cell 13.2 Distribution Width Platelet Count 238 Mean Platelet Volume 9.3 Immature 0.200 Granulocytes % Neutrophils % 54.4 Lymphocytes % 25.8 Monocytes % 12.4 H Eosinophils % 6.5 Basophils % 0.7 Nucleated Red Blood 0.0 Cells % Immature 0.010 Granulocytes # Neutrophils # 2.5 Lymphocytes # 1.2 Monocytes # 0.6 Eosinophils # 0.3 Basophils # 0.0 Nucleated Red Blood 0.0 Cells # Sodium Level 141 Potassium Level 3.7 Chloride Level 106 Carbon Dioxide Level 27 Anion Gap 8 Blood Urea Nitrogen 23 H Creatinine 1.02 Est Glomerular > 60 Filtrat Rate mL/min Glucose Level 117 Calcium Level 8.9 Bedside Glucose 206 Medications Medication Current Medications Buspirone HCl (Buspar) 10 mg BID PO Last administered on 07/21/18 21:02; Admin Dose 10 MG; Start 07/10/18 at 21:00 IV Flush (NS 3 ml) 3 ml PER PROTOCOL IV ; Start 07/10/18 at 14:30 Ondansetron HCl (Zofran Inj) 4 mg Q6H PRN IV NAUSEA/VOMITING Last administered on 07/26/18 11:52; Admin Dose 4 MG; Start 07/10/18 at 14:30 Acetaminophen (Tylenol Tab) 650 mg Q6H PRN PO .PAIN 1-3 OR TEMP; Start 07/10/18 at 14:30 Acetaminophen/ Hydrocodone Bitart ([place] (5/325)) 1 tab Q6H PRN PO .MOD PAIN 4- 6 Last administered on 07/25/18at 21:12; Admin Dose 1 TAB; Start 07/10/18 at 14:30 Enoxaparin Sodium (Lovenox) 40 mg DAILY SC Last administered on 07/25/18at 09:01; Admin Dose 40 MG; Start 07/11/18 at 09:00 Insulin Glargine (Lantus) 12 units DAILY@2000 SC Last administered on 07/25/18at 21:57; Admin Dose 12 UNITS; Start 07/10/18 at 20:00 Vancomycin HCl (Vanco Iv Per Pharmacy) VANCOMYCIN PER PHARMACY PER PROTOCOL XX ; Start 07/10/18 at 14:30 Vancomycin HCl 250 ml @ 125 mls/hr Q12H IVPB Last administered on 07/25/18at 2 1:54; Admin Dose 125 MLS/HR; Start 07/10/18 at 20:00 Nicotine (Nicoderm 21 Mg/ 24hr) 1 patch DAILY TRANSDERM Last administered on 07/25/18at 09:00; Admin Dose 1 PATCH; Start 07/11/18 at 09:00 Miscellaneous Information 1 ea NOTE XX ; Start 07/11/18 at 06:45 Glucose (Glutose) 15 gm Q15M PRN PO DECREASED GLUCOSE; Start 07/11/18 at 06:45 Glucose (Glutose) 22.5 gm Q15M PRN PO DECREASED GLUCOSE; Start 07/11/18 at 06:45 Dextrose (D50w Syringe) 25 ml Q15M PRN IV DECREASED GLUCOSE; Start 07/11/18 at 06:45 Dextrose (D50w Syringe) 50 ml Q15M PRN IV DECREASED GLUCOSE; Start 07/11/18 at 06:45 Glucagon (Glucagen) 1 mg Q15M PRN IM DECREASED GLUCOSE; Start 07/11/18 at 06:45 Glucose (Glutose) 15 gm Q15M PRN BUCCAL DECREASED GLUCOSE; Start 07/11/18 at 06:45 Levofloxacin (Levaquin) 750 mg DAILY@06 PO Last administered on 07/25/18at 05:32; Admin Dose 750 MG; Start 07/13/18 at 06:00; Status Hold Bupropion HCl (Wellbutrin Xl) 150 mg DAILY PO Last administered on 07/17/18at 08:17; Admin Dose 150 MG; Start 07/13/18 at 09:00 Docusate Sodium/ Ferrous Fumarate (Cindy-Sequels) 1 tab DAILY PO Last administered on 07/25/18at 09:00; Admin Dose 1 TAB; Start 07/13/18 at 10:30; Stop 08/12/18 at 10:29 Atorvastatin Calcium (Lipitor) 20 mg HS PO Last administered on 07/25/18at 21:55; Admin Dose 20 MG; Start 07/13/18 at 21:00 Fish Oil (Fish Oil) 2,000 mg BID PO Last administered on 07/25/18at 21:55; Admin Dose 2,000 MG; Start 07/13/18 at 10:30 IV Flush (NS 10 ml) 10 ml PRN PRN IV IV PROTOCOL; Start 07/18/18 at 16:30 Fluconazole (Diflucan) 400 mg DAILY PO Last administered on 07/25/18at 09:00; Admin Dose 400 MG; Start 07/19/18 at 09:00 Dextrose/Sodium Chloride 1,000 ml @ 75 mls/hr [id number] IV Last administered on 07/26/18at 01:50; Admin Dose 75 MLS/HR; Start 07/26/18 at 01:00 Insulin Aspart (Novolog Insulin Pen) NOVOLOG *MILD* ALGORI... Q4 SC Last administered on 07/26/18at 12:02; Admin Dose 2 UNIT; Start 07/26/18 at 01:00 Clopidogrel Bisulfate (plaVIX) 75 mg DAILY PO ; Start 07/26/18 at 11:30 Nicardipine HCl 50 mg/Sodium Chloride 500 ml @ 50 mls/hr TITRATE IV ; Start 07/26/18 at 11:30 Hydromorphone HCl (Dilaudid) 0.2 mg PACU PRN IV MILD PAIN 1-3; Start 07/26/18 at 12:15; Stop 07/26/18 at 16:00 Hydromorphone HCl (Dilaudid) 0.4 mg PACU PRN IV MOD PAIN 4-6 Last administered on 07/26/18at 12:51; Admin Dose 0.4 MG; Start 07/26/18 at 12:30; Stop 07/26/18 at 16:00 Fentanyl (Sublimaze) 25 mcg PACU ORDER PRN IV MILD PAIN 1-3; Start 07/26/18 at 12:30; Stop 07/26/18 at 16:00 Fentanyl (Sublimaze) 50 mcg PACU ORDER PRN IV MOD PAIN 4-6 Last administered on 07/26/18at 12:51; Admin Dose 50 MCG; Start 07/26/18 at 12:30; Stop 07/26/18 at 16:00 Fentanyl (Sublimaze) 75 mcg PACU ORDER PRN IV SEVERE PAIN 7-10; Start 07/26/18 at 12:30; Stop 07/26/18 at 16:00 Ondansetron HCl (Zofran Inj) 4 mg PACU ORDER PRN IV NAUSEA/VOMITING; Start 07/26/18 at 12:30; Stop 07/26/18 at 16:00 Metoclopramide HCl (Reglan) 10 mg PACU ORDER PRN IV NAUSEA/VOMITING; Start 07/26/18 at 12:30; Stop 07/26/18 at 16:00 Labetalol HCl (Labetalol) 5 mg PACU ORDER PRN IV HIGH BLOOD PRESSURE; Start 07/26/18 at 12:30; Stop 07/26/18 at 16:00 Hydralazine HCl (Apresoline) 5 mg PACU ORDER PRN IV HIGH BLOOD PRESSURE; Start 07/26/18 at 12:30; Stop 07/26/18 at 16:00 Albuterol (Proventil 0.083% (Neb)) 2.5 mg PACU ORDER PRN HHN .WHEEZING; Start 07/26/18 at 12:30; Stop 07/26/18 at 16:00 Meperidine HCl (Demerol) 25 mg PACU ORDER PRN IV .RIGORS; Start 07/26/18 at 12:30; Stop 07/26/18 at 16:00 Diphenhydramine HCl (Benadryl) 25 mg PACU ORDER PRN IV .PRURITUS; Start 07/26/18 at 12:30; Stop 07/26/18 at 16:00 JUAN GARCIA NP July 26, 2018 15:13
--- NOTE | 2018-07-26 16:21 | PAC ---
Date/Time of Note Date/Time of Note DATE: 07/26/18 TIME: 16:21 Post-Anesthesia Notes Post-Anesthesia Note Last documented vital signs Vital Signs Date Temp Pulse Resp B/P (MAP) Pulse Ox O2 O2 Flow FiO2 Time Delivery Rate 07/26/18 72 17 140/57 99 Nasal 2.0 15:08 (84) Cannula 07/26/18 98.3 12:38 Activity: WNL Respiratory function: WNL Cardiovascular function: WNL Mental status: Baseline Pain reasonably controlled: Yes Hydration appropriate: Yes Nausea/Vomiting absent: Yes ALANIS ROBIN July 26, 2018 16:21
[2018-07-26] MEDS: HYDROCODONE/APAP (5/325) TAB PO PRN (17:58)
[2018-07-26] MEDS: CLOPIDOGREL 75 MG TAB PO SCH (17:58)
[2018-07-26] MEDS: INSULIN GLARGINE [LANTus] (100 UNITS/ML) SYG SC SCH (20:48)
[2018-07-26] MEDS: ATORVASTATIN 20 MG TAB PO SCH (20:57)
[2018-07-27] VITALS (26 sets, daily range): BP systolic 99–159; BP diastolic 44–69; PULSE 60–85; RESP 11–20
[2018-07-27] MEDS: DEXTROSE 5%-0.45% NACL 1,000 ML IV SCH (04:47)
--- NOTE | 2018-07-27 04:49 | PN ---
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 LLE incisions c/d/i w/ dressings; no hematoma at L groin; L foot warm, no cyanosis, dry gangrene at 1st toe; mild edema Pulses: 2+ palpable femoral pulses bilaterally, 2+ R DP pulse; L PT w/ triphasic signal, L DP w/ weak monophasic signal Results Result Diagram: 07/26/1840 07/26/1840 LEONARDA ROMERO MD July 27, 2018 04:49
[2018-07-27] MEDS: LEVOFLOXACIN 750 MG TABLET PO SCH (06:41)
[2018-07-27] MEDS: VANCOMYCIN 1 GM 250 ML IVPB SCH ×2 (07:57→20:24)
[2018-07-27] MEDS: INSULIN ASPART [NOVOLOG] 3 ML PEN SC SCH ×4 (08:01→20:44)
[2018-07-27] MEDS: FLUCONAZOLE 200 MG TAB PO SCH (08:20)
[2018-07-27] MEDS: FERROUS FUMARATE (SR) TAB PO SCH (08:20)
[2018-07-27] MEDS: CLOPIDOGREL 75 MG TAB PO SCH (08:20)
[2018-07-27] MEDS: FISH OIL 1,000 MG CAP PO SCH ×2 (08:20→20:24)
[2018-07-27] MEDS: NICOTINE (21 MG/24 HR) PATCH TRANSDERM SCH (08:22)
[2018-07-27] MEDS: ENOXAPARIN 40 MG/0.4 ML SYG SC SCH (08:38)
[2018-07-27] MEDS: BUPROPION (XL) 150 MG TAB PO SCH (08:38)
[2018-07-27] MEDS: BUSPIRONE 10 MG TAB PO SCH ×3 (08:38→20:45)
[2018-07-27] MEDS: HYDROCODONE/APAP (5/325) TAB PO PRN ×2 (11:40→20:50)
--- NOTE | 2018-07-27 11:45 | PN ---
Date/Time of Note Date/Time of Note DATE: 07/27/18 TIME: 11:42 Assessment/Plan VTE Prophylaxis Risk score (from Nsg)>0 risk: 3 SCD applied (from Nsg): Yes Pharmacological prophylaxis: LMWH Assessment/Plan Hospital Course ASSESSMENT AND PLAN:72 yo M w/hx of triglyceridemia, peripheral vascular disease, type 2 diabetes, anxiety/depression, long-standing tobacco use 1 pack/day was told by his doctor to get admitted for inpatient vascular/podiatry work-up for worsening cellulitis with left toe gangrene also noted with severe PAD/osteomyelitis.. 1. Left foot cellulitis -Cellulitis improved -cont. Glycemic control/Wound care -BC 03/08 culture grew crystal P. s/p cancidas=>on Diflucan now - antimicrobial per ID recommendations 2. PAD with left first toe dry gangrene -Onset ~2 mos -Status post Femoral-tibial bypass -Continue to optimize neurovascular status with antihypertensives to keep blood pressure ~140/90, diet, nutrition, exercise, blood glucose control, and antiplatelets/anticoagulation. 3. Osteomyelitis of left first toe. -Patient will likely now have an amputation since bypass has been completed, follow-up on podiatry recommendations -Continue IV antibiotics for now 4. DMII -well-controlled -Basal/bolus insulin 5. Dyslipidemia/triglyceridemia -on Tricor/statin 6. Anxiety/depression -on Buspar 7. Tobacco abuse -Cessation advised. PRN nicotine patch for withdrawal. 8. Chronic anemia -Stable H&H. Monitor -also getting oral iron DVT prophylaxis: Lovenox Result Diagram: 07/27/18 0551 07/27/18 0432 Results 24hrs Laboratory Tests Test 07/26/18 11:46 07/26/18 15:57 07/26/18 20:46 07/27/18 04:32 Bedside Glucose 206 188 254 H Sodium Level 137 Potassium Level 3.8 Chloride Level 104 Carbon Dioxide Level 24 Anion Gap 9 Blood Urea Nitrogen 21 H Creatinine 0.88 Est Glomerular > 60 Filtrat Rate mL/min Glucose Level 193 Calcium Level 8.4 Test 07/27/18 05:09 07/27/18 05:51 07/27/18 07:55 White Blood Count 5.1 Red Blood Count 2.07 #L Hemoglobin 6.0 #*L 8.4 #L Hematocrit 18.5 #L 25.6 #L Mean Corpuscular 89.4 Volume Mean Corpuscular 29.0 Hemoglobin Mean Corpuscular 32.4 Hemoglobin Concent Red Cell 13.1 Distribution Width Platelet Count 162 # Mean Platelet Volume 9.7 Immature 0.400 Granulocytes % Neutrophils % Segmented 79 H Neutrophils % (Manual) Band Neutrophils % 1 (Manual) Lymphocytes % Lymphocytes % 17 (Manual) Monocytes % Monocytes % (Manual) 3 Eosinophils % Basophils % Nucleated Red Blood 0.0 Cells % Immature 0.020 Granulocytes # Neutrophils # Neutrophils # 4.0 (Manual) Band Neutrophils # 0.0 Lymphocytes (Manual) 0.8 Lymphocytes # Monocytes # Monocytes # (Manual) 0.1 L Eosinophils # Basophils # Nucleated Red Blood Cells # Platelet Estimate NORMAL Giant Platelets 2 H Polychromasia 3+ Poikilocytosis 1+ Anisocytosis 1+ Bedside Glucose 183 Subjective 24 Hr Interval Summary Constitutional: no complaints Exam/Review of Systems Exam Vitals Vital Signs Date Temp Pulse Resp B/P (MAP) Pulse Ox O2 O2 Flow FiO2 Time Delivery Rate 07/27/18 98.7 71 19 121/57 96 11:35 (78) 07/27/18 Room Air 11:00 07/27/18 2.0 05:00 Intake and Output 07/26/18 07/26/18 07/27/18 1515:00 23:00 07:00 IntakeIntake Total 785 ml 580 ml OutputOutput Total 230 ml 815 ml 555 ml BalanceBalance -230 ml -30 ml 25 ml Constitutional: alert, oriented Respiratory: clear to auscultation Cardiovascular: regular rate and rhythm Gastrointestinal: soft; No distended Musculoskeletal: No nl extremities to inspection Results Results 24hrs Laboratory Tests Test 07/26/18 11:46 07/26/18 15:57 07/26/18 20:46 07/27/18 04:32 Bedside Glucose 206 188 254 H Sodium Level 137 Potassium Level 3.8 Chloride Level 104 Carbon Dioxide Level 24 Anion Gap 9 Blood Urea Nitrogen 21 H Creatinine 0.88 Est Glomerular > 60 Filtrat Rate mL/min Glucose Level 193 Calcium Level 8.4 Test 07/27/18 05:09 07/27/18 05:51 07/27/18 07:55 White Blood Count 5.1 Red Blood Count 2.07 #L Hemoglobin 6.0 #*L 8.4 #L Hematocrit 18.5 #L 25.6 #L Mean Corpuscular 89.4 Volume Mean Corpuscular 29.0 Hemoglobin Mean Corpuscular 32.4 Hemoglobin Concent Red Cell 13.1 Distribution Width Platelet Count 162 # Mean Platelet Volume 9.7 Immature 0.400 Granulocytes % Neutrophils % Segmented 79 H Neutrophils % (Manual) Band Neutrophils % 1 (Manual) Lymphocytes % Lymphocytes % 17 (Manual) Monocytes % Monocytes % (Manual) 3 Eosinophils % Basophils % Nucleated Red Blood 0.0 Cells % Immature 0.020 Granulocytes # Neutrophils # Neutrophils # 4.0 (Manual) Band Neutrophils # 0.0 Lymphocytes (Manual) 0.8 Lymphocytes # Monocytes # Monocytes # (Manual) 0.1 L Eosinophils # Basophils # Nucleated Red Blood Cells # Platelet Estimate NORMAL Giant Platelets 2 H Polychromasia 3+ Poikilocytosis 1+ Anisocytosis 1+ Bedside Glucose 183 Medications Medication Current Medications Buspirone HCl (Buspar) 10 mg BID PO Last administered on 07/26/18 20:58; Admin Dose 10 MG; Start 07/10/18 at 21:00 IV Flush (NS 3 ml) 3 ml PER PROTOCOL IV ; Start 07/10/18 at 14:30 Ondansetron HCl (Zofran Inj) 4 mg Q6H PRN IV NAUSEA/VOMITING Last administered on 07/26/18 11:52; Admin Dose 4 MG; Start 07/10/18 at 14:30 Acetaminophen (Tylenol Tab) 650 mg Q6H PRN PO .PAIN 1-3 OR TEMP; Start 07/10/18 at 14:30 Acetaminophen/ Hydrocodone Bitart ([place] (5/325)) 1 tab Q6H PRN PO .MOD PAIN 4- 6 Last administered on 07/27/18 11:40; Admin Dose 1 TAB; Start 07/10/18 at 14:30 Enoxaparin Sodium (Lovenox) 40 mg DAILY SC Last administered on 07/27/18 08:38; Admin Dose 40 MG; Start 07/11/18 at 09:00 Insulin Glargine (Lantus) 12 units DAILY@2000 SC Last administered on 07/26/18 20:48; Admin Dose 12 UNITS; Start 07/10/18 at 20:00 Vancomycin HCl (Vanco Iv Per Pharmacy) VANCOMYCIN PER PHARMACY PER PROTOCOL XX ; Start 07/10/18 at 14:30 Vancomycin HCl 250 ml @ 125 mls/hr Q12H IVPB Last administered on 07/27/18at 07:57; Admin Dose 125 MLS/HR; Start 07/10/18 at 20:00 Nicotine (Nicoderm 21 Mg/ 24hr) 1 patch DAILY TRANSDERM Last administered on 07/27/18at 08:22; Admin Dose 1 PATCH; Start 07/11/18 at 09:00 Miscellaneous Information 1 ea NOTE XX ; Start 07/11/18 at 06:45 Glucose (Glutose) 15 gm Q15M PRN PO DECREASED GLUCOSE; Start 07/11/18 at 06:45 Glucose (Glutose) 22.5 gm Q15M PRN PO DECREASED GLUCOSE; Start 07/11/18 at 06:45 Dextrose (D50w Syringe) 25 ml Q15M PRN IV DECREASED GLUCOSE; Start 07/11/18 at 06:45 Dextrose (D50w Syringe) 50 ml Q15M PRN IV DECREASED GLUCOSE; Start 07/11/18 at 06:45 Glucagon (Glucagen) 1 mg Q15M PRN IM DECREASED GLUCOSE; Start 07/11/18 at 06:45 Glucose (Glutose) 15 gm Q15M PRN BUCCAL DECREASED GLUCOSE; Start 07/11/18 at 06:45 Levofloxacin (Levaquin) 750 mg DAILY@06 PO Last administered on 07/27/18at 06:41; Admin Dose 750 MG; Start 07/13/18 at 06:00 Bupropion HCl (Wellbutrin Xl) 150 mg DAILY PO Last administered on 07/17/18at 08:17; Admin Dose 150 MG; Start 07/13/18 at 09:00 Docusate Sodium/ Ferrous Fumarate (Cindy-Sequels) 1 tab DAILY PO Last administered on 07/27/18at 08:20; Admin Dose 1 TAB; Start 07/13/18 at 10:30; Stop 08/12/18 at 10:29 Atorvastatin Calcium (Lipitor) 20 mg HS PO Last administered on 07/26/18at 20:57; Admin Dose 20 MG; Start 07/13/18 at 21:00 Fish Oil (Fish Oil) 2,000 mg BID PO Last administered on 07/27/18at 08:20; Admin Dose 2,000 MG; Start 07/13/18 at 10:30 IV Flush (NS 10 ml) 10 ml PRN PRN IV IV PROTOCOL; Start 07/18/18 at 16:30 Fluconazole (Diflucan) 400 mg DAILY PO Last administered on 07/27/18at 08:20; Admin Dose 400 MG; Start 07/19/18 at 09:00 Clopidogrel Bisulfate (plaVIX) 75 mg DAILY PO Last administered on 07/27/18 08:20; Admin Dose 75 MG; Start 07/26/18 at 11:30 Insulin Aspart (Novolog Insulin Pen) NOVOLOG *MILD* ALGORITHM WITH MEALS BEDTIME SC Last administered on 07/27/18at 08:01; Admin Dose 1 UNIT; Start 07/27/18 at 07:35 JP ADAMS July 27, 2018 11:45
--- NOTE | 2018-07-27 16:41 | CONS ---
Assessment/Plan Assessment/Plan Hospital Course (Demo Recall) ID PROGRESS NOTE CURRENT ABX: DAY #=> Vanco V + Levaquin + Diflucan 24H INTERVAL SUMMARY * 72 yo M sitting up in bed, A/A/O,polite, pleasant, no complaints, denies acute health changes, tolerating ABX well * No fevers, VSS, WBC normalized, MICRO/OTHER * 07/26/18 Mrsa -> Pending * 07/26/18 Urine Cx: URINE CULTURE Preliminary NO GROWTH AFTER 24 HOURS * 07/12/18 BCX (-) * 07/10/18 BCX:(+) 1/2 bottles Organism 1 ENTEROCOCCUS SPECIES Organism 2 WILBERT PARAPSILOSIS * 07/10/18 FOOT WOUND CX WOUND CULTURE Final Organism 1 STENOTROPHOMONAS MALTOPHILIA QUANTITY SCANT GROWTH Organism 2 PSEUDOMONAS PUTIDA QUANTITY 1+ Organism 3 COAGULASE NEGATIVE STAPH QUANTITY SCANT GROWTH Organism 4 ENTEROCOCCUS SPECIES QUANTITY SCANT GROWTH PHYSICAL EXAMINATION: GENERAL: VSS, NAD, OVERWEIGHT HEENT: AT, NC, anicteric, NECK: Supple, CHEST: Equal chest rise bilaterally without dyspnea on observation HEART: Pulse RRR ABDOMEN: soft EXTREMITIES: Warm, dry = =left foot DSG C/D/I SKIN: No rash, no diaphoresis ID ASSESSMENT 72 yo M admit with: 1. Polymicrobial bacteremia/fungemia likely secondary to #2 2. Left great toe cellulitis, gangrene, osteomyelitis 3. Peripheral arterial disease with high-grade left SFA stenosis 4. Diabetes ABX ALLERGIES: KNDA INVASIVES: PIV CURRENT ABX: DAY # = Vanco V + Levaquin + Diflucan ID RECOMMENDATIONS/PLAN: 1. Completing ABX 2. Will be covering this 3-day weekend for "[place] ID" . . Consultation Date/Type/Reason Admit Date/Time July 10, 2018 at 12:52 Initial Consult Date Date/Time of Note DATE: 07/27/18 TIME: 16:41 Exam/Review of Systems Exam Vitals Vital Signs Date Temp Pulse Resp B/P (MAP) Pulse Ox O2 O2 Flow FiO2 Time Delivery Rate 07/27/18 98.1 79 19 116/58 97 15:24 (77) 07/27/18 Room Air 11:00 07/27/18 2.0 05:00 Intake and Output 07/26/18 07/26/18 07/27/18 1515:00 23:00 07:00 IntakeIntake Total 785 ml 580 ml OutputOutput Total 230 ml 815 ml 555 ml BalanceBalance -230 ml -30 ml 25 ml Results Result Diagram: 07/27/18 0551 07/27/18 0432 Results 24hrs Laboratory Tests Test 07/26/18 20:46 07/27/18 04:32 07/27/18 05:09 07/27/18 05:51 Bedside Glucose 254 H Sodium Level 137 Potassium Level 3.8 Chloride Level 104 Carbon Dioxide Level 24 Anion Gap 9 Blood Urea Nitrogen 21 H Creatinine 0.88 Est Glomerular > 60 Filtrat Rate mL/min Glucose Level 193 Calcium Level 8.4 White Blood Count 5.1 Red Blood Count 2.07 #L Hemoglobin 6.0 #*L 8.4 #L Hematocrit 18.5 #L 25.6 #L Mean Corpuscular 89.4 Volume Mean Corpuscular 29.0 Hemoglobin Mean Corpuscular 32.4 Hemoglobin Concent Red Cell 13.1 Distribution Width Platelet Count 162 # Mean Platelet Volume 9.7 Immature 0.400 Granulocytes % Neutrophils % Segmented 79 H Neutrophils % (Manual) Band Neutrophils % 1 (Manual) Lymphocytes % Lymphocytes % 17 (Manual) Monocytes % Monocytes % (Manual) 3 Eosinophils % Basophils % Nucleated Red Blood 0.0 Cells % Immature 0.020 Granulocytes # Neutrophils # Neutrophils # 4.0 (Manual) Band Neutrophils # 0.0 Lymphocytes (Manual) 0.8 Lymphocytes # Monocytes # Monocytes # (Manual) 0.1 L Eosinophils # Basophils # Nucleated Red Blood Cells # Platelet Estimate NORMAL Giant Platelets 2 H Polychromasia 3+ Poikilocytosis 1+ Anisocytosis 1+ Test 07/27/18 07:55 07/27/18 13:43 Bedside Glucose 183 123 Medications Medication Current Medications Buspirone HCl (Buspar) 10 mg BID PO Last administered on 07/26/18at 20:58; Admin Dose 10 MG; Start 07/10/18 at 21:00 IV Flush (NS 3 ml) 3 ml PER PROTOCOL IV ; Start 07/10/18 at 14:30 Ondansetron HCl (Zofran Inj) 4 mg Q6H PRN IV NAUSEA/VOMITING Last administered on 07/26/18 11:52; Admin Dose 4 MG; Start 07/10/18 at 14:30 Acetaminophen (Tylenol Tab) 650 mg Q6H PRN PO .PAIN 1-3 OR TEMP; Start 07/10/18 at 14:30 Acetaminophen/ Hydrocodone Bitart ([place] (5/325)) 1 tab Q6H PRN PO .MOD PAIN 4- 6 Last administered on 07/27/18 11:40; Admin Dose 1 TAB; Start 07/10/18 at 14:30 Enoxaparin Sodium (Lovenox) 40 mg DAILY SC Last administered on 07/27/18 08:38; Admin Dose 40 MG; Start 07/11/18 at 09:00 Insulin Glargine (Lantus) 12 units DAILY@2000 SC Last administered on 07/26/18 20:48; Admin Dose 12 UNITS; Start 07/10/18 at 20:00 Vancomycin HCl (Vanco Iv Per Pharmacy) VANCOMYCIN PER PHARMACY PER PROTOCOL XX ; Start 07/10/18 at 14:30 Vancomycin HCl 250 ml @ 125 mls/hr Q12H IVPB Last administered on 07/27/18 07:57; Admin Dose 125 MLS/HR; Start 07/10/18 at 20:00 Nicotine (Nicoderm 21 Mg/ 24hr) 1 patch DAILY TRANSDERM Last administered on 07/27/18at 08:22; Admin Dose 1 PATCH; Start 07/11/18 at 09:00 Miscellaneous Information 1 ea NOTE XX ; Start 07/11/18 at 06:45 Glucose (Glutose) 15 gm Q15M PRN PO DECREASED GLUCOSE; Start 07/11/18 at 06:45 Glucose (Glutose) 22.5 gm Q15M PRN PO DECREASED GLUCOSE; Start 07/11/18 at 06:45 Dextrose (D50w Syringe) 25 ml Q15M PRN IV DECREASED GLUCOSE; Start 07/11/18 at 06:45 Dextrose (D50w Syringe) 50 ml Q15M PRN IV DECREASED GLUCOSE; Start 07/11/18 at 06:45 Glucagon (Glucagen) 1 mg Q15M PRN IM DECREASED GLUCOSE; Start 07/11/18 at 06:45 Glucose (Glutose) 15 gm Q15M PRN BUCCAL DECREASED GLUCOSE; Start 07/11/18 at 06:45 Levofloxacin (Levaquin) 750 mg DAILY@06 PO Last administered on 07/27/18 06: 41; Admin Dose 750 MG; Start 07/13/18 at 06:00 Bupropion HCl (Wellbutrin Xl) 150 mg DAILY PO Last administered on 07/17/18 08:17; Admin Dose 150 MG; Start 07/13/18 at 09:00 Docusate Sodium/ Ferrous Fumarate (Cindy-Sequels) 1 tab DAILY PO Last administered on 07/27/18 08:20; Admin Dose 1 TAB; Start 07/13/18 at 10:30; Stop 08/12/18 at 10:29 Atorvastatin Calcium (Lipitor) 20 mg HS PO Last administered on 07/26/18 20:57; Admin Dose 20 MG; Start 07/13/18 at 21:00 Fish Oil (Fish Oil) 2,000 mg BID PO Last administered on 07/27/18 08:20; Admin Dose 2,000 MG; Start 07/13/18 at 10:30 IV Flush (NS 10 ml) 10 ml PRN PRN IV IV PROTOCOL; Start 07/18/18 at 16:30 Fluconazole (Diflucan) 400 mg DAILY PO Last administered on 07/27/18 08:20; Admin Dose 400 MG; Start 07/19/18 at 09:00 Clopidogrel Bisulfate (plaVIX) 75 mg DAILY PO Last administered on 07/27/18 08:20; Admin Dose 75 MG; Start 07/26/18 at 11:30 Insulin Aspart (Novolog Insulin Pen) NOVOLOG *MILD* ALGORITHM WITH MEALS BEDTIME SC Last administered on 07/27/18 08:01; Admin Dose 1 UNIT; Start 07/27/18 at 07:35 DANE ZHOU NP July 27, 2018 16:41
[2018-07-27] MEDS: ATORVASTATIN 20 MG TAB PO SCH (20:24)
[2018-07-27] MEDS: INSULIN GLARGINE [LANTus] (100 UNITS/ML) SYG SC SCH (20:44)
[2018-07-28] VITALS (12 sets, daily range): BP systolic 126–140; BP diastolic 58–65; PULSE 70–91; RESP 20
[2018-07-28] MEDS: LEVOFLOXACIN 750 MG TABLET PO SCH (06:12)
[2018-07-28] MEDS: INSULIN ASPART [NOVOLOG] 3 ML PEN SC SCH ×4 (09:06→20:37)
[2018-07-28] MEDS: BUPROPION (XL) 150 MG TAB PO SCH (10:34)
[2018-07-28] MEDS: BUSPIRONE 10 MG TAB PO SCH ×2 (10:34→20:21)
[2018-07-28] MEDS: FLUCONAZOLE 200 MG TAB PO SCH (10:34)
[2018-07-28] MEDS: FISH OIL 1,000 MG CAP PO SCH ×2 (10:34→20:25)
[2018-07-28] MEDS: NICOTINE (21 MG/24 HR) PATCH TRANSDERM SCH (10:34)
[2018-07-28] MEDS: FERROUS FUMARATE (SR) TAB PO SCH (10:34)
[2018-07-28] MEDS: CLOPIDOGREL 75 MG TAB PO SCH (10:34)
[2018-07-28] MEDS: VANCOMYCIN 1 GM 250 ML IVPB SCH ×2 (10:35→20:22)
[2018-07-28] MEDS: ENOXAPARIN 40 MG/0.4 ML SYG SC SCH (10:43)
--- NOTE | 2018-07-28 13:23 | PN ---
Date/Time of Note Date/Time of Note DATE: 07/28/18 TIME: 13:21 Assessment/Plan Lines/Catheters IV Catheter Type (from Nrs): PICC Line Assessment/Plan Assessment/Plan s/p L fem-PT bypass w/ GSV, doing well Plan: -Appreciate medical management -May cont to get out of bed w/ PT (L heel weight bearing only) as needed -Cont abx as per ID -Cont betadyne to L 1st toe -Follow up w/ Podiatry for further recs regarding L 1st toe gangrene Subjective 24 Hr Interval Summary Transferred out of ICU, doing well, no events, c/o mild LLE incisional pain, denies pain at L toes/foot Exam/Review of Systems Vital Signs Vitals Vital Signs Date Temp Pulse Resp B/P (MAP) Pulse Ox O2 O2 Flow FiO2 Time Delivery Rate 07/28/18 75 12:32 07/28/18 98.1 20 140/65 97 Room Air 11:23 (90) 07/27/18 11:35 Intake and Output 07/27/18 07/27/18 07/28/18 1515:00 23:00 07:00 IntakeIntake Total 250 ml 750 ml 400 ml OutputOutput Total 225 ml 300 ml 450 ml BalanceBalance 25 ml 450 ml -50 ml Exam Free Text/Dictation Gen: AAOx3, NAD Extr: RLE warm, no wounds, LLE incisions c/d/i, skin elida intact, no erythema, no drainage, mild edema throughout. L 1st toe gangrene dry. L foot warm, no cyanosis/wounds otherwise. Pulses: Pulses: 2+ palpable femoral pulses bilaterally, 2+ R DP pulse; L PT w/ triphasic signal, L DP w/ weak monophasic signal Results Result Diagram: 07/28/18 0609 07/27/18 0432 LEONARDA ROMERO MD July 28, 2018 13:23
--- NOTE | 2018-07-28 14:00 | CONS ---
Assessment/Plan Assessment/Plan Hospital Course (Demo Recall) ID PROGRESS NOTE CURRENT ABX: DAY #=> Vanco V + Levaquin + Diflucan 07/28/18 0609 07/27/18 0432 24H INTERVAL SUMMARY * POD #2 -> s/p 07/26/18 Left femoral to posterior tibial bypass using in situ greater saphenous vein. * Doing very well, minimal pain at vascular surgery sites which are well approximated, no drainage noted, elida intact * A/A/O, polite, pleasant, no complaints, tolerating ABX well - expresses gratitude for his surgeon's excellent work * No fevers, VSS, WBC normalized MICRO/OTHER * 07/26/18 (-)MRSA nares * 07/26/18 Urine Cx: URINE CULTURE Preliminary NO GROWTH AFTER 24 HOURS * 07/12/18 BCX (-) * 07/10/18 BCX:(+) 1/2 bottles Organism 1 ENTEROCOCCUS SPECIES Organism 2 WILBERT PARAPSILOSIS * 07/10/18 FOOT WOUND CX WOUND CULTURE Final Organism 1 STENOTROPHOMONAS MALTOPHILIA QUANTITY SCANT GROWTH Organism 2 PSEUDOMONAS PUTIDA QUANTITY 1+ Organism 3 COAGULASE NEGATIVE STAPH QUANTITY SCANT GROWTH Organism 4 ENTEROCOCCUS SPECIES QUANTITY SCANT GROWTH PHYSICAL EXAMINATION: GENERAL: VSS, NAD, OVERWEIGHT HEENT: AT, NC, anicteric, NECK: Supple, CHEST: Equal chest rise bilaterally without dyspnea on observation HEART: Pulse RRR ABDOMEN: soft EXTREMITIES: Warm, dry = =left foot DSG C/D/I SKIN: No rash, no diaphoresis ID ASSESSMENT 72 yo M admit with: 1. Polymicrobial bacteremia/fungemia likely secondary to #2 2. Left great toe cellulitis, gangrene, osteomyelitis 3. Peripheral arterial disease with high-grade left SFA stenosis * POD #2 -> s/p 07/26/18 Left femoral to posterior tibial bypass using in situ greater saphenous vein. 4. Diabetes T2 w/complications of peripheral neuropathy ABX ALLERGIES: KNDA INVASIVES: PIV CURRENT ABX: DAY # = Vanco V + Levaquin + Diflucan ID RECOMMENDATIONS/PLAN: 1. Completing ABX course - to remain on ABX over the weekend 2. Will be covering this 3-day weekend for "[place] [facility] ID" . . Consultation Date/Type/Reason Admit Date/Time July 10, 2018 at 12:52 Initial Consult Date Date/Time of Note DATE: 07/28/18 TIME: 13:56 Exam/Review of Systems Exam Vitals Vital Signs Date Temp Pulse Resp B/P (MAP) Pulse Ox O2 O2 Flow FiO2 Time Delivery Rate 07/28/18 75 12:32 07/28/18 98.1 20 140/65 97 Room Air 11:23 (90) 07/27/18 11:35 Intake and Output 07/27/18 07/27/18 07/28/18 1515:00 23:00 07:00 IntakeIntake Total 250 ml 750 ml 400 ml OutputOutput Total 225 ml 300 ml 450 ml BalanceBalance 25 ml 450 ml -50 ml Results Result Diagram: 07/28/18 0609 07/27/18 0432 Results 24hrs Laboratory Tests Test 07/27/18 17:21 07/27/18 20:36 07/28/18 03:52 07/28/18 06:09 Bedside Glucose 188 213 163 White Blood Count 7.1 # Red Blood Count 3.24 #L Hemoglobin 9.1 L Hematocrit 28.5 L Mean Corpuscular 88.0 Volume Mean Corpuscular 28.1 L Hemoglobin Mean Corpuscular 31.9 L Hemoglobin Concent Red Cell 13.1 Distribution Width Platelet Count 272 # Mean Platelet Volume 9.5 Immature 0.600 H Granulocytes % Neutrophils % 66.1 Lymphocytes % 20.8 Monocytes % 9.3 Eosinophils % 2.4 Basophils % 0.8 Nucleated Red Blood 0.0 Cells % Immature 0.040 H Granulocytes # Neutrophils # 4.7 Lymphocytes # 1.5 Monocytes # 0.7 Eosinophils # 0.2 Basophils # 0.1 Nucleated Red Blood 0.0 Cells # Test 07/28/18 08:44 07/28/18 12:51 Bedside Glucose 164 165 Medications Medication Current Medications Buspirone HCl (Buspar) 10 mg BID PO Last administered on 07/28/18at 10:34; Admin Dose 10 MG; Start 07/10/18 at 21:00 IV Flush (NS 3 ml) 3 ml PER PROTOCOL IV ; Start 07/10/18 at 14:30 Ondansetron HCl (Zofran Inj) 4 mg Q6H PRN IV NAUSEA/VOMITING Last administered on 07/26/18at 11:52; Admin Dose 4 MG; Start 07/10/18 at 14:30 Acetaminophen (Tylenol Tab) 650 mg Q6H PRN PO .PAIN 1-3 OR TEMP; Start 07/10/18 at 14:30 Acetaminophen/ Hydrocodone Bitart ([place] (5/325)) 1 tab Q6H PRN PO .MOD PAIN 4- 6 Last administered on 07/27/18 20:50; Admin Dose 1 TAB; Start 07/10/18 at 14:30 Enoxaparin Sodium (Lovenox) 40 mg DAILY SC Last administered on 07/28/18 10:43; Admin Dose 40 MG; Start 07/11/18 at 09:00 Insulin Glargine (Lantus) 12 units DAILY@2000 SC Last administered on 07/27/18 20:44; Admin Dose 12 UNITS; Start 07/10/18 at 20:00 Vancomycin HCl (Vanco Iv Per Pharmacy) VANCOMYCIN PER PHARMACY PER PROTOCOL XX ; Start 07/10/18 at 14:30 Vancomycin HCl 250 ml @ 125 mls/hr Q12H IVPB Last administered on 07/28/18at 10:35; Admin Dose 125 MLS/HR; Start 07/10/18 at 20:00 Nicotine (Nicoderm 21 Mg/ 24hr) 1 patch DAILY TRANSDERM Last administered on 07/28/18at 10:34; Admin Dose 1 PATCH; Start 07/11/18 at 09:00 Miscellaneous Information 1 ea NOTE XX ; Start 07/11/18 at 06:45 Glucose (Glutose) 15 gm Q15M PRN PO DECREASED GLUCOSE; Start 07/11/18 at 06:45 Glucose (Glutose) 22.5 gm Q15M PRN PO DECREASED GLUCOSE; Start 07/11/18 at 06:45 Dextrose (D50w Syringe) 25 ml Q15M PRN IV DECREASED GLUCOSE; Start 07/11/18 at 06:45 Dextrose (D50w Syringe) 50 ml Q15M PRN IV DECREASED GLUCOSE; Start 07/11/18 at 06:45 Glucagon (Glucagen) 1 mg Q15M PRN IM DECREASED GLUCOSE; Start 07/11/18 at 06:45 Glucose (Glutose) 15 gm Q15M PRN BUCCAL DECREASED GLUCOSE; Start 07/11/18 at 06:45 Levofloxacin (Levaquin) 750 mg DAILY@06 PO Last administered on 07/28/18at 06:12; Admin Dose 750 MG; Start 07/13/18 at 06:00 Bupropion HCl (Wellbutrin Xl) 150 mg DAILY PO Last administered on 07/28/18at 10:34; Admin Dose 150 MG; Start 07/13/18 at 09:00 Docusate Sodium/ Ferrous Fumarate (Cindy-Sequels) 1 tab DAILY PO Last administered on 07/28/18 10:34; Admin Dose 1 TAB; Start 07/13/18 at 10:30; Stop 08/12/18 at 10:29 Atorvastatin Calcium (Lipitor) 20 mg HS PO Last administered on 07/27/18at 20:24; Admin Dose 20 MG; Start 07/13/18 at 21:00 Fish Oil (Fish Oil) 2,000 mg BID PO Last administered on 07/28/18 10:34; Admin Dose 2,000 MG; Start 07/13/18 at 10:30 IV Flush (NS 10 ml) 10 ml PRN PRN IV IV PROTOCOL; Start 07/18/18 at 16:30 Fluconazole (Diflucan) 400 mg DAILY PO Last administered on 07/28/18 10:34; Admin Dose 400 MG; Start 07/19/18 at 09:00 Clopidogrel Bisulfate (plaVIX) 75 mg DAILY PO Last administered on 07/28/18at 10:34; Admin Dose 75 MG; Start 07/26/18 at 11:30 Insulin Aspart (Novolog Insulin Pen) NOVOLOG *MILD* ALGORITHM WITH MEALS BEDTIME SC Last administered on 07/28/18at 12:56; Admin Dose 1 UNIT; Start 07/27/18 at 07:35 Miscellaneous Information (*Rx Drug Level Order Reminder*) VANCO TR LEVEL PRIOR... 0700 ONCE XX ; Start 07/29/18 at 07:00; Stop 07/29/18 at 07:01 DANE ZHOU NP July 28, 2018 14:00
--- NOTE | 2018-07-28 18:55 | PN ---
Date/Time of Note Date/Time of Note DATE: 07/28/18 TIME: 18:53 Assessment/Plan VTE Prophylaxis Risk score (from Nsg)>0 risk: 8 SCD applied (from Ns): Yes Pharmacological prophylaxis: LMWH Lines/Catheters Urinary Cath still in place: No Assessment/Plan Hospital Course 72 yo M w/hx of triglyceridemia, peripheral vascular disease, type 2 diabetes, anxiety/depression, long-standing tobacco use 1 pack/day was told by his doctor to get admitted for inpatient vascular/podiatry work-up for worsening cellulitis with left toe gangrene also noted with severe PAD/osteomyelitis.. 1. Left foot cellulitis -Cellulitis improved -cont. Glycemic control/Wound care -BC 03/08 culture grew crystal P. s/p cancidas=>on Diflucan now - antimicrobial per ID recommendations 2. PAD with left first toe dry gangrene -Onset ~2 mos -Status post Femoral-tibial bypass, follow-up with vascular recommendations -Continue to optimize neurovascular status with antihypertensives to keep blood pressure ~140/90, diet, nutrition, exercise, blood glucose control, and antiplatelets/anticoagulation. 3. Osteomyelitis of left first toe. -Patient will likely now have an amputation since bypass has been completed, follow-up on podiatry recommendations -Continue IV antibiotics for now 4. DMII -well-controlled -Basal/bolus insulin 5. Dyslipidemia/triglyceridemia -on Tricor/statin 6. Anxiety/depression -on Buspar 7. Tobacco abuse -Cessation advised. PRN nicotine patch for withdrawal. 8. Chronic anemia -Stable H&H. Monitor -also getting oral iron DVT prophylaxis: Lovenox DC planning: Patient will likely need amputation of left first toe, follow-up with podiatry and vascular recommendations Result Diagram: 07/28/18 0609 07/27/18 0432 Results 24hrs Laboratory Tests Test 07/27/18 20:36 07/28/18 03:52 07/28/18 06:09 07/28/18 08:44 Bedside Glucose 213 163 164 White Blood Count 7.1 # Red Blood Count 3.24 #L Hemoglobin 9.1 L Hematocrit 28.5 L Mean Corpuscular 88.0 Volume Mean Corpuscular 28.1 L Hemoglobin Mean Corpuscular 31.9 L Hemoglobin Concent Red Cell 13.1 Distribution Width Platelet Count 272 # Mean Platelet Volume 9.5 Immature 0.600 H Granulocytes % Neutrophils % 66.1 Lymphocytes % 20.8 Monocytes % 9.3 Eosinophils % 2.4 Basophils % 0.8 Nucleated Red Blood 0.0 Cells % Immature 0.040 H Granulocytes # Neutrophils # 4.7 Lymphocytes # 1.5 Monocytes # 0.7 Eosinophils # 0.2 Basophils # 0.1 Nucleated Red Blood 0.0 Cells # Test 07/28/18 12:51 07/28/18 17:11 Bedside Glucose 165 193 Subjective 24 Hr Interval Summary Constitutional: no complaints Exam/Review of Systems Exam Vitals Vital Signs Date Temp Pulse Resp B/P (MAP) Pulse Ox O2 O2 Flow FiO2 Time Delivery Rate 07/28/18 70 17:02 07/28/18 98.0 20 136/63 98 Room Air 15:43 (87) 07/27/18 11:35 Intake and Output 07/27/18 07/27/18 07/28/18 1414:59 22:59 06:59 IntakeIntake Total 325 ml 750 ml 400 ml OutputOutput Total 285 ml 300 ml 450 ml BalanceBalance 40 ml 450 ml -50 ml Constitutional: alert, oriented Respiratory: clear to auscultation Cardiovascular: regular rate and rhythm Gastrointestinal: soft; No distended Musculoskeletal: No nl extremities to inspection Results Results 24hrs Laboratory Tests Test 07/27/18 20:36 07/28/18 03:52 07/28/18 06:09 07/28/18 08:44 Bedside Glucose 213 163 164 White Blood Count 7.1 # Red Blood Count 3.24 #L Hemoglobin 9.1 L Hematocrit 28.5 L Mean Corpuscular 88.0 Volume Mean Corpuscular 28.1 L Hemoglobin Mean Corpuscular 31.9 L Hemoglobin Concent Red Cell 13.1 Distribution Width Platelet Count 272 # Mean Platelet Volume 9.5 Immature 0.600 H Granulocytes % Neutrophils % 66.1 Lymphocytes % 20.8 Monocytes % 9.3 Eosinophils % 2.4 Basophils % 0.8 Nucleated Red Blood 0.0 Cells % Immature 0.040 H Granulocytes # Neutrophils # 4.7 Lymphocytes # 1.5 Monocytes # 0.7 Eosinophils # 0.2 Basophils # 0.1 Nucleated Red Blood 0.0 Cells # Test 07/28/18 12:51 07/28/18 17:11 Bedside Glucose 165 193 Medications Medication Current Medications Buspirone HCl (Buspar) 10 mg BID PO Last administered on 07/28/18 10:34; Admin Dose 10 MG; Start 07/10/18 at 21:00 IV Flush (NS 3 ml) 3 ml PER PROTOCOL IV ; Start 07/10/18 at 14:30 Ondansetron HCl (Zofran Inj) 4 mg Q6H PRN IV NAUSEA/VOMITING Last administered on 07/26/18 11:52; Admin Dose 4 MG; Start 07/10/18 at 14:30 Acetaminophen (Tylenol Tab) 650 mg Q6H PRN PO .PAIN 1-3 OR TEMP; Start 07/10/18 at 14:30 Acetaminophen/ Hydrocodone Bitart ([place] (5/325)) 1 tab Q6H PRN PO .MOD PAIN 4- 6 Last administered on 07/27/18 20:50; Admin Dose 1 TAB; Start 07/10/18 at 14:30 Enoxaparin Sodium (Lovenox) 40 mg DAILY SC Last administered on 07/28/18 10:43; Admin Dose 40 MG; Start 07/11/18 at 09:00 Insulin Glargine (Lantus) 12 units DAILY@2000 SC Last administered on 07/27/18 20:44; Admin Dose 12 UNITS; Start 07/10/18 at 20:00 Vancomycin HCl (Vanco Iv Per Pharmacy) VANCOMYCIN PER PHARMACY PER PROTOCOL XX ; Start 07/10/18 at 14:30 Vancomycin HCl 250 ml @ 125 mls/hr Q12H IVPB Last administered on 07/28/18 10:35; Admin Dose 125 MLS/HR; Start 07/10/18 at 20:00 Nicotine (Nicoderm 21 Mg/ 24hr) 1 patch DAILY TRANSDERM Last administered on 07/28/18 10:34; Admin Dose 1 PATCH; Start 07/11/18 at 09:00 Miscellaneous Information 1 ea NOTE XX ; Start 07/11/18 at 06:45 Glucose (Glutose) 15 gm Q15M PRN PO DECREASED GLUCOSE; Start 07/11/18 at 06:45 Glucose (Glutose) 22.5 gm Q15M PRN PO DECREASED GLUCOSE; Start 07/11/18 at 06:45 Dextrose (D50w Syringe) 25 ml Q15M PRN IV DECREASED GLUCOSE; Start 07/11/18 at 06:45 Dextrose (D50w Syringe) 50 ml Q15M PRN IV DECREASED GLUCOSE; Start 07/11/18 at 06:45 Glucagon (Glucagen) 1 mg Q15M PRN IM DECREASED GLUCOSE; Start 07/11/18 at 06:45 Glucose (Glutose) 15 gm Q15M PRN BUCCAL DECREASED GLUCOSE; Start 07/11/18 at 06:45 Levofloxacin (Levaquin) 750 mg DAILY@06 PO Last administered on 07/28/18at 06:12; Admin Dose 750 MG; Start 07/13/18 at 06:00 Bupropion HCl (Wellbutrin Xl) 150 mg DAILY PO Last administered on 07/28/18at 10:34; Admin Dose 150 MG; Start 07/13/18 at 09:00 Docusate Sodium/ Ferrous Fumarate (Cindy-Sequels) 1 tab DAILY PO Last administered on 07/28/18at 10:34; Admin Dose 1 TAB; Start 07/13/18 at 10:30; Stop 08/12/18 at 10:29 Atorvastatin Calcium (Lipitor) 20 mg HS PO Last administered on 07/27/18at 20:24; Admin Dose 20 MG; Start 07/13/18 at 21:00 Fish Oil (Fish Oil) 2,000 mg BID PO Last administered on 07/28/18at 10:34; Admin Dose 2,000 MG; Start 07/13/18 at 10:30 IV Flush (NS 10 ml) 10 ml PRN PRN IV IV PROTOCOL; Start 07/18/18 at 16:30 Fluconazole (Diflucan) 400 mg DAILY PO Last administered on 07/28/18at 10:34; Ad min Dose 400 MG; Start 07/19/18 at 09:00 Clopidogrel Bisulfate (plaVIX) 75 mg DAILY PO Last administered on 07/28/18at 10:34; Admin Dose 75 MG; Start 07/26/18 at 11:30 Insulin Aspart (Novolog Insulin Pen) NOVOLOG *MILD* ALGORITHM WITH MEALS BEDTIME SC Last administered on 07/28/18at 17:15; Admin Dose 2 UNIT; Start 07/27/18 at 07:35 Miscellaneous Information (*Rx Drug Level Order Reminder*) VANCO TR LEVEL PRIOR... 0700 ONCE XX ; Start 07/29/18 at 07:00; Stop 07/29/18 at 07:01 JP ADAMS July 28, 2018 18:55
[2018-07-28] MEDS: HYDROCODONE/APAP (5/325) TAB PO PRN (20:25)
[2018-07-28] MEDS: ATORVASTATIN 20 MG TAB PO SCH (20:25)
[2018-07-28] MEDS: INSULIN GLARGINE [LANTus] (100 UNITS/ML) SYG SC SCH (20:37)
[2018-07-29] VITALS (12 sets, daily range): BP systolic 14–152; BP diastolic 61–68; PULSE 62–101; RESP 18–20
[2018-07-29] MEDS: LEVOFLOXACIN 750 MG TABLET PO SCH (06:27)
[2018-07-29] MEDS: INSULIN ASPART [NOVOLOG] 3 ML PEN SC SCH ×4 (08:26→20:25)
[2018-07-29] MEDS: VANCOMYCIN 1 GM 250 ML IVPB SCH ×2 (09:23→20:22)
[2018-07-29] MEDS: FERROUS FUMARATE (SR) TAB PO SCH (09:24)
[2018-07-29] MEDS: BUSPIRONE 10 MG TAB PO SCH ×2 (09:24→20:35)
[2018-07-29] MEDS: NICOTINE (21 MG/24 HR) PATCH TRANSDERM SCH (09:24)
[2018-07-29] MEDS: FISH OIL 1,000 MG CAP PO SCH ×2 (09:24→20:22)
[2018-07-29] MEDS: BUPROPION (XL) 150 MG TAB PO SCH (09:24)
[2018-07-29] MEDS: FLUCONAZOLE 200 MG TAB PO SCH (09:24)
[2018-07-29] MEDS: CLOPIDOGREL 75 MG TAB PO SCH (09:24)
[2018-07-29] MEDS: ENOXAPARIN 40 MG/0.4 ML SYG SC SCH (09:29)
--- NOTE | 2018-07-29 09:59 | CONS ---
Assessment/Plan Assessment/Plan Assessment/Plan (Daily) Left foot dry gangrene Left foot cellulitis Left foot osteomyelitis PAD - s/p left lower extremity fem to PT bypass DM2 with peripheral neuropathy Nicotine dependence Plan Appreciate vascular surgery input. Plan for left hallux amputation this week. Discussed smoking cessation and educated patient on adverse effects of blood flow. Continue with IV abx per recommendations. Betadine paint to the gangrene area. Consultation Date/Type/Reason Admit Date/Time July 10, 2018 at 12:52 Initial Consult Date Date/Time of Note DATE: 07/29/18 TIME: 09:59 24 HR Interval Summary Free Text/Dictation No acute events overnight. Exam/Review of Systems Exam Vitals Vital Signs Date Temp Pulse Resp B/P (MAP) Pulse Ox O2 O2 Flow FiO2 Time Delivery Rate 07/29/18 68 08:00 07/29/18 97.7 20 145/66 94 Room Air 07:23 (92) 07/27/18 11:35 Intake and Output 07/28/18 07/28/18 07/29/18 1515:00 23:00 07:00 IntakeIntake Total 250 ml 1150 ml 600 ml OutputOutput Total 1400 ml 300 ml BalanceBalance 250 ml -250 ml 300 ml Exam Non palpable DP, palpable PT pulse of the left lower extremity absent protective sensations right 2nd digit dry hypkeratotic lesion with underlying mycotic toe nail Left hallux dry gangrene with decreased erythema Left lateral malleolus dry eschar Muscle strength 5/5 in all compartments of the foot Mild pain on palpation to left hallux gangrene site. Foot X-ray IMPRESSION: Unremarkable left foot x-ray series. In the setting of suspected infection, MRI is recommended to exclude osteomyelitis. Non invasive Arterial studies IMPRESSION: Patent left lower extremity arteries with no arterial occlusion identified. Elevated peak systolic velocity in the mid superficial femoral artery, consistent with a greater than 75% stenosis. There are monophasic waveforms in the arteries beyond this point, indicating diminished inflow due to the upstream stenosis. Foot MRI IMPRESSION: 1. Probable skin ulceration at the medial aspect of the first proximal phalanx. 2. Findings of early osteomyelitis at the first distal phalanx and head of the proximal phalanx. 3. Additional focus of abnormal bone marrow signal at the head of the second proximal phalanx, which could be from early ischemic change or stress-related versus less likely early osteomyelitis, unless there is an also an ulcer in this region. 4. No evidence for abscess. Results Result Diagram: 07/28/18 0609 07/29/18 0703 Results 24hrs Laboratory Tests Test 07/28/18 12:51 07/28/18 17:11 07/28/18 20:31 07/29/18 07:03 Bedside Glucose 165 193 216 Blood Urea Nitrogen 24 H Creatinine 0.93 Vancomycin Level 14.4 Trough Test 07/29/18 08:04 Bedside Glucose 159 Medications Medication Current Medications Buspirone HCl (Buspar) 10 mg BID PO Last administered on 07/29/18 09:24; Admin Dose 10 MG; Start 07/10/18 at 21:00 IV Flush (NS 3 ml) 3 ml PER PROTOCOL IV ; Start 07/10/18 at 14:30 Ondansetron HCl (Zofran Inj) 4 mg Q6H PRN IV NAUSEA/VOMITING Last administered on 07/26/18 11:52; Admin Dose 4 MG; Start 07/10/18 at 14:30 Acetaminophen (Tylenol Tab) 650 mg Q6H PRN PO .PAIN 1-3 OR TEMP; Start 07/10/18 at 14:30 Acetaminophen/ Hydrocodone Bitart ([place] (5/325)) 1 tab Q6H PRN PO .MOD PAIN 4- 6 Last administered on 07/28/18 20:25; Admin Dose 1 TAB; Start 07/10/18 at 14:30 Enoxaparin Sodium (Lovenox) 40 mg DAILY SC Last administered on 07/29/18 09:29; Admin Dose 40 MG; Start 07/11/18 at 09:00 Insulin Glargine (Lantus) 12 units DAILY@2000 SC Last administered on 07/28/18 20:37; Admin Dose 12 UNITS; Start 07/10/18 at 20:00 Vancomycin HCl (Vanco Iv Per Pharmacy) VANCOMYCIN PER PHARMACY PER PROTOCOL XX ; Start 07/10/18 at 14:30 Vancomycin HCl 250 ml @ 125 mls/hr Q12H IVPB Last administered on 07/29/18 09:23; Admin Dose 125 MLS/HR; Start 07/10/18 at 20:00 Nicotine (Nicoderm 21 Mg/ 24hr) 1 patch DAILY TRANSDERM Last administered on 5/27/19at 09:24; Admin Dose 1 PATCH; Start 07/11/18 at 09:00 Miscellaneous Information 1 ea NOTE XX ; Start 07/11/18 at 06:45 Glucose (Glutose) 15 gm Q15M PRN PO DECREASED GLUCOSE; Start 07/11/18 at 06:45 Glucose (Glutose) 22.5 gm Q15M PRN PO DECREASED GLUCOSE; Start 07/11/18 at 06:45 Dextrose (D50w Syringe) 25 ml Q15M PRN IV DECREASED GLUCOSE; Start 07/11/18 at 06:45 Dextrose (D50w Syringe) 50 ml Q15M PRN IV DECREASED GLUCOSE; Start 07/11/18 at 06:45 Glucagon (Glucagen) 1 mg Q15M PRN IM DECREASED GLUCOSE; Start 07/11/18 at 06:45 Glucose (Glutose) 15 gm Q15M PRN BUCCAL DECREASED GLUCOSE; Start 07/11/18 at 06:45 Levofloxacin (Levaquin) 750 mg DAILY@06 PO Last administered on 07/29/18at 06:27; Admin Dose 750 MG; Start 07/13/18 at 06:00 Bupropion HCl (Wellbutrin Xl) 150 mg DAILY PO Last administered on 07/29/18at 09:24; Admin Dose 150 MG; Start 07/13/18 at 09:00 Docusate Sodium/ Ferrous Fumarate (Cindy-Sequels) 1 tab DAILY PO Last administered on 07/29/18at 09:24; Admin Dose 1 TAB; Start 07/13/18 at 10:30; Stop 08/12/18 at 10:29 Atorvastatin Calcium (Lipitor) 20 mg HS PO Last administered on 07/28/18at 20:25; Admin Dose 20 MG; Start 07/13/18 at 21:00 Fish Oil (Fish Oil) 2,000 mg BID PO Last administered on 07/29/18at 09:24; Admin Dose 2,000 MG; Start 07/13/18 at 10:30 IV Flush (NS 10 ml) 10 ml PRN PRN IV IV PROTOCOL; Start 07/18/18 at 16:30 Fluconazole (Diflucan) 400 mg DAILY PO Last administered on 07/29/18at 09:24; Admin Dose 400 MG; Start 07/19/18 at 09:00 Clopidogrel Bisulfate (plaVIX) 75 mg DAILY PO Last administered on 07/29/18 09:24; Admin Dose 75 MG; Start 07/26/18 at 11:30 Insulin Aspart (Novolog Insulin Pen) NOVOLOG *MILD* ALGORITHM WITH MEALS BEDTIME SC Last administered on 07/29/18 08:26; Admin Dose 1 UNIT; Start 07/27/18 at 07:35 LUIS FERNANDO BREAUX DPM July 29, 2018 09:59
--- NOTE | 2018-07-29 10:58 | PN ---
Date/Time of Note Date/Time of Note DATE: 07/29/18 TIME: 10:56 Assessment/Plan Lines/Catheters IV Catheter Type (from Nrs): PICC Line Gaitan in Place (from Nrs): No Assessment/Plan Assessment/Plan Doing well s/p L fem-PT bypass - 2+ PT pulse Antibiotics per ID OK for d/c from my standpoint after toe amputation Subjective 24 Hr Interval Summary No c/o. Ambulating well. Eating well. Voiding OK after gaitan was removed. Exam/Review of Systems Vital Signs Vitals Vital Signs Date Temp Pulse Resp B/P (MAP) Pulse Ox O2 O2 Flow FiO2 Time Delivery Rate 07/29/18 68 08:00 07/29/18 97.7 20 145/66 94 Room Air 07:23 (92) 07/27/18 11:35 Intake and Output 07/28/18 07/28/18 07/29/18 1515:00 23:00 07:00 IntakeIntake Total 250 ml 1150 ml 600 ml OutputOutput Total 1400 ml 300 ml BalanceBalance 250 ml -250 ml 300 ml Exam Free Text/Dictation L leg incisions all clean and dry, no hematoma or erythema 3+ graft and 2+ PT pulse L foot is warm and hyperemic, 2+ edema. 1st toe has demarcated and mummified, no erythema or drainage Results Result Diagram: 07/28/18 0609 07/29/18 0703 DAGOBERTO BRANNON MD July 29, 2018 10:58
--- NOTE | 2018-07-29 11:43 | PAC ---
Date/Time of Note Date/Time of Note DATE: 07/29/18 TIME: 11:43 Post-Anesthesia Notes Post-Anesthesia Note Last documented vital signs Vital Signs Date Temp Pulse Resp B/P (MAP) Pulse Ox O2 O2 Flow FiO2 Time Delivery Rate 07/29/18 97.8 67 20 135/61 97 Room Air 11:24 (85) 07/27/18 11:35 Activity: WNL Respiratory function: WNL Cardiovascular function: WNL Mental status: Baseline Pain reasonably controlled: Yes Hydration appropriate: Yes Nausea/Vomiting absent: Yes ALANIS ROBIN July 29, 2018 11:43
[2018-07-29] MEDS: ATORVASTATIN 20 MG TAB PO SCH (20:23)
[2018-07-29] MEDS: INSULIN GLARGINE [LANTus] (100 UNITS/ML) SYG SC SCH (20:34)
[2018-07-29] MEDS: HYDROCODONE/APAP (5/325) TAB PO PRN (20:41)
[2018-07-30] VITALS (11 sets, daily range): BP systolic 113–175; BP diastolic 60–85; PULSE 67–83; RESP 16–20
[2018-07-30] MEDS: LEVOFLOXACIN 750 MG TABLET PO SCH (05:44)
[2018-07-30] MEDS: INSULIN ASPART [NOVOLOG] 3 ML PEN SC SCH ×4 (08:00→20:28)
[2018-07-30] MEDS: BUSPIRONE 10 MG TAB PO SCH ×2 (09:00→20:29)
[2018-07-30] MEDS: BUPROPION (XL) 150 MG TAB PO SCH (09:00)
[2018-07-30] MEDS ORDERED: INSULIN ASPART [NOVOLOG] 3 ML PEN SC SCH (09:00)
[2018-07-30] MEDS: FLUCONAZOLE 200 MG TAB PO SCH (09:21)
[2018-07-30] MEDS: FERROUS FUMARATE (SR) TAB PO SCH (09:21)
[2018-07-30] MEDS: VANCOMYCIN 1 GM 250 ML IVPB SCH ×2 (09:21→20:25)
[2018-07-30] MEDS: CLOPIDOGREL 75 MG TAB PO SCH (09:22)
[2018-07-30] MEDS: NICOTINE (21 MG/24 HR) PATCH TRANSDERM SCH (09:22)
[2018-07-30] MEDS: FISH OIL 1,000 MG CAP PO SCH ×2 (09:22→20:26)
[2018-07-30] MEDS: ENOXAPARIN 40 MG/0.4 ML SYG SC SCH (09:26)
--- NOTE | 2018-07-30 14:47 | CONS ---
Assessment/Plan Assessment/Plan Hospital Course (Demo Recall) Alert, feels good, no fevers overnight Blood culture on 07/10/18 grew enterococcus and Jennifer parapsilosis, repeat blood cultures negative Microbiology: Wound culture grew stenotrophomonas maltophilia, Pseudomonas enterococcus species and coag negative staph species, repeat blood cultures neg ative Antimicrobials: Diflucan, oral Levaquin, Vancomycin Physical examination: This is a well-developed fragile elderly man who is alert in no distress. Head atraumatic normocephalic sclera nonicteric vehicle mucosa dry neck is supple chest rise symmetrical breath sounds diminished bases heart: S1-S2. Abdomen soft bowel sounds present. Extremities with left great toe gangrene ASSESSMENT: 1. Polymicrobial bacteremia/fungemia likely secondary to #2 2. Left great toe cellulitis, gangrene, osteomyelitis 3. Peripheral arterial disease with high-grade left SFA stenosis==> s/p Fem- Tibial Bypass 4. Diabetes Plan: Remains stable postoperatively, continue antibiotics, pending infected toe amputation Consultation Date/Type/Reason Admit Date/Time July 10, 2018 at 12:52 Initial Consult Date Type of Consult id Date/Time of Note DATE: 07/30/18 TIME: 14:45 Exam/Review of Systems Exam Vitals Vital Signs Date Temp Pulse Resp B/P (MAP) Pulse Ox O2 O2 Flow FiO2 Time Delivery Rate 07/30/18 71 12:01 07/30/18 97.5 16 113/60 97 11:52 (77) 07/30/18 Ambu Bag 04:33 07/27/18 11:35 Intake and Output 07/29/18 07/29/18 07/30/18 1515:00 23:00 07:00 IntakeIntake Total 250 ml 850 ml 500 ml OutputOutput Total 750 ml 625 ml BalanceBalance 250 ml 100 ml -125 ml Results Result Diagram: 07/28/18 0609 07/29/18 0703 Results 24hrs Laboratory Tests Test 07/29/18 17:35 07/29/18 20:24 07/30/18 07:08 07/30/18 08:54 Bedside Glucose 158 177 127 127 Test 07/30/18 12:11 Bedside Glucose 174 Medications Medication Current Medications Buspirone HCl (Buspar) 10 mg BID PO Last administered on 07/29/18at 09:24; Admin Dose 10 MG; Start 07/10/18 at 21:00 IV Flush (NS 3 ml) 3 ml PER PROTOCOL IV ; Start 07/10/18 at 14:30 Ondansetron HCl (Zofran Inj) 4 mg Q6H PRN IV NAUSEA/VOMITING Last administered on 07/26/18 11:52; Admin Dose 4 MG; Start 07/10/18 at 14:30 Acetaminophen (Tylenol Tab) 650 mg Q6H PRN PO .PAIN 1-3 OR TEMP; Start 07/10/18 at 14:30 Acetaminophen/ Hydrocodone Bitart ([place] (5/325)) 1 tab Q6H PRN PO .MOD PAIN 4- 6 Last administered on 07/29/18 20:41; Admin Dose 1 TAB; Start 07/10/18 at 14:30 Enoxaparin Sodium (Lovenox) 40 mg DAILY SC Last administered on 07/30/18 09:26; Admin Dose 40 MG; Start 07/11/18 at 09:00 Insulin Glargine (Lantus) 12 units DAILY@2000 SC Last administered on 07/29/18 20:34; Admin Dose 12 UNITS; Start 07/10/18 at 20:00 Vancomycin HCl (Vanco Iv Per Pharmacy) VANCOMYCIN PER PHARMACY PER PROTOCOL XX ; Start 07/10/18 at 14:30 Vancomycin HCl 250 ml @ 125 mls/hr Q12H IVPB Last administered on 07/30/18 09:21; Admin Dose 125 MLS/HR; Start 07/10/18 at 20:00 Nicotine (Nicoderm 21 Mg/ 24hr) 1 patch DAILY TRANSDERM Last administered on 07/30/18 09:22; Admin Dose 1 PATCH; Start 07/11/18 at 09:00 Miscellaneous Information 1 ea NOTE XX ; Start 07/11/18 at 06:45 Glucose (Glutose) 15 gm Q15M PRN PO DECREASED GLUCOSE; Start 07/11/18 at 06:45 Glucose (Glutose) 22.5 gm Q15M PRN PO DECREASED GLUCOSE; Start 07/11/18 at 06:45 Dextrose (D50w Syringe) 25 ml Q15M PRN IV DECREASED GLUCOSE; Start 07/11/18 at 06:45 Dextrose (D50w Syringe) 50 ml Q15M PRN IV DECREASED GLUCOSE; Start 07/11/18 at 06:45 Glucagon (Glucagen) 1 mg Q15M PRN IM DECREASED GLUCOSE; Start 07/11/18 at 06:45 Glucose (Glutose) 15 gm Q15M PRN BUCCAL DECREASED GLUCOSE; Start 07/11/18 at 06:45 Levofloxacin (Levaquin) 750 mg DAILY@06 PO Last administered on 07/30/18at 05:44; Admin Dose 750 MG; Start 07/13/18 at 06:00 Bupropion HCl (Wellbutrin Xl) 150 mg DAILY PO Last administered on 07/29/18 09:24; Admin Dose 150 MG; Start 07/13/18 at 09:00 Docusate Sodium/ Ferrous Fumarate (Cindy-Sequels) 1 tab DAILY PO Last administered on 07/30/18 09:21; Admin Dose 1 TAB; Start 07/13/18 at 10:30; Stop 08/12/18 at 10:29 Atorvastatin Calcium (Lipitor) 20 mg HS PO Last administered on 07/29/18at 20:23; Admin Dose 20 MG; Start 07/13/18 at 21:00 Fish Oil (Fish Oil) 2,000 mg BID PO Last administered on 07/30/18 09:22; Admin Dose 2,000 MG; Start 07/13/18 at 10:30 IV Flush (NS 10 ml) 10 ml PRN PRN IV IV PROTOCOL; Start 07/18/18 at 16:30 Fluconazole (Diflucan) 400 mg DAILY PO Last administered on 07/30/18 09:21; Admin Dose 400 MG; Start 07/19/18 at 09:00 Clopidogrel Bisulfate (plaVIX) 75 mg DAILY PO Last administered on 07/30/18 09:22; Admin Dose 75 MG; Start 07/26/18 at 11:30 Insulin Aspart (Novolog Insulin Pen) NOVOLOG *MILD* ALGORI... AC MEALS AND BEDTIME SC Last administered on 07/30/18 12:43; Admin Dose 1 UNIT; Start 07/30/18 at 08:00 JUAN GARCIA NP July 30, 2018 14:47
--- NOTE | 2018-07-30 15:57 | PN ---
Date/Time of Note Date/Time of Note DATE: 07/30/18 TIME: 15:57 Assessment/Plan VTE Prophylaxis Risk score (from Nsg)>0 risk: 12 SCD applied (from Nsg): Yes Pharmacological prophylaxis: heparin Lines/Catheters IV Catheter Type (from Nrsg): PICC Line Central line still needed: Yes Urinary Cath still in place: No Assessment/Plan Hospital Course 72 yo M w/hx of triglyceridemia, peripheral vascular disease, type 2 diabetes, anxiety/depression, long-standing tobacco use 1 pack/day was told by his doctor to get admitted for inpatient vascular/podiatry work-up for worsening cellulitis with left toe gangrene also noted with severe PAD/osteomyelitis.. 1. Left foot cellulitis -Cellulitis improved -cont. Glycemic control/Wound care -BC 03/08 culture grew crystal P. s/p cancidas=>on Diflucan now - antimicrobial per ID recommendations 2. PAD with left first toe dry gangrene -Onset ~2 mos -Status post Femoral-tibial bypass, follow-up with vascular recommendations -Continue to optimize neurovascular status with antihypertensives to keep blood pressure ~140/90, diet, nutrition, exercise, blood glucose control, and antiplatelets/anticoagulation. 3. Osteomyelitis of left first toe. -Patient will likely now have an amputation since bypass has been completed, follow-up on podiatry recommendations -Continue IV antibiotics for now 4. DMII -well-controlled -Basal/bolus insulin 5. Dyslipidemia/triglyceridemia -on Tricor/statin 6. Anxiety/depression -on Buspar 7. Tobacco abuse -Cessation advised. PRN nicotine patch for withdrawal. 8. Chronic anemia -Stable H&H. Monitor -also getting oral iron DVT prophylaxis: Lovenox DC planning: Patient will likely need amputation of left first toe, follow-up with podiatry and vascular recommendations Result Diagram: 07/28/18 0609 07/29/18 0703 Results 24hrs Laboratory Tests Test 07/29/18 17:35 07/29/18 20:24 07/30/18 07:08 07/30/18 08:54 Bedside Glucose 158 177 127 127 Test 07/30/18 12:11 Bedside Glucose 174 Subjective 24 Hr Interval Summary Free Text/Dictation Stable Awaiting toe amputation tomorrow Exam/Review of Systems Exam Vitals Vital Signs Date Temp Pulse Resp B/P (MAP) Pulse Ox O2 O2 Flow FiO2 Time Delivery Rate 07/30/18 97.8 82 16 160/80 100 15:38 (106) 07/30/18 Ambu Bag 04:33 07/27/18 11:35 Intake and Output 07/29/18 07/29/18 07/30/18 1515:00 23:00 07:00 IntakeIntake Total 250 ml 850 ml 500 ml OutputOutput Total 750 ml 625 ml BalanceBalance 250 ml 100 ml -125 ml Constitutional: alert, oriented, well developed Psych: no complaints, nl mood/affect Head: normocephalic, atraumatic Eyes: nl conjunctiva, EOMI, nl lids, nl sclera, PERRL ENMT: nl external ears & nose, nl lips & teeth, nl nasal mucosa & septum Neck: supple, non-tender Respiratory: clear to auscultation, normal air movement Cardiovascular: regular rate and rhythm, nl pulses Gastrointestinal: soft, nl liver, spleen, non-tender Musculoskeletal: nl extremities to inspection, nl gait and stance Extremities: normal pulses Neurological: QUANTITATIVE ANALYST II-XII intact, nl mental status, nl speech, nl strength Skin: nl turgor; No rash or lesions Lymph: nl lymph nodes Results Results 24hrs Laboratory Tests Test 07/29/18 17:35 07/29/18 20:24 07/30/18 07:08 07/30/18 08:54 Bedside Glucose 158 177 127 127 Test 07/30/18 12:11 Bedside Glucose 174 Medications Medication Current Medications Buspirone HCl (Buspar) 10 mg BID PO Last administered on 07/29/18at 09:24; Admin Dose 10 MG; Start 07/10/18 at 21:00 IV Flush (NS 3 ml) 3 ml PER PROTOCOL IV ; Start 07/10/18 at 14:30 Ondansetron HCl (Zofran Inj) 4 mg Q6H PRN IV NAUSEA/VOMITING Last administered on 07/26/18at 11:52; Admin Dose 4 MG; Start 07/10/18 at 14:30 Acetaminophen (Tylenol Tab) 650 mg Q6H PRN PO .PAIN 1-3 OR TEMP; Start 07/10/18 at 14:30 Acetaminophen/ Hydrocodone Bitart ([place] (5/325)) 1 tab Q6H PRN PO .MOD PAIN 4- 6 Last administered on 07/29/18at 20:41; Admin Dose 1 TAB; Start 07/10/18 at 14:30 Enoxaparin Sodium (Lovenox) 40 mg DAILY SC Last administered on 07/30/18 09:26; Admin Dose 40 MG; Start 07/11/18 at 09:00 Insulin Glargine (Lantus) 12 units DAILY@2000 SC Last administered on 07/29/18at 20:34; Admin Dose 12 UNITS; Start 07/10/18 at 20:00 Vancomycin HCl (Vanco Iv Per Pharmacy) VANCOMYCIN PER PHARMACY PER PROTOCOL XX ; Start 07/10/18 at 14:30 Vancomycin HCl 250 ml @ 125 mls/hr Q12H IVPB Last administered on 07/30/18 09:21; Admin Dose 125 MLS/HR; Start 07/10/18 at 20:00 Nicotine (Nicoderm 21 Mg/ 24hr) 1 patch DAILY TRANSDERM Last administered on 07/30/18at 09:22; Admin Dose 1 PATCH; Start 07/11/18 at 09:00 Miscellaneous Information 1 ea NOTE XX ; Start 07/11/18 at 06:45 Glucose (Glutose) 15 gm Q15M PRN PO DECREASED GLUCOSE; Start 07/11/18 at 06:45 Glucose (Glutose) 22.5 gm Q15M PRN PO DECREASED GLUCOSE; Start 07/11/18 at 06:45 Dextrose (D50w Syringe) 25 ml Q15M PRN IV DECREASED GLUCOSE; Start 07/11/18 at 06:45 Dextrose (D50w Syringe) 50 ml Q15M PRN IV DECREASED GLUCOSE; Start 07/11/18 at 06:45 Glucagon (Glucagen) 1 mg Q15M PRN IM DECREASED GLUCOSE; Start 07/11/18 at 06:45 Glucose (Glutose) 15 gm Q15M PRN BUCCAL DECREASED GLUCOSE; Start 07/11/18 at 06:45 Levofloxacin (Levaquin) 750 mg DAILY@06 PO Last administered on 07/30/18at 05:44; Admin Dose 750 MG; Start 07/13/18 at 06:00 Bupropion HCl (Wellbutrin Xl) 150 mg DAILY PO Last administered on 07/29/18at 09:24; Admin Dose 150 MG; Start 07/13/18 at 09:00 Docusate Sodium/ Ferrous Fumarate (Cindy-Sequels) 1 tab DAILY PO Last administered on 07/30/18 09:21; Admin Dose 1 TAB; Start 07/13/18 at 10:30; Stop 08/12/18 at 10:29 Atorvastatin Calcium (Lipitor) 20 mg HS PO Last administered on 07/29/18 20:23; Admin Dose 20 MG; Start 07/13/18 at 21:00 Fish Oil (Fish Oil) 2,000 mg BID PO Last administered on 07/30/18 09:22; Admin Dose 2,000 MG; Start 07/13/18 at 10:30 IV Flush (NS 10 ml) 10 ml PRN PRN IV IV PROTOCOL; Start 07/18/18 at 16:30 Clopidogrel Bisulfate (plaVIX) 75 mg DAILY PO Last administered on 07/30/18 09:22; Admin Dose 75 MG; Start 07/26/18 at 11:30 Insulin Aspart (Novolog Insulin Pen) NOVOLOG *MILD* ALGORI... AC MEALS AND BEDTIME SC Last administered on 07/30/18 12:43; Admin Dose 1 UNIT; Start 07/30/18 at 08:00 LEE JULIEN MD July 30, 2018 15:57
--- NOTE | 2018-07-30 18:02 | PREAC ---
Date/Time of Note Date/Time of Note DATE: 07/30/18 TIME: 18:01 Anesthesia Eval and Record Evaluation Time Pre-Procedure Interview DATE: 07/30/18 TIME: 18:01 Age 72 Sex male NPO: 8 hrs Preoperative diagnosis Left foot dry gangrene Planned procedure LEFT HALLUX AMPUTATION Past Medical History Past Medical History: Includes Cardio: Dyslipidemia, Other (peripheral vascular disease) Endo: Diabetes Pulm: Smoking Hx Psych: Depression, Anxiety Surgery & Anesthesia Issues No known issue Meds Anticoagulation: No Beta Venkat within 24 hr: No Reason Beta Venkat not given: Pt. not on B-Venkat Active Scripts Glipizide* (Glipizide*) 5 Mg Tablet, 5 MG PO AC BREAKFAST DINNER, #60 TAB Prov:PITTMANEDDIE V. MANAGER CARDIAC CATH 07/20/18 Bupropion Hcl* (Bupropion XL*) 150 Mg Tab.er.24h, 150 MG PO DAILY, #30 TAB Prov:PITTMANEDDIE V. MANAGER CARDIAC CATH 07/20/18 [place]-3/Dha/Epa/Fish Oil (Fish Oil 1,000 mg Softgel) 1,000 Mg Capsule, 2000 MG PO BID, #60 CAP Prov:PITTMANEDDIE V. MANAGER CARDIAC CATH 07/20/18 Atorvastatin Calcium (Atorvastatin Calcium) 20 Mg Tablet, 20 MG PO HS, #30 TAB Prov:PITTMANEDDIE V. MANAGER CARDIAC CATH 07/20/18 Ferrous Fumarate/Ascorbic Acid (Cindy-Sequels 65-25 mg Caplet) 1 Each Tablet.er, 1 TAB PO DAILY, #30 TAB Prov:PITTMANEDDIE V. MANAGER CARDIAC CATH 07/20/18 Levofloxacin* (Levaquin*) 750 Mg Tablet, 750 MG PO DAILY@06 for 40 Days, #40 TAB Prov:EDDIE PITTMAN V. MANAGER CARDIAC CATH 07/20/18 Fluconazole* (Diflucan*) 200 Mg Tablet, 400 MG PO DAILY, #7 TAB Prov:EDDIE PITTMAN V. MANAGER CARDIAC CATH 07/20/18 Reported Medications Fenofibrate, Micronized (Fenofibrate) 134 Mg Capsule, 1 CAP ORAL DAILY 07/10/18 Buspirone Hcl* (Buspirone Hcl*) 10 Mg Tab, 1 TAB ORAL BID 07/10/18 Pioglitazone Hcl* (Pioglitazone Hcl*) 30 Mg Tablet, 1 TAB ORAL DAILY 07/10/18 Glipizide* (Glipizide*) 10 Mg Tablet, 1 TAB ORAL BID 07/10/18 Current Medications Buspirone HCl (Buspar) 10 mg BID PO Last administered on 07/29/18 09:24; Admin Dose 10 MG; Start 07/10/18 at 21:00 IV Flush (NS 3 ml) 3 ml PER PROTOCOL IV ; Start 07/10/18 at 14:30 Ondansetron HCl (Zofran Inj) 4 mg Q6H PRN IV NAUSEA/VOMITING Last administered on 07/26/18 11:52; Admin Dose 4 MG; Start 07/10/18 at 14:30 Acetaminophen (Tylenol Tab) 650 mg Q6H PRN PO .PAIN 1-3 OR TEMP; Start 07/10/18 at 14:30 Acetaminophen/ Hydrocodone Bitart ([place] (5/325)) 1 tab Q6H PRN PO .MOD PAIN 4- 6 Last administered on 07/29/18 20:41; Admin Dose 1 TAB; Start 07/10/18 at 14:30 Enoxaparin Sodium (Lovenox) 40 mg DAILY SC Last administered on 07/30/18 09:26; Admin Dose 40 MG; Start 07/11/18 at 09:00 Insulin Glargine (Lantus) 12 units DAILY@2000 SC Last administered on 07/29/18 20:34; Admin Dose 12 UNITS; Start 07/10/18 at 20:00 Vancomycin HCl (Vanco Iv Per Pharmacy) VANCOMYCIN PER PHARMACY PER PROTOCOL XX ; Start 07/10/18 at 14:30 Vancomycin HCl 250 ml @ 125 mls/hr Q12H IVPB Last administered on 07/30/18 09:21; Admin Dose 125 MLS/HR; Start 07/10/18 at 20:00 Nicotine (Nicoderm 21 Mg/ 24hr) 1 patch DAILY TRANSDERM Last administered on 07/30/18 09:22; Admin Dose 1 PATCH; Start 07/11/18 at 09:00 Miscellaneous Information 1 ea NOTE XX ; Start 07/11/18 at 06:45 Glucose (Glutose) 15 gm Q15M PRN PO DECREASED GLUCOSE; Start 07/11/18 at 06:45 Glucose (Glutose) 22.5 gm Q15M PRN PO DECREASED GLUCOSE; Start 07/11/18 at 06:45 Dextrose (D50w Syringe) 25 ml Q15M PRN IV DECREASED GLUCOSE; Start 07/11/18 at 06:45 Dextrose (D50w Syringe) 50 ml Q15M PRN IV DECREASED GLUCOSE; Start 07/11/18 at 06:45 Glucagon (Glucagen) 1 mg Q15M PRN IM DECREASED GLUCOSE; Start 07/11/18 at 06:45 Glucose (Glutose) 15 gm Q15M PRN BUCCAL DECREASED GLUCOSE; Start 07/11/18 at 06:45 Levofloxacin (Levaquin) 750 mg DAILY@06 PO Last administered on 07/30/18at 05:44; Admin Dose 750 MG; Start 07/13/18 at 06:00 Bupropion HCl (Wellbutrin Xl) 150 mg DAILY PO Last administered on 07/29/18at 09:24; Admin Dose 150 MG; Start 07/13/18 at 09:00 Docusate Sodium/ Ferrous Fumarate (Cindy-Sequels) 1 tab DAILY PO Last administered on 07/30/18at 09:21; Admin Dose 1 TAB; Start 07/13/18 at 10:30; Stop 08/12/18 at 10:29 Atorvastatin Calcium (Lipitor) 20 mg HS PO Last administered on 07/29/18at 20:23; Admin Dose 20 MG; Start 07/13/18 at 21:00 Fish Oil (Fish Oil) 2,000 mg BID PO Last administered on 07/30/18at 09:22; Admin Dose 2,000 MG; Start 07/13/18 at 10:30 IV Flush (NS 10 ml) 10 ml PRN PRN IV IV PROTOCOL; Start 07/18/18 at 16:30 Clopidogrel Bisulfate (plaVIX) 75 mg DAILY PO Last administered on 07/30/18 09:22; Admin Dose 75 MG; Start 07/26/18 at 11:30 Insulin Aspart (Novolog Insulin Pen) NOVOLOG *MILD* ALGORI... AC MEALS AND B EDTIME SC Last administered on 07/30/18at 17:23; Admin Dose 1 UNIT; Start 07/30/18 at 08:00 Meds reviewed: Yes Allergies Coded Allergies: aspirin (Verified Allergy, Mild, VOMITING, 01/27/09) Allergies Reviewed: Yes Labs/Studies Labs Reviewed: Reviewed by anesthesiologist Result Diagram: 07/28/18 0609 07/29/18 0703 test: N/A Studies: CXR Pre-procedure Exam Last vitals Vital Signs Date Temp Pulse Resp B/P (MAP) Pulse Ox O2 O2 Flow FiO2 Time Delivery Rate 07/30/18 70 16:01 07/30/18 97.8 16 160/80 100 15:38 (106) 07/30/18 Ambu Bag 04:33 07/27/18 11:35 Airway: Adequate mouth opening Mallampati: Mallampati II Teeth: Normal Lung: Normal Heart: Normal ASA Physical Status ASA physical status: 3 Emergency: None Planned Anesthetic General/MAC: ETT Pre-operative Attestations Prior to commencing anesthesia and surgery, the patient was re-evaluated, there was verification of: *The patient's identity *The results of appropriate recent lab work and preoperative vital signs *The above evaluation not changing prior to induction *Anesthetic plan, risk benefits, alternative and complications discussed with patient/family; questions answered; patient/family understands, accepts and wishes to proceed. JAKE CRABTREE July 30, 2018 18:02
[2018-07-30] MEDS: ATORVASTATIN 20 MG TAB PO SCH (20:26)
[2018-07-30] MEDS: INSULIN GLARGINE [LANTus] (100 UNITS/ML) SYG SC SCH (20:29)
[2018-07-30] MEDS: HYDROCODONE/APAP (5/325) TAB PO PRN (20:44)
[2018-07-30] MEDS ORDERED: hydrALAzine 20 MG INJ IV PRN (21:00)
[2018-07-31] VITALS (15 sets, daily range): BP systolic 135–175; BP diastolic 63–77; PULSE 62–86; RESP 11–20
[2018-07-31] MEDS: LEVOFLOXACIN 750 MG TABLET PO SCH (05:50)
[2018-07-31] MEDS: INSULIN ASPART [NOVOLOG] 3 ML PEN SC SCH ×4 (07:00→20:28)
[2018-07-31] MEDS: CLOPIDOGREL 75 MG TAB PO SCH (08:19)
[2018-07-31] MEDS: NICOTINE (21 MG/24 HR) PATCH TRANSDERM SCH (08:19)
[2018-07-31] MEDS: FERROUS FUMARATE (SR) TAB PO SCH (08:19)
[2018-07-31] MEDS: VANCOMYCIN 1 GM 250 ML IVPB SCH ×2 (08:19→19:51)
[2018-07-31] MEDS: BUSPIRONE 10 MG TAB PO SCH ×2 (08:19→20:00)
[2018-07-31] MEDS: ENOXAPARIN 40 MG/0.4 ML SYG SC SCH (08:19)
[2018-07-31] MEDS: FISH OIL 1,000 MG CAP PO SCH ×2 (08:19→20:00)
[2018-07-31] MEDS: BUPROPION (XL) 150 MG TAB PO SCH (08:19)
--- NOTE | 2018-07-31 10:28 | PREAC ---
Date/Time of Note Date/Time of Note DATE: 07/31/18 TIME: 10:26 Anesthesia Eval and Record Evaluation Time Pre-Procedure Interview DATE: 07/31/18 TIME: 10:26 Age 72 Sex male NPO: 8 hrs Past Medical History Past Medical History: Includes (Peripheral vascular disease) Cardio: HTN, Dyslipidemia Endo: Diabetes Neuro: Peripheral neuropathy Heme: Anemia Surgery & Anesthesia Issues No known issue Meds Anticoagulation: No Beta Venkat within 24 hr: No Reason Beta Venkat not given: Pt. not on B-Venkat Active Scripts Glipizide* (Glipizide*) 5 Mg Tablet, 5 MG PO AC BREAKFAST DINNER, #60 TAB Prov:PITTMANHERMELINDOA V. CHAINSTITCH ZIPPER SETTER 07/20/18 Bupropion Hcl* (Bupropion XL*) 150 Mg Tab.er.24h, 150 MG PO DAILY, #30 TAB Prov:PITTMANHERMELINDOA V. CHAINSTITCH ZIPPER SETTER 07/20/18 [place]-3/Dha/Epa/Fish Oil (Fish Oil 1,000 mg Softgel) 1,000 Mg Capsule, 2000 MG PO BID, #60 CAP Prov:EDDIE PITTMAN V. CHAINSTITCH ZIPPER SETTER 07/20/18 Atorvastatin Calcium (Atorvastatin Calcium) 20 Mg Tablet, 20 MG PO HS, #30 TAB Prov:PITTMANHERMELINDOA Kylie. CHAINSTITCH ZIPPER SETTER 07/20/18 Ferrous Fumarate/Ascorbic Acid (Cindy-Sequels 65-25 mg Caplet) 1 Each Tablet.er, 1 TAB PO DAILY, #30 TAB Prov:PITTMANHERMELINDOA Kylie. CHAINSTITCH ZIPPER SETTER 07/20/18 Levofloxacin* (Levaquin*) 750 Mg Tablet, 750 MG PO DAILY@06 for 40 Days, #40 TAB Prov:EDDIE PITTMAN V. CHAINSTITCH ZIPPER SETTER 07/20/18 Fluconazole* (Diflucan*) 200 Mg Tablet, 400 MG PO DAILY, #7 TAB Prov:PITTMANHERMELINDOA Kylie. CHAINSTITCH ZIPPER SETTER 07/20/18 Reported Medications Fenofibrate, Micronized (Fenofibrate) 134 Mg Capsule, 1 CAP ORAL DAILY 07/10/18 Buspirone Hcl* (Buspirone Hcl*) 10 Mg Tab, 1 TAB ORAL BID 07/10/18 Pioglitazone Hcl* (Pioglitazone Hcl*) 30 Mg Tablet, 1 TAB ORAL DAILY 07/10/18 Glipizide* (Glipizide*) 10 Mg Tablet, 1 TAB ORAL BID 07/10/18 Current Medications Buspirone HCl (Buspar) 10 mg BID PO Last administered on 07/29/18 09:24; Admin Dose 10 MG; Start 07/10/18 at 21:00 IV Flush (NS 3 ml) 3 ml PER PROTOCOL IV ; Start 07/10/18 at 14:30 Ondansetron HCl (Zofran Inj) 4 mg Q6H PRN IV NAUSEA/VOMITING Last administered on 07/26/18 11:52; Admin Dose 4 MG; Start 07/10/18 at 14:30 Acetaminophen (Tylenol Tab) 650 mg Q6H PRN PO .PAIN 1-3 OR TEMP; Start 07/10/18 at 14:30 Acetaminophen/ Hydrocodone Bitart ([place] (5/325)) 1 tab Q6H PRN PO .MOD PAIN 4- 6 Last administered on 07/30/18 20:44; Admin Dose 1 TAB; Start 07/10/18 at 14:30 Enoxaparin Sodium (Lovenox) 40 mg DAILY SC Last administered on 07/30/18 09:26; Admin Dose 40 MG; Start 07/11/18 at 09:00 Insulin Glargine (Lantus) 12 units DAILY@2000 SC Last administered on 07/30/18 20:29; Admin Dose 12 UNITS; Start 07/10/18 at 20:00 Vancomycin HCl (Vanco Iv Per Pharmacy) VANCOMYCIN PER PHARMACY PER PROTOCOL XX ; Start 07/10/18 at 14:30 Vancomycin HCl 250 ml @ 125 mls/hr Q12H IVPB Last administered on 07/31/18 08:19; Admin Dose 125 MLS/HR; Start 07/10/18 at 20:00 Nicotine (Nicoderm 21 Mg/ 24hr) 1 patch DAILY TRANSDERM Last administered on 07/30/18 09:22; Admin Dose 1 PATCH; Start 07/11/18 at 09:00 Miscellaneous Information 1 ea NOTE XX ; Start 07/11/18 at 06:45 Glucose (Glutose) 15 gm Q15M PRN PO DECREASED GLUCOSE; Start 07/11/18 at 06:45 Glucose (Glutose) 22.5 gm Q15M PRN PO DECREASED GLUCOSE; Start 07/11/18 at 06:45 Dextrose (D50w Syringe) 25 ml Q15M PRN IV DECREASED GLUCOSE; Start 07/11/18 at 06:45 Dextrose (D50w Syringe) 50 ml Q15M PRN IV DECREASED GLUCOSE; Start 07/11/18 at 06:45 Glucagon (Glucagen) 1 mg Q15M PRN IM DECREASED GLUCOSE; Start 07/11/18 at 06:45 Glucose (Glutose) 15 gm Q15M PRN BUCCAL DECREASED GLUCOSE; Start 07/11/18 at 06:45 Levofloxacin (Levaquin) 750 mg DAILY@06 PO Last administered on 07/30/18at 05:44; Admin Dose 750 MG; Start 07/13/18 at 06:00 Bupropion HCl (Wellbutrin Xl) 150 mg DAILY PO Last administered on 07/29/18 09:24; Admin Dose 150 MG; Start 07/13/18 at 09:00 Docusate Sodium/ Ferrous Fumarate (Cindy-Sequels) 1 tab DAILY PO Last administered on 07/30/18 09:21; Admin Dose 1 TAB; Start 07/13/18 at 10:30; Stop 08/12/18 at 10:29 Atorvastatin Calcium (Lipitor) 20 mg HS PO Last administered on 07/30/18 20:26; Admin Dose 20 MG; Start 07/13/18 at 21:00 Fish Oil (Fish Oil) 2,000 mg BID PO Last administered on 07/30/18 20:26; Admin Dose 2,000 MG; Start 07/13/18 at 10:30 IV Flush (NS 10 ml) 10 ml PRN PRN IV IV PROTOCOL; Start 07/18/18 at 16:30 Clopidogrel Bisulfate (plaVIX) 75 mg DAILY PO Last administered on 07/30/18 09:22; Admin Dose 75 MG; Start 07/26/18 at 11:30 Insulin Aspart (Novolog Insulin Pen) NOVOLOG *MILD* ALGORI... AC MEALS AND BEDTIME SC Last administered on 07/30/18 20:28; Admin Dose 3 UNIT; Start 07/30/18 at 08:00 Hydralazine HCl (Apresoline) 10 mg Q4H PRN IV SYSTOLIC BP > 170 Last administered on 07/30/18at 20:47; Admin Dose 10 MG; Start 07/30/18 at 21:00 Meds reviewed: Yes Allergies Coded Allergies: aspirin (Verified Allergy, Mild, VOMITING, 01/27/09) Allergies Reviewed: Yes Labs/Studies Labs Reviewed: Reviewed by anesthesiologist Result Diagram: 07/28/18 0609 07/29/18 0703 test: N/A Pre-procedure Exam Last vitals Vital Signs Date Temp Pulse Resp B/P (MAP) Pulse Ox O2 O2 Flow FiO2 Time Delivery Rate 07/31/18 98.4 66 18 159/71 96 Room Air 08:03 (100) 07/27/18 11:35 Airway: Adequate mouth opening Mallampati: Mallampati I Lung: Normal Heart: Normal ASA Physical Status ASA physical status: 3 Emergency: None Planned Anesthetic General/MAC: LMA Pre-operative Attestations Prior to commencing anesthesia and surgery, the patient was re-evaluated, there was verification of: *The patient's identity *The results of appropriate recent lab work and preoperative vital signs *The above evaluation not changing prior to induction *Anesthetic plan, risk benefits, alternative and complications discussed with patient/family; questions answered; patient/family understands, accepts and wishes to proceed. FIFI MAO MD July 31, 2018 10:28
--- NOTE | 2018-07-31 11:35 | HPN ---
Date/Time of Note Date/Time of Note DATE: 07/31/18 TIME: 11:34 Interval H&P Admission Note Pt. seen H&P reviewed: No system changes LUIS FERNANDO BREAUX DPM July 31, 2018 11:35
[2018-07-31] MEDS ORDERED: PROPOFOL 20 ML ONE (11:51)
[2018-07-31] MEDS ORDERED: LIDOCAINE 2% (SDV) 5 ML INJ ONE (11:51)
[2018-07-31] MEDS ORDERED: LIDOCAINE 1% (MPF) 30 ML INJ ONE (11:52)
[2018-07-31] MEDS ORDERED: POLYMYXIN B 500000 UNIT INJ ONE (11:52)
[2018-07-31] MEDS ORDERED: BACITRACIN 50000 UNITS INJ ONE (11:53)
[2018-07-31] MEDS ORDERED: HYDROmorphONE 1 MG/5 ML IV SYRINGE IV PRN ×3 (12:00)
[2018-07-31] MEDS ORDERED: EPHEDrine 25 MG/5 ML SYG IV PRN (12:00)
[2018-07-31] MEDS ORDERED: MIDAZOLAM 1 MG/ML 2 ML INJ IV PRN (12:00)
[2018-07-31] MEDS ORDERED: FENTAnyl 50 MCG/ML VIAL IV PRN ×3 (12:00)
[2018-07-31] MEDS ORDERED: METOCLOPRAMIDE 10 MG INJ IV PRN (12:00)
[2018-07-31] MEDS ORDERED: MEPERIDINE 25 MG INJ IV PRN (12:00)
[2018-07-31] MEDS ORDERED: hydrALAzine 20 MG INJ IV PRN (12:00)
[2018-07-31] MEDS ORDERED: LABETALOL HCL 20MG INJ IV PRN (12:00)
[2018-07-31] MEDS ORDERED: ONDANSETRON 4 MG INJ IV PRN (12:00)
[2018-07-31] MEDS ORDERED: DIPHENHYDRAMINE 50 MG INJ IV PRN (12:00)
[2018-07-31] MEDS ORDERED: OXYCODONE/ACETAMINOPHEN (5/325) TAB PO PRN ×2 (12:00)
[2018-07-31] MEDS ORDERED: EPHEDrine 25 MG/5 ML SYG ONE (12:18)
--- NOTE | 2018-07-31 12:26 | CONS ---
Assessment/Plan Assessment/Plan Hospital Course (Demo Recall) All noted, no acute events Blood culture on 07/10/18 grew enterococcus and Jennifer parapsilosis, repeat blood cultures negative Microbiology: Wound culture grew stenotrophomonas maltophilia, Pseudomonas enterococcus species and coag negative staph species, repeat blood cultures negative Antimicrobials: Levaquin, Vancomycin Physical examination: This is a well-developed fragile elderly man who is alert in no distress. Head atraumatic normocephalic sclera nonicteric vehicle mucosa dry neck is supple chest rise symmetrical breath sounds diminished bases heart: S1-S2. Abdomen soft bowel sounds present. Extremities with left great toe gangrene ASSESSMENT: 1. Polymicrobial bacteremia/fungemia likely secondary to #2 2. Left great toe cellulitis, gangrene, osteomyelitis 3. Peripheral arterial disease with high-grade left SFA stenosis==> s/p Fem- Tibial Bypass 4. Diabetes Plan: Remains stable, continue antibiotics, pending infected toe amputation. Will discuss with podiatry the plan for outpatient antibiotics Consultation Date/Type/Reason Admit Date/Time July 10, 2018 at 12:52 Initial Consult Date Type of Consult id Date/Time of Note DATE: 07/31/18 TIME: 12:25 Exam/Review of Systems Exam Vitals Vital Signs Date Temp Pulse Resp B/P (MAP) Pulse Ox O2 O2 Flow FiO2 Time Delivery Rate 07/31/18 98.4 66 18 159/71 96 Room Air 08:03 (100) 07/27/18 11:35 Intake and Output 07/30/18 07/30/18 07/31/18 1414:59 22:59 06:59 IntakeIntake Total 250 ml 950 ml 250 ml OutputOutput Total 850 ml BalanceBalance 250 ml 100 ml 250 ml Results Result Diagram: 07/31/18 0950 07/31/18 0950 Results 24hrs Laboratory Tests Test 07/30/18 17:08 07/30/18 20:19 07/31/18 01:59 07/31/18 06:08 Bedside Glucose 162 237 H 137 129 Test 07/31/18 08:21 07/31/18 09:50 Bedside Glucose 123 White Blood Count 6.3 Red Blood Count 3.09 L Hemoglobin 8.7 L Hematocrit 27.4 L Mean Corpuscular 88.7 Volume Mean Corpuscular 28.2 L Hemoglobin Mean Corpuscular 31.8 L Hemoglobin Concent Red Cell 13.3 Distribution Width Platelet Count 299 Mean Platelet Volume 9.4 Immature 0.300 Granulocytes % Neutrophils % 57.8 Lymphocytes % 23.7 Monocytes % 9.6 Eosinophils % 7.3 H Basophils % 1.3 Nucleated Red Blood 0.0 Cells % Immature 0.020 Granulocytes # Neutrophils # 3.7 Lymphocytes # 1.5 Monocytes # 0.6 Eosinophils # 0.5 Basophils # 0.1 Nucleated Red Blood 0.0 Cells # Sodium Level 141 Potassium Level 3.5 Chloride Level 107 Carbon Dioxide Level 26 Anion Gap 8 Blood Urea Nitrogen 21 H Creatinine 0.95 Est Glomerular > 60 Filtrat Rate mL/min Glucose Level 130 Calcium Level 9.2 Magnesium Level 1.8 Medications Medication Current Medications Buspirone HCl (Buspar) 10 mg BID PO Last administered on 07/29/18 09:24; Admin Dose 10 MG; Start 07/10/18 at 21:00 IV Flush (NS 3 ml) 3 ml PER PROTOCOL IV ; Start 07/10/18 at 14:30 Ondansetron HCl (Zofran Inj) 4 mg Q6H PRN IV NAUSEA/VOMITING Last administered on 07/26/18 11:52; Admin Dose 4 MG; Start 07/10/18 at 14:30 Acetaminophen (Tylenol Tab) 650 mg Q6H PRN PO .PAIN 1-3 OR TEMP; Start 07/10/18 at 14:30 Acetaminophen/ Hydrocodone Bitart ([place] (5/325)) 1 tab Q6H PRN PO .MOD PAIN 4- 6 Last administered on 07/30/18 20:44; Admin Dose 1 TAB; Start 07/10/18 at 14:30 Enoxaparin Sodium (Lovenox) 40 mg DAILY SC Last administered on 07/30/18 09:26; Admin Dose 40 MG; Start 07/11/18 at 09:00 Insulin Glargine (Lantus) 12 units DAILY@2000 SC Last administered on 07/30/18 20:29; Admin Dose 12 UNITS; Start 07/10/18 at 20:00 Vancomycin HCl (Vanco Iv Per Pharmacy) VANCOMYCIN PER PHARMACY PER PROTOCOL XX ; Start 07/10/18 at 14:30 Vancomycin HCl 250 ml @ 125 mls/hr Q12H IVPB Last administered on 5/29/19at 08:19; Admin Dose 125 MLS/HR; Start 07/10/18 at 20:00 Nicotine (Nicoderm 21 Mg/ 24hr) 1 patch DAILY TRANSDERM Last administered on 07/30/18at 09:22; Admin Dose 1 PATCH; Start 07/11/18 at 09:00 Miscellaneous Information 1 ea NOTE XX ; Start 07/11/18 at 06:45 Glucose (Glutose) 15 gm Q15M PRN PO DECREASED GLUCOSE; Start 07/11/18 at 06:45 Glucose (Glutose) 22.5 gm Q15M PRN PO DECREASED GLUCOSE; Start 07/11/18 at 06:45 Dextrose (D50w Syringe) 25 ml Q15M PRN IV DECREASED GLUCOSE; Start 07/11/18 at 06:45 Dextrose (D50w Syringe) 50 ml Q15M PRN IV DECREASED GLUCOSE; Start 07/11/18 at 06:45 Glucagon (Glucagen) 1 mg Q15M PRN IM DECREASED GLUCOSE; Start 07/11/18 at 06:45 Glucose (Glutose) 15 gm Q15M PRN BUCCAL DECREASED GLUCOSE; Start 07/11/18 at 06:45 Levofloxacin (Levaquin) 750 mg DAILY@06 PO Last administered on 07/30/18at 05:44; Admin Dose 750 MG; Start 07/13/18 at 06:00 Bupropion HCl (Wellbutrin Xl) 150 mg DAILY PO Last administered on 07/29/18at 09:24; Admin Dose 150 MG; Start 07/13/18 at 09:00 Docusate Sodium/ Ferrous Fumarate (Cindy-Sequels) 1 tab DAILY PO Last administered on 07/30/18at 09:21; Admin Dose 1 TAB; Start 07/13/18 at 10:30; Stop 08/12/18 at 10:29 Atorvastatin Calcium (Lipitor) 20 mg HS PO Last administered on 07/30/18at 20:26; Admin Dose 20 MG; Start 07/13/18 at 21:00 Fish Oil (Fish Oil) 2,000 mg BID PO Last administered on 07/30/18at 20:26; Admin Dose 2,000 MG; Start 07/13/18 at 10:30 IV Flush (NS 10 ml) 10 ml PRN PRN IV IV PROTOCOL; Start 07/18/18 at 16:30 Clopidogrel Bisulfate (plaVIX) 75 mg DAILY PO Last administered on 07/30/18at 09:22; Admin Dose 75 MG; Start 07/26/18 at 11:30 Insulin Aspart (Novolog Insulin Pen) NOVOLOG *MILD* ALGORI... AC MEALS AND BEDTIME SC Last administered on 07/30/18at 20:28; Admin Dose 3 UNIT; Start 07/30/18 at 08:00 Hydralazine HCl (Apresoline) 10 mg Q4H PRN IV SYSTOLIC BP > 170 Last administered on 07/30/18at 20:47; Admin Dose 10 MG; Start 07/30/18 at 21:00 Hydromorphone HCl (Dilaudid) 0.2 mg PACU PRN IV MILD PAIN 1-3; Start 07/31/18 at 12:00; Stop 07/31/18 at 18:00 Hydromorphone HCl (Dilaudid) 0.4 mg PACU PRN IV MOD PAIN 4-6; Start 07/31/18 at 12:00; Stop 07/31/18 at 18:00 Hydromorphone HCl (Dilaudid) 0.6 mg PACU PRN IV SEVERE PAIN 7-10; Start 07/31/18 at 12:00; Stop 07/31/18 at 18:00 Fentanyl (Sublimaze) 25 mcg PACU ORDER PRN IV MILD PAIN 1-3; Start 07/31/18 at 12:00; Stop 07/31/18 at 18:00 Fentanyl (Sublimaze) 50 mcg PACU ORDER PRN IV MOD PAIN 4-6; Start 07/31/18 at 12:00; Stop 07/31/18 at 18:00 Fentanyl (Sublimaze) 75 mcg PACU ORDER PRN IV SEVERE PAIN 7-10; Start 07/31/18 at 12:00; Stop 07/31/18 at 18:00 Oxycodone/ Acetaminophen (Percocet (5/ 325)) 1 tab PACU ORDER PRN PO .PAIN 1-5; Start 07/31/18 at 12:00; Stop 07/31/18 at 18:00 Oxycodone/ Acetaminophen (Percocet (5/ 325)) 2 tab PACU ORDER PRN PO .PAIN 6-10; Start 07/31/18 at 12:00; Stop 07/31/18 at 18:00 Ondansetron HCl (Zofran Inj) 4 mg PACU ORDER PRN IV NAUSEA/VOMITING; Start 07/31/18 at 12:00; Stop 07/31/18 at 18:00 Metoclopramide HCl (Reglan) 10 mg PACU ORDER PRN IV NAUSEA/VOMITING; Start 07/31/18 at 12:00; Stop 07/31/18 at 18:00 Labetalol HCl (Labetalol) 5 mg PACU ORDER PRN IV HIGH BLOOD PRESSURE; Start 07/31/18 at 12:00; Stop 07/31/18 at 18:00 Hydralazine HCl (Apresoline) 5 mg PACU ORDER PRN IV HIGH BLOOD PRESSURE; Start 07/31/18 at 12:00; Stop 07/31/18 at 18:00 Ephedrine Sulfate 5 mg PACU ORDER PRN IV BLOOD PRESSURE SUPPORT; Start 07/31/18 at 12:00; Stop 07/31/18 at 18:00 Meperidine HCl (Demerol) 25 mg PACU ORDER PRN IV .RIGORS; Start 07/31/18 at 12:00; Stop 07/31/18 at 18:00 Diphenhydramine HCl (Benadryl) 25 mg PACU ORDER PRN IV .PRURITUS; Start 07/31/18 at 12:00; Stop 07/31/18 at 18:00 Midazolam HCl (Versed) 0.5 mg PACU ORDER PRN IV .ANXIETY; Start 07/31/18 at 12:00; Stop 07/31/18 at 18:00 JUAN GARCIA NP July 31, 2018 12:26
--- NOTE | 2018-07-31 13:11 | SIPON ---
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
--- NOTE | 2018-07-31 13:20 | OPR ---
Date/Time of Note Date/Time of Note DATE: 07/31/18 TIME: 13:20 Operative Report Preoperative Diagnosis Left foot dry gangrene Left foot diabetic ulcer Left foot osteomyelitis PAD - s/p left lower extremity fem to PT bypass DM2 with peripheral neuropathy Nicotine dependence Postoperative Diagnosis Left foot dry gangrene Left foot diabetic ulcer Left foot osteomyelitis PAD - s/p left lower extremity fem to PT bypass DM2 with peripheral neuropathy Nicotine dependence Operation/Procedure Performed Left hallux partial amputation Left foot excisional debridement Surgeon see signature line Violin Tutor none Anesthesia Type: general Estimated Blood Loss: 0 - 10 ml's Transfusion none Specimen Left hallux wound culture Left hallux pathology Grafts/Implants none Complications none Indications 72 y/o M patient with PAD, DM2 with PN and osteomyelitis to the left hallux and diabetic ulcer to the lateral malleolar region recently underwent a fem to PT bypass of the left lower extremity. Due to gangrene and infection surgical intervention was recommended and patient is amenable to the procedure. Addressed all of the patient's questions and concerns. No promises or guarantees were given. Procedure Description Patient was brought into the OR and placed on the OR table in the supine position. The left lower extremity was scrubbed, prepped, and draped in the usual aseptic manner. A formal time out was conducted. Local anesthesia was provided to the left hallux surgical site. A parital left hallux amputation was performed using scalpel and pickup/scissors. The gangr enous tissue was removed and the gangrenous toe was disarticulated from the hallux IPJ site. Next using a sagittal saw on power the head of the proximal phalanx left hallux was resected to complete the removal of the partial hallux amputation. Copious warm saline irrigation was used at the partial hallux amputation site and wound cultures were obtained. The partially amputated left hallux was also sent for pathology. Antibiotic powder was applied to the left hallux amputation site. Using 4-0 prolene the skin edges of the amputation site were re-approximated under minimal tension to achieve closure. Next attention was directed to the left lateral malleolar area where excisional debridement of skin/subQ was performed using a crop picker/scissors. Gangrenous, necrotic and fibrotic tissue was removed. Less than 20cm2 of area was debrided. Wound base was fibrotic with some granulation tissue. No purulence was expressed, no probing to bone, no erythema/proximal streaking. Ulceration measured 1 x 1 x 0.2cm and no tunneling appreciated. Xeroform, betadine 4x4 gauze and dry sterile dressings were applied to the left lower extremity. Patient was transferred to PACU with vital signs stable and neurovascular status intact. LUIS FERNANDO BREAUX DPM July 31, 2018 13:20
--- NOTE | 2018-07-31 19:17 | PN ---
Date/Time of Note Date/Time of Note DATE: 07/31/18 TIME: 19:17 Assessment/Plan VTE Prophylaxis Risk score (from Nsg)>0 risk: 11 SCD applied (from Nsg): Yes Pharmacological prophylaxis: heparin Lines/Catheters IV Catheter Type (from Nrsg): PICC Line Central line still needed: Yes Urinary Cath still in place: No Assessment/Plan Hospital Course 72 yo M w/hx of triglyceridemia, peripheral vascular disease, type 2 diabetes, anxiety/depression, long-standing tobacco use 1 pack/day was told by his doctor to get admitted for inpatient vascular/podiatry work-up for worsening cellulitis with left toe gangrene also noted with severe PAD/osteomyelitis.. 1. Left foot cellulitis -Cellulitis improved -cont. Glycemic control/Wound care -BC 03/08 culture grew crystal P. s/p cancidas=>on Diflucan now - antimicrobial per ID recommendations 2. PAD with left first toe dry gangrene -Onset ~2 mos -Status post Femoral-tibial bypass, follow-up with vascular recommendations -Continue to optimize neurovascular status with antihypertensives to keep blood pressure ~140/90, diet, nutrition, exercise, blood glucose control, and antiplatelets/anticoagulation. 3. Osteomyelitis of left first toe. -Patient will likely now have an amputation since bypass has been completed, follow-up on podiatry recommendations -Continue IV antibiotics for now 4. DMII -well-controlled -Basal/bolus insulin 5. Dyslipidemia/triglyceridemia -on Tricor/statin 6. Anxiety/depression -on Buspar 7. Tobacco abuse -Cessation advised. PRN nicotine patch for withdrawal. 8. Chronic anemia -Stable H&H. Monitor -also getting oral iron DVT prophylaxis: Lovenox DC planning: Patient will likely need amputation of left first toe, follow-up with podiatry and vascular recommendations Result Diagram: 07/31/18 0950 07/31/18 0950 Results 24hrs Laboratory Tests Test 07/30/18 20:19 07/31/18 01:59 07/31/18 06:08 07/31/18 08:21 Bedside Glucose 237 H 137 129 123 Test 07/31/18 09:50 07/31/18 15:30 07/31/18 17:33 White Blood Count 6.3 Red Blood Count 3.09 L Hemoglobin 8.7 L Hematocrit 27.4 L Mean Corpuscular 88.7 Volume Mean Corpuscular 28.2 L Hemoglobin Mean Corpuscular 31.8 L Hemoglobin Concent Red Cell 13.3 Distribution Width Platelet Count 299 Mean Platelet Volume 9.4 Immature 0.300 Granulocytes % Neutrophils % 57.8 Lymphocytes % 23.7 Monocytes % 9.6 Eosinophils % 7.3 H Basophils % 1.3 Nucleated Red Blood 0.0 Cells % Immature 0.020 Granulocytes # Neutrophils # 3.7 Lymphocytes # 1.5 Monocytes # 0.6 Eosinophils # 0.5 Basophils # 0.1 Nucleated Red Blood 0.0 Cells # Sodium Level 141 Potassium Level 3.5 Chloride Level 107 Carbon Dioxide Level 26 Anion Gap 8 Blood Urea Nitrogen 21 H Creatinine 0.95 Est Glomerular > 60 Filtrat Rate mL/min Glucose Level 130 Calcium Level 9.2 Magnesium Level 1.8 Bedside Glucose 134 187 Exam/Review of Systems Exam Vitals Vital Signs Date Temp Pulse Resp B/P (MAP) Pulse Ox O2 O2 Flow FiO2 Time Delivery Rate 07/31/18 98.0 14:26 07/31/18 63 18 156/73 99 Room Air 14:11 (100) 07/27/18 11:35 Intake and Output 07/30/18 07/30/18 07/31/18 1515:00 23:00 07:00 IntakeIntake Total 250 ml 950 ml 250 ml OutputOutput Total 850 ml BalanceBalance 250 ml 100 ml 250 ml Results Results 24hrs Laboratory Tests Test 07/30/18 20:19 07/31/18 01:59 07/31/18 06:08 07/31/18 08:21 Bedside Glucose 237 H 137 129 123 Test 07/31/18 09:50 07/31/18 15:30 07/31/18 17:33 White Blood Count 6.3 Red Blood Count 3.09 L Hemoglobin 8.7 L Hematocrit 27.4 L Mean Corpuscular 88.7 Volume Mean Corpuscular 28.2 L Hemoglobin Mean Corpuscular 31.8 L Hemoglobin Concent Red Cell 13.3 Distribution Width Platelet Count 299 Mean Platelet Volume 9.4 Immature 0.300 Granulocytes % Neutrophils % 57.8 Lymphocytes % 23.7 Monocytes % 9.6 Eosinophils % 7.3 H Basophils % 1.3 Nucleated Red Blood 0.0 Cells % Immature 0.020 Granulocytes # Neutrophils # 3.7 Lymphocytes # 1.5 Monocytes # 0.6 Eosinophils # 0.5 Basophils # 0.1 Nucleated Red Blood 0.0 Cells # Sodium Level 141 Potassium Level 3.5 Chloride Level 107 Carbon Dioxide Level 26 Anion Gap 8 Blood Urea Nitrogen 21 H Creatinine 0.95 Est Glomerular > 60 Filtrat Rate mL/min Glucose Level 130 Calcium Level 9.2 Magnesium Level 1.8 Bedside Glucose 134 187 Medications Medication Current Medications Buspirone HCl (Buspar) 10 mg BID PO Last administered on 07/29/18 09:24; Admin Dose 10 MG; Start 07/10/18 at 21:00 IV Flush (NS 3 ml) 3 ml PER PROTOCOL IV ; Start 07/10/18 at 14:30 Ondansetron HCl (Zofran Inj) 4 mg Q6H PRN IV NAUSEA/VOMITING Last administered on 07/26/18 11:52; Admin Dose 4 MG; Start 07/10/18 at 14:30 Acetaminophen (Tylenol Tab) 650 mg Q6H PRN PO .PAIN 1-3 OR TEMP; Start 07/10/18 at 14:30 Acetaminophen/ Hydrocodone Bitart ([place] (5/325)) 1 tab Q6H PRN PO .MOD PAIN 4- 6 Last administered on 07/30/18 20:44; Admin Dose 1 TAB; Start 07/10/18 at 14:30 Enoxaparin Sodium (Lovenox) 40 mg DAILY SC Last administered on 07/30/18 09:26; Admin Dose 40 MG; Start 07/11/18 at 09:00 Insulin Glargine (Lantus) 12 units DAILY@2000 SC Last administered on 07/30/18 20:29; Admin Dose 12 UNITS; Start 07/10/18 at 20:00 Vancomycin HCl (Vanco Iv Per Pharmacy) VANCOMYCIN PER PHARMACY PER PROTOCOL XX ; Start 07/10/18 at 14:30 Vancomycin HCl 250 ml @ 125 mls/hr Q12H IVPB Last administered on 07/31/18 08:19; Admin Dose 125 MLS/HR; Start 07/10/18 at 20:00 Nicotine (Nicoderm 21 Mg/ 24hr) 1 patch DAILY TRANSDERM Last administered on 07/30/18 09:22; Admin Dose 1 PATCH; Start 07/11/18 at 09:00 Miscellaneous Information 1 ea NOTE XX ; Start 07/11/18 at 06:45 Glucose (Glutose) 15 gm Q15M PRN PO DECREASED GLUCOSE; Start 07/11/18 at 06:45 Glucose (Glutose) 22.5 gm Q15M PRN PO DECREASED GLUCOSE; Start 07/11/18 at 06:45 Dextrose (D50w Syringe) 25 ml Q15M PRN IV DECREASED GLUCOSE; Start 07/11/18 at 06:45 Dextrose (D50w Syringe) 50 ml Q15M PRN IV DECREASED GLUCOSE; Start 07/11/18 at 06:45 Glucagon (Glucagen) 1 mg Q15M PRN IM DECREASED GLUCOSE; Start 07/11/18 at 06:45 Glucose (Glutose) 15 gm Q15M PRN BUCCAL DECREASED GLUCOSE; Start 07/11/18 at 06:45 Levofloxacin (Levaquin) 750 mg DAILY@06 PO Last administered on 07/30/18at 05:44; Admin Dose 750 MG; Start 07/13/18 at 06:00 Bupropion HCl (Wellbutrin Xl) 150 mg DAILY PO Last administered on 07/29/18at 09:24; Admin Dose 150 MG; Start 07/13/18 at 09:00 Docusate Sodium/ Ferrous Fumarate (Cindy-Sequels) 1 tab DAILY PO Last administered on 07/30/18 09:21; Admin Dose 1 TAB; Start 07/13/18 at 10:30; Stop 08/12/18 at 10:29 Atorvastatin Calcium (Lipitor) 20 mg HS PO Last administered on 07/30/18at 20:26; Admin Dose 20 MG; Start 07/13/18 at 21:00 Fish Oil (Fish Oil) 2,000 mg BID PO Last administered on 07/30/18at 20:26; Admin Dose 2,000 MG; Start 07/13/18 at 10:30 IV Flush (NS 10 ml) 10 ml PRN PRN IV IV PROTOCOL; Start 07/18/18 at 16:30 Clopidogrel Bisulfate (plaVIX) 75 mg DAILY PO Last administered on 07/30/18at 09:22; Admin Dose 75 MG; Start 07/26/18 at 11:30 Insulin Aspart (Novolog Insulin Pen) NOVOLOG *MILD* ALGORI... AC MEALS AND BEDTIME SC Last administered on 07/31/18at 17:35; Admin Dose 2 UNIT; Start 07/30/18 at 08:00 Hydralazine HCl (Apresoline) 10 mg Q4H PRN IV SYSTOLIC BP > 170 Last administered on 07/30/18at 20:47; Admin Dose 10 MG; Start 07/30/18 at 21:00 Miscellaneous Information (*Rx Drug Level Order Reminder*) JOAQUIN TR AT 0700 0700 ONCE XX ; Start 08/01/18 at 07:00; Stop 08/01/18 at 07:01 LEE JULIEN MD July 31, 2018 19:17
[2018-07-31] MEDS: HYDROCODONE/APAP (5/325) TAB PO PRN (19:52)
[2018-07-31] MEDS: ATORVASTATIN 20 MG TAB PO SCH (20:00)
[2018-07-31] MEDS: INSULIN GLARGINE [LANTus] (100 UNITS/ML) SYG SC SCH (20:26)
[2018-08-01 02:00] VITALS: BP 126/71; PULSE 68; RESP 18
[2018-08-01] MEDS: LEVOFLOXACIN 750 MG TABLET PO SCH (06:07)
[2018-08-01 08:12] VITALS: BP 167/77; PULSE 80; RESP 18
[2018-08-01] MEDS: FISH OIL 1,000 MG CAP PO SCH ×2 (08:42→20:55)
[2018-08-01] MEDS: NICOTINE (21 MG/24 HR) PATCH TRANSDERM SCH (08:42)
[2018-08-01] MEDS: BUSPIRONE 10 MG TAB PO SCH ×2 (08:47→21:00)
[2018-08-01] MEDS: FERROUS FUMARATE (SR) TAB PO SCH (08:47)
[2018-08-01] MEDS: BUPROPION (XL) 150 MG TAB PO SCH (08:47)
[2018-08-01] MEDS: CLOPIDOGREL 75 MG TAB PO SCH (08:47)
[2018-08-01] MEDS: VANCOMYCIN 1 GM 250 ML IVPB SCH ×2 (08:48→20:19)
[2018-08-01] MEDS: INSULIN ASPART [NOVOLOG] 3 ML PEN SC SCH ×4 (08:49→20:58)
[2018-08-01] MEDS: ENOXAPARIN 40 MG/0.4 ML SYG SC SCH (08:50)
[2018-08-01] MEDS: HYDROCODONE/APAP (5/325) TAB PO PRN ×2 (12:16→20:55)
--- NOTE | 2018-08-01 13:17 | CONS ---
Assessment/Plan Assessment/Plan Hospital Course (Demo Recall) No acute changes, looks comfortable, no fevers Blood culture on 07/10/18 grew enterococcus and Jennifer parapsilosis, repeat blood cultures negative Microbiology: Wound culture grew stenotrophomonas maltophilia, Pseudomonas enterococcus species and coag negative staph species, repeat blood cultures negative Antimicrobials: Levaquin, Vancomycin Physical examination: This is a well-developed fragile elderly man who is alert in no distress. Head atraumatic normocephalic sclera nonicteric vehicle mucosa dry neck is supple chest rise symmetrical breath sounds diminished bases heart: S1-S2. Abdomen soft bowel sounds present. Extremities with left great toe gangrene ASSESSMENT: 1. Polymicrobial bacteremia/fungemia likely secondary to #2 2. Left great toe cellulitis, gangrene, osteomyelitis, s/p amputation 3. Peripheral arterial disease with high-grade left SFA stenosis==> s/p Fem- Tibial Bypass 4. Diabetes Plan: Remains stable, continue antibiotics for now, anticipate dc on oral Levaquin and Amoxicillin for 7-[address] Rodriguez Consultation Date/Type/Reason Admit Date/Time July 10, 2018 at 12:52 Initial Consult Date Type of Consult id Date/Time of Note DATE: 08/01/18 TIME: 13:15 Exam/Review of Systems Exam Vitals Vital Signs Date Temp Pulse Resp B/P (MAP) Pulse Ox O2 O2 Flow FiO2 Time Delivery Rate 08/01/18 98.4 80 18 167/77 97 Room Air 08:12 (107) Intake and Output 07/31/18 07/31/18 08/01/18 1515:00 23:00 07:00 IntakeIntake Total 350 ml 850 ml OutputOutput Total 320 ml 650 ml 250 ml BalanceBalance 30 ml 200 ml -250 ml Results Result Diagram: 07/31/18 0950 07/31/18 0950 Results 24hrs Laboratory Tests Test 07/31/18 15:30 07/31/18 17:33 07/31/18 20:21 08/01/18 01:59 Bedside Glucose 134 187 270 H 217 Test 08/01/18 07:02 08/01/18 08:41 08/01/18 12:17 Vancomycin Level 17.4 Trough Bedside Glucose 183 182 Medications Medication Current Medications Buspirone HCl (Buspar) 10 mg BID PO Last administered on 5/30/19at 08:47; Admin Dose 10 MG; Start 07/10/18 at 21:00 IV Flush (NS 3 ml) 3 ml PER PROTOCOL IV ; Start 07/10/18 at 14:30 Ondansetron HCl (Zofran Inj) 4 mg Q6H PRN IV NAUSEA/VOMITING Last administered on 07/26/18 11:52; Admin Dose 4 MG; Start 07/10/18 at 14:30 Acetaminophen (Tylenol Tab) 650 mg Q6H PRN PO .PAIN 1-3 OR TEMP; Start 07/10/18 at 14:30 Acetaminophen/ Hydrocodone Bitart ([place] (5/325)) 1 tab Q6H PRN PO .MOD PAIN 4- 6 Last administered on 08/01/18 12:16; Admin Dose 1 TAB; Start 07/10/18 at 14:30 Enoxaparin Sodium (Lovenox) 40 mg DAILY SC Last administered on 08/01/18 08:50; Admin Dose 40 MG; Start 07/11/18 at 09:00 Insulin Glargine (Lantus) 12 units DAILY@2000 SC Last administered on 07/31/18 20:26; Admin Dose 12 UNITS; Start 07/10/18 at 20:00 Vancomycin HCl (Vanco Iv Per Pharmacy) VANCOMYCIN PER PHARMACY PER PROTOCOL XX ; Start 07/10/18 at 14:30 Vancomycin HCl 250 ml @ 125 mls/hr Q12H IVPB Last administered on 08/01/18 08:48; Admin Dose 125 MLS/HR; Start 07/10/18 at 20:00 Nicotine (Nicoderm 21 Mg/ 24hr) 1 patch DAILY TRANSDERM Last administered on 08/01/18 08:42; Admin Dose 1 PATCH; Start 07/11/18 at 09:00 Miscellaneous Information 1 ea NOTE XX ; Start 07/11/18 at 06:45 Glucose (Glutose) 15 gm Q15M PRN PO DECREASED GLUCOSE; Start 07/11/18 at 06:45 Glucose (Glutose) 22.5 gm Q15M PRN PO DECREASED GLUCOSE; Start 07/11/18 at 06:45 Dextrose (D50w Syringe) 25 ml Q15M PRN IV DECREASED GLUCOSE; Start 07/11/18 at 06:45 Dextrose (D50w Syringe) 50 ml Q15M PRN IV DECREASED GLUCOSE; Start 07/11/18 at 06:45 Glucagon (Glucagen) 1 mg Q15M PRN IM DECREASED GLUCOSE; Start 07/11/18 at 06:45 Glucose (Glutose) 15 gm Q15M PRN BUCCAL DECREASED GLUCOSE; Start 07/11/18 at 06:45 Levofloxacin (Levaquin) 750 mg DAILY@06 PO Last administered on 08/01/18 06:07; Admin Dose 750 MG; Start 07/13/18 at 06:00 Bupropion HCl (Wellbutrin Xl) 150 mg DAILY PO Last administered on 08/01/18 08:47; Admin Dose 150 MG; Start 07/13/18 at 09:00 Docusate Sodium/ Ferrous Fumarate (Cindy-Sequels) 1 tab DAILY PO Last administered on 08/01/18 08:47; Admin Dose 1 TAB; Start 07/13/18 at 10:30; Stop 08/12/18 at 10:29 Atorvastatin Calcium (Lipitor) 20 mg HS PO Last administered on 07/31/18 20:00; Admin Dose 20 MG; Start 07/13/18 at 21:00 Fish Oil (Fish Oil) 2,000 mg BID PO Last administered on 08/01/18 08:42; Admin Dose 2,000 MG; Start 07/13/18 at 10:30 IV Flush (NS 10 ml) 10 ml PRN PRN IV IV PROTOCOL; Start 07/18/18 at 16:30 Clopidogrel Bisulfate (plaVIX) 75 mg DAILY PO Last administered on 08/01/18 08:47; Admin Dose 75 MG; Start 07/26/18 at 11:30 Insulin Aspart (Novolog Insulin Pen) NOVOLOG *MILD* ALGORI... AC MEALS AND BEDTIME SC Last administered on 08/01/18 12:20; Admin Dose 1 UNIT; Start 07/30/18 at 08:00 Hydralazine HCl (Apresoline) 10 mg Q4H PRN IV SYSTOLIC BP > 170 Last administered on 07/30/18 20:47; Admin Dose 10 MG; Start 07/30/18 at 21:00 JUAN GARCIA NP August 01, 2018 13:17
[2018-08-01 14:05] VITALS: BP 173/70; PULSE 88; RESP 18
--- NOTE | 2018-08-01 14:37 | PN ---
Date/Time of Note Date/Time of Note DATE: 08/01/18 TIME: 14:36 Assessment/Plan VTE Prophylaxis Risk score (from Nsg)>0 risk: 7 SCD applied (from Nsg): Yes Pharmacological prophylaxis: heparin Lines/Catheters IV Catheter Type (from Nrsg): PICC Line Central line still needed: Yes Urinary Cath still in place: No Assessment/Plan Hospital Course 72 yo M w/hx of triglyceridemia, peripheral vascular disease, type 2 diabetes, anxiety/depression, long-standing tobacco use 1 pack/day was told by his doctor to get admitted for inpatient vascular/podiatry work-up for worsening cellulitis with left toe gangrene also noted with severe PAD/osteomyelitis.. 1. Left foot cellulitis -Cellulitis improved -cont. Glycemic control/Wound care -BC 03/08 culture grew crystal P. s/p cancidas=>on Diflucan now - antimicrobial per ID recommendations 2. PAD with left first toe dry gangrene -Onset ~2 mos -Status post Femoral-tibial bypass, follow-up with vascular recommendations -Continue to optimize neurovascular status with antihypertensives to keep blood pressure ~140/90, diet, nutrition, exercise, blood glucose control, and antiplatelets/anticoagulation. 3. Osteomyelitis of left first toe. -Patient s/p amputation -Continue IV antibiotics for now 4. DMII -well-controlled -Basal/bolus insulin 5. Dyslipidemia/triglyceridemia -on Tricor/statin 6. Anxiety/depression -on Buspar 7. Tobacco abuse -Cessation advised. PRN nicotine patch for withdrawal. 8. Chronic anemia -Stable H&H. Monitor -also getting oral iron DVT prophylaxis: Lovenox Result Diagram: 07/31/18 0950 07/31/18 0950 Results 24hrs Laboratory Tests Test 07/31/18 15:30 07/31/18 17:33 07/31/18 20:21 08/01/18 01:59 Bedside Glucose 134 187 270 H 217 Test 08/01/18 07:02 08/01/18 08:41 08/01/18 12:17 Vancomycin Level 17.4 Trough Bedside Glucose 183 182 Subjective 24 Hr Interval Summary Free Text/Dictation Resting comfortably Had toe surgery yesterday Exam/Review of Systems Exam Vitals Vital Signs Date Temp Pulse Resp B/P (MAP) Pulse Ox O2 O2 Flow FiO2 Time Delivery Rate 08/01/18 98.4 80 18 167/77 97 Room Air 08:12 (107) Intake and Output 07/31/18 07/31/18 08/01/18 1515:00 23:00 07:00 IntakeIntake Total 350 ml 850 ml OutputOutput Total 320 ml 650 ml 250 ml BalanceBalance 30 ml 200 ml -250 ml Constitutional: alert, oriented, well developed Psych: no complaints, nl mood/affect Head: normocephalic, atraumatic Eyes: nl conjunctiva, EOMI, nl lids, nl sclera, PERRL ENMT: nl external ears & nose, nl lips & teeth, nl nasal mucosa & septum Neck: supple, non-tender Respiratory: clear to auscultation, normal air movement Cardiovascular: regular rate and rhythm, nl pulses Gastrointestinal: soft, nl liver, spleen, non-tender Musculoskeletal: nl extremities to inspection, nl gait and stance Extremities: normal pulses Neurological: [employer] II-XII intact, nl mental status, nl speech, nl strength Skin: nl turgor; No rash or lesions Lymph: nl lymph nodes Results Results 24hrs Laboratory Tests Test 07/31/18 15:30 07/31/18 17:33 07/31/18 20:21 08/01/18 01:59 Bedside Glucose 134 187 270 H 217 Test 08/01/18 07:02 08/01/18 08:41 08/01/18 12:17 Vancomycin Level 17.4 Trough Bedside Glucose 183 182 Medications Medication Current Medications Buspirone HCl (Buspar) 10 mg BID PO Last administered on 08/01/18at 08:47; Admin Dose 10 MG; Start 07/10/18 at 21:00 IV Flush (NS 3 ml) 3 ml PER PROTOCOL IV ; Start 07/10/18 at 14:30 Ondansetron HCl (Zofran Inj) 4 mg Q6H PRN IV NAUSEA/VOMITING Last administered on 07/26/18at 11:52; Admin Dose 4 MG; Start 07/10/18 at 14:30 Acetaminophen (Tylenol Tab) 650 mg Q6H PRN PO .PAIN 1-3 OR TEMP; Start 07/10/18 at 14:30 Acetaminophen/ Hydrocodone Bitart ([place] (5/325)) 1 tab Q6H PRN PO .MOD PAIN 4- 6 Last administered on 08/01/18 12:16; Admin Dose 1 TAB; Start 07/10/18 at 14:30 Enoxaparin Sodium (Lovenox) 40 mg DAILY SC Last administered on 08/01/18 08:50; Admin Dose 40 MG; Start 07/11/18 at 09:00 Insulin Glargine (Lantus) 12 units DAILY@2000 SC Last administered on 07/31/18 20:26; Admin Dose 12 UNITS; Start 07/10/18 at 20:00 Vancomycin HCl (Vanco Iv Per Pharmacy) VANCOMYCIN PER PHARMACY PER PROTOCOL XX ; Start 07/10/18 at 14:30 Vancomycin HCl 250 ml @ 125 mls/hr Q12H IVPB Last administered on 08/01/18 08:48; Admin Dose 125 MLS/HR; Start 07/10/18 at 20:00 Nicotine (Nicoderm 21 Mg/ 24hr) 1 patch DAILY TRANSDERM Last administered on 08/01/18 08:42; Admin Dose 1 PATCH; Start 07/11/18 at 09:00 Miscellaneous Information 1 ea NOTE XX ; Start 07/11/18 at 06:45 Glucose (Glutose) 15 gm Q15M PRN PO DECREASED GLUCOSE; Start 07/11/18 at 06:45 Glucose (Glutose) 22.5 gm Q15M PRN PO DECREASED GLUCOSE; Start 07/11/18 at 06:45 Dextrose (D50w Syringe) 25 ml Q15M PRN IV DECREASED GLUCOSE; Start 07/11/18 at 06:45 Dextrose (D50w Syringe) 50 ml Q15M PRN IV DECREASED GLUCOSE; Start 07/11/18 at 06:45 Glucagon (Glucagen) 1 mg Q15M PRN IM DECREASED GLUCOSE; Start 07/11/18 at 06:45 Glucose (Glutose) 15 gm Q15M PRN BUCCAL DECREASED GLUCOSE; Start 07/11/18 at 06:45 Levofloxacin (Levaquin) 750 mg DAILY@06 PO Last administered on 08/01/18at 06:07; Admin Dose 750 MG; Start 07/13/18 at 06:00 Bupropion HCl (Wellbutrin Xl) 150 mg DAILY PO Last administered on 08/01/18at 08:47; Admin Dose 150 MG; Start 07/13/18 at 09:00 Docusate Sodium/ Ferrous Fumarate (Cindy-Sequels) 1 tab DAILY PO Last administered on 08/01/18 08:47; Admin Dose 1 TAB; Start 07/13/18 at 10:30; Stop 08/12/18 at 10:29 Atorvastatin Calcium (Lipitor) 20 mg HS PO Last administered on 07/31/18 20:00; Admin Dose 20 MG; Start 07/13/18 at 21:00 Fish Oil (Fish Oil) 2,000 mg BID PO Last administered on 08/01/18 08:42; Admin Dose 2,000 MG; Start 07/13/18 at 10:30 IV Flush (NS 10 ml) 10 ml PRN PRN IV IV PROTOCOL; Start 07/18/18 at 16:30 Clopidogrel Bisulfate (plaVIX) 75 mg DAILY PO Last administered on 08/01/18 08:47; Admin Dose 75 MG; Start 07/26/18 at 11:30 Insulin Aspart (Novolog Insulin Pen) NOVOLOG *MILD* ALGORI... AC MEALS AND BEDTIME SC Last administered on 08/01/18 12:20; Admin Dose 1 UNIT; Start 07/30/18 at 08:00 Hydralazine HCl (Apresoline) 10 mg Q4H PRN IV SYSTOLIC BP > 170 Last administered on 07/30/18 20:47; Admin Dose 10 MG; Start 07/30/18 at 21:00 LEE JULIEN MD August 01, 2018 14:37
--- NOTE | 2018-08-01 19:43 | CONS ---
Assessment/Plan Assessment/Plan Assessment/Plan (Daily) Left foot dry gangrene - s/p partial hallux amputation (DOS: 07/31/18) Left foot cellulitis - improved Left foot osteomyelitis PAD - s/p left lower extremity fem to PT bypass DM2 with peripheral neuropathy Nicotine dependence Plan Dressings to remain clean dry and no need to castrejon. Patient may partial weight bear with a surgical shoe. Continue with abx as per ID recommendations. Patient stable from podiatry standpoint to follow up in the [facility] clinic. Consultation Date/Type/Reason Admit Date/Time July 10, 2018 at 12:52 Initial Consult Date Date/Time of Note DATE: 08/01/18 TIME: 19:43 24 HR Interval Summary Free Text/Dictation No acute events overnight Exam/Review of Systems Exam Vitals Vital Signs Date Temp Pulse Resp B/P (MAP) Pulse Ox O2 O2 Flow FiO2 Time Delivery Rate 08/01/18 98.4 88 18 173/70 97 Room Air 14:05 (104) Intake and Output 07/31/18 07/31/18 08/01/18 1515:00 23:00 07:00 IntakeIntake Total 350 ml 850 ml OutputOutput Total 320 ml 650 ml 250 ml BalanceBalance 30 ml 200 ml -250 ml Exam Skin edges well approximated at amputation site No wound dehiscence or gapping appreciated No proximal streaking no purulent drainage Results Result Diagram: 07/31/18 0950 07/31/18 0950 Results 24hrs Laboratory Tests Test 07/31/18 20:21 08/01/18 01:59 08/01/18 07:02 08/01/18 08:41 Bedside Glucose 270 H 217 183 Vancomycin Level 17.4 Trough Test 08/01/18 12:17 08/01/18 17:45 Bedside Glucose 182 197 Medications Medication Current Medications Buspirone HCl (Buspar) 10 mg BID PO Last administered on 08/01/18at 08:47; Admin Dose 10 MG; Start 07/10/18 at 21:00 IV Flush (NS 3 ml) 3 ml PER PROTOCOL IV ; Start 07/10/18 at 14:30 Ondansetron HCl (Zofran Inj) 4 mg Q6H PRN IV NAUSEA/VOMITING Last administered on 07/26/18at 11:52; Admin Dose 4 MG; Start 07/10/18 at 14:30 Acetaminophen (Tylenol Tab) 650 mg Q6H PRN PO .PAIN 1-3 OR TEMP; Start 07/10/18 at 14:30 Acetaminophen/ Hydrocodone Bitart ([place] (5/325)) 1 tab Q6H PRN PO .MOD PAIN 4- 6 Last administered on 08/01/18 12:16; Admin Dose 1 TAB; Start 07/10/18 at 14:30 Enoxaparin Sodium (Lovenox) 40 mg DAILY SC Last administered on 08/01/18 08:50; Admin Dose 40 MG; Start 07/11/18 at 09:00 Insulin Glargine (Lantus) 12 units DAILY@2000 SC Last administered on 07/31/18 20:26; Admin Dose 12 UNITS; Start 07/10/18 at 20:00 Vancomycin HCl (Vanco Iv Per Pharmacy) VANCOMYCIN PER PHARMACY PER PROTOCOL XX ; Start 07/10/18 at 14:30 Vancomycin HCl 250 ml @ 125 mls/hr Q12H IVPB Last administered on 08/01/18 08:48; Admin Dose 125 MLS/HR; Start 07/10/18 at 20:00 Nicotine (Nicoderm 21 Mg/ 24hr) 1 patch DAILY TRANSDERM Last administered on 08/01/18 08:42; Admin Dose 1 PATCH; Start 07/11/18 at 09:00 Miscellaneous Information 1 ea NOTE XX ; Start 07/11/18 at 06:45 Glucose (Glutose) 15 gm Q15M PRN PO DECREASED GLUCOSE; Start 07/11/18 at 06:45 Glucose (Glutose) 22.5 gm Q15M PRN PO DECREASED GLUCOSE; Start 07/11/18 at 06:45 Dextrose (D50w Syringe) 25 ml Q15M PRN IV DECREASED GLUCOSE; Start 07/11/18 at 06:45 Dextrose (D50w Syringe) 50 ml Q15M PRN IV DECREASED GLUCOSE; Start 07/11/18 at 06:45 Glucagon (Glucagen) 1 mg Q15M PRN IM DECREASED GLUCOSE; Start 07/11/18 at 06:45 Glucose (Glutose) 15 gm Q15M PRN BUCCAL DECREASED GLUCOSE; Start 07/11/18 at 06:45 Levofloxacin (Levaquin) 750 mg DAILY@06 PO Last administered on 5/30/19at 06:07 ; Admin Dose 750 MG; Start 07/13/18 at 06:00 Bupropion HCl (Wellbutrin Xl) 150 mg DAILY PO Last administered on 08/01/18 08:47; Admin Dose 150 MG; Start 07/13/18 at 09:00 Docusate Sodium/ Ferrous Fumarate (Cindy-Sequels) 1 tab DAILY PO Last administered on 08/01/18 08:47; Admin Dose 1 TAB; Start 07/13/18 at 10:30; Stop 08/12/18 at 10:29 Atorvastatin Calcium (Lipitor) 20 mg HS PO Last administered on 07/31/18 20:00; Admin Dose 20 MG; Start 07/13/18 at 21:00 Fish Oil (Fish Oil) 2,000 mg BID PO Last administered on 08/01/18 08:42; Admin Dose 2,000 MG; Start 07/13/18 at 10:30 IV Flush (NS 10 ml) 10 ml PRN PRN IV IV PROTOCOL; Start 07/18/18 at 16:30 Clopidogrel Bisulfate (plaVIX) 75 mg DAILY PO Last administered on 08/01/18 08:47; Admin Dose 75 MG; Start 07/26/18 at 11:30 Insulin Aspart (Novolog Insulin Pen) NOVOLOG *MILD* ALGORI... AC MEALS AND BEDTIME SC Last administered on 08/01/18 17:48; Admin Dose 2 UNIT; Start 07/30/18 at 08:00 Hydralazine HCl (Apresoline) 10 mg Q4H PRN IV SYSTOLIC BP > 170 Last administered on 07/30/18 20:47; Admin Dose 10 MG; Start 07/30/18 at 21:00 LUIS FERNANDO BREAUX DPM August 01, 2018 19:43
[2018-08-01 20:00] VITALS: BP 137/60; PULSE 79; RESP 18
[2018-08-01] MEDS: ATORVASTATIN 20 MG TAB PO SCH (20:55)
[2018-08-01] MEDS: INSULIN GLARGINE [LANTus] (100 UNITS/ML) SYG SC SCH (20:58)
[2018-08-02 02:00] VITALS: BP 150/67; PULSE 69; RESP 18
[2018-08-02] MEDS: LEVOFLOXACIN 750 MG TABLET PO SCH (05:47)
[2018-08-02] MEDS: INSULIN ASPART [NOVOLOG] 3 ML PEN SC SCH ×4 (07:00→21:26)
[2018-08-02 07:38] VITALS: BP 149/67; PULSE 80; RESP 18
[2018-08-02] MEDS ORDERED: ALTEPLASE (CATHFLO) 2 MG INJ CATHETER ONE (08:00)
[2018-08-02] MEDS: BUPROPION (XL) 150 MG TAB PO SCH (09:00)
[2018-08-02] MEDS: BUSPIRONE 10 MG TAB PO SCH ×2 (09:00→21:00)
[2018-08-02] MEDS: VANCOMYCIN 1 GM 250 ML IVPB SCH (09:18)
[2018-08-02] MEDS: NICOTINE (21 MG/24 HR) PATCH TRANSDERM SCH (09:19)
[2018-08-02] MEDS: CLOPIDOGREL 75 MG TAB PO SCH (09:19)
[2018-08-02] MEDS: ENOXAPARIN 40 MG/0.4 ML SYG SC SCH (09:20)
[2018-08-02] MEDS ORDERED: HYDROCODONE/APAP (5/325) TAB PO PRN (10:30)
[2018-08-02] MEDS: TAMSULOSIN (SR) 0.4 MG CAP PO SCH ×2 (12:18→21:23)
--- NOTE | 2018-08-02 12:34 | QN ---
Documentation Comment No new c/o. AFVSS L leg incisions clean and dry, foot wrapped - remove elida and apply steristrips - OK for d/c from my standpoint - followup with me in the [facility] in 1 week DAGOBERTO BRANNON MD August 02, 2018 12:34
--- NOTE | 2018-08-02 12:49 | CONS ---
Assessment/Plan Assessment/Plan Hospital Course (Demo Recall) No acute changes, alert, looks comfortable, no fevers Blood culture on 07/10/18 grew enterococcus and Jennifer parapsilosis, repeat blood cultures negative Microbiology: Wound culture grew stenotrophomonas maltophilia, Pseudomonas enterococcus species and coag negative staph species, repeat blood cultures negative Antimicrobials: Levaquin, Vancomycin Physical examination: This is a well-developed fragile elderly man who is alert in no distress. Head atraumatic normocephalic sclera nonicteric vehicle mucosa dry neck is supple chest rise symmetrical breath sounds diminished bases heart: S1-S2. Abdomen soft bowel sounds present. Extremities with left great toe gangrene ASSESSMENT: 1. S/p Polymicrobial bacteremia/fungemia likely secondary to #2 2. Left great toe cellulitis, gangrene, osteomyelitis, s/p amputation 3. Peripheral arterial disease with high-grade left SFA stenosis==> s/p Fem- Tibial Bypass 4. Diabetes Plan: Remains stable, ok dc on oral Levaquin and Amoxicillin for 7-10 days Consultation Date/Type/Reason Admit Date/Time July 10, 2018 at 12:52 Initial Consult Date Type of Consult id Date/Time of Note DATE: 08/02/18 TIME: 12:48 Exam/Review of Systems Exam Vitals Vital Signs Date Temp Pulse Resp B/P (MAP) Pulse Ox O2 O2 Flow FiO2 Time Delivery Rate 08/02/18 98.2 80 18 149/67 97 07:38 (94) 08/01/18 Room Air 14:05 Intake and Output 08/01/18 08/01/18 08/02/18 1515:00 23:00 07:00 IntakeIntake Total 250 ml 250 ml OutputOutput Total 1650 ml 150 ml 250 ml BalanceBalance -1400 ml 100 ml -250 ml Results Result Diagram: 07/31/18 0950 08/02/18 0544 Results 24hrs Laboratory Tests Test 08/01/18 17:45 08/01/18 20:54 08/02/18 01:51 08/02/18 05:44 Bedside Glucose 197 265 H 157 Blood Urea Nitrogen 19 Creatinine 0.71 Test 08/02/18 08:07 08/02/18 12:17 Bedside Glucose 101 154 Medications Medication Current Medications Buspirone HCl (Buspar) 10 mg BID PO Last administered on 08/01/18at 08:47; Admin Dose 10 MG; Start 07/10/18 at 21:00 IV Flush (NS 3 ml) 3 ml PER PROTOCOL IV ; Start 07/10/18 at 14:30 Ondansetron HCl (Zofran Inj) 4 mg Q6H PRN IV NAUSEA/VOMITING Last administered on 07/26/18 11:52; Admin Dose 4 MG; Start 07/10/18 at 14:30 Acetaminophen (Tylenol Tab) 650 mg Q6H PRN PO .PAIN 1-3 OR TEMP; Start 07/10/18 at 14:30 Enoxaparin Sodium (Lovenox) 40 mg DAILY SC Last administered on 08/02/18 09:20; Admin Dose 40 MG; Start 07/11/18 at 09:00 Insulin Glargine (Lantus) 12 units DAILY@2000 SC Last administered on 08/01/18 20:58; Admin Dose 12 UNITS; Start 07/10/18 at 20:00 Nicotine (Nicoderm 21 Mg/ 24hr) 1 patch DAILY TRANSDERM Last administered on 08/02/18 09:19; Admin Dose 1 PATCH; Start 07/11/18 at 09:00 Miscellaneous Information 1 ea NOTE XX ; Start 07/11/18 at 06:45 Glucose (Glutose) 15 gm Q15M PRN PO DECREASED GLUCOSE; Start 07/11/18 at 06:45 Glucose (Glutose) 22.5 gm Q15M PRN PO DECREASED GLUCOSE; Start 07/11/18 at 06:45 Dextrose (D50w Syringe) 25 ml Q15M PRN IV DECREASED GLUCOSE; Start 07/11/18 at 06:45 Dextrose (D50w Syringe) 50 ml Q15M PRN IV DECREASED GLUCOSE; Start 07/11/18 at 06:45 Glucagon (Glucagen) 1 mg Q15M PRN IM DECREASED GLUCOSE; Start 07/11/18 at 06:45 Glucose (Glutose) 15 gm Q15M PRN BUCCAL DECREASED GLUCOSE; Start 07/11/18 at 06:45 Levofloxacin (Levaquin) 750 mg DAILY@06 PO Last administered on 08/02/18 05:47; Admin Dose 750 MG; Start 07/13/18 at 06:00 Bupropion HCl (Wellbutrin Xl) 150 mg DAILY PO Last administered on 08/01/18 08:47; Admin Dose 150 MG; Start 07/13/18 at 09:00 Atorvastatin Calcium (Lipitor) 20 mg HS PO Last administered on 08/01/18 20:55 ; Admin Dose 20 MG; Start 07/13/18 at 21:00 IV Flush (NS 10 ml) 10 ml PRN PRN IV IV PROTOCOL; Start 07/18/18 at 16:30 Clopidogrel Bisulfate (plaVIX) 75 mg DAILY PO Last administered on 08/02/18 09:19; Admin Dose 75 MG; Start 07/26/18 at 11:30 Insulin Aspart (Novolog Insulin Pen) NOVOLOG *MILD* ALGORI... AC MEALS AND BEDTIME SC Last administered on 08/01/18 20:58; Admin Dose 4 UNIT; Start at 08:00 Hydralazine HCl (Apresoline) 10 mg Q4H PRN IV SYSTOLIC BP > 170 Last administered on 07/30/18 20:47; Admin Dose 10 MG; Start 07/30/18 at 21:00 Tamsulosin HCl (Flomax) 0.4 mg HS PO Last administered on 08/02/18 12:18; Admin Dose 0.4 MG; Start 08/02/18 at 11:00 JUAN GARCIA NP August 02, 2018 12:49
[2018-08-02 13:40] VITALS: BP 132/69; PULSE 80; RESP 18
--- NOTE | 2018-08-02 15:30 | PN ---
Date/Time of Note Date/Time of Note DATE: 08/02/18 TIME: 15:28 Assessment/Plan VTE Prophylaxis Risk score (from Nsg)>0 risk: 3 SCD applied (from Nsg): Yes Pharmacological prophylaxis: heparin Lines/Catheters IV Catheter Type (from Nrsg): PICC Line Central line still needed: Yes Urinary Cath still in place: No Assessment/Plan Hospital Course 72 yo M w/hx of triglyceridemia, peripheral vascular disease, type 2 diabetes, anxiety/depression, long-standing tobacco use 1 pack/day was told by his doctor to get admitted for inpatient vascular/podiatry work-up for worsening cellulitis with left toe gangrene also noted with severe PAD/osteomyelitis.. Urinary retention: - Suspect from pain meds. Will dc. Start flomax. Straight cath PRN Left foot cellulitis -Cellulitis improved -cont. Glycemic control/Wound care -BC 03/08 culture grew crystal P. s/p cancidas=>on Diflucan now - antimicrobial per ID recommendations PAD with left first toe dry gangrene -Status post Femoral-tibial bypass, follow-up with vascular recommendations Osteomyelitis of left first toe. -Patient s/p amputation -Continue IV antibiotics for now 4. DMII -well-controlled -Basal/bolus insulin 5. Dyslipidemia/triglyceridemia -on Tricor/statin 6. Anxiety/depression -on Buspar 7. Tobacco abuse -Cessation advised. PRN nicotine patch for withdrawal. 8. Chronic anemia -Stable H&H. Monitor -also getting oral iron DVT prophylaxis: Lovenox Result Diagram: 07/31/18 0950 08/02/18 0544 Results 24hrs Laboratory Tests Test 08/01/18 17:45 08/01/18 20:54 08/02/18 01:51 08/02/18 05:44 Bedside Glucose 197 265 H 157 Blood Urea Nitrogen 19 Creatinine 0.71 Test 08/02/18 08:07 08/02/18 12:17 Bedside Glucose 101 154 Subjective 24 Hr Interval Summary Free Text/Dictation Improving He is unable to ambulate well he says Nervous to go home, prefers SNF Having urinary retention requiring straight cath Exam/Review of Systems Exam Vitals Vital Signs Date Temp Pulse Resp B/P (MAP) Pulse Ox O2 O2 Flow FiO2 Time Delivery Rate 08/02/18 98.7 80 18 132/69 98 13:40 (90) 08/01/18 Room Air 14:05 Intake and Output 08/01/18 08/01/18 08/02/18 1515:00 23:00 07:00 IntakeIntake Total 250 ml 250 ml OutputOutput Total 1650 ml 150 ml 250 ml BalanceBalance -1400 ml 100 ml -250 ml Results Results 24hrs Laboratory Tests Test 08/01/18 17:45 08/01/18 20:54 08/02/18 01:51 08/02/18 05:44 Bedside Glucose 197 265 H 157 Blood Urea Nitrogen 19 Creatinine 0.71 Test 08/02/18 08:07 08/02/18 12:17 Bedside Glucose 101 154 Medications Medication Current Medications Buspirone HCl (Buspar) 10 mg BID PO Last administered on 08/01/18at 08:47; Admin Dose 10 MG; Start 07/10/18 at 21:00 IV Flush (NS 3 ml) 3 ml PER PROTOCOL IV ; Start 07/10/18 at 14:30 Ondansetron HCl (Zofran Inj) 4 mg Q6H PRN IV NAUSEA/VOMITING Last administered on 07/26/18at 11:52; Admin Dose 4 MG; Start 07/10/18 at 14:30 Acetaminophen (Tylenol Tab) 650 mg Q6H PRN PO .PAIN 1-3 OR TEMP; Start 07/10/18 at 14:30 Enoxaparin Sodium (Lovenox) 40 mg DAILY SC Last administered on 08/02/18 09:20; Admin Dose 40 MG; Start 07/11/18 at 09:00 Insulin Glargine (Lantus) 12 units DAILY@2000 SC Last administered on 08/01/18at 20:58; Admin Dose 12 UNITS; Start 07/10/18 at 20:00 Nicotine (Nicoderm 21 Mg/ 24hr) 1 patch DAILY TRANSDERM Last administered on 08/02/18 09:19; Admin Dose 1 PATCH; Start 07/11/18 at 09:00 Miscellaneous Information 1 ea NOTE XX ; Start 07/11/18 at 06:45 Glucose (Glutose) 15 gm Q15M PRN PO DECREASED GLUCOSE; Start 07/11/18 at 06:45 Glucose (Glutose) 22.5 gm Q15M PRN PO DECREASED GLUCOSE; Start 07/11/18 at 06:45 Dextrose (D50w Syringe) 25 ml Q15M PRN IV DECREASED GLUCOSE; Start 07/11/18 at 06:45 Dextrose (D50w Syringe) 50 ml Q15M PRN IV DECREASED GLUCOSE; Start 07/11/18 at 06:45 Glucagon (Glucagen) 1 mg Q15M PRN IM DECREASED GLUCOSE; Start 07/11/18 at 06:45 Glucose (Glutose) 15 gm Q15M PRN BUCCAL DECREASED GLUCOSE; Start 07/11/18 at 06:45 Levofloxacin (Levaquin) 750 mg DAILY@06 PO Last administered on 08/02/18 05:47; Admin Dose 750 MG; Start 07/13/18 at 06:00 Bupropion HCl (Wellbutrin Xl) 150 mg DAILY PO Last administered on 08/01/18 08:47; Admin Dose 150 MG; Start 07/13/18 at 09:00 Atorvastatin Calcium (Lipitor) 20 mg HS PO Last administered on 08/01/18at 20:55; Admin Dose 20 MG; Start 07/13/18 at 21:00 IV Flush (NS 10 ml) 10 ml PRN PRN IV IV PROTOCOL; Start 07/18/18 at 16:30 Clopidogrel Bisulfate (plaVIX) 75 mg DAILY PO Last administered on 08/02/18 09:19; Admin Dose 75 MG; Start 07/26/18 at 11:30 Insulin Aspart (Novolog Insulin Pen) NOVOLOG *MILD* ALGORI... AC MEALS AND BEDTIME SC Last administered on 08/01/18at 20:58; Admin Dose 4 UNIT; Start 07/30/18 at 08:00 Hydralazine HCl (Apresoline) 10 mg Q4H PRN IV SYSTOLIC BP > 170 Last administered on 07/30/18at 20:47; Admin Dose 10 MG; Start 07/30/18 at 21:00 Tamsulosin HCl (Flomax) 0.4 mg HS PO Last administered on 08/02/18at 12:18; Admin Dose 0.4 MG; Start 08/02/18 at 11:00 Amoxicillin (Amoxicillin) 500 mg Q8 PO ; Start 08/02/18 at 14:00 LEE JULIEN MD August 02, 2018 15:30
[2018-08-02] MEDS: AMOXICILLIN 500 MG CAP PO SCH ×2 (17:04→22:36)
[2018-08-02 17:33] VITALS: BP 145/65; PULSE 72; RESP 17
[2018-08-02 20:26] VITALS: BP 129/60; PULSE 74; RESP 18
[2018-08-02] MEDS: ATORVASTATIN 20 MG TAB PO SCH (21:23)
[2018-08-02] MEDS: INSULIN GLARGINE [LANTus] (100 UNITS/ML) SYG SC SCH (21:27)
[2018-08-03 02:38] VITALS: BP 146/68; PULSE 73; RESP 18
[2018-08-03] MEDS: AMOXICILLIN 500 MG CAP PO SCH ×3 (06:05→21:54)
[2018-08-03] MEDS: LEVOFLOXACIN 750 MG TABLET PO SCH (06:06)
[2018-08-03] MEDS: INSULIN ASPART [NOVOLOG] 3 ML PEN SC SCH ×4 (07:00→21:32)
[2018-08-03 07:56] VITALS: BP 158/70; PULSE 70; RESP 18
[2018-08-03] MEDS: ENOXAPARIN 40 MG/0.4 ML SYG SC SCH (08:16)
[2018-08-03] MEDS: NICOTINE (21 MG/24 HR) PATCH TRANSDERM SCH (08:16)
[2018-08-03] MEDS: CLOPIDOGREL 75 MG TAB PO SCH (08:16)
[2018-08-03] MEDS: BUSPIRONE 10 MG TAB PO SCH ×2 (08:19→21:00)
[2018-08-03] MEDS: BUPROPION (XL) 150 MG TAB PO SCH (08:20)
[2018-08-03 14:01] VITALS: BP 137/58; PULSE 69; RESP 18
--- NOTE | 2018-08-03 14:47 | CONS ---
Consultation Date/Type/Reason Admit Date/Time July 10, 2018 at 12:52 Initial Consult Date Type of Consult SUBJECTIVE: Pt is awake, alert, afebrile. No acute events over night. VS: stable T: 98.1 LABS: Reviewed. Blood culture on July 10 grew enterococcus and Jennifer parapsilosis, repeat blood cultures negative Microbiology: Wound culture grew stenotrophomonas maltophilia, Pseudomonas enterococcus species and coag negative staph species; Repeat blood cultures negative. Antimicrobials: Diflucan, oral Levaquin, vancomycin Physical examination: GEN: This is a well-developed fragile elderly man, who is alert in no distress. HENT: Head atraumatic normocephalic, sclera nonicteric vehicle mucosa dry; neck is supple PULM: chest rise symmetrical, breath sounds diminished bases Heart: S1-S2. Abdomen: soft, bowel sounds present. Extremities with left great toe gangrene Plan: Pt is stable. ASSESSMENT: 1. S/p Polymicrobial bacteremia/fungemia likely secondary to #2 2. Left great toe cellulitis, gangrene, osteomyelitis, s/p amputation 3. Peripheral arterial disease with high-grade left SFA stenosis==> s/p Fem- Tibial Bypass 4. Diabetes Plan: Pt is stable. Anticipate dc on oral Levaquin and Amoxicillin for 7-10 days. Date/Time of Note DATE: 08/03/18 TIME: 14:45 Exam/Review of Systems Exam Vitals Vital Signs Date Temp Pulse Resp B/P (MAP) Pulse Ox O2 O2 Flow FiO2 Time Delivery Rate 08/03/18 98.1 70 18 158/70 95 Room Air 07:56 (99) Intake and Output 08/02/18 08/02/18 08/03/18 1515:00 23:00 07:00 IntakeIntake Total 650 ml 240 ml OutputOutput Total 100 ml 725 ml 850 ml BalanceBalance -100 ml -75 ml -610 ml Results Result Diagram: 07/31/18 0950 08/02/18 0544 Results 24hrs Laboratory Tests Test 08/02/18 18:05 08/02/18 21:22 08/03/18 02:36 08/03/18 07:59 Bedside Glucose 150 177 152 123 Test 08/03/18 12:31 Bedside Glucose 161 Medications Medication Current Medications Buspirone HCl (Buspar) 10 mg BID PO Last administered on 08/01/18 08:47; Admin Dose 10 MG; Start 07/10/18 at 21:00 IV Flush (NS 3 ml) 3 ml PER PROTOCOL IV ; Start 07/10/18 at 14:30 Ondansetron HCl (Zofran Inj) 4 mg Q6H PRN IV NAUSEA/VOMITING Last administered on 07/26/18 11:52; Admin Dose 4 MG; Start 07/10/18 at 14:30 Acetaminophen (Tylenol Tab) 650 mg Q6H PRN PO .PAIN 1-3 OR TEMP; Start 07/10/18 at 14:30 Enoxaparin Sodium (Lovenox) 40 mg DAILY SC Last administered on 08/03/18 08:16; Admin Dose 40 MG; Start 07/11/18 at 09:00 Insulin Glargine (Lantus) 12 units DAILY@2000 SC Last administered on 08/02/18 21:27; Admin Dose 12 UNITS; Start 07/10/18 at 20:00 Nicotine (Nicoderm 21 Mg/ 24hr) 1 patch DAILY TRANSDERM Last administered on 08/03/18at 08:16; Admin Dose 1 PATCH; Start 07/11/18 at 09:00 Miscellaneous Information 1 ea NOTE XX ; Start 07/11/18 at 06:45 Glucose (Glutose) 15 gm Q15M PRN PO DECREASED GLUCOSE; Start 07/11/18 at 06:45 Glucose (Glutose) 22.5 gm Q15M PRN PO DECREASED GLUCOSE; Start 07/11/18 at 06:45 Dextrose (D50w Syringe) 25 ml Q15M PRN IV DECREASED GLUCOSE; Start 07/11/18 at 06:45 Dextrose (D50w Syringe) 50 ml Q15M PRN IV DECREASED GLUCOSE; Start 07/11/18 at 06:45 Glucagon (Glucagen) 1 mg Q15M PRN IM DECREASED GLUCOSE; Start 07/11/18 at 06:45 Glucose (Glutose) 15 gm Q15M PRN BUCCAL DECREASED GLUCOSE; Start 07/11/18 at 06:45 Levofloxacin (Levaquin) 750 mg DAILY@06 PO Last administered on 08/03/18at 06:06; Admin Dose 750 MG; Start 07/13/18 at 06:00 Bupropion HCl (Wellbutrin Xl) 150 mg DAILY PO Last administered on 08/01/18 08:47; Admin Dose 150 MG; Start 07/13/18 at 09:00 Atorvastatin Calcium (Lipitor) 20 mg HS PO Last administered on 08/02/18 21:23; Admin Dose 20 MG; Start 07/13/18 at 21:00 IV Flush (NS 10 ml) 10 ml PRN PRN IV IV PROTOCOL; Start 07/18/18 at 16:30 Clopidogrel Bisulfate (plaVIX) 75 mg DAILY PO Last administered on 08/03/18 08:16; Admin Dose 75 MG; Start 07/26/18 at 11:30 Insulin Aspart (Novolog Insulin Pen) NOVOLOG *MILD* ALGORI... AC MEALS AND BEDTIME SC Last administered on 08/03/18 12:34; Admin Dose 1 UNIT; Start 07/30/18 at 08:00 Hydralazine HCl (Apresoline) 10 mg Q4H PRN IV SYSTOLIC BP > 170 Last administered on 07/30/18 20:47; Admin Dose 10 MG; Start 07/30/18 at 21:00 Tamsulosin HCl (Flomax) 0.4 mg HS PO Last administered on 08/02/18 21:23; Admin Dose 0.4 MG; Start 08/02/18 at 11:00 Amoxicillin (Amoxicillin) 500 mg Q8 PO Last administered on 08/03/18 14:38; Admin Dose 500 MG; Start 08/02/18 at 14:00 ALISSON SANTOS Aug 03, 2018 14:47
--- NOTE | 2018-08-03 14:48 | PN ---
Date/Time of Note Date/Time of Note DATE: 08/03/18 TIME: 14:47 Assessment/Plan VTE Prophylaxis Risk score (from Nsg)>0 risk: 3 SCD applied (from Nsg): Yes Pharmacological prophylaxis: heparin Lines/Catheters IV Catheter Type (from Nrsg): PICC Line Central line still needed: Yes Urinary Cath still in place: No Assessment/Plan Hospital Course 72 yo M w/hx of triglyceridemia, peripheral vascular disease, type 2 diabetes, anxiety/depression, long-standing tobacco use 1 pack/day was told by his doctor to get admitted for inpatient vascular/podiatry work-up for worsening cellulitis with left toe gangrene also noted with severe PAD/osteomyelitis. Now s/p fem- tib bypass and toe amputation. Stable, pending placement in SNF Urinary retention: - Suspect from pain meds. Continue flomax. Straight cath PRN Left foot cellulitis -Cellulitis improved -cont. Glycemic control/Wound care -BC 03/08 culture grew crystal P. s/p cancidas=>on Diflucan now - antimicrobial per ID recommendations PAD with left first toe dry gangrene -Status post Femoral-tibial bypass, follow-up with vascular recommendations Osteomyelitis of left first toe. -Patient s/p amputation -Continue IV antibiotics for now 4. DMII -well-controlled -Basal/bolus insulin 5. Dyslipidemia/triglyceridemia -on Tricor/statin 6. Anxiety/depression -on Buspar 7. Tobacco abuse -Cessation advised. PRN nicotine patch for withdrawal. 8. Chronic anemia -Stable H&H. Monitor -also getting oral iron DVT prophylaxis: Lovenox Discharge: pending SNF transfer. Stable for dc Result Diagram: 07/31/18 0950 08/02/18 0544 Results 24hrs Laboratory Tests Test 08/02/18 18:05 08/02/18 21:22 08/03/18 02:36 08/03/18 07:59 Bedside Glucose 150 177 152 123 Test 08/03/18 12:31 Bedside Glucose 161 Subjective 24 Hr Interval Summary Free Text/Dictation Leg elida removed Able to urniate spontaneously Exam/Review of Systems Exam Vitals Vital Signs Date Temp Pulse Resp B/P (MAP) Pulse Ox O2 O2 Flow FiO2 Time Delivery Rate 08/03/18 98.1 70 18 158/70 95 Room Air 07:56 (99) Intake and Output 08/02/18 08/02/18 08/03/18 1515:00 23:00 07:00 IntakeIntake Total 650 ml 240 ml OutputOutput Total 100 ml 725 ml 850 ml BalanceBalance -100 ml -75 ml -610 ml Constitutional: alert, oriented, well developed Psych: no complaints, nl mood/affect Head: normocephalic, atraumatic Eyes: nl conjunctiva, EOMI, nl lids, nl sclera, PERRL ENMT: nl external ears & nose, nl lips & teeth, nl nasal mucosa & septum Neck: supple, non-tender Respiratory: clear to auscultation, normal air movement Cardiovascular: regular rate and rhythm, nl pulses Gastrointestinal: soft, nl liver, spleen, non-tender Musculoskeletal: nl extremities to inspection, nl gait and stance Extremities: normal pulses Neurological: REED CLEANER II-XII intact, nl mental status, nl speech, nl strength Skin: nl turgor; No rash or lesions Lymph: nl lymph nodes Results Results 24hrs Laboratory Tests Test 08/02/18 18:05 08/02/18 21:22 08/03/18 02:36 08/03/18 07:59 Bedside Glucose 150 177 152 123 Test 08/03/18 12:31 Bedside Glucose 161 Medications Medication Current Medications Buspirone HCl (Buspar) 10 mg BID PO Last administered on 08/01/18at 08:47; Admin Dose 10 MG; Start 07/10/18 at 21:00 IV Flush (NS 3 ml) 3 ml PER PROTOCOL IV ; Start 07/10/18 at 14:30 Ondansetron HCl (Zofran Inj) 4 mg Q6H PRN IV NAUSEA/VOMITING Last administered on 07/26/18at 11:52; Admin Dose 4 MG; Start 07/10/18 at 14:30 Acetaminophen (Tylenol Tab) 650 mg Q6H PRN PO .PAIN 1-3 OR TEMP; Start 07/10/18 at 14:30 Enoxaparin Sodium (Lovenox) 40 mg DAILY SC Last administered on 08/03/18at 08:16; Admin Dose 40 MG; Start 07/11/18 at 09:00 Insulin Glargine (Lantus) 12 units DAILY@2000 SC Last administered on 08/02/18at 21:27; Admin Dose 12 UNITS; Start 07/10/18 at 20:00 Nicotine (Nicoderm 21 Mg/ 24hr) 1 patch DAILY TRANSDERM Last administered on 08/03/18at 08:16; Admin Dose 1 PATCH; Start 07/11/18 at 09:00 Miscellaneous Information 1 ea NOTE XX ; Start 07/11/18 at 06:45 Glucose (Glutose) 15 gm Q15M PRN PO DECREASED GLUCOSE; Start 07/11/18 at 06:45 Glucose (Glutose) 22.5 gm Q15M PRN PO DECREASED GLUCOSE; Start 07/11/18 at 06:45 Dextrose (D50w Syringe) 25 ml Q15M PRN IV DECREASED GLUCOSE; Start 07/11/18 at 06:45 Dextrose (D50w Syringe) 50 ml Q15M PRN IV DECREASED GLUCOSE; Start 07/11/18 at 06:45 Glucagon (Glucagen) 1 mg Q15M PRN IM DECREASED GLUCOSE; Start 07/11/18 at 06:45 Glucose (Glutose) 15 gm Q15M PRN BUCCAL DECREASED GLUCOSE; Start 07/11/18 at 06:45 Levofloxacin (Levaquin) 750 mg DAILY@06 PO Last administered on 08/03/18at 06:06; Admin Dose 750 MG; Start 07/13/18 at 06:00 Bupropion HCl (Wellbutrin Xl) 150 mg DAILY PO Last administered on 08/01/18at 08:47; Admin Dose 150 MG; Start 07/13/18 at 09:00 Atorvastatin Calcium (Lipitor) 20 mg HS PO Last administered on 08/02/18at 21:23; Admin Dose 20 MG; Start 07/13/18 at 21:00 IV Flush (NS 10 ml) 10 ml PRN PRN IV IV PROTOCOL; Start 07/18/18 at 16:30 Clopidogrel Bisulfate (plaVIX) 75 mg DAILY PO Last administered on 08/03/18at 08:16; Admin Dose 75 MG; Start 07/26/18 at 11:30 Insulin Aspart (Novolog Insulin Pen) NOVOLOG *MILD* ALGORI... AC MEALS AND BEDTIME SC Last administered on 08/03/18at 12:34; Admin Dose 1 UNIT; Start 07/30/18 at 08:00 Hydralazine HCl (Apresoline) 10 mg Q4H PRN IV SYSTOLIC BP > 170 Last administered on 07/30/18at 20:47; Admin Dose 10 MG; Start 07/30/18 at 21:00 Tamsulosin HCl (Flomax) 0.4 mg HS PO Last administered on 08/02/18at 21:23; Admin Dose 0.4 MG; Start 08/02/18 at 11:00 Amoxicillin (Amoxicillin) 500 mg Q8 PO Last administered on 08/03/18at 14:38; Admin Dose 500 MG; Start 08/02/18 at 14:00 LEE JULIEN MD Aug 03, 2018 14:48
[2018-08-03 20:19] VITALS: BP 123/57; PULSE 83; RESP 18
[2018-08-03] MEDS: TAMSULOSIN (SR) 0.4 MG CAP PO SCH (21:12)
[2018-08-03] MEDS: ATORVASTATIN 20 MG TAB PO SCH (21:12)
[2018-08-03] MEDS: INSULIN GLARGINE [LANTus] (100 UNITS/ML) SYG SC SCH (21:18)
[2018-08-04 02:19] VITALS: BP 149/68; PULSE 68; RESP 18
[2018-08-04] MEDS: LEVOFLOXACIN 750 MG TABLET PO SCH (05:57)
[2018-08-04] MEDS: AMOXICILLIN 500 MG CAP PO SCH ×3 (05:57→21:38)
[2018-08-04 07:47] VITALS: BP 129/60; PULSE 72; RESP 18
[2018-08-04] MEDS: INSULIN ASPART [NOVOLOG] 3 ML PEN SC SCH ×4 (08:04→20:33)
[2018-08-04] MEDS: NICOTINE (21 MG/24 HR) PATCH TRANSDERM SCH (08:05)
[2018-08-04] MEDS: ENOXAPARIN 40 MG/0.4 ML SYG SC SCH (08:05)
[2018-08-04] MEDS: CLOPIDOGREL 75 MG TAB PO SCH (08:05)
[2018-08-04] MEDS: BUSPIRONE 10 MG TAB PO SCH ×2 (08:06→20:37)
[2018-08-04] MEDS: BUPROPION (XL) 150 MG TAB PO SCH (08:06)
--- NOTE | 2018-08-04 14:24 | CONS ---
Assessment/Plan Assessment/Plan Hospital Course (Demo Recall) No acute changes, alert, looks comfortable, no fevers Blood culture on 07/10/18 grew enterococcus and Jennifer parapsilosis, repeat blood cultures negative Microbiology: Wound culture grew stenotrophomonas maltophilia, Pseudomonas enterococcus species and coag negative staph species, repeat blood cultures negative Antimicrobials: Levaquin, Vancomycin Physical examination: This is a well-developed fragile elderly man who is alert in no distress. Head atraumatic normocephalic sclera nonicteric vehicle mucosa dry neck is supple chest rise symmetrical breath sounds diminished bases heart: S1-S2. Abdomen soft bowel sounds present. Extremities with left great toe gangrene ASSESSMENT: 1. S/p Polymicrobial bacteremia/fungemia likely secondary to #2 2. Left great toe cellulitis, gangrene, osteomyelitis, s/p amputation 3. Peripheral arterial disease with high-grade left SFA stenosis==> s/p Fem- Tibial Bypass 4. Diabetes Plan: Remains stable, ok dc on oral Levaquin and Amoxicillin for 6 more days Consultation Date/Type/Reason Admit Date/Time July 10, 2018 at 12:52 Initial Consult Date Type of Consult id Date/Time of Note DATE: 08/04/18 TIME: 14:24 Exam/Review of Systems Exam Vitals Vital Signs Date Temp Pulse Resp B/P (MAP) Pulse Ox O2 O2 Flow FiO2 Time Delivery Rate 08/04/18 98.4 72 18 129/60 98 Room Air 07:47 (83) Intake and Output 08/03/18 08/03/18 08/04/18 1515:00 23:00 07:00 IntakeIntake Total 360 ml 360 ml 120 ml OutputOutput Total 450 ml 100 ml 800 ml BalanceBalance -90 ml 260 ml -680 ml Results Result Diagram: 07/31/18 0950 08/02/18 0544 Results 24hrs Laboratory Tests Test 08/03/18 18:14 08/03/18 21:01 08/04/18 02:05 08/04/18 08:02 Bedside Glucose 157 273 H 139 148 Test 08/04/18 12:54 Bedside Glucose 129 Medications Medication Current Medications Buspirone HCl (Buspar) 10 mg BID PO Last administered on 08/01/18at 08:47; Admin Dose 10 MG; Start 07/10/18 at 21:00 IV Flush (NS 3 ml) 3 ml PER PROTOCOL IV ; Start 07/10/18 at 14:30 Ondansetron HCl (Zofran Inj) 4 mg Q6H PRN IV NAUSEA/VOMITING Last administered on 07/26/18at 11:52; Admin Dose 4 MG; Start 07/10/18 at 14:30 Acetaminophen (Tylenol Tab) 650 mg Q6H PRN PO .PAIN 1-3 OR TEMP; Start 07/10/18 at 14:30 Enoxaparin Sodium (Lovenox) 40 mg DAILY SC Last administered on 08/04/18at 08:05; Admin Dose 40 MG; Start 07/11/18 at 09:00 Insulin Glargine (Lantus) 12 units DAILY@2000 SC Last administered on 08/03/18at 21:18; Admin Dose 12 UNITS; Start 07/10/18 at 20:00 Nicotine (Nicoderm 21 Mg/ 24hr) 1 patch DAILY TRANSDERM Last administered on 08/04/18at 08:05; Admin Dose 1 PATCH; Start 07/11/18 at 09:00 Miscellaneous Information 1 ea NOTE XX ; Start 07/11/18 at 06:45 Glucose (Glutose) 15 gm Q15M PRN PO DECREASED GLUCOSE; Start 07/11/18 at 06:45 Glucose (Glutose) 22.5 gm Q15M PRN PO DECREASED GLUCOSE; Start 07/11/18 at 06:45 Dextrose (D50w Syringe) 25 ml Q15M PRN IV DECREASED GLUCOSE; Start 07/11/18 at 06:45 Dextrose (D50w Syringe) 50 ml Q15M PRN IV DECREASED GLUCOSE; Start 07/11/18 at 06:45 Glucagon (Glucagen) 1 mg Q15M PRN IM DECREASED GLUCOSE; Start 07/11/18 at 06:45 Glucose (Glutose) 15 gm Q15M PRN BUCCAL DECREASED GLUCOSE; Start 07/11/18 at 06:45 Levofloxacin (Levaquin) 750 mg DAILY@06 PO Last administered on 08/04/18at 05:57; Admin Dose 750 MG; Start 07/13/18 at 06:00 Bupropion HCl (Wellbutrin Xl) 150 mg DAILY PO Last administered on 08/01/18at 08:47; Admin Dose 150 MG; Start 07/13/18 at 09:00 Atorvastatin Calcium (Lipitor) 20 mg HS PO Last administered on 08/03/18 21:12; Admin Dose 20 MG; Start 07/13/18 at 21:00 IV Flush (NS 10 ml) 10 ml PRN PRN IV IV PROTOCOL; Start 07/18/18 at 16:30 Clopidogrel Bisulfate (plaVIX) 75 mg DAILY PO Last administered on 08/04/18 08: 05; Admin Dose 75 MG; Start 07/26/18 at 11:30 Hydralazine HCl (Apresoline) 10 mg Q4H PRN IV SYSTOLIC BP > 170 Last administered on 07/30/18at 20:47; Admin Dose 10 MG; Start 07/30/18 at 21:00 Tamsulosin HCl (Flomax) 0.4 mg HS PO Last administered on 08/03/18 21:12; Admin Dose 0.4 MG; Start 08/02/18 at 11:00 Amoxicillin (Amoxicillin) 500 mg Q8 PO Last administered on 08/04/18 13:34; Admin Dose 500 MG; Start 08/02/18 at 14:00 Insulin Aspart (Novolog Insulin Pen) NOVOLOG *MILD* ALGORITHM WITH MEALS BEDTIME SC Last administered on 08/04/18 08:04; Admin Dose 1 UNIT; Start 08/03/18 at 21:12 JUAN GARCIA NP Aug 04, 2018 14:24
[2018-08-04 15:01] VITALS: BP 142/69; PULSE 77; RESP 18
--- NOTE | 2018-08-04 15:14 | PN ---
Date/Time of Note Date/Time of Note DATE: 08/04/18 TIME: 15:13 Assessment/Plan VTE Prophylaxis Risk score (from Nsg)>0 risk: 3 SCD applied (from Nsg): Yes Pharmacological prophylaxis: heparin Lines/Catheters IV Catheter Type (from Nrsg): PICC Line Central line still needed: Yes Urinary Cath still in place: No Assessment/Plan Hospital Course 72 yo M w/hx of triglyceridemia, peripheral vascular disease, type 2 diabetes, anxiety/depression, long-standing tobacco use 1 pack/day was told by his doctor to get admitted for inpatient vascular/podiatry work-up for worsening cellulitis with left toe gangrene also noted with severe PAD/osteomyelitis. Now s/p fem- tib bypass and toe amputation. Stable, pending placement in SNF Urinary retention: - Suspect from pain meds. Continue flomax. Straight cath PRN Left foot cellulitis -Cellulitis improved -cont. Glycemic control/Wound care -BC 03/08 culture grew crystal P. s/p cancidas=>on Diflucan now - antimicrobial per ID recommendations PAD with left first toe dry gangrene -Status post Femoral-tibial bypass, follow-up with vascular recommendations Osteomyelitis of left first toe. -Patient s/p amputation -Continue IV antibiotics for now 4. DMII -well-controlled -Basal/bolus insulin 5. Dyslipidemia/triglyceridemia -on Tricor/statin 6. Anxiety/depression -on Buspar 7. Tobacco abuse -Cessation advised. PRN nicotine patch for withdrawal. 8. Chronic anemia -Stable H&H. Monitor -also getting oral iron DVT prophylaxis: Lovenox Discharge: pending SNF transfer. Stable for dc Result Diagram: 07/31/18 0950 08/02/18 0544 Results 24hrs Laboratory Tests Test 08/03/18 18:14 08/03/18 21:01 08/04/18 02:05 08/04/18 08:02 Bedside Glucose 157 273 H 139 148 Test 08/04/18 12:54 Bedside Glucose 129 Subjective 24 Hr Interval Summary Free Text/Dictation No change to status Awaiting placement Exam/Review of Systems Exam Vitals Vital Signs Date Temp Pulse Resp B/P (MAP) Pulse Ox O2 O2 Flow FiO2 Time Delivery Rate 08/04/18 98.1 77 18 142/69 97 Room Air 15:01 (93) Intake and Output 08/03/18 08/03/18 08/04/18 1515:00 23:00 07:00 IntakeIntake Total 360 ml 360 ml 120 ml OutputOutput Total 450 ml 100 ml 800 ml BalanceBalance -90 ml 260 ml -680 ml Constitutional: alert, oriented, well developed Psych: no complaints, nl mood/affect Head: normocephalic, atraumatic Eyes: nl conjunctiva, EOMI, nl lids, nl sclera, PERRL ENMT: nl external ears & nose, nl lips & teeth, nl nasal mucosa & septum Neck: supple, non-tender Respiratory: clear to auscultation, normal air movement Cardiovascular: regular rate and rhythm, nl pulses Gastrointestinal: soft, nl liver, spleen, non-tender Musculoskeletal: nl extremities to inspection, nl gait and stance Extremities: normal pulses Neurological: DOLLY OPERATOR II-XII intact, nl mental status, nl speech, nl strength Skin: nl turgor; No rash or lesions Lymph: nl lymph nodes Results Results 24hrs Laboratory Tests Test 08/03/18 18:14 08/03/18 21:01 08/04/18 02:05 08/04/18 08:02 Bedside Glucose 157 273 H 139 148 Test 08/04/18 12:54 Bedside Glucose 129 Medications Medication Current Medications Buspirone HCl (Buspar) 10 mg BID PO Last administered on 08/01/18at 08:47; Admin Dose 10 MG; Start 07/10/18 at 21:00 IV Flush (NS 3 ml) 3 ml PER PROTOCOL IV ; Start 07/10/18 at 14:30 Ondansetron HCl (Zofran Inj) 4 mg Q6H PRN IV NAUSEA/VOMITING Last administered on 07/26/18at 11:52; Admin Dose 4 MG; Start 07/10/18 at 14:30 Acetaminophen (Tylenol Tab) 650 mg Q6H PRN PO .PAIN 1-3 OR TEMP; Start 07/10/18 at 14:30 Enoxaparin Sodium (Lovenox) 40 mg DAILY SC Last administered on 08/04/18at 08:05; Admin Dose 40 MG; Start 07/11/18 at 09:00 Insulin Glargine (Lantus) 12 units DAILY@2000 SC Last administered on 08/03/18at 21:18; Admin Dose 12 UNITS; Start 07/10/18 at 20:00 Nicotine (Nicoderm 21 Mg/ 24hr) 1 patch DAILY TRANSDERM Last administered on 08/04/18at 08:05; Admin Dose 1 PATCH; Start 07/11/18 at 09:00 Miscellaneous Information 1 ea NOTE XX ; Start 07/11/18 at 06:45 Glucose (Glutose) 15 gm Q15M PRN PO DECREASED GLUCOSE; Start 07/11/18 at 06:45 Glucose (Glutose) 22.5 gm Q15M PRN PO DECREASED GLUCOSE; Start 07/11/18 at 06:45 Dextrose (D50w Syringe) 25 ml Q15M PRN IV DECREASED GLUCOSE; Start 07/11/18 at 06:45 Dextrose (D50w Syringe) 50 ml Q15M PRN IV DECREASED GLUCOSE; Start 07/11/18 at 06:45 Glucagon (Glucagen) 1 mg Q15M PRN IM DECREASED GLUCOSE; Start 07/11/18 at 06:45 Glucose (Glutose) 15 gm Q15M PRN BUCCAL DECREASED GLUCOSE; Start 07/11/18 at 06:45 Levofloxacin (Levaquin) 750 mg DAILY@06 PO Last administered on 08/04/18at 05:57; Admin Dose 750 MG; Start 07/13/18 at 06:00 Bupropion HCl (Wellbutrin Xl) 150 mg DAILY PO Last administered on 08/01/18at 08:47; Admin Dose 150 MG; Start 07/13/18 at 09:00 Atorvastatin Calcium (Lipitor) 20 mg HS PO Last administered on 08/03/18at 21:12; Admin Dose 20 MG; Start 07/13/18 at 21:00 IV Flush (NS 10 ml) 10 ml PRN PRN IV IV PROTOCOL; Start 07/18/18 at 16:30 Clopidogrel Bisulfate (plaVIX) 75 mg DAILY PO Last administered on 08/04/18at 08:05; Admin Dose 75 MG; Start 07/26/18 at 11:30 Hydralazine HCl (Apresoline) 10 mg Q4H PRN IV SYSTOLIC BP > 170 Last administered on 07/30/18at 20:47; Admin Dose 10 MG; Start 07/30/18 at 21:00 Tamsulosin HCl (Flomax) 0.4 mg HS PO Last administered on 08/03/18at 21:12; Admin Dose 0.4 MG; Start 08/02/18 at 11:00 Amoxicillin (Amoxicillin) 500 mg Q8 PO Last administered on 08/04/18at 13:34; Admin Dose 500 MG; Start 08/02/18 at 14:00 Insulin Aspart (Novolog Insulin Pen) NOVOLOG *MILD* ALGORITHM WITH MEALS BEDTIME SC Last administered on 08/04/18at 08:04; Admin Dose 1 UNIT; Start 08/03/18 at 21:12 LEE JULIEN MD Aug 04, 2018 15:14
--- NOTE | 2018-08-04 15:27 | PN ---
DATE: 08/04/2018 SUBJECTIVE: The patient is being followed for left foot, status post partial hallux amputation. He is also status post left femoral to posterior tibial bypass with in situ greater saphenous vein. The patient denies any acute complaints. He is eating well. The patient's last cultures from the foot were negative. OBJECTIVE: VITAL SIGNS: Temperature 98.4, pulse is 72, respiratory rate 18, blood pressure is 129/60, pulse ox is 98% on room air. EXTREMITIES: Left foot is warm, left partial hallux amputation sutures present. Mild erythema. No active drainage. Bypass site incision is well coapted. There is moderate edema, bilateral lower ext remities. No signs of pressure sores. LABORATORIES: WBC 6.3, hemoglobin 8.7, hematocrit 27.4, platelets 299. Glucose 129. PLAN: I recommend discharge planning, possible SNF placement. He will need outpatient followup. Th e patient is currently on Diflucan due to positive Jennifer. Continue to optimize nutritional status and smoking cessation was advised. Nursing recommendations are provided for dressing changes. Dictated By: AMISH MAHAN DPM RB/BERENICE Conf#: [id number] DID#: [id number] CC: JP ADAMS MD; DAGOBERTO BRANNON MD; LEE JULIEN MD;*End*
[2018-08-04 19:56] VITALS: BP 129/61; PULSE 77; RESP 18
[2018-08-04] MEDS: INSULIN GLARGINE [LANTus] (100 UNITS/ML) SYG SC SCH (20:32)
[2018-08-04] MEDS: TAMSULOSIN (SR) 0.4 MG CAP PO SCH (20:34)
[2018-08-04] MEDS: ATORVASTATIN 20 MG TAB PO SCH (20:35)
[2018-08-05 02:00] VITALS: BP 128/60; PULSE 72; RESP 18
[2018-08-05] MEDS: AMOXICILLIN 500 MG CAP PO SCH ×3 (05:08→21:39)
[2018-08-05] MEDS: LEVOFLOXACIN 750 MG TABLET PO SCH (05:08)
[2018-08-05 07:50] VITALS: BP 142/65; PULSE 74; RESP 18
[2018-08-05] MEDS: INSULIN ASPART [NOVOLOG] 3 ML PEN SC SCH ×4 (08:00→20:20)
[2018-08-05] MEDS: CLOPIDOGREL 75 MG TAB PO SCH (08:28)
[2018-08-05] MEDS: BUSPIRONE 10 MG TAB PO SCH ×2 (08:30→20:20)
[2018-08-05] MEDS: BUPROPION (XL) 150 MG TAB PO SCH (08:31)
[2018-08-05] MEDS: NICOTINE (21 MG/24 HR) PATCH TRANSDERM SCH (08:32)
[2018-08-05] MEDS: ENOXAPARIN 40 MG/0.4 ML SYG SC SCH (08:34)
[2018-08-05 13:39] VITALS: BP 141/61; PULSE 78; RESP 18
--- NOTE | 2018-08-05 14:05 | CONS ---
Assessment/Plan Assessment/Plan Hospital Course (Demo Recall) No acute changes, alert, looks comfortable, no fevers Blood culture on 07/10/18 grew enterococcus and Jennifer parapsilosis, repeat blood cultures negative Microbiology: Wound culture grew stenotrophomonas maltophilia, Pseudomonas enterococcus species and coag negative staph species, repeat blood cultures negative Antimicrobials: Levaquin, Amoxil Physical examination: This is a well-developed fragile elderly man who is alert in no distress. Head atraumatic normocephalic sclera nonicteric vehicle mucosa dry neck is supple chest rise symmetrical breath sounds diminished bases heart: S1-S2. Abdomen soft bowel sounds present. Extremities with left great toe gangrene ASSESSMENT: 1. S/p Polymicrobial bacteremia/fungemia likely secondary to #2 2. Left great toe cellulitis, gangrene, osteomyelitis, s/p amputation 3. Peripheral arterial disease with high-grade left SFA stenosis==> s/p Fem- Tibial Bypass 4. Diabetes Plan: Remains stable, ok dc on oral Levaquin and Amoxicillin for 5 more days Consultation Date/Type/Reason Admit Date/Time July 10, 2018 at 12:52 Initial Consult Date Type of Consult id Date/Time of Note DATE: 08/05/18 TIME: 14:04 Exam/Review of Systems Exam Vitals Vital Signs Date Temp Pulse Resp B/P (MAP) Pulse Ox O2 O2 Flow FiO2 Time Delivery Rate 08/05/18 97.6 78 18 141/61 99 Room Air 13:39 (87) Intake and Output 08/04/18 08/04/18 08/05/18 1414:59 22:59 06:59 IntakeIntake Total 720 ml 840 ml OutputOutput Total 500 ml 1250 ml 950 ml BalanceBalance 220 ml -410 ml -950 ml Results Result Diagram: 08/02/18 0544 Results 24hrs Laboratory Tests Test 08/04/18 17:43 08/04/18 20:25 08/05/18 01:55 08/05/18 08:28 Bedside Glucose 160 257 H 135 117 Test 08/05/18 13:04 Bedside Glucose 125 Medications Medication Current Medications Buspirone HCl (Buspar) 10 mg BID PO Last administered on 08/01/18at 08:47; Admin Dose 10 MG; Start 07/10/18 at 21:00 IV Flush (NS 3 ml) 3 ml PER PROTOCOL IV ; Start 07/10/18 at 14:30 Ondansetron HCl (Zofran Inj) 4 mg Q6H PRN IV NAUSEA/VOMITING Last administered on 07/26/18at 11:52; Admin Dose 4 MG; Start 07/10/18 at 14:30 Acetaminophen (Tylenol Tab) 650 mg Q6H PRN PO .PAIN 1-3 OR TEMP; Start 07/10/18 at 14:30 Enoxaparin Sodium (Lovenox) 40 mg DAILY SC Last administered on 08/05/18at 08:34; Admin Dose 40 MG; Start 07/11/18 at 09:00 Insulin Glargine (Lantus) 12 units DAILY@2000 SC Last administered on 08/04/18 20:32; Admin Dose 12 UNITS; Start 07/10/18 at 20:00 Nicotine (Nicoderm 21 Mg/ 24hr) 1 patch DAILY TRANSDERM Last administered on 08/05/18 08:32; Admin Dose 1 PATCH; Start 07/11/18 at 09:00 Miscellaneous Information 1 ea NOTE XX ; Start 07/11/18 at 06:45 Glucose (Glutose) 15 gm Q15M PRN PO DECREASED GLUCOSE; Start 07/11/18 at 06:45 Glucose (Glutose) 22.5 gm Q15M PRN PO DECREASED GLUCOSE; Start 07/11/18 at 06:45 Dextrose (D50w Syringe) 25 ml Q15M PRN IV DECREASED GLUCOSE; Start 07/11/18 at 06:45 Dextrose (D50w Syringe) 50 ml Q15M PRN IV DECREASED GLUCOSE; Start 07/11/18 at 06:45 Glucagon (Glucagen) 1 mg Q15M PRN IM DECREASED GLUCOSE; Start 07/11/18 at 06:45 Glucose (Glutose) 15 gm Q15M PRN BUCCAL DECREASED GLUCOSE; Start 07/11/18 at 06:45 Levofloxacin (Levaquin) 750 mg DAILY@06 PO Last administered on 08/05/18at 05:08; Admin Dose 750 MG; Start 07/13/18 at 06:00 Bupropion HCl (Wellbutrin Xl) 150 mg DAILY PO Last administered on 08/01/18at 08:47; Admin Dose 150 MG; Start 07/13/18 at 09:00 Atorvastatin Calcium (Lipitor) 20 mg HS PO Last administered on 08/04/18 20:35; Admin Dose 20 MG; Start 07/13/18 at 21:00 IV Flush (NS 10 ml) 10 ml PRN PRN IV IV PROTOCOL; Start 07/18/18 at 16:30 Clopidogrel Bisulfate (plaVIX) 75 mg DAILY PO Last administered on 08/05/18 08: 28; Admin Dose 75 MG; Start 07/26/18 at 11:30 Hydralazine HCl (Apresoline) 10 mg Q4H PRN IV SYSTOLIC BP > 170 Last administered on 07/30/18 20:47; Admin Dose 10 MG; Start 07/30/18 at 21:00 Tamsulosin HCl (Flomax) 0.4 mg HS PO Last administered on 08/04/18 20:34; Admin Dose 0.4 MG; Start 08/02/18 at 11:00 Amoxicillin (Amoxicillin) 500 mg Q8 PO Last administered on 08/05/18 13:06; Admin Dose 500 MG; Start 08/02/18 at 14:00 Insulin Aspart (Novolog Insulin Pen) NOVOLOG *MILD* ALGORITHM WITH MEALS BEDTIME SC Last administered on 08/04/18 20:33; Admin Dose 2 UNIT; Start 08/03/18 at 21:12 JUAN GRACIA NP Aug 05, 2018 14:05
--- NOTE | 2018-08-05 14:36 | PN ---
Date/Time of Note Date/Time of Note DATE: 08/05/18 TIME: 14:36 Assessment/Plan VTE Prophylaxis Risk score (from Nsg)>0 risk: 3 SCD applied (from Nsg): Yes Pharmacological prophylaxis: heparin Lines/Catheters IV Catheter Type (from Nrsg): PICC Line Central line still needed: Yes Urinary Cath still in place: No Assessment/Plan Hospital Course 72 yo M w/hx of triglyceridemia, peripheral vascular disease, type 2 diabetes, anxiety/depression, long-standing tobacco use 1 pack/day was told by his doctor to get admitted for inpatient vascular/podiatry work-up for worsening cellulitis with left toe gangrene also noted with severe PAD/osteomyelitis. Now s/p fem- tib bypass and toe amputation. Stable, pending placement in SNF Urinary retention: - Suspect from pain meds. Continue flomax. Straight cath PRN Left foot cellulitis -Cellulitis improved -cont. Glycemic control/Wound care -BC 03/08 culture grew crystal P. s/p cancidas=>on Diflucan now - antimicrobial per ID recommendations PAD with left first toe dry gangrene -Status post Femoral-tibial bypass, follow-up with vascular recommendations Osteomyelitis of left first toe. -Patient s/p amputation -Continue IV antibiotics for now 4. DMII -well-controlled -Basal/bolus insulin 5. Dyslipidemia/triglyceridemia -on Tricor/statin 6. Anxiety/depression -on Buspar 7. Tobacco abuse -Cessation advised. PRN nicotine patch for withdrawal. 8. Chronic anemia -Stable H&H. Monitor -also getting oral iron DVT prophylaxis: Lovenox Discharge: pending SNF transfer. Stable for dc Result Diagram: 08/02/18 0544 Results 24hrs Laboratory Tests Test 08/04/18 17:43 08/04/18 20:25 08/05/18 01:55 08/05/18 08:28 Bedside Glucose 160 257 H 135 117 Test 08/05/18 13:04 Bedside Glucose 125 Subjective 24 Hr Interval Summary Free Text/Dictation No change to status No problems with urinary retention Breathing comfortably Exam/Review of Systems Exam Vitals Vital Signs Date Temp Pulse Resp B/P (MAP) Pulse Ox O2 O2 Flow FiO2 Time Delivery Rate 08/05/18 97.6 78 18 141/61 99 Room Air 13:39 (87) Intake and Output 08/04/18 08/04/18 08/05/18 1515:00 23:00 07:00 IntakeIntake Total 720 ml 840 ml OutputOutput Total 500 ml 1250 ml 950 ml BalanceBalance 220 ml -410 ml -950 ml Constitutional: alert, oriented, well developed Psych: no complaints, nl mood/affect Head: normocephalic, atraumatic Eyes: nl conjunctiva, EOMI, nl lids, nl sclera, PERRL ENMT: nl external ears & nose, nl lips & teeth, nl nasal mucosa & septum Neck: supple, non-tender Respiratory: clear to auscultation, normal air movement Cardiovascular: regular rate and rhythm, nl pulses Gastrointestinal: soft, nl liver, spleen, non-tender Musculoskeletal: nl extremities to inspection, nl gait and stance Extremities: normal pulses Neurological: [employer] II-XII intact, nl mental status, nl speech, nl strength Skin: nl turgor; No rash or lesions Lymph: nl lymph nodes Results Results 24hrs Laboratory Tests Test 08/04/18 17:43 08/04/18 20:25 08/05/18 01:55 08/05/18 08:28 Bedside Glucose 160 257 H 135 117 Test 08/05/18 13:04 Bedside Glucose 125 Medications Medication Current Medications Buspirone HCl (Buspar) 10 mg BID PO Last administered on 08/01/18at 08:47; Admin Dose 10 MG; Start 07/10/18 at 21:00 IV Flush (NS 3 ml) 3 ml PER PROTOCOL IV ; Start 07/10/18 at 14:30 Ondansetron HCl (Zofran Inj) 4 mg Q6H PRN IV NAUSEA/VOMITING Last administered on 07/26/18at 11:52; Admin Dose 4 MG; Start 07/10/18 at 14:30 Acetaminophen (Tylenol Tab) 650 mg Q6H PRN PO .PAIN 1-3 OR TEMP; Start 07/10/18 at 14:30 Enoxaparin Sodium (Lovenox) 40 mg DAILY SC Last administered on 08/05/18at 08:34; Admin Dose 40 MG; Start 07/11/18 at 09:00 Insulin Glargine (Lantus) 12 units DAILY@2000 SC Last administered on 08/04/18at 20:32; Admin Dose 12 UNITS; Start 07/10/18 at 20:00 Nicotine (Nicoderm 21 Mg/ 24hr) 1 patch DAILY TRANSDERM Last administered on 08/05/18at 08:32; Admin Dose 1 PATCH; Start 07/11/18 at 09:00 Miscellaneous Information 1 ea NOTE XX ; Start 07/11/18 at 06:45 Glucose (Glutose) 15 gm Q15M PRN PO DECREASED GLUCOSE; Start 07/11/18 at 06:45 Glucose (Glutose) 22.5 gm Q15M PRN PO DECREASED GLUCOSE; Start 07/11/18 at 06:45 Dextrose (D50w Syringe) 25 ml Q15M PRN IV DECREASED GLUCOSE; Start 07/11/18 at 06:45 Dextrose (D50w Syringe) 50 ml Q15M PRN IV DECREASED GLUCOSE; Start 07/11/18 at 06:45 Glucagon (Glucagen) 1 mg Q15M PRN IM DECREASED GLUCOSE; Start 07/11/18 at 06:45 Glucose (Glutose) 15 gm Q15M PRN BUCCAL DECREASED GLUCOSE; Start 07/11/18 at 06:45 Levofloxacin (Levaquin) 750 mg DAILY@06 PO Last administered on 08/05/18at 05:08; Admin Dose 750 MG; Start 07/13/18 at 06:00 Bupropion HCl (Wellbutrin Xl) 150 mg DAILY PO Last administered on 08/01/18at 08:47; Admin Dose 150 MG; Start 07/13/18 at 09:00 Atorvastatin Calcium (Lipitor) 20 mg HS PO Last administered on 08/04/18at 20:35; Admin Dose 20 MG; Start 07/13/18 at 21:00 IV Flush (NS 10 ml) 10 ml PRN PRN IV IV PROTOCOL; Start 07/18/18 at 16:30 Clopidogrel Bisulfate (plaVIX) 75 mg DAILY PO Last administered on 08/05/18 08:28; Admin Dose 75 MG; Start 07/26/18 at 11:30 Hydralazine HCl (Apresoline) 10 mg Q4H PRN IV SYSTOLIC BP > 170 Last administered on 07/30/18at 20:47; Admin Dose 10 MG; Start 07/30/18 at 21:00 Tamsulosin HCl (Flomax) 0.4 mg HS PO Last administered on 08/04/18 20:34; Admin Dose 0.4 MG; Start 08/02/18 at 11:00 Amoxicillin (Amoxicillin) 500 mg Q8 PO Last administered on 08/05/18at 13:06; Admin Dose 500 MG; Start 08/02/18 at 14:00 Insulin Aspart (Novolog Insulin Pen) NOVOLOG *MILD* ALGORITHM WITH MEALS BEDTIME SC Last administered on 08/04/18at 20:33; Admin Dose 2 UNIT; Start 08/03/18 at 21:12 LEE JULIEN MD Aug 05, 2018 14:36
[2018-08-05 19:39] VITALS: BP 141/65; PULSE 74; RESP 18
[2018-08-05] MEDS: ATORVASTATIN 20 MG TAB PO SCH (20:19)
[2018-08-05] MEDS: INSULIN GLARGINE [LANTus] (100 UNITS/ML) SYG SC SCH (20:19)
[2018-08-05] MEDS: TAMSULOSIN (SR) 0.4 MG CAP PO SCH (20:20)
[2018-08-06 02:08] VITALS: BP 139/63; PULSE 79; RESP 18
[2018-08-06] MEDS: AMOXICILLIN 500 MG CAP PO SCH ×3 (05:50→21:16)
[2018-08-06] MEDS: LEVOFLOXACIN 750 MG TABLET PO SCH (05:50)
[2018-08-06 07:35] VITALS: BP 125/68; PULSE 79; RESP 18
[2018-08-06] MEDS: INSULIN ASPART [NOVOLOG] 3 ML PEN SC SCH ×4 (08:00→20:03)
[2018-08-06] MEDS: BUPROPION (XL) 150 MG TAB PO SCH (08:10)
[2018-08-06] MEDS: CLOPIDOGREL 75 MG TAB PO SCH (08:10)
[2018-08-06] MEDS: BUSPIRONE 10 MG TAB PO SCH ×2 (08:10→20:02)
[2018-08-06] MEDS: ENOXAPARIN 40 MG/0.4 ML SYG SC SCH (08:12)
[2018-08-06] MEDS: NICOTINE (21 MG/24 HR) PATCH TRANSDERM SCH (08:15)
--- NOTE | 2018-08-06 14:11 | PN ---
Date/Time of Note Date/Time of Note DATE: 08/06/18 TIME: 14:10 Assessment/Plan VTE Prophylaxis Risk score (from Nsg)>0 risk: 7 SCD applied (from Nsg): Yes Pharmacological prophylaxis: heparin Lines/Catheters IV Catheter Type (from Nrsg): PICC Line Central line still needed: No Urinary Cath still in place: No Assessment/Plan Hospital Course 72 yo M w/hx of triglyceridemia, peripheral vascular disease, type 2 diabetes, anxiety/depression, long-standing tobacco use 1 pack/day was told by his doctor to get admitted for inpatient vascular/podiatry work-up for worsening cellulitis with left toe gangrene also noted with severe PAD/osteomyelitis. Now s/p fem- tib bypass and toe amputation. Stable, pending placement in SNF Urinary retention: - Resolved - Suspect from pain meds. Continue flomax. Straight cath PRN PAD with left first toe dry gangrene -Status post Femoral-tibial bypass, follow-up with vascular recommendations Osteomyelitis of left first toe. -Patient s/p amputation -Continue antibiotics per ID DMII -well-controlled -Basal/bolus insulin Dyslipidemia/triglyceridemia -on Tricor/statin Anxiety/depression -on Buspar Tobacco abuse -Cessation advised. PRN nicotine patch for withdrawal. Chronic anemia -Stable H&H. Monitor -also getting oral iron DVT prophylaxis: Lovenox Discharge: pending SNF transfer. Stable for dc Result Diagram: 08/02/18 0544 Results 24hrs Laboratory Tests Test 08/05/18 17:33 08/05/18 20:17 08/06/18 08:09 08/06/18 13:13 Bedside Glucose 166 169 114 157 Subjective 24 Hr Interval Summary Free Text/Dictation Awaiting placement Exam/Review of Systems Exam Vitals Vital Signs Date Temp Pulse Resp B/P (MAP) Pulse Ox O2 O2 Flow FiO2 Time Delivery Rate 08/06/18 97.5 79 18 125/68 98 07:35 (87) 08/05/18 Room Air 13:39 Intake and Output 08/05/18 08/05/18 08/06/18 1515:00 23:00 07:00 IntakeIntake Total 360 ml 600 ml 240 ml OutputOutput Total 900 ml 200 ml 1150 ml BalanceBalance -540 ml 400 ml -910 ml Constitutional: alert, oriented, well developed Psych: no complaints, nl mood/affect Head: normocephalic, atraumatic Eyes: nl conjunctiva, EOMI, nl lids, nl sclera, PERRL ENMT: nl external ears & nose, nl lips & teeth, nl nasal mucosa & septum Neck: supple, non-tender Respiratory: clear to auscultation, normal air movement Cardiovascular: regular rate and rhythm, nl pulses Gastrointestinal: soft, nl liver, spleen, non-tender Musculoskeletal: nl extremities to inspection, nl gait and stance Extremities: normal pulses Neurological: PRECISION AGRONOMIST II-XII intact, nl mental status, nl speech, nl strength Skin: nl turgor; No rash or lesions Lymph: nl lymph nodes Results Results 24hrs Laboratory Tests Test 08/05/18 17:33 08/05/18 20:17 08/06/18 08:09 08/06/18 13:13 Bedside Glucose 166 169 114 157 Medications Medication Current Medications Buspirone HCl (Buspar) 10 mg BID PO Last administered on 08/01/18 08:47; Admin Dose 10 MG; Start 07/10/18 at 21:00 IV Flush (NS 3 ml) 3 ml PER PROTOCOL IV ; Start 07/10/18 at 14:30 Ondansetron HCl (Zofran Inj) 4 mg Q6H PRN IV NAUSEA/VOMITING Last administered on 07/26/18 11:52; Admin Dose 4 MG; Start 07/10/18 at 14:30 Acetaminophen (Tylenol Tab) 650 mg Q6H PRN PO .PAIN 1-3 OR TEMP; Start 07/10/18 at 14:30 Enoxaparin Sodium (Lovenox) 40 mg DAILY SC Last administered on 08/06/18at 08:12; Admin Dose 40 MG; Start 07/11/18 at 09:00 Insulin Glargine (Lantus) 12 units DAILY@2000 SC Last administered on 08/05/18 20:19; Admin Dose 12 UNITS; Start 07/10/18 at 20:00 Nicotine (Nicoderm 21 Mg/ 24hr) 1 patch DAILY TRANSDERM Last administered on 08/06/18 08:15; Admin Dose 1 PATCH; Start 07/11/18 at 09:00 Miscellaneous Information 1 ea NOTE XX ; Start 07/11/18 at 06:45 Glucose (Glutose) 15 gm Q15M PRN PO DECREASED GLUCOSE; Start 07/11/18 at 06:45 Glucose (Glutose) 22.5 gm Q15M PRN PO DECREASED GLUCOSE; Start 07/11/18 at 06:45 Dextrose (D50w Syringe) 25 ml Q15M PRN IV DECREASED GLUCOSE; Start 07/11/18 at 06:45 Dextrose (D50w Syringe) 50 ml Q15M PRN IV DECREASED GLUCOSE; Start 07/11/18 at 06:45 Glucagon (Glucagen) 1 mg Q15M PRN IM DECREASED GLUCOSE; Start 07/11/18 at 06:45 Glucose (Glutose) 15 gm Q15M PRN BUCCAL DECREASED GLUCOSE; Start 07/11/18 at 06:45 Levofloxacin (Levaquin) 750 mg DAILY@06 PO Last administered on 08/06/18at 05:50; Admin Dose 750 MG; Start 07/13/18 at 06:00 Bupropion HCl (Wellbutrin Xl) 150 mg DAILY PO Last administered on 08/01/18 08:47; Admin Dose 150 MG; Start 07/13/18 at 09:00 Atorvastatin Calcium (Lipitor) 20 mg HS PO Last administered on 08/05/18 20:19; Admin Dose 20 MG; Start 07/13/18 at 21:00 IV Flush (NS 10 ml) 10 ml PRN PRN IV IV PROTOCOL; Start 07/18/18 at 16:30 Clopidogrel Bisulfate (plaVIX) 75 mg DAILY PO Last administered on 08/06/18 08:10; Admin Dose 75 MG; Start 07/26/18 at 11:30 Hydralazine HCl (Apresoline) 10 mg Q4H PRN IV SYSTOLIC BP > 170 Last administered on 07/30/18at 20:47; Admin Dose 10 MG; Start 07/30/18 at 21:00 Tamsulosin HCl (Flomax) 0.4 mg HS PO Last administered on 08/05/18 20:20; Admin Dose 0.4 MG; Start 08/02/18 at 11:00 Amoxicillin (Amoxicillin) 500 mg Q8 PO Last administered on 08/06/18 13:17; Admin Dose 500 MG; Start 08/02/18 at 14:00 Insulin Aspart (Novolog Insulin Pen) NOVOLOG *MILD* ALGORITHM WITH MEALS BEDTIME SC Last administered on 08/06/18 13:17; Admin Dose 1 UNIT; Start 08/03/18 at 21:12 LEE JULIEN MD Aug 06, 2018 14:11
[2018-08-06 14:37] VITALS: BP 139/65; PULSE 76; RESP 16
--- NOTE | 2018-08-06 14:38 | CONS ---
Assessment/Plan Assessment/Plan Hospital Course (Demo Recall) No acute changes looks comfortable, no fevers Blood culture on 07/10/18 grew enterococcus and Jennifer parapsilosis, repeat blood cultures negative Microbiology: Wound culture grew stenotrophomonas maltophilia, Pseudomonas enterococcus species and coag negative staph species, repeat blood cultures negative Antimicrobials: Levaquin, Amoxil Physical examination: This is a well-developed fragile elderly man who is alert in no distress. Head atraumatic normocephalic sclera nonicteric vehicle mucosa dry neck is supple chest rise symmetrical breath sounds diminished bases heart: S1-S2. Abdomen soft bowel sounds present. Extremities with left great toe gangrene ASSESSMENT: 1. S/p Polymicrobial bacteremia/fungemia likely secondary to #2 2. Left great toe cellulitis, gangrene, osteomyelitis, s/p amputation 3. Peripheral arterial disease with high-grade left SFA stenosis==> s/p Fem- Tibial Bypass 4. Diabetes Plan: Remains stable, pending dc on oral Levaquin and Amoxicillin for 4 more days Consultation Date/Type/Reason Admit Date/Time July 10, 2018 at 12:52 Initial Consult Date Type of Consult id Date/Time of Note DATE: 08/06/18 TIME: 14:38 Exam/Review of Systems Exam Vitals Vital Signs Date Temp Pulse Resp B/P (MAP) Pulse Ox O2 O2 Flow FiO2 Time Delivery Rate 08/06/18 97.5 79 18 125/68 98 07:35 (87) 08/05/18 Room Air 13:39 Intake and Output 08/05/18 08/05/18 08/06/18 1515:00 23:00 07:00 IntakeIntake Total 360 ml 600 ml 240 ml OutputOutput Total 900 ml 200 ml 1150 ml BalanceBalance -540 ml 400 ml -910 ml Results Result Diagram: 08/02/18 0544 Results 24hrs Laboratory Tests Test 08/05/18 17:33 08/05/18 20:17 08/06/18 08:09 08/06/18 13:13 Bedside Glucose 166 169 114 157 Medications Medication Current Medications Buspirone HCl (Buspar) 10 mg BID PO Last administered on 08/01/18at 08:47; Admin Dose 10 MG; Start 07/10/18 at 21:00 IV Flush (NS 3 ml) 3 ml PER PROTOCOL IV ; Start 07/10/18 at 14:30 Ondansetron HCl (Zofran Inj) 4 mg Q6H PRN IV NAUSEA/VOMITING Last administered on 07/26/18 11:52; Admin Dose 4 MG; Start 07/10/18 at 14:30 Acetaminophen (Tylenol Tab) 650 mg Q6H PRN PO .PAIN 1-3 OR TEMP; Start 07/10/18 at 14:30 Enoxaparin Sodium (Lovenox) 40 mg DAILY SC Last administered on 08/06/18 08:12; Admin Dose 40 MG; Start 07/11/18 at 09:00 Insulin Glargine (Lantus) 12 units DAILY@2000 SC Last administered on 08/05/18 20:19; Admin Dose 12 UNITS; Start 07/10/18 at 20:00 Nicotine (Nicoderm 21 Mg/ 24hr) 1 patch DAILY TRANSDERM Last administered on 08/06/18 08:15; Admin Dose 1 PATCH; Start 07/11/18 at 09:00 Miscellaneous Information 1 ea NOTE XX ; Start 07/11/18 at 06:45 Glucose (Glutose) 15 gm Q15M PRN PO DECREASED GLUCOSE; Start 07/11/18 at 06:45 Glucose (Glutose) 22.5 gm Q15M PRN PO DECREASED GLUCOSE; Start 07/11/18 at 06:45 Dextrose (D50w Syringe) 25 ml Q15M PRN IV DECREASED GLUCOSE; Start 07/11/18 at 06:45 Dextrose (D50w Syringe) 50 ml Q15M PRN IV DECREASED GLUCOSE; Start 07/11/18 at 06:45 Glucagon (Glucagen) 1 mg Q15M PRN IM DECREASED GLUCOSE; Start 07/11/18 at 06:45 Glucose (Glutose) 15 gm Q15M PRN BUCCAL DECREASED GLUCOSE; Start 07/11/18 at 06:45 Levofloxacin (Levaquin) 750 mg DAILY@06 PO Last administered on 08/06/18at 05:50; Admin Dose 750 MG; Start 07/13/18 at 06:00 Bupropion HCl (Wellbutrin Xl) 150 mg DAILY PO Last administered on 08/01/18 08:47; Admin Dose 150 MG; Start 07/13/18 at 09:00 Atorvastatin Calcium (Lipitor) 20 mg HS PO Last administered on 08/05/18 20:19; Admin Dose 20 MG; Start 07/13/18 at 21:00 IV Flush (NS 10 ml) 10 ml PRN PRN IV IV PROTOCOL; Start 07/18/18 at 16:30 Clopidogrel Bisulfate (plaVIX) 75 mg DAILY PO Last administered on 08/06/18 08:10; Admin Dose 75 MG; Start 07/26/18 at 11:30 Hydralazine HCl (Apresoline) 10 mg Q4H PRN IV SYSTOLIC BP > 170 Last administered on 07/30/18 20:47; Admin Dose 10 MG; Start 07/30/18 at 21:00 Tamsulosin HCl (Flomax) 0.4 mg HS PO Last administered on 08/05/18 20:20; Admin Dose 0.4 MG; Start 08/02/18 at 11:00 Amoxicillin (Amoxicillin) 500 mg Q8 PO Last administered on 08/06/18 13:17; Admin Dose 500 MG; Start 08/02/18 at 14:00 Insulin Aspart (Novolog Insulin Pen) NOVOLOG *MILD* ALGORITHM WITH MEALS BEDTIME SC Last administered on 08/06/18 13:17; Admin Dose 1 UNIT; Start 08/03/18 at 21:12 JUAN GARCIA NP Aug 06, 2018 14:38
[2018-08-06 19:42] VITALS: BP 150/67; PULSE 74; RESP 18
[2018-08-06] MEDS: ATORVASTATIN 20 MG TAB PO SCH (20:01)
[2018-08-06] MEDS: TAMSULOSIN (SR) 0.4 MG CAP PO SCH (20:02)
[2018-08-06] MEDS: INSULIN GLARGINE [LANTus] (100 UNITS/ML) SYG SC SCH (20:04)
[2018-08-07 01:44] VITALS: BP 142/62; PULSE 72; RESP 18
[2018-08-07] MEDS: AMOXICILLIN 500 MG CAP PO SCH ×3 (05:42→21:23)
[2018-08-07] MEDS: LEVOFLOXACIN 750 MG TABLET PO SCH (05:42)
[2018-08-07 07:45] VITALS: BP 135/64; PULSE 79; RESP 18
[2018-08-07] MEDS: CLOPIDOGREL 75 MG TAB PO SCH (08:00)
[2018-08-07] MEDS: BUSPIRONE 10 MG TAB PO SCH ×2 (08:00→21:00)
[2018-08-07] MEDS: BUPROPION (XL) 150 MG TAB PO SCH (08:01)
[2018-08-07] MEDS: NICOTINE (21 MG/24 HR) PATCH TRANSDERM SCH (08:06)
[2018-08-07] MEDS: INSULIN ASPART [NOVOLOG] 3 ML PEN SC SCH ×4 (08:13→21:20)
[2018-08-07] MEDS: ENOXAPARIN 40 MG/0.4 ML SYG SC SCH (08:13)
--- NOTE | 2018-08-07 14:17 | PN ---
DATE: 08/07/2018 SUBJECTIVE: The patient is being followed for his left foot, status post partial hallux amputation a s well as left femoral to posterior tibial bypass with in situ greater saphenous vein graft. The pat ient is pending placement in halfway facility. Nurses have been changing dressings. No new issues. Wound cultures did grow out Stenotrophomonas maltophilia and Pseudomonas, currently on Levaq uin and Amoxil. PHYSICAL EXAMINATION: VITAL SIGNS: Temperature 98, pulse is 79, respiratory rate 18, blood pressure is 135/64, pulse ox is 96% on room air. GENERAL: The patient is sleepy. EXTREMITIES: The left foot is well dressed. No signs of drainage, malodor. Extremities are warm wi th palpation. Skin edges are well coapted. LABORATORIES: WBC 6.3, hemoglobin 8.7, hematocrit 27.5, platelets 299. ASSESSMENT: 1. Left foot status post partial amputation due to cellulitis, gangrene and osteomyelitis. 2. Peripheral arterial disease, status post open revascularization. 3. Diabetes type 2. PLAN: Anticipate SNF placement. The patient is on 4 more days of Levaquin and amoxicillin. Likely surgical eradication of osteomyelitis. Would benefit from outpatient followup. The patient is weigh tbearing as tolerated with a postoperative shoe. Dictated By: AMISH HANSEN/BERENICE Conf#: [id number] DID#: [id number] CC: JP ADAMS MD; LEE JULIEN MD; DAGOBERTO BRANNON MD;*EndCC*
[2018-08-07 14:50] VITALS: BP 125/76; PULSE 76; RESP 18
--- NOTE | 2018-08-07 16:11 | PN ---
Date/Time of Note Date/Time of Note DATE: 08/07/18 TIME: 16:10 Assessment/Plan VTE Prophylaxis Risk score (from Nsg)>0 risk: 5 SCD applied (from Ns): No SCD contraindicated: other Pharmacological prophylaxis: LMWH Lines/Catheters IV Catheter Type (from Nrsg): PICC Line Central line still needed: Yes Urinary Cath still in place: No Assessment/Plan Hospital Course SUBJECTIVE: Denies any pain. OBJECTIVE: Physical Exam General: Adequately build 72 year-old male lying in bed in no apparent distress. HEENT: Normocephalic, atraumatic. Eyes: Anicteric sclerae, conjunctivae clear. ENT: Nasal septum midline, oral mucosa moist. Neck supple, no JVD noticed. Respiratory: Bilaterally clear breath sounds. No use of accessory muscles of respiration. No adventitious breath sounds. Cardiovascular: S1, S2 heard. Regular rate and rhythm. Abdomen: Soft, nontender, and nondistended. Bowel sounds positive in all 4 quadrants. Genitourinary: Deferred. Extremities: No cyanosis, no clubbing, no edema. Left lower extremity a dressing. Neurologic: Cranial nerves II through XII grossly intact. The patient is awake, alert, and oriented. Labs & Vitals per chart Assessment & Plan 72 yo M w/hx of hypertriglyceridemia, peripheral vascular disease, type 2 diabetes, anxiety/depression, long-standing tobacco use 1 pack/day was told by his doctor to get admitted for inpatient vascular/podiatry work-up for worsening cellulitis with left toe gangrene, who underwent a left femoral to posterior tibial bypass using in situ greater saphenous vein on 07/26/2018. 1. PAD with left first toe dry gangrene. S/P left femoral to posterior tibial bypass using in situ greater saphenous vein on 07/26/2018. Continue antiplatelet therapy. 2. Osteomyelitis at the left first distal phalanx and head of the proximal phalanx. S/P left hallux partial amputation on 07/31/2018. 3. DMII -A1C 6.4. -Basal/bolus insulin 4. Dyslipidemia/hypertriglyceridemia Continue TriCor and statins. 5. Anxiety/depression Continue BuSpar/Wellbutrin. 6. Tobacco abuse Cessation advised. On nicotine patch for withdrawal. 7. Chronic anemia Stable H&H. Monitor 8. Urinary retention. Resolved. 9. Fluids, electrolytes, and nutrition. Carbohydrate controlled diet. 10. DVT prophylaxis. SQ heparin. 11. Plan. Continue antimicrobials as per ID. Await placement to a snf facility versus DC the patient home with home health. The patient was seen in collaboration with . Results 24hrs Laboratory Tests Test 08/06/18 17:40 08/06/18 19:56 08/07/18 08:00 08/07/18 13:23 Bedside Glucose 151 241 H 148 133 Exam/Review of Systems Exam Vitals Vital Signs Date Temp Pulse Resp B/P (MAP) Pulse Ox O2 O2 Flow FiO2 Time Delivery Rate 08/07/18 98.2 76 18 125/76 100 Room Air 14:50 (92) Intake and Output 08/06/18 08/06/18 08/07/18 1515:00 23:00 07:00 IntakeIntake Total 680 ml 520 ml OutputOutput Total 300 ml 400 ml 600 ml BalanceBalance 380 ml 120 ml -600 ml Results Results 24hrs Laboratory Tests Test 08/06/18 17:40 08/06/18 19:56 08/07/18 08:00 08/07/18 13:23 Bedside Glucose 151 241 H 148 133 Medications Medication Current Medications Buspirone HCl (Buspar) 10 mg BID PO Last administered on 08/01/18at 08:47; Admin Dose 10 MG; Start 07/10/18 at 21:00 IV Flush (NS 3 ml) 3 ml PER PROTOCOL IV ; Start 07/10/18 at 14:30 Ondansetron HCl (Zofran Inj) 4 mg Q6H PRN IV NAUSEA/VOMITING Last administered on 07/26/18at 11:52; Admin Dose 4 MG; Start 07/10/18 at 14:30 Acetaminophen (Tylenol Tab) 650 mg Q6H PRN PO .PAIN 1-3 OR TEMP; Start 07/10/18 at 14:30 Enoxaparin Sodium (Lovenox) 40 mg DAILY SC Last administered on 08/07/18at 08:13; Admin Dose 40 MG; Start 07/11/18 at 09:00 Insulin Glargine (Lantus) 12 units DAILY@2000 SC Last administered on 08/06/18at 20:04; Admin Dose 12 UNITS; Start 07/10/18 at 20:00 Nicotine (Nicoderm 21 Mg/ 24hr) 1 patch DAILY TRANSDERM Last administered on 08/07/18at 08:06; Admin Dose 1 PATCH; Start 07/11/18 at 09:00 Miscellaneous Information 1 ea NOTE XX ; Start 07/11/18 at 06:45 Glucose (Glutose) 15 gm Q15M PRN PO DECREASED GLUCOSE; Start 07/11/18 at 06:45 Glucose (Glutose) 22.5 gm Q15M PRN PO DECREASED GLUCOSE; Start 07/11/18 at 06:45 Dextrose (D50w Syringe) 25 ml Q15M PRN IV DECREASED GLUCOSE; Start 07/11/18 at 06:45 Dextrose (D50w Syringe) 50 ml Q15M PRN IV DECREASED GLUCOSE; Start 07/11/18 at 06:45 Glucagon (Glucagen) 1 mg Q15M PRN IM DECREASED GLUCOSE; Start 07/11/18 at 06:45 Glucose (Glutose) 15 gm Q15M PRN BUCCAL DECREASED GLUCOSE; Start 07/11/18 at 06:45 Levofloxacin (Levaquin) 750 mg DAILY@06 PO Last administered on 08/07/18at 05:42; Admin Dose 750 MG; Start 07/13/18 at 06:00 Bupropion HCl (Wellbutrin Xl) 150 mg DAILY PO Last administered on 08/01/18at 08:47; Admin Dose 150 MG; Start 07/13/18 at 09:00 Atorvastatin Calcium (Lipitor) 20 mg HS PO Last administered on 08/06/18at 20:01; Admin Dose 20 MG; Start 07/13/18 at 21:00 IV Flush (NS 10 ml) 10 ml PRN PRN IV IV PROTOCOL; Start 07/18/18 at 16:30 Clopidogrel Bisulfate (plaVIX) 75 mg DAILY PO Last administered on 08/07/18at 08:00; Admin Dose 75 MG; Start 07/26/18 at 11:30 Hydralazine HCl (Apresoline) 10 mg Q4H PRN IV SYSTOLIC BP > 170 Last administered on 07/30/18at 20:47; Admin Dose 10 MG; Start 07/30/18 at 21:00 Tamsulosin HCl (Flomax) 0.4 mg HS PO Last administered on 08/06/18at 20:02; Admin Dose 0.4 MG; Start 08/02/18 at 11:00 Amoxicillin (Amoxicillin) 500 mg Q8 PO Last administered on 08/07/18at 13:23; Admin Dose 500 MG; Start 08/02/18 at 14:00 Insulin Aspart (Novolog Insulin Pen) NOVOLOG *MILD* ALGORITHM WITH MEALS BEDTIME SC Last administered on 08/07/18at 08:13; Admin Dose 1 UNIT; Start 08/03/18 at 21:12 DUKE NUNO NP Aug 07, 2018 16:11
--- NOTE | 2018-08-07 16:29 | CONS ---
Assessment/Plan Assessment/Plan Hospital Course (Demo Recall) No acute changes Blood culture on 07/10/18 grew enterococcus and Jennifer parapsilosis, repeat blood cultures negative Microbiology: Wound culture grew stenotrophomonas maltophilia, Pseudomonas enterococcus species and coag negative staph species, repeat blood cultures negative Antimicrobials: Levaquin, Amoxil Physical examination: This is a well-developed fragile elderly man who is alert in no distress. Head atraumatic normocephalic sclera nonicteric vehicle mucosa dry neck is supple chest rise symmetrical breath sounds diminished bases heart: S1-S2. Abdomen soft bowel sounds present. Extremities with left great toe gangrene ASSESSMENT: 1. S/p Polymicrobial bacteremia/fungemia likely secondary to #2 2. Left great toe cellulitis, gangrene, osteomyelitis, s/p amputation 3. Peripheral arterial disease with high-grade left SFA stenosis==> s/p Fem- Tibial Bypass 4. Diabetes Plan: Remains stable, continue on current antibiotics for 3 more days Consultation Date/Type/Reason Admit Date/Time July 10, 2018 at 12:52 Initial Consult Date Type of Consult id Date/Time of Note DATE: 08/07/18 TIME: 16:28 Exam/Review of Systems Exam Vitals Vital Signs Date Temp Pulse Resp B/P (MAP) Pulse Ox O2 O2 Flow FiO2 Time Delivery Rate 08/07/18 98.2 76 18 125/76 100 Room Air 14:50 (92) Intake and Output 08/06/18 08/06/18 08/07/18 1515:00 23:00 07:00 IntakeIntake Total 680 ml 520 ml OutputOutput Total 300 ml 400 ml 600 ml BalanceBalance 380 ml 120 ml -600 ml Results Results 24hrs Laboratory Tests Test 08/06/18 17:40 08/06/18 19:56 08/07/18 08:00 08/07/18 13:23 Bedside Glucose 151 241 H 148 133 Medications Medication Current Medications Buspirone HCl (Buspar) 10 mg BID PO Last administered on 08/01/18at 08:47; Admin Dose 10 MG; Start 07/10/18 at 21:00 IV Flush (NS 3 ml) 3 ml PER PROTOCOL IV ; Start 07/10/18 at 14:30 Ondansetron HCl (Zofran Inj) 4 mg Q6H PRN IV NAUSEA/VOMITING Last administered on 07/26/18 11:52; Admin Dose 4 MG; Start 07/10/18 at 14:30 Acetaminophen (Tylenol Tab) 650 mg Q6H PRN PO .PAIN 1-3 OR TEMP; Start 07/10/18 at 14:30 Enoxaparin Sodium (Lovenox) 40 mg DAILY SC Last administered on 08/07/18 08:13; Admin Dose 40 MG; Start 07/11/18 at 09:00 Insulin Glargine (Lantus) 12 units DAILY@2000 SC Last administered on 08/06/18 20:04; Admin Dose 12 UNITS; Start 07/10/18 at 20:00 Nicotine (Nicoderm 21 Mg/ 24hr) 1 patch DAILY TRANSDERM Last administered on 08/07/18 08:06; Admin Dose 1 PATCH; Start 07/11/18 at 09:00 Miscellaneous Information 1 ea NOTE XX ; Start 07/11/18 at 06:45 Glucose (Glutose) 15 gm Q15M PRN PO DECREASED GLUCOSE; Start 07/11/18 at 06:45 Glucose (Glutose) 22.5 gm Q15M PRN PO DECREASED GLUCOSE; Start 07/11/18 at 06:45 Dextrose (D50w Syringe) 25 ml Q15M PRN IV DECREASED GLUCOSE; Start 07/11/18 at 06:45 Dextrose (D50w Syringe) 50 ml Q15M PRN IV DECREASED GLUCOSE; Start 07/11/18 at 06:45 Glucagon (Glucagen) 1 mg Q15M PRN IM DECREASED GLUCOSE; Start 07/11/18 at 06:45 Glucose (Glutose) 15 gm Q15M PRN BUCCAL DECREASED GLUCOSE; Start 07/11/18 at 06:45 Levofloxacin (Levaquin) 750 mg DAILY@06 PO Last administered on 08/07/18at 05:42; Admin Dose 750 MG; Start 07/13/18 at 06:00 Bupropion HCl (Wellbutrin Xl) 150 mg DAILY PO Last administered on 08/01/18 08:47; Admin Dose 150 MG; Start 07/13/18 at 09:00 Atorvastatin Calcium (Lipitor) 20 mg HS PO Last administered on 08/06/18at 20:01; Admin Dose 20 MG; Start 07/13/18 at 21:00 IV Flush (NS 10 ml) 10 ml PRN PRN IV IV PROTOCOL; Start 07/18/18 at 16:30 Clopidogrel Bisulfate (plaVIX) 75 mg DAILY PO Last administered on 08/07/18 08:00; Admin Dose 75 MG; Start 07/26/18 at 11:30 Hydralazine HCl (Apresoline) 10 mg Q4H PRN IV SYSTOLIC BP > 170 Last administered on 07/30/18at 20:47; Admin Dose 10 MG; Start 07/30/18 at 21:00 Tamsulosin HCl (Flomax) 0.4 mg HS PO Last administered on 08/06/18 20:02; Admin Dose 0.4 MG; Start 08/02/18 at 11:00 Amoxicillin (Amoxicillin) 500 mg Q8 PO Last administered on 08/07/18 13:23; Admin Dose 500 MG; Start 08/02/18 at 14:00 Insulin Aspart (Novolog Insulin Pen) NOVOLOG *MILD* ALGORITHM WITH MEALS BEDTIME SC Last administered on 08/07/18 08:13; Admin Dose 1 UNIT; Start 08/03/18 at 21:12 JUAN GARCIA NP Aug 07, 2018 16:29
[2018-08-07 20:00] VITALS: BP 147/65; PULSE 75; RESP 18
[2018-08-07] MEDS: TAMSULOSIN (SR) 0.4 MG CAP PO SCH (21:15)
[2018-08-07] MEDS: ATORVASTATIN 20 MG TAB PO SCH (21:15)
[2018-08-07] MEDS: INSULIN GLARGINE [LANTus] (100 UNITS/ML) SYG SC SCH (21:19)
[2018-08-08 01:08] VITALS: BP 138/63; PULSE 74; RESP 18
[2018-08-08] MEDS: AMOXICILLIN 500 MG CAP PO SCH ×3 (06:13→21:16)
[2018-08-08] MEDS: LEVOFLOXACIN 750 MG TABLET PO SCH (06:13)
[2018-08-08] MEDS: BUPROPION (XL) 150 MG TAB PO SCH (08:44)
[2018-08-08] MEDS: BUSPIRONE 10 MG TAB PO SCH ×2 (08:44→21:00)
[2018-08-08] MEDS: CLOPIDOGREL 75 MG TAB PO SCH (08:50)
[2018-08-08] MEDS: NICOTINE (21 MG/24 HR) PATCH TRANSDERM SCH (08:51)
[2018-08-08] MEDS: INSULIN ASPART [NOVOLOG] 3 ML PEN SC SCH ×4 (08:54→21:19)
[2018-08-08] MEDS: ENOXAPARIN 40 MG/0.4 ML SYG SC SCH (08:54)
[2018-08-08 09:04] VITALS: BP 131/60; PULSE 73; RESP 18
--- NOTE | 2018-08-08 13:50 | CONS ---
Assessment/Plan Assessment/Plan Hospital Course (Demo Recall) Patient is alert and feels good, denies pain no fevers no nausea vomiting diarrhea Blood culture on 07/10/18 grew enterococcus and Jennifer parapsilosis, repeat blood cultures negative Microbiology: Wound culture grew stenotrophomonas maltophilia, Pseudomonas enterococcus species and coag negative staph species, repeat blood cultures negative Antimicrobials: Levaquin, Amoxil Physical examination: This is a well-developed fragile elderly man who is alert in no distress. Head atraumatic normocephalic sclera nonicteric vehicle mucosa dry neck is supple chest rise symmetrical breath sounds diminished bases heart: S1-S2. Abdomen soft bowel sounds present. Extremities with left great toe gangrene ASSESSMENT: 1. S/p Polymicrobial bacteremia/fungemia likely secondary to #2 2. Left great toe cellulitis, gangrene, osteomyelitis, s/p amputation 3. Peripheral arterial disease with high-grade left SFA stenosis==> s/p Fem- Tibial Bypass 4. Diabetes Plan: Remains stable, completing antibiotics, pending discharge arrangements Consultation Date/Type/Reason Admit Date/Time July 10, 2018 at 12:52 Initial Consult Date Type of Consult id Date/Time of Note DATE: 08/08/18 TIME: 13:49 Exam/Review of Systems Exam Vitals Vital Signs Date Temp Pulse Resp B/P (MAP) Pulse Ox O2 O2 Flow FiO2 Time Delivery Rate 08/08/18 99.6 73 18 131/60 97 09:04 (83) 08/07/18 Room Air 20:00 Intake and Output 08/07/18 08/07/18 08/08/18 1515:00 23:00 07:00 IntakeIntake Total 780 ml 600 ml OutputOutput Total 1250 ml 1150 ml 450 ml BalanceBalance -470 ml -550 ml -450 ml Results Result Diagram: 08/08/18 0500 08/08/18 0500 Results 24hrs Laboratory Tests Test 08/07/18 17:43 08/07/18 21:17 08/08/18 01:47 08/08/18 05:00 Bedside Glucose 151 201 186 White Blood Count 5.5 Red Blood Count 2.99 L Hemoglobin 8.5 L Hematocrit 26.6 L Mean Corpuscular Volume 89.0 Mean Corpuscular 28.4 L Hemoglobin Mean Corpuscular 32.0 Hemoglobin Concent Red Cell Distribution 13.7 Width Platelet Count 259 Mean Platelet Volume 9.3 Immature Granulocytes % 0.400 Neutrophils % 57.1 Lymphocytes % 26.0 Monocytes % 8.7 Eosinophils % 6.7 Basophils % 1.1 Nucleated Red Blood 0.0 Cells % Immature Granulocytes # 0.020 Neutrophils # 3.2 Lymphocytes # 1.4 Monocytes # 0.5 Eosinophils # 0.4 Basophils # 0.1 Nucleated Red Blood 0.0 Cells # Sodium Level 140 Potassium Level 3.7 Chloride Level 106 Carbon Dioxide Level 27 Anion Gap 7 Blood Urea Nitrogen 24 H Creatinine 0.89 Est Glomerular Filtrat Rate mL/min Glucose Level 151 Calcium Level 8.9 Phosphorus Level 3.4 Magnesium Level 1.7 Vitamin D 1,25-Dihydroxy 15.7 L Test 08/08/18 08:40 08/08/18 12:00 Bedside Glucose 150 141 Medications Medication Current Medications Buspirone HCl (Buspar) 10 mg BID PO Last administered on 08/01/18 08:47; Admin Dose 10 MG; Start 07/10/18 at 21:00 IV Flush (NS 3 ml) 3 ml PER PROTOCOL IV ; Start 07/10/18 at 14:30 Ondansetron HCl (Zofran Inj) 4 mg Q6H PRN IV NAUSEA/VOMITING Last administered on 07/26/18at 11:52; Admin Dose 4 MG; Start 07/10/18 at 14:30 Acetaminophen (Tylenol Tab) 650 mg Q6H PRN PO .PAIN 1-3 OR TEMP; Start 07/10/18 at 14:30 Enoxaparin Sodium (Lovenox) 40 mg DAILY SC Last administered on 08/08/18at 08:54; Admin Dose 40 MG; Start 07/11/18 at 09:00 Insulin Glargine (Lantus) 12 units DAILY@2000 SC Last administered on 08/07/18 21:19; Admin Dose 12 UNITS; Start 07/10/18 at 20:00 Nicotine (Nicoderm 21 Mg/ 24hr) 1 patch DAILY TRANSDERM Last administered on 08/08/18at 08:51; Admin Dose 1 PATCH; Start 07/11/18 at 09:00 Miscellaneous Information 1 ea NOTE XX ; Start 07/11/18 at 06:45 Glucose (Glutose) 15 gm Q15M PRN PO DECREASED GLUCOSE; Start 07/11/18 at 06:45 Glucose (Glutose) 22.5 gm Q15M PRN PO DECREASED GLUCOSE; Start 07/11/18 at 06:45 Dextrose (D50w Syringe) 25 ml Q15M PRN IV DECREASED GLUCOSE; Start 07/11/18 at 06:45 Dextrose (D50w Syringe) 50 ml Q15M PRN IV DECREASED GLUCOSE; Start 07/11/18 at 06:45 Glucagon (Glucagen) 1 mg Q15M PRN IM DECREASED GLUCOSE; Start 07/11/18 at 06:45 Glucose (Glutose) 15 gm Q15M PRN BUCCAL DECREASED GLUCOSE; Start 07/11/18 at 06:45 Levofloxacin (Levaquin) 750 mg DAILY@06 PO Last administered on 08/08/18 06:13; Admin Dose 750 MG; Start 07/13/18 at 06:00 Bupropion HCl (Wellbutrin Xl) 150 mg DAILY PO Last administered on 08/01/18at 08:47; Admin Dose 150 MG; Start 07/13/18 at 09:00 Atorvastatin Calcium (Lipitor) 20 mg HS PO Last administered on 08/07/18at 21:15; Admin Dose 20 MG; Start 07/13/18 at 21:00 IV Flush (NS 10 ml) 10 ml PRN PRN IV IV PROTOCOL; Start 07/18/18 at 16:30 Clopidogrel Bisulfate (plaVIX) 75 mg DAILY PO Last administered on 08/08/18 08:50; Admin Dose 75 MG; Start 07/26/18 at 11:30 Hydralazine HCl (Apresoline) 10 mg Q4H PRN IV SYSTOLIC BP > 170 Last administered on 07/30/18at 20:47; Admin Dose 10 MG; Start 07/30/18 at 21:00 Tamsulosin HCl (Flomax) 0.4 mg HS PO Last administered on 08/07/18 21:15; Admin Dose 0.4 MG; Start 08/02/18 at 11:00 Amoxicillin (Amoxicillin) 500 mg Q8 PO Last administered on 08/08/18 06:13; Admin Dose 500 MG; Start 08/02/18 at 14:00 Insulin Aspart (Novolog Insulin Pen) NOVOLOG *MILD* ALGORITHM WITH MEALS BEDTIME SC Last administered on 08/08/18at 12:02; Admin Dose 1 UNIT; Start 08/03/18 at 21:12 JUAN GARCIA NP Aug 08, 2018 13:50
--- NOTE | 2018-08-08 14:37 | PN ---
Date/Time of Note Date/Time of Note DATE: 08/08/18 TIME: 14:35 Assessment/Plan VTE Prophylaxis Risk score (from Nsg)>0 risk: 3 SCD applied (from Nsg): Yes Pharmacological prophylaxis: heparin Lines/Catheters IV Catheter Type (from Nrsg): PICC Line Central line still needed: No Urinary Cath still in place: No Assessment/Plan Hospital Course SUBJECTIVE: Denies any pain. OBJECTIVE: Physical Exam General: Adequately build 72 year-old male lying in bed in no apparent distress. HEENT: Normocephalic, atraumatic. Eyes: Anicteric sclerae, conjunctivae clear. ENT: Nasal septum midline, oral mucosa moist. Neck supple, no JVD noticed. Respiratory: Bilaterally clear breath sounds. No use of accessory muscles of respiration. No adventitious breath sounds. Cardiovascular: S1, S2 heard. Regular rate and rhythm. Abdomen: Soft, nontender, and nondistended. Bowel sounds positive in all 4 quadrants. Genitourinary: Deferred. Extremities: No cyanosis, no clubbing, no edema. Left lower extremity a dressing. Neurologic: Cranial nerves II through XII grossly intact. The patient is awake, alert, and oriented. Labs & Vitals per chart Assessment & Plan 72 yo M w/hx of hypertriglyceridemia, peripheral vascular disease, type 2 diabetes, anxiety/depression, long-standing tobacco use 1 pack/day was told by his doctor to get admitted for inpatient vascular/podiatry work-up for worsening cellulitis with left toe gangrene, who underwent a left femoral to posterior tibial bypass using in situ greater saphenous vein on 07/26/2018. 1. PAD with left first toe dry gangrene. S/P left femoral to posterior tibial bypass using in situ greater saphenous vein on 07/26/2018. Continue antiplatelet therapy. 2. Osteomyelitis at the left first distal phalanx and head of the proximal phalanx. S/P left hallux partial amputation on 07/31/2018. 3. DMII -A1C 6.4. -Basal/bolus insulin 4. Dyslipidemia/hypertriglyceridemia Continue TriCor and statins. 5. Anxiety/depression Continue BuSpar/Wellbutrin. 6. Tobacco abuse Cessation advised. On nicotine patch for withdrawal. 7. Chronic anemia Stable H&H. Monitor 8. Urinary retention. Resolved. 9. Fluids, electrolytes, and nutrition. Carbohydrate controlled diet. 10. DVT prophylaxis. SQ heparin. 11. Plan. Continue antimicrobials as per ID. [facility] the patient home with home health. Had a conversation with the patient at the bedside along with the floor disease case manager rn. The patient is very adamant that he wants to talk to Dr. Gaitan before he will agree on getting discharged from the hospital and before he will let nursing discontinue his PICC line that is no longer indicated in this patient. Contacted Dr. Gaitan and Dr. Gaitan will see the patient on 08/09/2018 in the morning. The patient was seen in collaboration with . Result Diagram: 08/08/18 0500 08/08/18 0500 Results 24hrs Laboratory Tests Test 08/07/18 17:43 08/07/18 21:17 08/08/18 01:47 08/08/18 05:00 Bedside Glucose 151 201 186 White Blood Count 5.5 Red Blood Count 2.99 L Hemoglobin 8.5 L Hematocrit 26.6 L Mean Corpuscular Volume 89.0 Mean Corpuscular 28.4 L Hemoglobin Mean Corpuscular 32.0 Hemoglobin Concent Red Cell Distribution 13.7 Width Platelet Count 259 Mean Platelet Volume 9.3 Immature Granulocytes % 0.400 Neutrophils % 57.1 Lymphocytes % 26.0 Monocytes % 8.7 Eosinophils % 6.7 Basophils % 1.1 Nucleated Red Blood 0.0 Cells % Immature Granulocytes # 0.020 Neutrophils # 3.2 Lymphocytes # 1.4 Monocytes # 0.5 Eosinophils # 0.4 Basophils # 0.1 Nucleated Red Blood 0.0 Cells # Sodium Level 140 Potassium Level 3.7 Chloride Level 106 Carbon Dioxide Level 27 Anion Gap 7 Blood Urea Nitrogen 24 H Creatinine 0.89 Est Glomerular Filtrat Rate mL/min Glucose Level 151 Calcium Level 8.9 Phosphorus Level 3.4 Magnesium Level 1.7 Vitamin D 1,25-Dihydroxy 15.7 L Test 08/08/18 08:40 08/08/18 12:00 Bedside Glucose 150 141 Exam/Review of Systems Exam Vitals Vital Signs Date Temp Pulse Resp B/P (MAP) Pulse Ox O2 O2 Flow FiO2 Time Delivery Rate 08/08/18 99.6 73 18 131/60 97 09:04 (83) 08/07/18 Room Air 20:00 Intake and Output 6/508/07/18 08/08/18 1515:00 23:00 07:00 IntakeIntake Total 780 ml 600 ml OutputOutput Total 1250 ml 1150 ml 450 ml BalanceBalance -470 ml -550 ml -450 ml Results Results 24hrs Laboratory Tests Test 08/07/18 17:43 08/07/18 21:17 08/08/18 01:47 08/08/18 05:00 Bedside Glucose 151 201 186 White Blood Count 5.5 Red Blood Count 2.99 L Hemoglobin 8.5 L Hematocrit 26.6 L Mean Corpuscular Volume 89.0 Mean Corpuscular 28.4 L Hemoglobin Mean Corpuscular 32.0 Hemoglobin Concent Red Cell Distribution 13.7 Width Platelet Count 259 Mean Platelet Volume 9.3 Immature Granulocytes % 0.400 Neutrophils % 57.1 Lymphocytes % 26.0 Monocytes % 8.7 Eosinophils % 6.7 Basophils % 1.1 Nucleated Red Blood 0.0 Cells % Immature Granulocytes # 0.020 Neutrophils # 3.2 Lymphocytes # 1.4 Monocytes # 0.5 Eosinophils # 0.4 Basophils # 0.1 Nucleated Red Blood 0.0 Cells # Sodium Level 140 Potassium Level 3.7 Chloride Level 106 Carbon Dioxide Level 27 Anion Gap 7 Blood Urea Nitrogen 24 H Creatinine 0.89 Est Glomerular Filtrat Rate mL/min Glucose Level 151 Calcium Level 8.9 Phosphorus Level 3.4 Magnesium Level 1.7 Vitamin D 1,25-Dihydroxy 15.7 L Test 08/08/18 08:40 08/08/18 12:00 Bedside Glucose 150 141 Medications Medication Current Medications Buspirone HCl (Buspar) 10 mg BID PO Last administered on 08/01/18at 08:47; Admin Dose 10 MG; Start 07/10/18 at 21:00 IV Flush (NS 3 ml) 3 ml PER PROTOCOL IV ; Start 07/10/18 at 14:30 Ondansetron HCl (Zofran Inj) 4 mg Q6H PRN IV NAUSEA/VOMITING Last administered on 07/26/18at 11:52; Admin Dose 4 MG; Start 07/10/18 at 14:30 Acetaminophen (Tylenol Tab) 650 mg Q6H PRN PO .PAIN 1-3 OR TEMP; Start 07/10/18 at 14:30 Enoxaparin Sodium (Lovenox) 40 mg DAILY SC Last administered on 08/08/18at 08:54; Admin Dose 40 MG; Start 07/11/18 at 09:00 Insulin Glargine (Lantus) 12 units DAILY@2000 SC Last administered on 08/07/18 21:19; Admin Dose 12 UNITS; Start 07/10/18 at 20:00 Nicotine (Nicoderm 21 Mg/ 24hr) 1 patch DAILY TRANSDERM Last administered on 08/08/18at 08:51; Admin Dose 1 PATCH; Start 07/11/18 at 09:00 Miscellaneous Information 1 ea NOTE XX ; Start 07/11/18 at 06:45 Glucose (Glutose) 15 gm Q15M PRN PO DECREASED GLUCOSE; Start 07/11/18 at 06:45 Glucose (Glutose) 22.5 gm Q15M PRN PO DECREASED GLUCOSE; Start 07/11/18 at 06:45 Dextrose (D50w Syringe) 25 ml Q15M PRN IV DECREASED GLUCOSE; Start 07/11/18 at 06:45 Dextrose (D50w Syringe) 50 ml Q15M PRN IV DECREASED GLUCOSE; Start 07/11/18 at 06:45 Glucagon (Glucagen) 1 mg Q15M PRN IM DECREASED GLUCOSE; Start 07/11/18 at 06:45 Glucose (Glutose) 15 gm Q15M PRN BUCCAL DECREASED GLUCOSE; Start 07/11/18 at 06:45 Levofloxacin (Levaquin) 750 mg DAILY@06 PO Last administered on 08/08/18at 06:13; Admin Dose 750 MG; Start 07/13/18 at 06:00 Bupropion HCl (Wellbutrin Xl) 150 mg DAILY PO Last administered on 08/01/18at 08:47; Admin Dose 150 MG; Start 07/13/18 at 09:00 Atorvastatin Calcium (Lipitor) 20 mg HS PO Last administered on 08/07/18at 21:15; Admin Dose 20 MG; Start 07/13/18 at 21:00 IV Flush (NS 10 ml) 10 ml PRN PRN IV IV PROTOCOL; Start 07/18/18 at 16:30 Clopidogrel Bisulfate (plaVIX) 75 mg DAILY PO Last administered on 08/08/18at 08:50; Admin Dose 75 MG; Start 07/26/18 at 11:30 Hydralazine HCl (Apresoline) 10 mg Q4H PRN IV SYSTOLIC BP > 170 Last administered on 07/30/18at 20:47; Admin Dose 10 MG; Start 07/30/18 at 21:00 Tamsulosin HCl (Flomax) 0.4 mg HS PO Last administered on 08/07/18at 21:15; Admin Dose 0.4 MG; Start 08/02/18 at 11:00 Amoxicillin (Amoxicillin) 500 mg Q8 PO Last administered on 08/08/18at 06:13; Admin Dose 500 MG; Start 08/02/18 at 14:00 Insulin Aspart (Novolog Insulin Pen) NOVOLOG *MILD* ALGORITHM WITH MEALS BEDTIME SC Last administered on 08/08/18 12:02; Admin Dose 1 UNIT; Start 08/03/18 at 21:12 Cholecalciferol (Vitamin D) 2,000 unit DAILY PO ; Start 08/09/18 at 09:00 DUKE NUNO NP Aug 08, 2018 14:37
[2018-08-08 16:05] VITALS: BP 123/60; PULSE 74; RESP 20
[2018-08-08 20:00] VITALS: BP 138/71; PULSE 70; RESP 20
[2018-08-08] MEDS: TAMSULOSIN (SR) 0.4 MG CAP PO SCH (21:13)
[2018-08-08] MEDS: ATORVASTATIN 20 MG TAB PO SCH (21:13)
[2018-08-08] MEDS: INSULIN GLARGINE [LANTus] (100 UNITS/ML) SYG SC SCH (21:20)
[2018-08-09 02:00] VITALS: BP 125/60; PULSE 75; RESP 18
[2018-08-09] MEDS: AMOXICILLIN 500 MG CAP PO SCH ×2 (06:12→13:32)
[2018-08-09] MEDS: LEVOFLOXACIN 750 MG TABLET PO SCH (06:12)
--- NOTE | 2018-08-09 07:24 | QN ---
Documentation Comment No c/o. AFVSS L foot with 3+ PT pulse, incisions all healed, toe amp site looks good - home today - ESTEFANÍA wrap to the knee on the L - continue Plavix long term care administrator - f/u with me in the office next week DAGOBERTO BRANNON MD Aug 09, 2018 07:24
[2018-08-09] MEDS: INSULIN ASPART [NOVOLOG] 3 ML PEN SC SCH ×4 (08:00→20:54)
[2018-08-09 08:12] VITALS: BP 140/63; PULSE 78; RESP 18
[2018-08-09] MEDS: CHOLECALCIFEROL 2,000 UNIT CAP PO SCH (08:22)
[2018-08-09] MEDS: CLOPIDOGREL 75 MG TAB PO SCH (08:22)
[2018-08-09] MEDS: BUPROPION (XL) 150 MG TAB PO SCH (08:26)
[2018-08-09] MEDS: BUSPIRONE 10 MG TAB PO SCH ×2 (08:26→20:53)
[2018-08-09] MEDS: NICOTINE (21 MG/24 HR) PATCH TRANSDERM SCH (08:27)
[2018-08-09] MEDS: ENOXAPARIN 40 MG/0.4 ML SYG SC SCH (08:30)
--- NOTE | 2018-08-09 14:22 | PDOCDIS ---
Discharge Instructions CONDITION [id number] Patient Condition: [id number] Stable HOME CARE INSTRUCTIONS: [id number] Your diet recommendation is: [id number] carbohydrate controlled/low-cholesterol diet ACTIVITY: [id number] Activity Restrictions: [id number] No Restrictions Slowly Increase Activity Do not Drive FOLLOW UP/APPOINTMENTS Follow-up Plan appt PCP & Dr Gaitan 1wk Dr Rodriguez 1-2wks AAKASH HELLER MD Aug 09, 2018 14:22
[2018-08-09] MEDS ORDERED: NICO-546 TRANSDERM (14:24)
[2018-08-09] MEDS ORDERED: LACTINEX PO (14:24)
[2018-08-09] MEDS ORDERED: CHOL200073 PO (14:24)
[2018-08-09] MEDS ORDERED: AMOX500C2 PO (14:24)
[2018-08-09] MEDS ORDERED: ENOX40DI2 SC (14:24)
[2018-08-09] MEDS ORDERED: ACET325T33 PO (14:24)
[2018-08-09] MEDS ORDERED: LEVO750T25 PO (14:24)
[2018-08-09] MEDS ORDERED: TAMS-14 PO (14:24)
[2018-08-09] MEDS ORDERED: CLOP75TA28 PO (14:24)
[2018-08-09 15:14] VITALS: BP 114/61; PULSE 88; RESP 18
--- NOTE | 2018-08-09 18:06 | CONS ---
Assessment/Plan Assessment/Plan Hospital Course (Demo Recall) 1215 Patient is alert and feels good Blood culture on 07/10/18 grew enterococcus and Jennifer parapsilosis, repeat blood cultures negative Microbiology: Wound culture grew stenotrophomonas maltophilia, Pseudomonas enterococcus species and coag negative staph species, repeat blood cultures negative Antimicrobials: Levaquin, Amoxil Physical examination: This is a well-developed fragile elderly man who is alert in no distress. Head atraumatic normocephalic sclera nonicteric vehicle mucosa dry neck is supple chest rise symmetrical breath sounds diminished bases heart: S1-S2. Abdomen soft bowel sounds present. Extremities with left great toe gangrene ASSESSMENT: 1. S/p Polymicrobial bacteremia/fungemia likely secondary to #2 2. Left great toe cellulitis, gangrene, osteomyelitis, s/p amputation 3. Peripheral arterial disease with high-grade left SFA stenosis==> s/p Fem- Tibial Bypass 4. Diabetes Plan: Remains stable, completing antibiotics Consultation Date/Type/Reason Admit Date/Time July 10, 2018 at 12:52 Initial Consult Date Type of Consult id Date/Time of Note DATE: 08/09/18 TIME: 18:06 Exam/Review of Systems Exam Vitals Vital Signs Date Temp Pulse Resp B/P (MAP) Pulse Ox O2 O2 Flow FiO2 Time Delivery Rate 08/09/18 98.8 88 18 114/61 97 15:14 (78) 08/09/18 Room Air 02:00 Intake and Output 08/08/18 08/08/18 08/09/18 1515:00 23:00 07:00 IntakeIntake Total 400 ml 1000 ml OutputOutput Total 800 ml 950 ml 600 ml BalanceBalance -400 ml 50 ml -600 ml Results Result Diagram: 08/08/18 0500 08/08/18 0500 Results 24hrs Laboratory Tests Test 08/08/18 21:12 08/09/18 01:15 08/09/18 08:20 08/09/18 12:55 Bedside Glucose 204 170 133 182 Test 08/09/18 17:46 Bedside Glucose 168 Medications Medication Current Medications Buspirone HCl (Buspar) 10 mg BID PO Last administered on 08/01/18at 08:47; Admin Dose 10 MG; Start 07/10/18 at 21:00 IV Flush (NS 3 ml) 3 ml PER PROTOCOL IV ; Start 07/10/18 at 14:30 Ondansetron HCl (Zofran Inj) 4 mg Q6H PRN IV NAUSEA/VOMITING Last administered on 07/26/18 11:52; Admin Dose 4 MG; Start 07/10/18 at 14:30 Acetaminophen (Tylenol Tab) 650 mg Q6H PRN PO .PAIN 1-3 OR TEMP; Start 07/10/18 at 14:30 Enoxaparin Sodium (Lovenox) 40 mg DAILY SC Last administered on 08/09/18 08:30; Admin Dose 40 MG; Start 07/11/18 at 09:00 Insulin Glargine (Lantus) 12 units DAILY@2000 SC Last administered on 08/08/18 21:20; Admin Dose 12 UNITS; Start 07/10/18 at 20:00 Nicotine (Nicoderm 21 Mg/ 24hr) 1 patch DAILY TRANSDERM Last administered on 08/09/18 08:27; Admin Dose 1 PATCH; Start 07/11/18 at 09:00 Miscellaneous Information 1 ea NOTE XX ; Start 07/11/18 at 06:45 Glucose (Glutose) 15 gm Q15M PRN PO DECREASED GLUCOSE; Start 07/11/18 at 06:45 Glucose (Glutose) 22.5 gm Q15M PRN PO DECREASED GLUCOSE; Start 07/11/18 at 06:45 Dextrose (D50w Syringe) 25 ml Q15M PRN IV DECREASED GLUCOSE; Start 07/11/18 at 06:45 Dextrose (D50w Syringe) 50 ml Q15M PRN IV DECREASED GLUCOSE; Start 07/11/18 at 06:45 Glucagon (Glucagen) 1 mg Q15M PRN IM DECREASED GLUCOSE; Start 07/11/18 at 06:45 Glucose (Glutose) 15 gm Q15M PRN BUCCAL DECREASED GLUCOSE; Start 07/11/18 at 06:45 Levofloxacin (Levaquin) 750 mg DAILY@06 PO Last administered on 08/09/18 06:12; Admin Dose 750 MG; Start 07/13/18 at 06:00 Bupropion HCl (Wellbutrin Xl) 150 mg DAILY PO Last administered on 08/01/18 08:47; Admin Dose 150 MG; Start 07/13/18 at 09:00 Atorvastatin Calcium (Lipitor) 20 mg HS PO Last administered on 08/08/18 21:13; Admin Dose 20 MG; Start 07/13/18 at 21:00 IV Flush (NS 10 ml) 10 ml PRN PRN IV IV PROTOCOL; Start 07/18/18 at 16:30 Clopidogrel Bisulfate (plaVIX) 75 mg DAILY PO Last administered on 08/09/18 08:22; Admin Dose 75 MG; Start 07/26/18 at 11:30 Hydralazine HCl (Apresoline) 10 mg Q4H PRN IV SYSTOLIC BP > 170 Last administered on 07/30/18 20:47; Admin Dose 10 MG; Start 07/30/18 at 21:00 Tamsulosin HCl (Flomax) 0.4 mg HS PO Last administered on 08/08/18 21:13; Admin Dose 0.4 MG; Start 08/02/18 at 11:00 Amoxicillin (Amoxicillin) 500 mg Q8 PO Last administered on 08/09/18 13:32; Admin Dose 500 MG; Start 08/02/18 at 14:00 Insulin Aspart (Novolog Insulin Pen) NOVOLOG *MILD* ALGORITHM WITH MEALS BEDTIME SC Last administered on 08/09/18 17:48; Admin Dose 1 UNIT; Start 08/03/18 at 21:12 Cholecalciferol (Vitamin D) 2,000 unit DAILY PO Last administered on 08/09/18 08:22; Admin Dose 2,000 UNIT; Start 08/09/18 at 09:00 JUAN GARCIA NP Aug 09, 2018 18:06
--- NOTE | 2018-08-09 18:33 | PN ---
Date/Time of Note Date/Time of Note DATE: 08/09/18 TIME: 18:30 Assessment/Plan VTE Prophylaxis Risk score (from Nsg)>0 risk: 5 SCD applied (from Nsg): No SCD contraindicated: low risk/ambulating Pharmacological prophylaxis: LMWH Lines/Catheters IV Catheter Type (from Nrsg): PICC Line Central line still needed: Yes Urinary Cath still in place: No Assessment/Plan Hospital Course Assessment and plan 1. Left toe gangrene, stable, follow-up with podiatry 2. PAD sp femoral posterior tibial bypass, stable follow-up with vascular 3. Tobacco abuse status post counseling offered patch 4. COPD? 5. Type 2 diabetes 6. Hypertension 7. Depression?e 8. Lt first toe osteomyelitis sp partial amputation, finish antibiotics tomorrow 9. Debility, weightbearing with boot Subjective no pain fever. Updated patient and family regarding disposition to go home follow-ups Objective: Vital signs stable Physical exam No pallor Regular no mrg Clear Bs nt nd no RRG Left foot dressed Result Diagram: 08/08/18 0500 08/08/18 0500 Results 24hrs Laboratory Tests Test 08/08/18 21:12 08/09/18 01:15 08/09/18 08:20 08/09/18 12:55 Bedside Glucose 204 170 133 182 Test 08/09/18 17:46 Bedside Glucose 168 Exam/Review of Systems Exam Vitals Vital Signs Date Temp Pulse Resp B/P (MAP) Pulse Ox O2 O2 Flow FiO2 Time Delivery Rate 08/09/18 98.8 88 18 114/61 97 15:14 (78) 08/09/18 Room Air 02:00 Intake and Output 08/08/18 08/08/18 08/09/18 1515:00 23:00 07:00 IntakeIntake Total 400 ml 1000 ml OutputOutput Total 800 ml 950 ml 600 ml BalanceBalance -400 ml 50 ml -600 ml Results Results 24hrs Laboratory Tests Test 08/08/18 21:12 08/09/18 01:15 08/09/18 08:20 08/09/18 12:55 Bedside Glucose 204 170 133 182 Test 08/09/18 17:46 Bedside Glucose 168 Medications Medication Current Medications Buspirone HCl (Buspar) 10 mg BID PO Last administered on 08/01/18at 08:47; Admin Dose 10 MG; Start 07/10/18 at 21:00 IV Flush (NS 3 ml) 3 ml PER PROTOCOL IV ; Start 07/10/18 at 14:30 Ondansetron HCl (Zofran Inj) 4 mg Q6H PRN IV NAUSEA/VOMITING Last administered on 07/26/18 11:52; Admin Dose 4 MG; Start 07/10/18 at 14:30 Acetaminophen (Tylenol Tab) 650 mg Q6H PRN PO .PAIN 1-3 OR TEMP; Start 07/10/18 at 14:30 Enoxaparin Sodium (Lovenox) 40 mg DAILY SC Last administered on 08/09/18 08:30; Admin Dose 40 MG; Start 07/11/18 at 09:00 Insulin Glargine (Lantus) 12 units DAILY@2000 SC Last administered on 08/08/18 21:20; Admin Dose 12 UNITS; Start 07/10/18 at 20:00 Nicotine (Nicoderm 21 Mg/ 24hr) 1 patch DAILY TRANSDERM Last administered on 08/09/18 08:27; Admin Dose 1 PATCH; Start 07/11/18 at 09:00 Miscellaneous Information 1 ea NOTE XX ; Start 07/11/18 at 06:45 Glucose (Glutose) 15 gm Q15M PRN PO DECREASED GLUCOSE; Start 07/11/18 at 06:45 Glucose (Glutose) 22.5 gm Q15M PRN PO DECREASED GLUCOSE; Start 07/11/18 at 06:45 Dextrose (D50w Syringe) 25 ml Q15M PRN IV DECREASED GLUCOSE; Start 07/11/18 at 06:45 Dextrose (D50w Syringe) 50 ml Q15M PRN IV DECREASED GLUCOSE; Start 07/11/18 at 06:45 Glucagon (Glucagen) 1 mg Q15M PRN IM DECREASED GLUCOSE; Start 07/11/18 at 06:45 Glucose (Glutose) 15 gm Q15M PRN BUCCAL DECREASED GLUCOSE; Start 07/11/18 at 06:45 Bupropion HCl (Wellbutrin Xl) 150 mg DAILY PO Last administered on 08/01/18 08:47; Admin Dose 150 MG; Start 07/13/18 at 09:00 Atorvastatin Calcium (Lipitor) 20 mg HS PO Last administered on 08/08/18 21:13; Admin Dose 20 MG; Start 07/13/18 at 21:00 IV Flush (NS 10 ml) 10 ml PRN PRN IV IV PROTOCOL; Start 07/18/18 at 16:30 Clopidogrel Bisulfate (plaVIX) 75 mg DAILY PO Last administered on 08/09/18 08:22; Admin Dose 75 MG; Start 07/26/18 at 11:30 Hydralazine HCl (Apresoline) 10 mg Q4H PRN IV SYSTOLIC BP > 170 Last administered on 07/30/18at 20:47; Admin Dose 10 MG; Start 07/30/18 at 21:00 Tamsulosin HCl (Flomax) 0.4 mg HS PO Last administered on 08/08/18 21:13; Admin Dose 0.4 MG; Start 08/02/18 at 11:00 Insulin Aspart (Novolog Insulin Pen) NOVOLOG *MILD* ALGORITHM WITH MEALS BEDTIME SC Last administered on 08/09/18 17:48; Admin Dose 1 UNIT; Start 08/03/18 at 21:12 Cholecalciferol (Vitamin D) 2,000 unit DAILY PO Last administered on 08/09/18 08:22; Admin Dose 2,000 UNIT; Start 08/09/18 at 09:00 AAKASH HELLER MD Aug 09, 2018 18:32
[2018-08-09 20:16] VITALS: BP 126/70; PULSE 78; RESP 18
[2018-08-09] MEDS: ATORVASTATIN 20 MG TAB PO SCH (20:53)
[2018-08-09] MEDS: TAMSULOSIN (SR) 0.4 MG CAP PO SCH (20:53)
[2018-08-09] MEDS: INSULIN GLARGINE [LANTus] (100 UNITS/ML) SYG SC SCH (20:55)
[2018-08-10 02:09] VITALS: BP 130/68; PULSE 77; RESP 18
[2018-08-10 07:19] VITALS: BP 110/63; PULSE 77; RESP 20
[2018-08-10] MEDS: INSULIN ASPART [NOVOLOG] 3 ML PEN SC SCH ×3 (08:00→17:54)
[2018-08-10] MEDS: CLOPIDOGREL 75 MG TAB PO SCH (08:39)
[2018-08-10] MEDS: CHOLECALCIFEROL 2,000 UNIT CAP PO SCH (08:39)
[2018-08-10] MEDS: BUPROPION (XL) 150 MG TAB PO SCH (08:40)
[2018-08-10] MEDS: BUSPIRONE 10 MG TAB PO SCH (08:40)
[2018-08-10] MEDS: NICOTINE (21 MG/24 HR) PATCH TRANSDERM SCH (08:41)
[2018-08-10] MEDS: ENOXAPARIN 40 MG/0.4 ML SYG SC SCH (08:43)
--- NOTE | 2018-08-10 10:19 | DS ---
Date/Time of Note Date/Time of Note DATE: 08/10/18 TIME: 10:13 Discharge Summary Admission/Discharge Info Admit Date/Time July 10, 2018 at 12:52 Discharge Date/Time Patient Condition: Stable Consults Brielle Wilkerson/ Jennifer Procedures MRI foot IMPRESSION: 1. Probable skin ulceration at the medial aspect of the first proximal phalanx. 2. Findings of early osteomyelitis at the first distal phalanx and head of the proximal phalanx. 3. Additional focus of abnormal bone marrow signal at the head of the second proximal phalanx, which could be from early ischemic change or stress-related versus less likely early osteomyelitis, unless there is an also an ulcer in this region. 4. No evidence for abscess. Ultrasound venous No DVT on left Arterial ultrasound IMPRESSION: Patent left lower extremity arteries with no arterial occlusion identified. Elevated peak systolic velocity in the mid superficial femoral artery, consistent with a greater than 75% stenosis. There are monophasic waveforms in the arteries beyond this point, indicating diminished inflow due to the upstream stenosis. Foot x-ray IMPRESSION: Unremarkable left foot x-ray series. In the setting of suspected infection, MRI is recommended to exclude osteomyelitis. Chest x-ray No acute process Arterial ultrasound mapping IMPRESSION: 1. Bilateral lower extremity venous mapping as detailed above. Foot pathology results MICROSCOPIC DIAGNOSIS: Left great toe, amputation: -- Gangrenous necrosis of skin and subcutaneous tissue, diffuse, extending to the proximal margin of amputation. -- Sections of phalangeal bone show no evidence of osteomyelitis. -- There is no evidence of malignancy. Hx of Present Illness 73-year-old gentleman sent to the hospital for concern of progressive gangrene of his toe Hospital Course Hospitalist coverage/hospital course -Evaluated managed for left toe gangrene. Seen by podiatry along with vascular and ID. Underwent left femoral posterior tibial bypass. He is stable for discharge to follow with vascular. Additionally underwent debridement with podiatry. Stable and fit for discharge to follow-up with podiatry. finished his antibiotics here in the hospital. He is instructed to avoid tobacco and consider patch. Questions answered. Insurance status unknown. Case management assistance appreciated. Patient to go home with home health/ wound care/DME. Assessment and plan 1. Left toe gangrene, stable, follow-up with podiatry 2. PAD sp femoral posterior tibial bypass, stable follow-up with vascular 3. Tobacco abuse status post counseling offered patch 4. COPD? 5. Type 2 diabetes 6. Hypertension 7. Depression? 8. Lt first toe osteomyelitis sp partial amputation, finished antibiotics today. 9. Debility, weightbearing with boot Home Meds Active Scripts Lactobacillus Acidophilus* (Lactinex*) 1 Tab Chew, 1 TAB PO BID for 10 Days, #20 TAB Prov:AAKASH HELLER MD 08/09/18 Cholecalciferol (Vitamin D3) (VITAMIN D-3) 2,000 Unit Capsule, 2000 UNIT PO DAILY for 30 Days, #30 CAP Prov:AAKASH HELLER MD 08/09/18 Acetaminophen* (Tylenol*) 325 Mg Tablet, 650 MG PO Q6H PRN for .PAIN 1-3 OR TEMP for 5 Days, TAB Prov:AAKASH HELLER MD 08/09/18 Enoxaparin Sodium* (Enoxaparin Sodium*) 40 Mg/0.4 Ml Syringe, 40 MG SC DAILY for 10 Days Prov:AAKASH HELLER MD 08/09/18 Clopidogrel Bisulfate (Clopidogrel) 75 Mg Tablet, 75 MG PO DAILY for 30 Days, #30 TAB Prov:AAKASH HELLER MD 08/09/18 Tamsulosin Hcl* (Flomax*) 0.4 Mg Cap.er.24h, 0.4 MG PO HS for 15 Days, #15 CAP Prov:AAKASH HELLER MD 08/09/18 Nicotine* (Nicotine* Patch) 21 mg/day Patch, 1 PATCH TRANSDERM DAILY for 5 Days Prov:AAKASH HELLER MD 08/09/18 Levofloxacin* (Levaquin*) 750 Mg Tablet, 750 MG PO DAILY@06 for 2 Days, #2 TAB Prov:AAKASH HELLER MD 08/09/18 Amoxicillin* (Amoxicillin*) 500 Mg Cap, 500 MG PO Q8 for 1 Day, #3 CAP Prov:AAKASH HELLER MD 08/09/18 Glipizide* (Glipizide*) 5 Mg Tablet, 5 MG PO AC BREAKFAST DINNER, #60 TAB Prov:EDDIE PITTMAN NP 07/20/18 Bupropion Hcl* (Bupropion XL*) 150 Mg Tab.er.24h, 150 MG PO DAILY, #30 TAB Prov:HERMELINDO PITTMANA V. DIRECTOR DIETETICS DEPARTMENT 07/20/18 [place]-3/Dha/Epa/Fish Oil (Fish Oil 1,000 mg Softgel) 1,000 Mg Capsule, 2000 MG PO BID, #60 CAP Prov:PITTMANHERMELINDOA V. DIRECTOR DIETETICS DEPARTMENT 07/20/18 Atorvastatin Calcium (Atorvastatin Calcium) 20 Mg Tablet, 20 MG PO HS, #30 TAB Prov:PITTMANHERMELINDOA V. DIRECTOR DIETETICS DEPARTMENT 07/20/18 Ferrous Fumarate/Ascorbic Acid (Cindy-Sequels 65-25 mg Caplet) 1 Each Tablet.er, 1 TAB PO DAILY, #30 TAB Prov:PITTMANHERMELINDO MENSAHA Kylie. DIRECTOR DIETETICS DEPARTMENT 07/20/18 [Vancomycin Iv Per Pharmacy] 1 EA EACH No Conflict Check, 0 EA XX .PER PROTOCOL for 40 Days Prov:EDDIE PITTMAN V. DIRECTOR DIETETICS DEPARTMENT 07/20/18 Reported Medications Fenofibrate, Micronized (Fenofibrate) 134 Mg Capsule, 1 CAP ORAL DAILY 07/10/18 Buspirone Hcl* (Buspirone Hcl*) 10 Mg Tab, 1 TAB ORAL BID 07/10/18 Pioglitazone Hcl* (Pioglitazone Hcl*) 30 Mg Tablet, 1 TAB ORAL DAILY 07/10/18 Glipizide* (Glipizide*) 10 Mg Tablet, 1 TAB ORAL BID 07/10/18 Follow-up Plan appt PCP & Dr Gaitan 1wk Dr Rodriguez 1-2wks Primary Care Provider Time spent on discharge: > 30 minutes Pending Labs Laboratory Tests Test 08/09/18 12:55 08/09/18 17:46 08/09/18 20:52 08/10/18 07:58 Bedside 182 168 201 92 Glucose mg/dL (70-220) mg/dL (70-220) mg/dL (70-220) mg/dL (70-220) AAKASH HELLER MD Aug 10, 2018 10:19
[2018-08-10 14:07] VITALS: BP 114/64; PULSE 86; RESP 20
== END 2018-08-10 18:40 | disposition home health service (06) | DRG 253 ==
LOC: E/R 10:17 → MERGE 10:17 → PP2 12:52 → ICU 07-26 12:30 → TEL 07-27 11:23 → 2NE 07-31
PROVIDERS: ADMIT Internal Medicine; ATTEND Internal Medicine
PROC: B400YZZ Plain Radiography of Abdominal Aorta using Other Contrast (ICD-10-PCS; 2018-07-11)
PROC: 05HY33Z Insertion of Infusion Device into Upper Vein, Percutaneous Approach (ICD-10-PCS; 2018-07-18)
PROC: 04WY07Z Revision of Autologous Tissue Substitute in Lower Artery, Open Approach (ICD-10-PCS; 2018-07-26)
PROC: 06BQ0ZZ Excision of Left Saphenous Vein, Open Approach (ICD-10-PCS; 2018-07-26)
PROC: 0JBR0ZZ Excision of Left Foot Subcutaneous Tissue and Fascia, Open Approach (ICD-10-PCS; 2018-07-31)
PROC: 0Y6Q0Z1 Detachment at Left 1st Toe, High, Open Approach (ICD-10-PCS; principal; 2018-07-31 11:30)
DX: E11.52 Type 2 diabetes mellitus with diabetic peripheral angiopathy with gangrene (principal); L03.116 Cellulitis of left lower limb; M86.8X7 Other osteomyelitis, ankle and foot; B49 Unspecified mycosis; E87.5 Hyperkalemia; E11.65 Type 2 diabetes mellitus with hyperglycemia; E11.40 Type 2 diabetes mellitus with diabetic neuropathy, unspecified; E11.8 Type 2 diabetes mellitus with unspecified complications; D64.9 Anemia, unspecified; I73.9 Peripheral vascular disease, unspecified; E78.5 Hyperlipidemia, unspecified; F41.9 Anxiety disorder, unspecified; F32.9 Major depressive disorder, single episode, unspecified; Z79.4 Long term (current) use of insulin; F17.200 Nicotine dependence, unspecified, uncomplicated; I10 Essential (primary) hypertension; B95.2 Enterococcus as the cause of diseases classified elsewhere
CPT/HCPCS: 36246; 36415; 36569; 71045; 73718; 75625; 75710; 76937; 80048; 80053; 80061; 80202; 81001; 82306; 82565; 82652; 82947; 82962; 83036; 83540; 83735; 84100; 84520; 85014; 85018; 85025; 85610; 85730; 86850; 86900; 86901; 87070; 87081; 87086; 87102; 88305; 88311; 93005; 93926; 93970; 93971; 96365; 96375; 97110; 97116; 97162; 97164; 97530; C1887; J0360; J0690; J1170; J1644; J1650; J1815; J1885; J1956; J2001; J2250; J2405; J2543; J2765; J2997; J3010; J3370; J7030; J7042; J7050; J7120; Q9967

== ENCOUNTER 2018-10-10 08:49 | Emergency (ER) | payer MEDICAID, OTHER ==
[~2018-10-10] VITALS: Ht 180.3 cm; Wt 79.2 kg
[~2018-10-10 08:49] MED LIST: ACET325T33 PO; AMOX500C2 PO; ATOR20TA65 PO; BUPR150T6 PO; BUSP10TA2 ORAL; CHOL200073 PO; CHOL200078 PO; CLOP75TA28 PO; ENOX40DI2 SC; FAMO-96 PO; FENO134C ORAL; FERR1TAB14 PO; GLIP10TA14 ORAL; GLIP5TAB13 PO; LACTINEX PO; LEVO750T25 PO; METF100010 PO; NICO-546 TRANSDERM; OMEG100024 PO; ONDA4TAB8 PO; PIOG30TA71 ORAL; TAMS-14 PO; Vancomycin Iv Per Pharmacy XX
[2018-10-10 09:02] VITALS: Ht 180.3 cm; Wt 79.2 kg
[2018-10-10] MEDS ORDERED: LIDOCAINE/MYLANTA 40 ML BTL PO STA (09:14)
[2018-10-10] MEDS ORDERED: ONDANSETRON 4 MG INJ IV STA (09:14)
[2018-10-10] MEDS ORDERED: BELLADONNA/PHENOBARBITAL TAB PO STA (09:14)
[2018-10-10] MEDS ORDERED: FAMOTIDINE 20 MG INJ IV STA (09:14)
[2018-10-10] MEDS ORDERED: SOD CHLORIDE 0.9% 1,000 ML IV STA (09:14)
--- NOTE | 2018-10-10 11:25 | ERD ---
ER Documentation Chief Complaint Chief Complaint AP WITH N/V FOR 2 DAYS. LEFT GREAT TOE WITH DIABETIC ULCER. BS 270. HPI This is a 73-year-old male with a past medical history of hyperlipidemia, diabetes, peripheral vascular disease, diabetic foot ulcers status post left great toe amputation being managed by a wound care clinic actively, presenting for 1 day of mild waxing and waning aching epigastric discomfort with nausea and an episode of nonbilious nonbloody vomiting last night. The patient presents today, because he continues to feel nauseated. He does not endorse any abdominal pain at this time. He does not endorse any constipation or diarrhea. He does not report any black or bloody or tarry stools. He does not endorse any dysuria or hematuria or urgency or frequency. The patient endorses symptoms beginning about an hour after eating steamed vegetables last night. The patient denies feeling sick recently. The patient denies fever or chills. The patient has had no headache or vision changes. The patient does not endorse neck or back pain. The patient denies lightheadedness or dizziness. The patient has had no chest pain or trouble breathing. He denies diaphoresis. The patient has had no focal deficits. The patient has had no weakness or numbness or tingling to the face or extremities. ROS All systems reviewed and are negative except as per history of present illness. Medications Home Meds Reported Medications Cholecalciferol (Vitamin D3) (Vitamin D3) 2,000 Unit Tab.chew, 2000 UNIT PO DAILY 10/10/18 Metformin Hcl* (Metformin Hcl*) 1,000 Mg Tablet, 1 TAB PO BID 10/10/18 Tamsulosin Hcl* (Flomax*) 0.4 Mg Cap.er.24h, 1 CAP PO DAILY 10/10/18 Discontinued Reported Medications Fenofibrate, Micronized (Fenofibrate) 134 Mg Capsule, 1 CAP ORAL DAILY 07/10/18 Buspirone Hcl* (Buspirone Hcl*) 10 Mg Tab, 1 TAB ORAL BID 07/10/18 Pioglitazone Hcl* (Pioglitazone Hcl*) 30 Mg Tablet, 1 TAB ORAL DAILY 07/10/18 Glipizide* (Glipizide*) 10 Mg Tablet, 1 TAB ORAL BID 07/10/18 Discontinued Scripts Lactobacillus Acidophilus* (Lactinex*) 1 Tab Chew, 1 TAB PO BID for 10 Days, #20 TAB Prov:AAKASH HELLER MD 08/09/18 Cholecalciferol (Vitamin D3) (VITAMIN D-3) 2,000 Unit Capsule, 2000 UNIT PO DAILY for 30 Days, #30 CAP Prov:AAKASH HELLER MD 08/09/18 Acetaminophen* (Tylenol*) 325 Mg Tablet, 650 MG PO Q6H PRN for .PAIN 1-3 OR TEMP for 5 Days, TAB Prov:AAKASH HELLER MD 08/09/18 Enoxaparin Sodium* (Enoxaparin Sodium*) 40 Mg/0.4 Ml Syringe, 40 MG SC DAILY for 10 Days Prov:AAKASH HELLER MD 08/09/18 Clopidogrel Bisulfate (Clopidogrel) 75 Mg Tablet, 75 MG PO DAILY for 30 Days, #30 TAB Prov:AAKASH HELLER MD 08/09/18 Tamsulosin Hcl* (Flomax*) 0.4 Mg Cap.er.24h, 0.4 MG PO HS for 15 Days, #15 CAP Prov:AAKASH HELLER MD 08/09/18 Nicotine* (Nicotine* Patch) 21 mg/day Patch, 1 PATCH TRANSDERM DAILY for 5 Days Prov:AAKASH HELLER MD 08/09/18 Levofloxacin* (Levaquin*) 750 Mg Tablet, 750 MG PO DAILY@06 for 2 Days, #2 TAB Prov:AAKASH HELLER MD 08/09/18 Amoxicillin* (Amoxicillin*) 500 Mg Cap, 500 MG PO Q8 for 1 Day, #3 CAP Prov:AAKASH HELLER MD 08/09/18 Glipizide* (Glipizide*) 5 Mg Tablet, 5 MG PO AC BREAKFAST DINNER, #60 TAB Prov:PITTMAN,EDDIE V. MILLER KILN DRIED SALT 07/20/18 Bupropion Hcl* (Bupropion XL*) 150 Mg Tab.er.24h, 150 MG PO DAILY, #30 TAB Prov:PITTMAN,EDDIE V. MILLER KILN DRIED SALT 07/20/18 Owings-3/Dha/Epa/Fish Oil (Fish Oil 1,000 mg Softgel) 1,000 Mg Capsule, 2000 MG PO BID, #60 CAP Prov:PITTMAN,EDDIE V. MILLER KILN DRIED SALT 07/20/18 Atorvastatin Calcium (Atorvastatin Calcium) 20 Mg Tablet, 20 MG PO HS, #30 TAB Prov:PITTMAN,EDDIE V. MILLER KILN DRIED SALT 07/20/18 Ferrous Fumarate/Ascorbic Acid (Cindy-Sequels 65-25 mg Caplet) 1 Each Tablet.er, 1 TAB PO DAILY, #30 TAB Prov:PITTMAN,EDDIE V. MILLER KILN DRIED SALT 07/20/18 [Vancomycin Iv Per Pharmacy] 1 EA EACH No Conflict Check, 0 EA XX .PER PROTOCOL for 40 Days Prov:PITTMAN,EDDIE V. MILLER KILN DRIED SALT 07/20/18 Allergies Allergies: Coded Allergies: aspirin (Unverified Allergy, Mild, VOMITING, 10/10/18) PMhx/Soc History of Surgery: Yes (KIDNEY STONES 50 YRS AGO) Anesthesia Reaction: No Hx Neurological Disorder: Yes (NEUROPATHIC PAIN) Hx Respiratory Disorders: No Hx Cardiac Disorders: No Hx Psychiatric Problems: No Hx Miscellaneous Medical Probl: Yes (DM, peripheral vascular disease, LT toe gangrene, osteomyelitis) Hx Alcohol Use: No Hx Substance Use: No Hx Tobacco Use: Yes (1 PACK A DAY) Smoking Status: Current some day smoker FmHx Family History: diabetes Physical Exam Vitals Vital Signs Date Temp Pulse Resp B/P (MAP) Pulse Ox O2 O2 Flow FiO2 Time Delivery Rate 10/10/18 98.1 91 18 145/67 98 09:02 (93) Physical Exam Const: No acute distress Head: Atraumatic Eyes: Normal Conjunctiva ENT: Normal External Ears, Nose and Mouth. Neck: Full range of motion. No meningismus. Resp: Clear to auscultation bilaterally Cardio: Regular rate and rhythm, no murmurs Abd: Soft, non tender, non distended. Normal bowel sounds Skin: No petechiae or rashes Back: No midline or flank tenderness Ext: No cyanosis, or edema. Left diabetic foot ulcer. Status post right great toe amputation. Neur: Awake and alert Psych: Normal Mood and Affect Results 24 hrs Laboratory Tests Test 10/10/18 09:01 Bedside Glucose 270 mg/dL Current Medications Medications Dose Sig/Marleen Start Time Status Last (Trade) Ordered Route PRN Stop Time Admin Dose Reason Admin Sodium 1,000 ml @ Q1H STAT 10/10/18 DC 10/10/18 Chloride 1,000 mls/hr IV 09:14 10/10/18 09:50 10:13 Ondansetron 4 mg ONCE STAT 10/10/18 DC 10/10/18 HCl (Zofran IV 09:14 10/10/18 09:50 Inj) 09:15 Famotidine 20 mg ONCE STAT 10/10/18 DC 10/10/18 (Pepcid Iv) IV 09:14 10/10/18 09:50 09:15 40 ml ONCE STAT 10/10/18 DC 10/10/18 Miscellaneous PO 09:14 10/10/18 09:50 Medication 09:15 (Gi Cocktail (2)) Belladonna/ 2 tab ONCE STAT 10/10/18 DC 10/10/18 Phenobarbital PO 09:14 10/10/18 09:50 () 09:15 Procedures/MDM MDM The patient's presentation warrants further investigation. Previous medical records, if available, were reviewed. LABS The patient's laboratory testing was obtained and reviewed. No emergent treatment was required unless described below. BS: 270 TREATMENT/DISPOSITION The patient presents with waxing and waning epigastric discomfort with nausea and one episode of nonbilious nonbloody vomiting yesterday. This could be GI upset due to something that he ate. Gastroenteritis is certainly a possibility as well, though he does not endorse any diarrhea. GERD versus PUD versus gastritis are also possibilities. Patient was treated with IV fluids, Pepcid, Zofran and a GI cocktail with resolution of his symptoms. On exam, the patient has no abdominal tenderness. I do not suspect viscus perforation. The patient does not have any evidence of peritonitis. The patient does not have clinical symptoms concerning for mesenteric ischemia or ischemic colitis. The patient does not have right upper quadrant tenderness, and I have low suspicion for gallstones, cholecystitis or biliary colic. The patient does not have left upper quadrant tenderness. I have low suspicion for pancreatitis. The patient does not have any right lower quadrant tenderness, or periumbilical tenderness. I have low suspicion for appendicitis. The patient does not have suprapubic tenderness. I have decreased suspicion for cystitis. The patient does not have any left lower quadrant tenderness and does not endorse any GI bleeding. I have low suspicion for diverticulosis or diverticulitis. The patient does not have any flank tenderness. The patient does not have gross hematuria. I have decreased suspicion for nephrolithiasis or renal colic. The patient does not have any palpable pulsatile mass or severe abdominal pain radiating to the back. I have low suspicion for aortic aneurysm, dissection or rupture. DISCHARGE Upon reevaluation of the patient, symptoms have improved. No emergent diagnoses were identified. At this time, I feel that the patient stable for discharge. The patient was instructed to follow-up with a primary care physician in 1-3 days. The patient will be given strict precautions with which to return to the emergency department. Prescriptions: Yolanda Malin The patient's blood pressure was elevated at greater than 120/80 while in the emergency department. The patient was otherwise stable with no evidence of hypertensive urgency or emergency. The patient does not require admission for blood pressure control. I have discussed with the patient the risks of hypertension. I have instructed the patient to return to the ER for any new or worsening symptoms including chest pain, shortness of breath, headache, blurred vision, confusion, nausea, vomiting or LOC. I have advised the patient to follow up with the primary care physician for outpatient monitoring and treatment for hypertension in 1-3 days. DISCLAIMER Inadvertent spelling and grammatical errors are likely due to EHR/dictation software use and do not reflect on the overall quality of patient care. Note that the electronic time recorded on this note does not necessarily reflect the actual time of the patient encounter. Departure Diagnosis: Primary Impression: Epigastric abdominal pain Additional Impression: Nausea & vomiting Vomiting type: unspecified Vomiting Intractability: non-intractable Qualified Codes: R11.2 - Nausea with vomiting, unspecified Condition: Stable Patient Instructions: Abdominal Pain, Nausea and Vomiting-Adult Additional Instructions: Thank you for for coming to [facility] for your care today. Please ask your nurse or provider if you have questions about your care today and do not leave until all your questions have been answered. Please use any medications given as directed and follow-up with your doctor (or the doctor you were referred to) in the next 1-3 days. If you do not have a primary care doctor you may follow up at the [facility] or [facility] (listed below). You may also use motrin and tylenol as needed for fever and/or pain unless instruct ed otherwise by your provider or nurse. Indications for more urgent follow-up have been discussed, but you may return to the Emergency Department at ANY time for any worrisome or worsening symptoms. If you have abdominal pain, please know that no test or exam you received is perfect and you should follow up within 8 hours for continued pain. If you had any imaging studies today, such as an X-Ray or CT Scan, these studies will be reviewed later by a radiologist. You will be called if there are important findings that were not identified today, so make sure the contact information you provided at registration is correct. If you received any narcotic pain control medicine today, such as Vicodin, Morphine or Dilaudid, your coordination and judgment may be affected for a number of hours. Please do not drive or operate heavy machinery, and you may want someone to assist you at home. If you were given a prescription for narcotic medication, be aware that it is very addictive- use sparingly and only if necessary. PLEASE SEEK FURTHER EVALUATION AND MANAGEMENT AT YOUR DOCTORS OFFICE WITHIN THE NEXT 1-3 DAYS. IT IS YOUR RESPONSIBILITY TO MAKE AN APPOINTMENT FOR FOLOW-UP CARE. IF YOU HAVE A PRIMARY DOCTOR, PLEASE CALL THEIR OFFICE TO SCHEDULE AN APPOINTMENT FOR FOLLOW UP. IF YOU DO NOT HAVE A PRIMARY DOCTOR YOU CAN CALL OUR PHYSICIAN REFERRAL HOTLINE AT IF YOU CAN NOT AFFORD TO SEE A PHYSICIAN YOU CAN CHOSE FROM THE FOLLOWING [facility] CLINICS: [facility] [address] [facility] [facility] [address] [facility] [facility] [address] [facility] [facility] [address] [facility]. [facility] [address] [facility]. [facility]. [address] CELINE ROSA MD Oct 10, 2018 11:25
[2018-10-10 11:52] VITALS: BP 165/85; PULSE 66; RESP 17
== END 2018-10-10 12:25 | disposition home or self-care (01) ==
LOC: E/R 08:49
DX: R10.13 Epigastric pain (principal); E11.9 Type 2 diabetes mellitus without complications; F17.210 Nicotine dependence, cigarettes, uncomplicated; R11.2 Nausea with vomiting, unspecified; Z79.84 Long term (current) use of oral hypoglycemic drugs
CPT/HCPCS: 82962; 96374; 96375; J2405; J7030; Z7502; Z7610

== ENCOUNTER 2018-11-10 10:30 | Emergency (ER) | payer OTHER ==
[~2018-11-10] VITALS: Ht 182.9 cm; Wt 76.0 kg
[~2018-11-10 10:30] MED LIST changes: -ACET325T33 PO; -AMOX500C2 PO; -ATOR20TA65 PO; -BUPR150T6 PO; -BUSP10TA2 ORAL; -CHOL200073 PO; +CLOP75TA27 PO; -CLOP75TA28 PO; +CRES20 PO; +CYAN100080 PO; -ENOX40DI2 SC; -FENO134C ORAL; +FER325 PO; -FERR1TAB14 PO; -GLIP10TA14 ORAL; -GLIP5TAB13 PO; -LACTINEX PO; -LEVO750T25 PO; -NICO-546 TRANSDERM; -OMEG100024 PO; -PIOG30TA71 ORAL; -Vancomycin Iv Per Pharmacy XX
[2018-11-10 10:32] VITALS: Ht 182.9 cm; Wt 76.0 kg
[2018-11-10] MEDS ORDERED: ACETAMINOPHEN 325 MG TAB PO PRN (13:00)
[2018-11-10] MEDS ORDERED: ONDANSETRON 4 MG INJ IV PRN (13:00)
[2018-11-10 13:24] VITALS: BP 152/78; PULSE 76; RESP 16
== END 2018-11-10 13:28 | disposition home or self-care (01) ==
LOC: E/R 10:30 → CANBEDREQ 17:42
DX: E11.52 Type 2 diabetes mellitus with diabetic peripheral angiopathy with gangrene (principal); F17.210 Nicotine dependence, cigarettes, uncomplicated; R06.00 Dyspnea, unspecified; Z79.84 Long term (current) use of oral hypoglycemic drugs
CPT/HCPCS: 71045; 80053; 85025; 85610; 85730; 93005; Z7502